=== PATIENT | male | born 1950 | race Hispanic/Latino ===

== ENCOUNTER 2017-06-11 13:46 | Inpatient (IN) | payer MEDICARE, OTHER ==
[~2017-06-11] VITALS: Ht 175.3 cm; Wt 113.2 kg
[~2017-06-11 13:46] MED LIST: ALDACTONE25 MG PO; AMIODARONE HCL200 MG PO; AVODART0.5 MG PO; BACLOFEN10 MG PO; BACTRIM DS TAB1 EACH PO; CARVEDILOL25 MG PO; CLINDAMYCIN HC150 MG PO; COLACE100 MG PO; COREG12.5 MG PO; COUMADIN2 MG PO; DOXYCYCLINE HY100 MG PO; FOLIC ACID0.8 MG PO; FUROSEMIDE40 MG PO; FUROSEMIDE80 MG PO; GABAPENTIN300 MG PO; HCT25T PO; HUMALOG100 UNIT/1 SQ; HUMALOG100 UNIT/3 SQ; HUMALOG100 UNITS/ SQ; HYDROCHLOROTHIA25 MG PO; Insulin Detemir SQ; KEFLEX500 MG PO; LANOXIN125 MCG PO; LASIX40 MG PO; LEVEMIR100 UNIT/1 SC; LEVEMIR100 UNIT/1 SQ; LEVP SQ; LINZESS PO; LISINOPRIL30 MG PO; LOSARTAN POTASS25 MG PO; Losartan Potassium PO; MECLIZINE HCL12.5 MG PO; MECLIZINE HCL25 MG PO; METFORMIN HCL500 MG PO; METOLAZONE2.5 MG PO; METOPROLOL TART25 MG PO; MILK OF MA2400 MG/10 PO; MIRALAX17 GM PO; NEU300 PO; NEXIUM40 MG PO; NO MED LIST; NORCO 5-325 TA1 EACH PO; NOVOLIN N100 UNIT/1 SQ; OMEPRAZOLE40 MG PO; PATADAY2.5 ML; PATADAY2.5 ML OP; POTASSIUM CHLO10 ME1 PO; POTASSIUM CHLO20 ME1 PO; PROSCAR5 MG PO; SENOKOT8.6 MG PO; SIMVASTATIN40 MG PO; SPIRONOLACTONE25 MG PO; TRAMADOL-ACETAMI1 EA PO; TYLENOL # 31 EA PO; WARFARIN SODIUM2 MG PO; ZESTRIL20 MG PO
[2017-06-11 15:02] LABS: INR 1.3; PROTHROMBIN TIME 16.9 seconds (11.9-14.5)
[2017-06-11 15:03] LABS: PARTIAL THROMBOPLASTIN TIME 42.5 seconds (23.8-35.5)
[2017-06-11 15:04] LABS: BASOPHILS # (AUTO) 0.1 (0.0-0.1); BASOPHILS % 0.7 % (0.0-1.0); EOSINOPHILS # (AUTO) 0.3 (0.0-0.4); EOSINOPHILS % 4.1 % (0.0-6.0); HEMATOCRIT 40.3 % (38.2-49.6); LYMPHOCYTES # (AUTO) 1.4 (1.0-3.2); LYMPHOCYTES % 20.1 % (18.0-39.1); MEAN CORPUSCULAR HEMOGLOBIN 31.7 pg (28-32); MEAN CORPUSCULAR HGB CONC 32.3 g/dL (31-35); MEAN CORPUSCULAR VOLUME 98.3 fL (81-99); MONOCYTES # (AUTO) 0.7 (0.2-0.8); MONOCYTES % 9.7 % (4.4-11.3); NEUTROPHILS # (AUTO) 4.6 (2.1-6.9); NEUTROPHILS % 65.1 % (38.7-80.0); PLATELET COUNT 94 x10e3/uL (140-360); RED CELL DISTRIBUTION WIDTH 16.7 % (11.7-14.4)
[2017-06-11 15:12] LABS: ALBUMIN/GLOBULIN RATIO 0.9 (0.8-2.0); ANION GAP 11.9 mmol/L (8-16); CALCIUM 8.9 mg/dL (8.4-10.2); CREATININE, SERUM 1.47 mg/dL (0.72-1.25); POTASSIUM 3.9 mmol/L (3.5-5.1)
[2017-06-11 15:19] LABS: CREATINE KINASE MB 8.7 ng/mL (0.00-5.00); TROPONIN I 0.036 ng/mL (0-0.300)
[2017-06-11 15:21] LABS: ABG HCO3 35 mmol/L (23-28); ABG PCO2 56 mmHg (41-51); ABG PO2 55 mmHg (80-105)
--- NOTE | 2017-06-11 15:43 | Diagnostic Imaging Report ---
EXAMINATION: Chest, CHEST SINGLE (PORTABLE) INDICATION: Shortness of breath. COMPARISON: Abdominal series with PA chest 05/06/2017 FINDINGS: LINES: Left chest cardiac device with lead projecting over the expected region of the right ventricle. Heart: Normal cardiac silhouette. Vascular: The pulmonary vasculature is within normal limits. Atherosclerotic calcifications of the aortic arch. Valve prosthesis. Mediastinum: No mediastinal, hilar, or axillary mass or lymphadenopathy. Lungs: No parenchymal mass. Bilateral perihilar opacifications. Pleura: No pleural effusion. No pneumothorax. Bones: No acute osseous abnormality. Degenerative changes of the thoracic spine. Median sternotomy wires. Soft tissues: Normal. Impression: Bilateral perihilar opacifications may represent edema or pneumonia. Signed by: Dr. Jose Juan Colorado M.D. on 06/11/2017 3:40 PM
[2017-06-11 20:00] VITALS: BP 130/74
[2017-06-11] MEDS: SODIUM CHLORIDE 0.9% 1000ML 1,000 ML IV SCH (20:16)
[2017-06-11 20:30] VITALS: BP 130/74
[2017-06-12] VITALS (7 sets, daily range): BP systolic 105–151; BP diastolic 64–74
[2017-06-12 01:09] LABS: CREATINE KINASE MB 8.2 ng/mL (0.00-5.00); TROPONIN I 0.034 ng/mL (0-0.300)
[2017-06-12] MEDS: MORPHINE SULFATE 2 MG/ML SYR IV PRN ×2 (02:42→06:02)
[2017-06-12] MEDS ORDERED: HYDROCODONE/APAP 5MG-325MG TAB PO PRN ×2 (03:00)
[2017-06-12] MEDS: SODIUM CHLORIDE 0.9% 1000ML 1,000 ML IV SCH (05:30)
[2017-06-12 08:05] LABS: CREATINE KINASE MB 8.6 ng/mL (0.00-5.00); TROPONIN I 0.033 ng/mL (0-0.300)
[2017-06-12 08:23] LABS: CHOL/HDL RATIO 3.4 (3.9-4.7)
[2017-06-12] MEDS ORDERED: SENNOSIDES 8.6 MG TAB PO PRN (10:00)
[2017-06-12] MEDS ORDERED: POLYETHYLENE GLYCOL 3350 17 GM PACK PO PRN (10:00)
[2017-06-12] MEDS ORDERED: MECLIZINE HCL 12.5 MG TAB PO PRN (10:00)
[2017-06-12] MEDS ORDERED: NON-FORMULARY MEDICATION (Metolazone 2.5 MG) PO PRN (10:00)
[2017-06-12] MEDS ORDERED: POTASSIUM CHLORIDE 20 MEQ TAB CR PO STA (10:24)
[2017-06-12] MEDS ORDERED: FUROSEMIDE INJ 10 MG/ML 4 ML VIAL IV ONE ×2 (10:30→16:30)
[2017-06-12] MEDS ORDERED: METOLAZONE 5 MG TAB PO PRN (10:30)
[2017-06-12] MEDS ORDERED: DEXTROSE 50% SYRINGE 50 ML IV PRN (10:30)
[2017-06-12] MEDS: FINASTERIDE 5 MG TAB PO SCH (10:46)
[2017-06-12] MEDS: INSULIN REGULAR, HUMAN 100 UNIT/1 ML 3ML VIAL SQ SCH ×3 (11:30→20:35)
[2017-06-12] MEDS ORDERED: INSULIN LISPRO SQ SCH (11:30)
[2017-06-12] MEDS: INSULIN LISPRO 100 UNIT/1 ML 3ML VIAL SQ SCH ×2 (12:44→17:00)
[2017-06-12] MEDS ORDERED: NON-FORMULARY MEDICATION (Furosemide 80 MG) PO SCH (17:00)
[2017-06-12] MEDS ORDERED: METOPROLOL TARTRATE 25 MG TAB PO SCH (17:00)
[2017-06-12] MEDS: GABAPENTIN 300 MG CAP PO SCH (17:25)
[2017-06-12] MEDS: WARFARIN SOD 2 MG TAB PO SCH (17:26)
[2017-06-12] MEDS: INSULIN DETEMIR 100 UNIT/ML PEN SQ SCH (20:35)
[2017-06-12] MEDS ORDERED: INSULIN DETEMIR 58 UNIT SQ SCH (21:00)
[2017-06-13] VITALS: BP 161/72
[2017-06-13 04:00] VITALS: BP 130/72
[2017-06-13 06:45] LABS: ANION GAP 12.5 mmol/L (8-16); CALCIUM 8.9 mg/dL (8.4-10.2); CREATININE, SERUM 1.21 mg/dL (0.72-1.25); POTASSIUM 3.5 mmol/L (3.5-5.1)
[2017-06-13] MEDS: INSULIN REGULAR, HUMAN 100 UNIT/1 ML 3ML VIAL SQ SCH ×4 (07:30→20:54)
[2017-06-13] MEDS: INSULIN LISPRO 100 UNIT/1 ML 3ML VIAL SQ SCH ×3 (08:20→16:30)
[2017-06-13 08:21] VITALS: BP 134/70
[2017-06-13] MEDS: LOSARTAN POTASSIUM 25 MG TAB PO SCH (08:35)
[2017-06-13] MEDS: OLOPATADINE 5 ML BTL OP SCH (08:35)
[2017-06-13] MEDS: FUROSEMIDE 40 MG TAB PO SCH ×2 (08:35→18:00)
[2017-06-13] MEDS: FINASTERIDE 5 MG TAB PO SCH (08:35)
[2017-06-13] MEDS: GABAPENTIN 300 MG CAP PO SCH ×2 (08:35→18:00)
[2017-06-13] MEDS ORDERED: AMIODARONE HCL 200 MG TAB PO SCH (09:00)
[2017-06-13] MEDS ORDERED: NON-FORMULARY MEDICATION (Olopatadine (Pataday) 1 DROP) SCH (09:00)
--- NOTE | 2017-06-13 10:31 | Consultation ---
DATE OF CONSULTATION: June 11, 2017 CARDIOLOGY CONSULTATION CLINICAL HISTORY: This is a 67-year-old man, known to me from previous evaluation, admitted via the emergency room because of progressive edema and shortness of breath. This patient is known to have congestive heart failure with ejection fraction of 30%. Additionally, there is history of moderate aortic regurgitation and mild mitral regurgitation. He is status post AICD implantation. There is history of atrial fibrillation versus junctional rhythm. There is history of mechanical mitral valve replacement for mitral stenosis. Additionally, he suffers from diabetes, hypertension. He has history of benign prostatic hypertrophy. Apparently, he has had peripheral edema, increasing abdominal girth, weight gain and shortness of breath. Was not able to get referral to see me in the office. He failed to improve, so I decided to come to the emergency room where he was being admitted. PAST MEDICAL HISTORY: Remarkable for above-mentioned conditions. Additionally, there is history of mild aortic stenosis with aortic valve gradient of 29 mmHg. 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 FAMILY HISTORY: Father from coronary artery disease. Mother had diabetes. Sister had bypass surgery at age 65. REVIEW OF SYSTEMS: Noncontributory. MEDICATIONS: In the past included, 1. Finasteride 5 mg daily. 2. Gabapentin 300 mg b.i.d. 3. Lasix 80 mg b.i.d. 4. Hydrochlorothiazide 25 mg daily. 5. Losartan. 6. Simvastatin 40 mg per day. 7. Coumadin 2 mg per day. 8. NovoLog insulin 38 units t.i.d. 9. Levemir insulin 50 units nightly. 10. Potassium chloride 20 mEq daily. 11. Metoprolol tartrate 12.5 mg b.i.d. 12. Colace 100 mg daily. 13. Omeprazole 40 mg daily. 14. Trazodone 50 mg daily. PHYSICAL EXAMINATION GENERAL: He is obese. He is status post left above-knee amputation. CARDIAC: Jugular veins were not distended. S1 and S2 were regular, somewhat slow. There is a 2/6 systolic murmur. LUNGS: Clear. ABDOMEN: Soft. Bowel sounds present. EXTREMITIES: Show no cyanosis, clubbing or edema. LABORATORY DATA: Electrocardiogram shows junctional bradycardia. Chest x-ray showed congestive heart failure. White count is 7100, hemoglobin 13, platelet count 94,000. BUN is 18, creatinine 1.4, glucose 148, sodium 140, potassium 3.9, bicarb 35. INR is 1.3. Liver functions were negative. IMPRESSION 1. Congestive heart failure with systolic dysfunction, ejection fraction approximately 30%. 2. History of mechanical mitral valve replacement for mitral stenosis. 3. Mild residual aortic stenosis. 4. Coronary artery disease, status post coronary artery bypass surgery. 5. Status post automatic implantable cardioverter-defibrillator implantation in August of 2014. 6. Chronic kidney disease, creatinine 1.47. 7. Junctional rhythm and history of atrial fibrillation. 8. Diabetes, insulin dependent. 9. Hyperlipidemia. 10. Benign prostatic hypertrophy. 11. Reflux esophagitis. 12. Obesity. 13. 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 14. Peripheral neuropathy. 15. Thrombocytopenia, platelet count 94,000. RECOMMENDATIONS: Increase diuretics. Review echocardiogram. Thank you very much. Job#: [id number] cc:MD WENDY LUA MD CLEVE O. JAMES, MD
[2017-06-13] MEDS ORDERED: METOLAZONE 5 MG TAB PO ONE (11:30)
[2017-06-13 12:19] VITALS: BP 151/70
[2017-06-13 16:54] VITALS: BP 134/71
[2017-06-13] MEDS: WARFARIN SOD 2 MG TAB PO SCH (18:00)
[2017-06-13 19:49] VITALS: BP 142/79
[2017-06-13] MEDS: INSULIN DETEMIR 100 UNIT/ML PEN SQ SCH (20:55)
[2017-06-14 01:39] VITALS: BP 136/63
[2017-06-14 04:21] VITALS: BP 113/56
[2017-06-14] MEDS: INSULIN LISPRO 100 UNIT/1 ML 3ML VIAL SQ SCH ×3 (07:30→16:30)
[2017-06-14] MEDS: INSULIN REGULAR, HUMAN 100 UNIT/1 ML 3ML VIAL SQ SCH ×4 (07:30→20:40)
[2017-06-14] MEDS ORDERED: METOLAZONE 5 MG TAB PO ONE (08:00)
[2017-06-14 08:32] VITALS: BP 123/78
[2017-06-14] MEDS: GABAPENTIN 300 MG CAP PO SCH ×2 (09:14→17:40)
[2017-06-14] MEDS: OLOPATADINE 5 ML BTL OP SCH (09:14)
[2017-06-14] MEDS: FUROSEMIDE 40 MG TAB PO SCH ×2 (09:14→17:40)
[2017-06-14] MEDS: FINASTERIDE 5 MG TAB PO SCH (09:14)
[2017-06-14] MEDS ORDERED: POTASSIUM CHLORIDE 20 MEQ TAB CR PO STA (10:31)
[2017-06-14] MEDS ORDERED: ACETAZOLAMIDE 500 MG CAP PO ONE (10:45)
[2017-06-14 12:00] VITALS: BP 132/78
[2017-06-14] MEDS: LOSARTAN POTASSIUM 25 MG TAB PO SCH (13:02)
[2017-06-14 16:14] VITALS: BP 132/69
[2017-06-14 17:45] LABS: INR 1.23; PROTHROMBIN TIME 16.1 seconds (11.9-14.5)
[2017-06-14] MEDS: WARFARIN SOD 2 MG TAB PO SCH (17:57)
[2017-06-14 20:00] VITALS: BP 130/68
[2017-06-14] MEDS: INSULIN DETEMIR 100 UNIT/ML PEN SQ SCH (20:47)
[2017-06-15] VITALS: BP 113/69
[2017-06-15 04:00] VITALS: BP 138/83
[2017-06-15] MEDS: INSULIN LISPRO 100 UNIT/1 ML 3ML VIAL SQ SCH ×3 (07:30→17:30)
[2017-06-15] MEDS: INSULIN REGULAR, HUMAN 100 UNIT/1 ML 3ML VIAL SQ SCH ×4 (07:30→20:40)
[2017-06-15 07:42] VITALS: BP 129/74
[2017-06-15] MEDS: GABAPENTIN 300 MG CAP PO SCH ×2 (08:46→17:34)
[2017-06-15] MEDS: OLOPATADINE 5 ML BTL OP SCH (08:46)
[2017-06-15] MEDS: FINASTERIDE 5 MG TAB PO SCH (08:46)
[2017-06-15] MEDS: FUROSEMIDE 40 MG TAB PO SCH ×2 (08:46→17:34)
[2017-06-15] MEDS: METOLAZONE 5 MG TAB PO SCH (08:46)
[2017-06-15] MEDS: LOSARTAN POTASSIUM 25 MG TAB PO SCH (09:00)
[2017-06-15] MEDS ORDERED: ACETAZOLAMIDE 500 MG CAP PO ONE (09:45)
[2017-06-15] MEDS ORDERED: WARFARIN SOD 5 MG TAB PO ONE (09:45)
[2017-06-15 10:22] LABS: ALBUMIN 3.7 g/dL (3.5-5.0); ALBUMIN/GLOBULIN RATIO 0.8 (0.8-2.0); ANION GAP 13.5 mmol/L (8-16); CALCIUM 10.6 mg/dL (8.4-10.2); CREATININE, SERUM 1.59 mg/dL (0.72-1.25)
[2017-06-15 10:48] LABS: POTASSIUM 2.5 mmol/L (3.5-5.1)
[2017-06-15 11:05] LABS: INR 1.24; PROTHROMBIN TIME 16.2 seconds (11.9-14.5)
[2017-06-15 11:32] VITALS: BP 112/76
[2017-06-15] MEDS: POTASSIUM CHLORIDE 20MEQ/100ML 200 ML IV ONE ×2 (12:21→16:47)
[2017-06-15] MEDS ORDERED: SODIUM CHLORIDE 0.9% IV ONE (13:00)
[2017-06-15] MEDS ORDERED: POTASSIUM CHLORIDE IV ONE (13:00)
[2017-06-15 15:44] VITALS: BP 126/81
[2017-06-15] MEDS ORDERED: POTASSIUM CHLORIDE 20MEQ/100ML 100 ML IV ONE (16:45)
[2017-06-15] MEDS: WARFARIN SOD 2 MG TAB PO SCH (17:33)
[2017-06-15 20:00] VITALS: BP 108/73
[2017-06-15] MEDS: INSULIN DETEMIR 100 UNIT/ML PEN SQ SCH (20:40)
[2017-06-15] MEDS: ENOXAPARIN SOD INJ 60 MG/0.6 ML SYR SC SCH (20:42)
[2017-06-15 22:55] LABS: ANION GAP 17.7 mmol/L (8-16); CALCIUM 11.3 mg/dL (8.4-10.2); CREATININE, SERUM 1.57 mg/dL (0.72-1.25)
[2017-06-15 23:01] LABS: POTASSIUM 2.7 mmol/L (3.5-5.1)
[2017-06-15] MEDS ORDERED: POTASSIUM CHLORIDE 20 MEQ TAB CR PO STA (23:21)
[2017-06-15] MEDS ORDERED: POTASSIUM CHLORIDE 20MEQ/100ML 200 ML IV STA (23:21)
[2017-06-15] MEDS ORDERED: SODIUM CHLORIDE 0.9% 250ML 250 ML ONE (23:35)
[2017-06-16] VITALS: BP 127/81
[2017-06-16] MEDS ORDERED: POTASSIUM CHLORIDE 20MEQ/100ML 100 ML ONE ×2 (00:57→00:59)
[2017-06-16 04:00] VITALS: BP 108/60
--- NOTE | 2017-06-16 06:54 | History and Physical ---
I was notified of this admission on June 15, 2017 at 5 p.m. CHIEF COMPLAINT: Shortness of breath and leg edema. HISTORY OF PRESENT ILLNESS: This is a 67-year-old man with the history of systolic congestive heart failure, now developing worsening shortness of breath and leg edema at home. Therefore, to the hospital. He was admitted for further evaluation and management. Denies any chest pain, denies any cough. PAST MEDICAL HISTORY: Systolic congestive heart failure, mild aortic stenosis, diabetes mellitus, type 2, hypertension, diabetic nephropathy, left ejection fraction 30%, status post AICD placement, atrial fibrillation, mitral valve disease, status post replacement, coronary artery disease status post bypass surgery, ischemic cardiomyopathy, peripheral vascular disease, status post right AKA, benign positional paroxysmal vertigo. PAST SURGICAL HISTORY: Right AKA, AICD placement, coronary artery bypass grafting. ALLERGIES: PER ELECTRONIC MEDICAL RECORDS. FAMILY HISTORY/SOCIAL HISTORY: No alcohol or illicits. Father of coronary artery disease, mother has diabetes mellitus, and sister had coronary artery disease. MEDICATIONS: Per electronic medical records. REVIEW OF SYSTEMS: Denies any chest pain. Denies any fever, chills. PHYSICAL EXAM VITAL SIGNS: Reviewed. GENERAL: A tired-appearing man resting in bed. HEENT: Anicteric. Pupils respond to light. No oral lesions. CARDIOVASCULAR: Normal S1 and S2. He has 2/6 systolic murmur. LUNGS: Moderate breath sounds. Decreased at base. ABDOMEN: Soft, nontender, nondistended. EXTREMITIES: No edema or calf tenderness. He has a right AKA, well healed. SKIN: Dry. PSYCHIATRIC: Flat affect. NEUROLOGIC: Alert and appropriate. Moves all extremities. LABS: Reviewed. MEDICATIONS: Reviewed. ASSESSMENT AND PLAN: This is a 67-year-old man with 1. Acute exacerbation of systolic congestive heart failure, left ventricular ejection fraction 30%. 2. Will continue diuretics. 3. Acute rhabdomyolysis. Will follow up labs. 4. Diabetes mellitus, type 2. Will obtain hemoglobin A1c and lipid panel. He is on Levemir 58 units at bedtime. 5. Diabetic nephropathy/chronic kidney disease, appears to be chronic kidney disease stage 3. Will monitor renal function. Continue gabapentin. 6. Chronic atrial fibrillation. Continue Lovenox q.12. 7. Patient is also on metolazone. 8. Patient will continue bowel regimen. 9. Benign positional paroxysmal vertigo history. Continue meclizine. 10. Normocytic anemia, mild. Will follow. 11. Thrombocytopenia. Will monitor while patient is on anticoagulation. 12. Severe hypokalemia. Will replace and recheck this morning. 13. Chest x-ray shows pulmonary edema. Will continue diuretics. 14. Prophylaxis: Pepcid. Not on anticoagulation. 15. Disposition. 16. Continue current care. Monitor closely. Physical therapy consultation. 17. Bilateral pulmonary edema. Job#: [id number] CQ
[2017-06-16 07:57] VITALS: BP 110/66
[2017-06-16] MEDS: INSULIN LISPRO 100 UNIT/1 ML 3ML VIAL SQ SCH ×3 (08:12→16:43)
[2017-06-16] MEDS: INSULIN REGULAR, HUMAN 100 UNIT/1 ML 3ML VIAL SQ SCH ×4 (08:13→20:05)
[2017-06-16] MEDS: FINASTERIDE 5 MG TAB PO SCH (08:57)
[2017-06-16] MEDS: ENOXAPARIN SOD INJ 60 MG/0.6 ML SYR SC SCH ×2 (08:57→20:15)
[2017-06-16] MEDS: FUROSEMIDE 40 MG TAB PO SCH ×2 (08:58→16:45)
[2017-06-16] MEDS: FAMOTIDINE 20 MG TAB PO SCH ×2 (08:58→16:45)
[2017-06-16] MEDS: GABAPENTIN 300 MG CAP PO SCH ×2 (08:58→16:45)
[2017-06-16] MEDS: LOSARTAN POTASSIUM 25 MG TAB PO SCH (08:58)
[2017-06-16] MEDS: OLOPATADINE 5 ML BTL OP SCH (08:58)
[2017-06-16] MEDS: METOLAZONE 5 MG TAB PO SCH (08:59)
[2017-06-16 09:18] LABS: INR 1.29; PROTHROMBIN TIME 16.8 seconds (11.9-14.5)
[2017-06-16 09:26] LABS: ANION GAP 14.9 mmol/L (8-16); CALCIUM 10.7 mg/dL (8.4-10.2); CREATININE, SERUM 1.63 mg/dL (0.72-1.25)
[2017-06-16 09:32] LABS: POTASSIUM 2.9 mmol/L (3.5-5.1)
[2017-06-16] MEDS ORDERED: POTASSIUM CHLORIDE 20 MEQ TAB CR PO ONE (10:25)
[2017-06-16] MEDS ORDERED: ACETAZOLAMIDE 500 MG CAP PO ONE (11:00)
[2017-06-16] MEDS ORDERED: WARFARIN SOD 5 MG TAB PO ONE (11:00)
[2017-06-16 11:51] VITALS: BP 119/73
[2017-06-16 16:21] VITALS: BP 170/70
[2017-06-16] MEDS: WARFARIN SOD 2 MG TAB PO SCH (16:45)
[2017-06-16 20:07] VITALS: BP 126/68
[2017-06-16] MEDS: INSULIN DETEMIR 100 UNIT/ML PEN SQ SCH (20:15)
[2017-06-17 00:31] VITALS: BP 136/63
[2017-06-17 04:54] VITALS: BP 109/67
[2017-06-17 07:37] VITALS: BP 127/84
[2017-06-17 07:48] LABS: INR 1.57; PROTHROMBIN TIME 19.6 seconds (11.9-14.5)
[2017-06-17 08:01] LABS: ALBUMIN 4.2 g/dL (3.5-5.0); ALBUMIN/GLOBULIN RATIO 0.8 (0.8-2.0); ANION GAP 17.4 mmol/L (8-16); CALCIUM 11.2 mg/dL (8.4-10.2); CREATININE, SERUM 1.78 mg/dL (0.72-1.25)
[2017-06-17] MEDS: INSULIN LISPRO 100 UNIT/1 ML 3ML VIAL SQ SCH ×3 (08:20→17:16)
[2017-06-17 08:32] LABS: POTASSIUM 2.4 mmol/L (3.5-5.1)
[2017-06-17] MEDS: FAMOTIDINE 20 MG TAB PO SCH ×2 (09:03→16:16)
[2017-06-17] MEDS: LOSARTAN POTASSIUM 25 MG TAB PO SCH (09:03)
[2017-06-17] MEDS: FINASTERIDE 5 MG TAB PO SCH (09:04)
[2017-06-17] MEDS: GABAPENTIN 300 MG CAP PO SCH ×2 (09:04→16:17)
[2017-06-17] MEDS: FUROSEMIDE 40 MG TAB PO SCH ×2 (09:04→16:17)
[2017-06-17] MEDS: OLOPATADINE 5 ML BTL OP SCH (09:09)
[2017-06-17] MEDS ORDERED: POTASSIUM CHLORIDE 20MEQ/100ML 200 ML IV ONE ×2 (09:15→21:00)
[2017-06-17] MEDS ORDERED: POTASSIUM CHLORIDE 20 MEQ TAB CR PO ONE ×2 (09:15→20:55)
--- NOTE | 2017-06-17 10:38 | Progress Note ---
DATE: June 17, 2017 MEDICINE PROGRESS NOTE TIME OF SERVICE: 9 a.m. SUBJECTIVE: Overnight no events. REVIEW OF SYSTEMS: Denies any dizziness, chest pain. VITAL SIGNS: Reviewed. PHYSICAL EXAMINATION GENERAL APPEARANCE: A tired-appearing man resting in bed. HEENT: Anicteric. CARDIOVASCULAR: Normal S1/S2. A 2/6 systolic murmur. LUNGS: Moderate breath sounds. ABDOMEN: Soft, nontender, nondistended. EXTREMITIES: He had no edema or calf tenderness. He has right AKA well healed. SKIN: Dry. PSYCHIATRIC: Flat affect. NEUROLOGICALLY: Alert and appropriate. Moving all extremities. LABS: Reviewed. MEDICATIONS: Reviewed. ASSESSMENT AND PLAN: A 67-year-old man. 1. Acute exacerbation of systolic congestive heart failure. Left ventricular ejection fraction 30%. 2. Acute rhabdomyolysis. 3. Diabetes mellitus type 2. 4. Diabetic nephropathy/chronic kidney disease stage 3. 5. Chronic atrial fibrillation. 6. Benign paroxysmal positional vertigo. 7. Normocytic anemia. 8. Thrombocytopenia. 9. Severe hypokalemia. 10. Pulmonary edema. PLAN 1. Continue diuretics. We may need to reduce as creatinine continues to rise. 2. Monitor renal function in the setting of chronic kidney disease stage 3. 3. Follow up labs. 4. Continue insulin, Levemir at bedtime. 5. Continue Lovenox q.12. 6. Replace potassium and recheck later today. 7. Glucose control ranging from 91 to 216. 8. Follow up INR. Today INR is 1.57. Continue to monitor while on Coumadin. Job#: [id number] [place]
[2017-06-17] MEDS ORDERED: ACETAZOLAMIDE 250 MG TAB PO ONE (10:45)
[2017-06-17 13:16] VITALS: BP 106/68
[2017-06-17] MEDS: WARFARIN SOD 2 MG TAB PO SCH (16:17)
[2017-06-17 16:22] VITALS: BP 124/81
[2017-06-17] MEDS ORDERED: WARFARIN SOD 5 MG TAB PO SCH (17:00)
[2017-06-17 17:55] LABS: ANION GAP 16.7 mmol/L (8-16); CALCIUM 11.3 mg/dL (8.4-10.2); CREATININE, SERUM 1.91 mg/dL (0.72-1.25)
[2017-06-17 17:58] LABS: POTASSIUM 2.7 mmol/L (3.5-5.1)
[2017-06-17 20:00] VITALS: BP 130/62
[2017-06-17] MEDS ORDERED: SODIUM CHLORIDE 0.9% 500ML 500 ML ONE (20:39)
[2017-06-17] MEDS: INSULIN DETEMIR 100 UNIT/ML PEN SQ SCH (21:05)
[2017-06-18] VITALS: BP 121/68
[2017-06-18 04:00] VITALS: BP 92/72
[2017-06-18] MEDS: INSULIN LISPRO 100 UNIT/1 ML 3ML VIAL SQ SCH ×3 (08:00→17:00)
[2017-06-18] MEDS: FAMOTIDINE 20 MG TAB PO SCH ×2 (08:00→16:27)
[2017-06-18 08:05] VITALS: BP 134/62
[2017-06-18 09:25] LABS: ALBUMIN 3.7 g/dL (3.5-5.0); ALBUMIN/GLOBULIN RATIO 0.7 (0.8-2.0); ANION GAP 14.7 mmol/L (8-16); CALCIUM 10.6 mg/dL (8.4-10.2); CREATININE, SERUM 1.49 mg/dL (0.72-1.25)
[2017-06-18 09:28] LABS: POTASSIUM 2.7 mmol/L (3.5-5.1)
[2017-06-18] MEDS: OLOPATADINE 5 ML BTL OP SCH (09:39)
[2017-06-18] MEDS: GABAPENTIN 300 MG CAP PO SCH ×2 (09:40→16:27)
[2017-06-18] MEDS: FINASTERIDE 5 MG TAB PO SCH (09:40)
[2017-06-18] MEDS: LOSARTAN POTASSIUM 25 MG TAB PO SCH (09:40)
[2017-06-18] MEDS ORDERED: POTASSIUM CHLORIDE 20MEQ/100ML 200 ML IV ONE (10:00)
[2017-06-18 10:02] LABS: BASOPHILS # (AUTO) 0.1 (0.0-0.1); BASOPHILS % 0.7 % (0.0-1.0); EOSINOPHILS # (AUTO) 0.2 (0.0-0.4); EOSINOPHILS % 2.6 % (0.0-6.0); HEMATOCRIT 43.7 % (38.2-49.6); HEMOGLOBIN 14.5 g/dL (14.0-18.0); LYMPHOCYTES # (AUTO) 1.6 (1.0-3.2); LYMPHOCYTES % 19.3 % (18.0-39.1); MEAN CORPUSCULAR HEMOGLOBIN 31.9 pg (28-32); MEAN CORPUSCULAR HGB CONC 33.2 g/dL (31-35); MEAN CORPUSCULAR VOLUME 96.3 fL (81-99); MONOCYTES % 11.9 % (4.4-11.3); NEUTROPHILS # (AUTO) 5.4 (2.1-6.9); NEUTROPHILS % 65.1 % (38.7-80.0); PLATELET COUNT 168 x10e3/uL (140-360); RED BLOOD COUNT 4.54 x10e6/uL (4.3-5.7); RED CELL DISTRIBUTION WIDTH 15.2 % (11.7-14.4)
[2017-06-18 10:41] LABS: INR 2.31; PROTHROMBIN TIME 26.6 seconds (11.9-14.5)
[2017-06-18] MEDS ORDERED: POTASSIUM CHLORIDE 20 MEQ TAB CR PO ONE ×2 (10:45)
[2017-06-18] MEDS ORDERED: POTASSIUM CHL IV ONE (11:00)
[2017-06-18] MEDS ORDERED: SODIUM CHLORIDE 0.9% IV ONE (11:00)
[2017-06-18 12:00] VITALS: BP 112/67
--- NOTE | 2017-06-18 15:15 | Progress Note ---
DATE: June 18, 2017 MEDICINE PROGRESS NOTE TIME OF SERVICE: 7:40 a.m. SUBJECTIVE: Overnight no events. REVIEW OF SYSTEMS: Denies any dizziness, chest pain. VITAL SIGNS: Reviewed. PHYSICAL EXAMINATION GENERAL APPEARANCE: A tired-appearing man resting in bed. HEENT: Anicteric. CARDIOVASCULAR: Normal S1/S2. A 2/6 systolic murmur. LUNGS: Moderate breath sounds. ABDOMEN: Soft, nontender, nondistended. EXTREMITIES: No edema or calf tenderness. He has right AKA, well healed. SKIN: Dry. PSYCHIATRIC: Flat affect. NEUROLOGICALLY: Alert and oriented x3. LABS: Reviewed. MEDICATIONS: Reviewed. ASSESSMENT: A 67-year-old man. 1. Acute exacerbation of systolic congestive heart failure. Left ventricular ejection fraction 30%. 2. Acute rhabdomyolysis. 3. Diabetes mellitus type 2. 4. Diabetic nephropathy/chronic kidney disease stage 3. 5. Chronic atrial fibrillation. 6. Benign paroxysmal positional vertigo. 7. Normocytic anemia/thrombocytopenia. 8. Severe hypokalemia. 9. Pulmonary edema. PLAN 1. Continue diuretics at reduced dose. 2. Continue to monitor renal function. 3. Obtain labs this morning to assess the potassium level and the renal function. 4. Nephrology consultation. 5. Check INR level. 6. Will hold Lasix for today. 7. May need to reduce gabapentin. Job#: [id number] EV
[2017-06-18] MEDS: WARFARIN SOD 2 MG TAB PO SCH (16:27)
[2017-06-18 16:43] VITALS: BP 111/81
[2017-06-18] MEDS ORDERED: POTASSIUM CHL 40 MEQ in WATER STERILE 10ML VIAL 80 ML IV ONE (19:00)
[2017-06-18 20:00] VITALS: BP 114/80
[2017-06-18] MEDS: INSULIN DETEMIR 100 UNIT/ML PEN SQ SCH (21:30)
[2017-06-19] VITALS: BP 105/77
[2017-06-19 04:00] VITALS: BP 132/73
[2017-06-19 07:20] LABS: INR 2.25; PROTHROMBIN TIME 26.1 seconds (11.9-14.5)
[2017-06-19 07:34] LABS: ALBUMIN 3.7 g/dL (3.5-5.0); ALBUMIN/GLOBULIN RATIO 0.7 (0.8-2.0); ANION GAP 13.8 mmol/L (8-16); CALCIUM 10.4 mg/dL (8.4-10.2); CREATININE, SERUM 1.72 mg/dL (0.72-1.25)
[2017-06-19 07:37] LABS: POTASSIUM 2.8 mmol/L (3.5-5.1)
[2017-06-19] MEDS: FAMOTIDINE 20 MG TAB PO SCH ×2 (08:00→17:38)
[2017-06-19] MEDS: INSULIN LISPRO 100 UNIT/1 ML 3ML VIAL SQ SCH ×3 (08:00→17:10)
[2017-06-19] MEDS ORDERED: POTASSIUM CHLORIDE 20 MEQ TAB CR PO ONE ×2 (08:30→19:30)
[2017-06-19] MEDS ORDERED: POTASSIUM CHL 40 MEQ in WATER STERILE 10ML VIAL 80 ML IV ONE (09:00)
[2017-06-19 09:21] VITALS: BP 110/73
[2017-06-19] MEDS: FINASTERIDE 5 MG TAB PO SCH (09:50)
[2017-06-19] MEDS: GABAPENTIN 300 MG CAP PO SCH ×2 (09:50→17:38)
[2017-06-19] MEDS: LOSARTAN POTASSIUM 25 MG TAB PO SCH (09:50)
[2017-06-19] MEDS: OLOPATADINE 5 ML BTL OP SCH (09:52)
[2017-06-19] MEDS ORDERED: SODIUM CHLORIDE 0.9% 250ML 250 ML ONE (12:55)
[2017-06-19] MEDS: SPIRONOLACTONE 25 MG TAB PO SCH (14:38)
[2017-06-19] MEDS: ACETAMINOPHEN 325 MG TAB PO PRN ×2 (14:38→19:55)
[2017-06-19] MEDS ORDERED: AMILORIDE HCL 5 MG TAB PO ONE (15:00)
[2017-06-19 16:00] VITALS: BP 140/88
[2017-06-19 16:13] LABS: POTASSIUM,URINE 93.7 mmol/L; SODIUM,URINE < 20 mmol/L
[2017-06-19 16:13] LABS: POTASSIUM 3.4 mmol/L (3.5-5.1)
[2017-06-19] MEDS: WARFARIN SOD 2 MG TAB PO SCH (17:38)
[2017-06-19] MEDS ORDERED: POTASSIUM CHLORIDE 20MEQ/100ML 100 ML IV ONE ×2 (19:30→23:30)
[2017-06-19 20:00] VITALS: BP 105/73
[2017-06-19] MEDS: INSULIN DETEMIR 100 UNIT/ML PEN SQ SCH (21:10)
--- NOTE | 2017-06-19 22:08 | Consultation ---
DATE OF CONSULTATION: June 18, 2017 RENAL CONSULTATION NOTE REASON FOR CONSULT: Management of hypokalemia. Patient is a 67-year-old male with history of the followin. Diabetes mellitus. 2. Hypertension. 3. Congestive heart failure. 4. Chronic kidney disease, stage 3. 5. Ejection fraction 30%. 6. Status post AICD placement. 7. Atrial fibrillation. 8. Mitral valve disease, status post replacement. 9. CAD, status post CABG. 10. Peripheral vascular disease, status post right AKA. 11. BPPV. Patient with the above medical history presented with worsening lower extremity edema and shortness of breath. Patient presented to the hospital and there was concern for fluid overload; so, aggressive diuresis was started. Patient recently has had severe hypokalemia with potassium level down at 2.7 with severe metabolic alkalosis with bicarbonate level of 40. We were consulted for management of hypokalemia. MEDICATION: Reviewed. ALLERGIES: NO KNOWN DRUG ALLERGIES. SOCIAL HISTORY: No alcohol, drug use. FAMILY HISTORY: CAD, diabetes mellitus. PHYSICAL EXAM VITALS: Blood pressure 134/62, pulse 60. GENERAL: Male, in no apparent distress. HEART: Regular rate and rhythm. LUNGS: Clear to auscultation bilaterally. ABDOMEN: Soft. EXTREMITIES: Warm and dry with no edema. Right [id number] amputation. LABS: Sodium 139, potassium 2.7, chloride 87, bicarbonate 40, BUN 44, creatinine 1.49. Hemoglobin 14.5. ASSESSMENT AND PLAN: The patient is a 67-year-old male with diabetes, hypertension, congestive heart failure with ejection fraction of 30% presented with fluid overload now with severe hypokalemia and metabolic alkalosis. 1. Renal: Patient with chronic kidney disease stage 3 with apparent stable renal function. Manage electrolytes. Patient with severe hypokalemia, I suspect secondary to aggressive diuresis with loop diuretic. Will replete with potassium chloride and also, add Aldactone. 2. Acid base: Patient with what appears to be significant contraction alkalosis. Agree with holding loop diuretics. Will begin Aldactone and replete potassium chloride. 3. Volume status: Patient appears to be close euvolemic on exam. Will check brain natriuretic peptide as well. Thank you for allowing me to participate in the care of this patient. Please do not hesitate to call with any questions or concerns. Job#: [id number] CQ
[2017-06-19] MEDS ORDERED: POTASSIUM CHLORIDE 20MEQ/100ML 100 ML ONE (23:59)
[2017-06-20] VITALS: BP 116/55
[2017-06-20] MEDS: ACETAMINOPHEN 325 MG TAB PO PRN (02:44)
[2017-06-20] MEDS ORDERED: TRAMADOL HCL 50 MG TAB PO PRN (02:45)
[2017-06-20 04:00] VITALS: BP 120/71
[2017-06-20 07:14] LABS: INR 2.18; PROTHROMBIN TIME 25.4 seconds (11.9-14.5)
[2017-06-20] MEDS: INSULIN LISPRO 100 UNIT/1 ML 3ML VIAL SQ SCH ×3 (07:30→16:30)
[2017-06-20 07:35] LABS: ALBUMIN 3.7 g/dL (3.5-5.0); ALBUMIN/GLOBULIN RATIO 0.7 (0.8-2.0); ANION GAP 11.1 mmol/L (8-16); CALCIUM 10.1 mg/dL (8.4-10.2); CREATININE, SERUM 1.54 mg/dL (0.72-1.25); POTASSIUM 4.1 mmol/L (3.5-5.1)
[2017-06-20 08:21] VITALS: BP 113/66
[2017-06-20] MEDS: FAMOTIDINE 20 MG TAB PO SCH ×2 (08:44→17:07)
[2017-06-20] MEDS: SPIRONOLACTONE 25 MG TAB PO SCH (08:44)
[2017-06-20] MEDS: FINASTERIDE 5 MG TAB PO SCH (08:45)
[2017-06-20] MEDS: LOSARTAN POTASSIUM 25 MG TAB PO SCH (08:45)
[2017-06-20] MEDS: GABAPENTIN 300 MG CAP PO SCH ×2 (08:45→17:07)
[2017-06-20] MEDS ORDERED: POTASSIUM CHLORIDE 20 MEQ TAB CR PO SCH (10:15)
[2017-06-20 12:40] VITALS: BP 124/79
[2017-06-20 16:39] VITALS: BP 114/63
[2017-06-20] MEDS: OLOPATADINE 5 ML BTL OP SCH (17:07)
[2017-06-20] MEDS: WARFARIN SOD 2 MG TAB PO SCH ×2 (17:07→17:09)
[2017-06-20] MEDS ORDERED: PIPERACILLIN/TAZO 2.25 GM 50 ML IV SCH (18:00)
[2017-06-20] MEDS: PIPERACILLIN IV SCH (18:21)
[2017-06-20] MEDS: TAZOBACTAM IV SCH (18:21)
[2017-06-20] MEDS: DEXTROSE 5% IV SCH (18:21)
[2017-06-20 18:23] LABS: BASOPHILS # (AUTO) 0.1 (0.0-0.1); BASOPHILS % 0.7 % (0.0-1.0); EOSINOPHILS # (AUTO) 0.2 (0.0-0.4); EOSINOPHILS % 2.2 % (0.0-6.0); HEMOGLOBIN 13.6 g/dL (14.0-18.0); LYMPHOCYTES # (AUTO) 1.8 (1.0-3.2); LYMPHOCYTES % 16.5 % (18.0-39.1); MEAN CORPUSCULAR HEMOGLOBIN 32.3 pg (28-32); MEAN CORPUSCULAR HGB CONC 33.2 g/dL (31-35); MEAN CORPUSCULAR VOLUME 97.4 fL (81-99); MONOCYTES # (AUTO) 1.7 (0.2-0.8); MONOCYTES % 15.9 % (4.4-11.3); NEUTROPHILS # (AUTO) 6.8 (2.1-6.9); NEUTROPHILS % 64.2 % (38.7-80.0); PLATELET COUNT 171 x10e3/uL (140-360); RED BLOOD COUNT 4.21 x10e6/uL (4.3-5.7); RED CELL DISTRIBUTION WIDTH 14.9 % (11.7-14.4)
[2017-06-20 20:00] VITALS: BP 149/81
[2017-06-20] MEDS: INSULIN DETEMIR 100 UNIT/ML PEN SQ SCH (21:00)
[2017-06-20] MEDS: CLINDAMYCIN 300MG 50 ML IV SCH (21:48)
[2017-06-21] VITALS: BP 148/66
[2017-06-21] MEDS: TAZOBACTAM IV SCH ×3 (02:00→17:49)
[2017-06-21] MEDS: PIPERACILLIN IV SCH ×3 (02:00→17:49)
[2017-06-21] MEDS: DEXTROSE 5% IV SCH ×3 (02:00→17:49)
[2017-06-21 04:00] VITALS: BP 121/56
--- NOTE | 2017-06-21 04:56 | Progress Note ---
DATE: June 19, 2017 TIME: 5:35 a.m. OVERNIGHT: No events. REVIEW OF SYSTEMS: Denies any dizziness. PHYSICAL EXAMINATION VITAL SIGNS: Reviewed. GENERAL: A tired-appearing man resting in bed. HEENT: Anicteric. CARDIOVASCULAR: Normal S1 and S2. A 2/6 systolic murmur. LUNGS: Moderate breath sounds. ABDOMEN: Soft, nontender and nondistended. EXTREMITIES: No edema. He has a right BKA well-healed. SKIN: Dry. PSYCHIATRIC: Flat affect. LABS: Reviewed. MEDICATIONS: Reviewed. ASSESSMENT: A 67-year-old man with: 1. Acute exacerbation of systolic congestive heart failure: Left ventricular ejection fraction 30%. 2. Acute rhabdomyolysis. 3. Diabetes mellitus, type 2. 4. Diabetic nephropathy/chronic kidney disease, stage 3. 5. Chronic atrial fibrillation. 6. BPH. 7. Normocytic anemia/thrombocytopenia. 8. Severe hypokalemia. 9. Pulmonary edema. PLAN 1. Monitor renal function. 2. Follow up labs. 3. Lasix on hold. 4. Physical therapy. Job#: [id number] [place]
[2017-06-21] MEDS: CLINDAMYCIN 300MG 50 ML IV SCH ×3 (05:19→22:56)
--- NOTE | 2017-06-21 05:19 | Progress Note ---
DATE: June 20, 2017 TIME: 5:35 a.m. OVERNIGHT: Ankle pain. REVIEW OF SYSTEMS: Denies any dizziness or chest pain. PHYSICAL EXAMINATION VITAL SIGNS: Reviewed. GENERAL: A tired-appearing man, resting in bed. HEENT: Anicteric. CARDIOVASCULAR: Normal S1 and S2. LUNGS: Normal breath sounds. ABDOMEN: Soft, nontender and nondistended. EXTREMITIES: He has a right AKA well-healed. He has a left ankle which is tender, but no visible lesion at this time. SKIN: Dry. PSYCHIATRIC: Flat affect. LABS: Reviewed. MEDICATIONS: Reviewed. ASSESSMENT: A 67-year-old man with: 1. Acute exacerbation of systolic congestive heart failure, ejection fraction 30%. 2. Acute rhabdomyolysis. 3. Diabetes mellitus type 2. 4. Diabetic nephropathy. 5. Chronic kidney disease stage 3. 6. Benign paroxysmal positional vertigo. 7. Chronic atrial fibrillation. 8. Severe hypokalemia. 9. Pulmonary edema. PLAN 1. Start clindamycin and Zosyn for possible infection of the left ankle. 2. Renal function improving. 3. Renally dose medications. 4. INR has been therapeutic. 5. Physical therapy. 6. Discharge planning. Job#: [id number] JASIEL
[2017-06-21 07:20] LABS: BASOPHILS # (AUTO) 0.1 (0.0-0.1); BASOPHILS % 0.5 % (0.0-1.0); EOSINOPHILS # (AUTO) 0.2 (0.0-0.4); EOSINOPHILS % 2.5 % (0.0-6.0); HEMATOCRIT 40.6 % (38.2-49.6); HEMOGLOBIN 13.2 g/dL (14.0-18.0); LYMPHOCYTES # (AUTO) 1.7 (1.0-3.2); LYMPHOCYTES % 18.3 % (18.0-39.1); MEAN CORPUSCULAR HEMOGLOBIN 31.5 pg (28-32); MEAN CORPUSCULAR HGB CONC 32.5 g/dL (31-35); MEAN CORPUSCULAR VOLUME 96.9 fL (81-99); MONOCYTES # (AUTO) 1.2 (0.2-0.8); MONOCYTES % 13.3 % (4.4-11.3); PLATELET COUNT 156 x10e3/uL (140-360); RED BLOOD COUNT 4.19 x10e6/uL (4.3-5.7)
[2017-06-21] MEDS: INSULIN LISPRO 100 UNIT/1 ML 3ML VIAL SQ SCH ×3 (07:30→16:45)
[2017-06-21 07:36] LABS: INR 2.2; PROTHROMBIN TIME 25.6 seconds (11.9-14.5)
[2017-06-21 07:47] LABS: ANION GAP 13.3 mmol/L (8-16); CALCIUM 9.9 mg/dL (8.4-10.2); CREATININE, SERUM 1.54 mg/dL (0.72-1.25); POTASSIUM 4.3 mmol/L (3.5-5.1)
[2017-06-21 08:03] VITALS: BP 97/74
[2017-06-21] MEDS: OLOPATADINE 5 ML BTL OP SCH (08:30)
[2017-06-21] MEDS: FAMOTIDINE 20 MG TAB PO SCH ×2 (08:30→16:45)
[2017-06-21] MEDS: LOSARTAN POTASSIUM 25 MG TAB PO SCH (09:00)
[2017-06-21] MEDS: FINASTERIDE 5 MG TAB PO SCH (09:30)
[2017-06-21] MEDS: GABAPENTIN 300 MG CAP PO SCH ×2 (09:30→17:30)
[2017-06-21] MEDS: SPIRONOLACTONE 25 MG TAB PO SCH (09:30)
[2017-06-21 12:00] VITALS: BP 91/61
--- NOTE | 2017-06-21 16:10 | Diagnostic Imaging Report ---
PROCEDURE:US RETROPERITONEAL ( KIDNEY ). COMPARISON:CT abdomen/pelvis, 05/07/17. INDICATIONS:LENORE FINDINGS:Russo scale and color flow Doppler ultrasound of the kidneys and urinary bladder was performed. Right kidney: 10.9 x 5.1 x 5.5 cm. Cortical thickness 1.6 cm. Cortical echogenicity normal. No hydronephrosis or contour deforming mass. Left kidney: 12.7 x 6.5 x 5.5 cm. Cortical thickness 2.2 cm. Cortical echogenicity normal. No hydronephrosis. There are dominant left renal cysts measuring 4.5 x 3.1 x 2.7 cm at the upper pole, and 5.6 x 5.1 x 5.9 cm at the mid kidney. No solid mass is identified. Urinary bladder: Unremarkable appearance. Ureteral jets were not visualized. Volume 46 cc. CONCLUSION: 1. No hydronephrosis. No solid mass. Dominant left renal cysts are noted. 2. Urinary bladder are unremarkable appearance. Dictated by: Duc Mercado M.D. on 06/21/2017 at 16:19 Electronically approved by: Duc Mercado M.D. on 06/21/2017 at 16:19
[2017-06-21 16:12] VITALS: BP 115/66
[2017-06-21] MEDS: WARFARIN SOD 2 MG TAB PO SCH (17:30)
[2017-06-21 20:00] VITALS: BP 116/84
[2017-06-21] MEDS: INSULIN DETEMIR 100 UNIT/ML PEN SQ SCH (21:00)
[2017-06-22] VITALS: BP 109/62
[2017-06-22] MEDS: TAZOBACTAM IV SCH ×3 (02:41→17:54)
[2017-06-22] MEDS: PIPERACILLIN IV SCH ×3 (02:41→17:54)
[2017-06-22] MEDS: DEXTROSE 5% IV SCH ×3 (02:41→17:54)
[2017-06-22 04:00] VITALS: BP 113/68
[2017-06-22] MEDS: CLINDAMYCIN 300MG 50 ML IV SCH ×3 (06:00→22:17)
[2017-06-22 07:51] LABS: INR 1.95; PROTHROMBIN TIME 23.3 seconds (11.9-14.5)
[2017-06-22 08:00] LABS: ALBUMIN 3.7 g/dL (3.5-5.0); ALBUMIN/GLOBULIN RATIO 0.7 (0.8-2.0); ANION GAP 12.3 mmol/L (8-16); CALCIUM 9.5 mg/dL (8.4-10.2); CREATININE, SERUM 1.43 mg/dL (0.72-1.25); POTASSIUM 4.3 mmol/L (3.5-5.1)
[2017-06-22] MEDS: INSULIN LISPRO 100 UNIT/1 ML 3ML VIAL SQ SCH ×3 (08:00→16:09)
[2017-06-22] MEDS: FAMOTIDINE 20 MG TAB PO SCH ×2 (08:30→16:09)
[2017-06-22 08:43] VITALS: BP 103/58
[2017-06-22] MEDS: OLOPATADINE 5 ML BTL OP SCH (10:05)
[2017-06-22] MEDS: LOSARTAN POTASSIUM 25 MG TAB PO SCH (10:05)
[2017-06-22] MEDS: SPIRONOLACTONE 25 MG TAB PO SCH (10:05)
[2017-06-22] MEDS: GABAPENTIN 300 MG CAP PO SCH ×2 (10:05→16:09)
[2017-06-22] MEDS: FINASTERIDE 5 MG TAB PO SCH (10:05)
[2017-06-22 12:00] VITALS: BP 91/54
[2017-06-22 16:49] VITALS: BP 143/67
[2017-06-22] MEDS: WARFARIN SOD 2 MG TAB PO SCH (18:30)
[2017-06-22 20:00] VITALS: BP_SYST 130; BP_SYST 143; BP_DIAS 67; BP_DIAS 83
[2017-06-22] MEDS: INSULIN DETEMIR 100 UNIT/ML PEN SQ SCH (22:18)
[2017-06-23] VITALS: BP 130/78
[2017-06-23] MEDS: DEXTROSE 5% IV SCH ×3 (01:18→17:39)
[2017-06-23] MEDS: TAZOBACTAM IV SCH ×3 (01:18→17:39)
[2017-06-23] MEDS: PIPERACILLIN IV SCH ×3 (01:18→17:39)
[2017-06-23 04:00] VITALS: BP 96/59
[2017-06-23] MEDS: CLINDAMYCIN 300MG 50 ML IV SCH ×2 (05:31→14:47)
[2017-06-23 07:07] LABS: INR 1.97; PROTHROMBIN TIME 23.5 seconds (11.9-14.5)
[2017-06-23 08:58] VITALS: BP 103/54
[2017-06-23] MEDS: INSULIN LISPRO 100 UNIT/1 ML 3ML VIAL SQ SCH ×3 (09:15→17:39)
[2017-06-23] MEDS: FAMOTIDINE 20 MG TAB PO SCH ×2 (09:15→17:39)
[2017-06-23] MEDS: GABAPENTIN 300 MG CAP PO SCH ×2 (09:16→17:39)
[2017-06-23] MEDS: LOSARTAN POTASSIUM 25 MG TAB PO SCH (09:16)
[2017-06-23] MEDS: FINASTERIDE 5 MG TAB PO SCH (09:16)
[2017-06-23] MEDS: SPIRONOLACTONE 25 MG TAB PO SCH (09:16)
[2017-06-23] MEDS: OLOPATADINE 5 ML BTL OP SCH (09:16)
[2017-06-23 13:05] VITALS: BP 119/68
[2017-06-23 16:47] VITALS: BP 113/79
[2017-06-23] MEDS: WARFARIN SOD 2 MG TAB PO SCH (17:39)
--- NOTE | 2017-06-24 05:57 | Discharge Summary ---
FINAL DISCHARGE DIAGNOSES 1. Acute exacerbation of congestive heart failure with systolic dysfunction. 2. Acute rhabdomyolysis, resolved. 3. Type 2 diabetes. 4. Right below knee amputation. 5. Left lower extremity cellulitis. 6. Diabetic nephropathy with chronic kidney disease, stage 3. 7. Chronic atrial fibrillation. 8. Benign positional paroxysmal vertigo. 9. Normocytic anemia. 10. Community-acquired pneumonia. CONSULTATIONS: Cardiology and nephrology. VITAL SIGNS: Temperature is 96, pulse 80, respiratory rate 20, blood pressure 113/79, and pulse ox 97% on room air. LAB FINDINGS: Show a white count of 9.1, hemoglobin 13.2, hematocrit 41, and platelets of 156,000. Coagulation: INR is 1.97 on discharge. Chemistries are normal. His creatinine is 1.4. His BUN is 36. His hemoglobin A1c is 6.8. His LFTs were normal. His troponins are negative. His LDL is 74. TSH is 108. MICROBIOLOGY: None. IMAGING STUDIES: Chest x-ray with bilateral perihilar opacification likely due to underlying edema and/or pneumonia. Renal ultrasound shows no hydronephrosis. HOSPITAL COURSE: A 67-year-old male who has a history of CHF, who came in with worsening shortness of breath and anasarca. Patient was admitted. Cardiology and nephrology was consulted. Patient was on IV diuretics with much improvement. He has an ejection fraction of 30%. He also was found to have acute rhabdomyolysis, which resolved. His diabetes was well controlled. In relation to his CKD, nephrology was consulted in managing accordingly. Renal ultrasound results above. Patient also has a mechanical bowel in which he is on Coumadin. On discharge, his INR 1.97, which he needs to continue with the same regimen. Patient has a right BKA and will need shelter facility for further rehabilitation. PT and OT recommended accordingly. On discharge, the patient was breathing well with no other complaints. He is being cleared by the consultants for discharge home. On the day of discharge, vital signs were stable. Labs were reviewed and stable. Patient was seen, evaluated and examined thoroughly on the day of discharge with no other complaints. Patient verbalized understanding and agrees with plan of care to follow up accordingly as an outpatient with the appropriate consultants. He was also found to have an elevated TSH in which he will have levothyroxine on discharge. MEDICATIONS: See medicine reconciliation, including a change in: 1. Bumex 1 mg p.o. b.i.d. 2. Aldactone 25 mg 1 tab p.o. daily. 3. Doxycycline 100 mg 1 capsule p.o. b.i.d. times 8 days for underlying left lower extremity cellulitis. CONDITION: Stable. DISPOSITION: long-term facility. FOLLOWUP: With your primary care physician and the appropriate [facility] consultants in 1-2 weeks. If the event of any worsening symptoms, the patient was to come back to the ED for further evaluation. This discharge summary took greater than 35 minutes. SHAR DIANE MD Job#: [id number] [place]
== END 2017-06-23 19:16 | DRG 291 ==
LOC: ER 13:46 → ERHOLD 17:15 → IMCU 17:17 → OBSVTOIN 06-14 18:01 → MED/SURG3 06-17 09:45 → MED/SURG 06-21 23:53
PROVIDERS: ADMIT Internal Medicine; ATTEND Internal Medicine
DX: I13.0 Hypertensive heart and chronic kidney disease with heart failure and stage 1 through stage 4 chronic kidney disease, or unspecified chronic kidney disease (principal); I50.23 Acute on chronic systolic (congestive) heart failure; E87.3 Alkalosis; E11.21 Type 2 diabetes mellitus with diabetic nephropathy; E11.40 Type 2 diabetes mellitus with diabetic neuropathy, unspecified; M62.82 Rhabdomyolysis; L03.116 Cellulitis of left lower limb; E86.0 Dehydration; E11.51 Type 2 diabetes mellitus with diabetic peripheral angiopathy without gangrene; I48.2 Chronic atrial fibrillation; E11.22 Type 2 diabetes mellitus with diabetic chronic kidney disease; N18.3 Chronic kidney disease, stage 3 (moderate); I25.10 Atherosclerotic heart disease of native coronary artery without angina pectoris; Z95.1 Presence of aortocoronary bypass graft; Z95.810 Presence of automatic (implantable) cardiac defibrillator; I35.0 Nonrheumatic aortic (valve) stenosis; Z79.01 Long term (current) use of anticoagulants; Z79.4 Long term (current) use of insulin; Z95.2 Presence of prosthetic heart valve; I25.5 Ischemic cardiomyopathy; Z89.611 Acquired absence of right leg above knee; H81.10 Benign paroxysmal vertigo, unspecified ear; D64.9 Anemia, unspecified; E87.6 Hypokalemia; N40.0 Benign prostatic hyperplasia without lower urinary tract symptoms; E66.9 Obesity, unspecified; Z68.36 Body mass index [BMI] 36.0-36.9, adult; K21.0 Gastro-esophageal reflux disease with esophagitis; E78.5 Hyperlipidemia, unspecified
CPT/HCPCS: 36415; 36600; 71010; 76770; 80048; 80053; 80061; 82550; 82553; 82805; 82947; 82948; 83036; 83735; 83880; 83935; 84132; 84133; 84295; 84300; 84443; 84484; 84520; 85025; 85610; 85730; 93005; 97139; 99284; G0378; J1650; J1940; J2270; J2543; J3480; J7030; J7040; J7050

== ENCOUNTER 2017-12-25 22:54 | Inpatient (IN) | payer MEDICARE, OTHER ==
[~2017-12-25] VITALS: Ht 175.3 cm; Wt 108.0 kg
[2017-12-25 23:52] LABS: BASOPHILS % 0.5 % (0.0-1.0); EOSINOPHILS # (AUTO) 0.3 (0.0-0.4); EOSINOPHILS % 3.8 % (0.0-6.0); HEMATOCRIT 37.4 % (38.2-49.6); HEMOGLOBIN 11.8 g/dL (14.0-18.0); LYMPHOCYTES # (AUTO) 1.4 (1.0-3.2); LYMPHOCYTES % 16.3 % (18.0-39.1); MEAN CORPUSCULAR HEMOGLOBIN 30.6 pg (28-32); MEAN CORPUSCULAR HGB CONC 31.6 g/dL (31-35); MEAN CORPUSCULAR VOLUME 97.1 fL (81-99); MONOCYTES % 11.8 % (4.4-11.3); NEUTROPHILS # (AUTO) 5.7 (2.1-6.9); NEUTROPHILS % 66.8 % (38.7-80.0); PLATELET COUNT 221 x10e3/uL (140-360); RED BLOOD COUNT 3.85 x10e6/uL (4.3-5.7); RED CELL DISTRIBUTION WIDTH 16.3 % (11.7-14.4)
[2017-12-25 23:57] LABS: CLARITY,URINE CLEAR (CLEAR); COLOR,URINE YELLOW (YELLOW); LEUKOCYTE ESTERASE ,URINE NEGATIVE (NEGATIVE); NITRITE,URINE NEGATIVE (NEGATIVE); PROTEIN,URINE DIPSTICK NEGATIVE (NEGATIVE)
[2017-12-25 23:58] LABS: BILIRUBIN,URINE NEGATIVE (NEGATIVE); KETONES,URINE NEGATIVE (NEGATIVE); URINE UROBILINOGEN 0.2 mg/dL (0.2 - 1)
[2017-12-26 00:01] LABS: INR 4.04; PROTHROMBIN TIME 36.9 seconds (11.9-14.5)
[2017-12-26 00:02] LABS: PARTIAL THROMBOPLASTIN TIME 63.8 seconds (23.8-35.5)
[2017-12-26 00:07] LABS: BACTERIA,URINE RARE /HPF; EPITHELIAL CELLS,URINE RARE /LPF; RBC,URINE 0-5 /HPF (0-5); WBC,URINE (MAN) 0-5 /HPF (0-5)
[2017-12-26 00:11] LABS: ALBUMIN 3.3 g/dL (3.5-5.0); ALBUMIN/GLOBULIN RATIO 0.7 (0.8-2.0); ANION GAP 14.3 mmol/L (8-16); CALCIUM 8.8 mg/dL (8.4-10.2); MAGNESIUM 2.3 MG/DL (1.3-2.1); POTASSIUM 5.3 mmol/L (3.5-5.1)
[2017-12-26 00:17] LABS: CREATINE KINASE MB 3.9 ng/mL (0-5.0)
[2017-12-26 00:28] LABS: CREATININE, SERUM 2.11 mg/dL (0.72-1.25)
--- NOTE | 2017-12-26 00:42 | Diagnostic Imaging Report ---
EXAM: CHEST SINGLE (PORTABLE), AP 1 view INDICATION: Shortness of breath COMPARISON: AP view of the chest June 11, 2017 FINDINGS: LINES/TUBES: Stable position left approach single a cardiac device and median sternotomy wires. LUNGS: Diffuse bilateral interstitial and alveolar opacities. PLEURA: No effusions or pneumothorax. HEART AND MEDIASTINUM: Stable prominence of the cardiomediastinal silhouette. BONES AND SOFT TISSUES: No acute findings. IMPRESSION: Findings most suggestive of pulmonary edema. Signed by: Dr. Eula Monk M.D. on 12/26/2017 12:38 AM
--- NOTE | 2017-12-26 01:03 | Diagnostic Imaging Report ---
EXAM: CT ABDOMEN AND PELVIS without IV CONTRAST INDICATION: Abdominal distention for 5 days COMPARISON: CT of the abdomen and pelvis without IV contrast May 07, 2017 TECHNIQUE: The abdomen and pelvis were scanned using a multidetector helical scanner. Coronal and sagittal reformations were obtained. Routine protocol performed. IV Contrast: None Oral Contrast: None CTDIvol has been reviewed. It is below the limits set by the Radiation Protocol Committee (RPC). FINDINGS: LOWER THORAX: Interlobular septal thickening and groundglass opacities consistent with pulmonary edema. Trace right pleural effusion. Partially visualized cardiomegaly and mitral valve replacement. Partially visualized paracardial calcifications around the left atrium. LIVER: No masses BILIARY: Cholecystectomy. No ductal dilation. SPLEEN: No masses PANCREAS: No masses ADRENALS: No nodules RIGHT KIDNEY: Simple cyst measuring 2.7 cm posterior medial aspect of the right kidney interpolar region. No nephroureterolithiasis or hydronephrosis. LEFT KIDNEY: No nephroureterolithiasis or hydronephrosis. Simple cyst measuring 2.7 cm superior pole of the left kidney. Simple cyst measuring 5.8 cm inferior pole. GI TRACT: No wall thickening or obstruction. Sigmoid colon diverticulosis without CT findings of diverticulitis. Normal appendix. VESSELS: Mild atherosclerotic changes of the abdominal aorta without aneurysm. PERITONEUM/RETROPERITONEUM: No free air or fluid LYMPH NODES: No lymphadenopathy REPRODUCTIVE ORGANS: Normal BLADDER: Normal SOFT TISSUES: Nonspecific superficial subcutaneous edema anterior abdomen. BONES: No suspicious bone lesions. IMPRESSION: No acute intra-abdominal or intrapelvic finding. No small bowel obstruction. Nonspecific superficial subcutaneous edema anterior abdomen. This could be related to cellulitis in the appropriate clinical setting versus generalized edema. Partially visualized pulmonary edema. Signed by: Dr. Eula Monk M.D. on 12/26/2017 1:00 AM
[2017-12-26] MEDS ORDERED: DEXTROSE 50% SYRINGE 50 ML IV PRN (01:45)
[2017-12-26] MEDS ORDERED: MORPHINE SULFATE 2 MG/ML SYR IV PRN (01:45)
[2017-12-26] MEDS ORDERED: FAMOTIDINE 20 MG/2 ML VIAL IV SCH ×2 (01:45→09:00)
[2017-12-26] MEDS ORDERED: ONDANSETRON HCL INJ 2 MG/ML VIAL IV PRN (01:45)
[2017-12-26 05:44] LABS: CREATINE KINASE MB 3.8 ng/mL (0-5.0)
[2017-12-26] MEDS: INSULIN REGULAR, HUMAN 100 UNIT/1 ML 3ML VIAL SQ SCH ×4 (07:49→21:00)
[2017-12-26] MEDS: FUROSEMIDE INJ 10 MG/ML 4 ML VIAL IV SCH ×2 (09:14→20:59)
[2017-12-26 11:00] VITALS: BP 116/78
[2017-12-26] MEDS ORDERED: SOD POLYSTYRENE SULFONATE SUSP 15 GM/60 ML BTL PO NR (12:00)
[2017-12-26] MEDS ORDERED: LACTULOSE SYRUP 20 GM/30 ML UDC PO NR (12:00)
[2017-12-26 12:18] LABS: CREATININE,URINE RANDOM 35.75 mg/dL (63-166)
[2017-12-26 12:20] LABS: TOTAL PROTEIN, URINE < 6.8 mg/dL (1-14)
[2017-12-26] MEDS ORDERED: LEVOTHYROXINE50 MCG PO (12:31)
--- NOTE | 2017-12-26 13:18 | Consultation ---
DATE OF CONSULTATION: December 26, 2017 REASON FOR CONSULTATION: Acute kidney injury, hyperkalemia. HISTORY OF PRESENT ILLNESS: A 67-year-old gentleman, underlying history of cardiomyopathy, poor ejection fraction status post history of atrial fibrillation, type 2 diabetes, presented with acute exacerbation of congestive heart failure. Has had mitral valve replacement apparently. Chest x-ray shows evidence of pulmonary edema. Had a CT abdomen and pelvis also, please see official report. Renal consult for elevated BUN and creatinine. Patient denies any prior history of renal insufficiency or kidney stone disease. Does admit to signs and symptoms suggestive of prostate enlargement. Follows up with Dr. Campos as an outpatient. CURRENT LABS: White count 8.4, hemoglobin 11.8, potassium 5.3, creatinine 2.11, magnesium 2.3, BNP 200. Urinalysis shows specific gravity 1010, urine RBC 0 to 5, WBC 0 to 5. P at 6. SOCIAL HISTORY: Patient is . Does not smoke or drink. PAST MEDICAL HISTORY: Type 2 diabetes, right-sided AKA, congestive heart failure, cardiomyopathy with poor ejection fraction, history of mitral valve replacement. MEDICATIONS: Currently on Lasix 40 mg IV q.12, morphine p.r.n., regular insulin p.r.n. PHYSICAL EXAMINATION GENERAL: Awake, alert, lying supine. No apparent distress. VITAL SIGNS: Blood pressure 90/59, pulse rate 18. HEAD AND NECK: Corneas clear. Oral mucosa dry. LUNGS: Relatively clear. Somewhat decreased air entry bases but I could not appreciate any rales. HEART: S1, S2 audible. ABDOMEN: Otherwise soft, nontender. LOWER EXTREMITY EXAMINATION: Shows right-sided AKA with left lower extremity trace to 1+ ankle edema. IMPRESSION AND PLAN: Hyperkalemia, [id number] kidney failure. Discussed renal findings with patient. Current medications, patient is on IV Lasix with a creatinine of 2.11, slightly elevated globulin gap. Will also order kappa lambda light chain ratio. Dose with Kayexalate. Place on a renal diet. Please see orders. Also obtain immunofixation of the serum and immunofixation of the urine along with electrophoresis. Job#: [id number] THOMAS
[2017-12-26 13:19] VITALS: BP 132/73
[2017-12-26 13:21] LABS: CREATINE KINASE MB 3.9 ng/mL (0-5.0)
[2017-12-26] MEDS ORDERED: ACETAMINOPHEN/CODEINE 300MG - 30MG TAB PO PRN ×2 (17:00)
[2017-12-26] MEDS ORDERED: SENNOSIDES 8.6 MG TAB PO PRN ×2 (17:00)
[2017-12-26] MEDS ORDERED: MECLIZINE HCL 12.5 MG TAB PO PRN (17:00)
[2017-12-26] MEDS ORDERED: POLYETHYLENE GLYCOL 3350 17 GM PACK PO PRN (17:00)
[2017-12-26] MEDS ORDERED: WARFARIN SOD 2 MG TAB PO SCH (17:00)
[2017-12-26 17:05] VITALS: BP 127/98
[2017-12-26] MEDS: GABAPENTIN 300 MG CAP PO SCH (17:22)
[2017-12-26] MEDS: METOPROLOL TARTRATE 25 MG TAB PO SCH (17:22)
--- NOTE | 2017-12-26 18:03 | History and Physical ---
HISTORY OF PRESENT ILLNESS: A 67-year-old male with past medical history positive for cardiomyopathy status post mitral valve replacement, aortic stenosis, history of coronary artery disease, history of chronic renal insufficiency, history of diabetes, history of hypertension. Patient came to the hospital complaining of increasing episode of shortness of breath. He was found to be in congestive heart failure. He was admitted to the hospital. REVIEW OF SYSTEMS: CARDIOVASCULAR: No chest pain or palpitations. RESPIRATORY: Shortness of breath. No cough. GASTROINTESTINAL: No nausea. No vomiting, no diarrhea. GENITOURINARY: No frequency or dysuria. ALLERGIES: IS NOT ALLERGIC TO ANY MEDICATION. SOCIAL HISTORY: He does not smoke. He does not drink. He used to smoke and drink in the past, but not any more. PAST MEDICAL HISTORY: Coronary artery disease status post CABG. Mitral valve replacement. Aortic stenosis. Chronic renal failure. Diabetes mellitus. Hypertension. Right above-knee amputation in the past. PHYSICAL EXAMINATION: VITAL SIGNS: Blood pressure 132/73. Temperature 97.1. Heart rate 78 per minute, Respiratory rate is 18 per minute. Oxygen saturation 99%. HEART: Irregularly irregular heart rate. No murmur. No extra sounds. LUNGS: Clear bilaterally. ABDOMEN: Soft. EXTREMITIES: Show a right above-knee amputation. LABORATORY DATA: On the blood work we have BMP with sodium 139. Potassium 5.3, chloride 103. CO2 27. BUN 44, creatinine 2.11. Glucose 166. On the CBC white blood count 8.47, hemoglobin 11.8, hematocrit 37.4, platelet count 221,000. PT 36.9. INR 4.04. PTT 63.8. AST 25, ALT 22. Total bilirubin 0.9, alkaline phosphatase 150. Chest x-ray showed congestive heart failure. FINAL IMPRESSION: 1. Acute on chronic systolic congestive heart failure. 2. Acute on chronic renal failure stage 3. 3. Mitral valve stenosis. 4. Coagulopathy. 5. Cardiomyopathy secondary to coronary artery disease. 6. Diabetes mellitus type 2 with renal failure. 7. Coronary artery disease status post coronary artery bypass graft. PLAN OF TREATMENT: Continue furosemide 40 mg IV daily twice a day. Continue monitoring blood sugars a.c. and night time. Resume home medication. We are going to continue diabetic diet and renal diet. Recheck BMP tomorrow. Echocardiogram has been done and the report is pending. Dr. Samuel has been consulted from the cardiology point of view. Dr. Robin Barron from the nephrology point of view. Going to hold the Coumadin because the INR is extremely high. We are going to resume the Coumadin once the INR is less than 3.5 due to the valve replacement and atrial fibrillation. So we are going to monitor the PT and INR daily. When the INR, as I said, less than 3.5 we can resume the Coumadin at a lower dose. On the rest of the medications, going to be Tylenol with codeine 1 tablet daily twice a day as needed for pain. Amiodarone 100 mg daily. 50 IV push as needed for low blood sugar. Proscar 5 mg daily. Furosemide 40 mg IV twice a day. Gabapentin 300 mg twice a day. Levothyroxine 125 mcg daily. Cozaar 12.5 mg daily. Meclizine 25 mg 3 times a day as needed for dizziness. Metoprolol 12.5 mg twice daily. Morphine 2 mg IV q.3 h. as needed for pain. Zofran 4 mg IV q.4 h. as needed for vomiting. MiraLAX 17 grams daily as needed for constipation. Continue monitoring blood sugar a.c. and nightly. He is on simvastatin 40 mg daily. Time Spent: 45 minutes. Job#: [id number]
[2017-12-26 20:22] VITALS: BP 111/61
--- NOTE | 2017-12-26 20:52 | Diagnostic Imaging Report ---
PROCEDURE:US RETROPERITONEAL ( KIDNEY ). COMPARISON:Patients [facility], CT, CT ABDOMEN/PELVIS WO, 12/26/2017, 0:40. Patients [facility], US, US RETROPERITONEAL ( KIDNEY )., 06/21/2017, 14:16. INDICATIONS:RENAL INSUFFICIENCY TECHNIQUE: Hooks-scale and color sonographic images of the bilateral kidneys and bladder where obtained in transverse and longitudinal planes. FINDINGS: RIGHT KIDNEY: 12.2 cm, cortex 1.7 cm Cysts: 2.6 x 2.0 x 2.1 cm cystic anechoic lesion in the mid medial aspect (previously not clearly visualized on ultrasound, approximately 2.[address] Solid masses: None Stones: None Hydronephrosis: None Echogenicity: Normal LEFT KIDNEY: 13.5 cm, cortex 2.4 cm Cysts: 2.8 x 2.8 x 2.3 cm cystic, anechoic lesion in the superior, mid aspect, stable. 5.7 x 5.2 x 5.8 cm cystic, anechoic mostly exophytic lesion in the mid to inferior aspect, stable. Solid masses: None Stones: None Hydronephrosis: None Echogenicity: Normal Bladder: No focal lesions. Ureteral jets not visualized. Prostate: Not visualized. CONCLUSION: 1. Normal bilateral renal size, and echogenicity. No hydronephrosis or obstruction. 2. Stable left renal simple appearing cysts. A 2.6 cm simple appearing right renal cyst is identified. Giuliano Cerrato M.D. Dictated by: Giuliano Cerrato M.D. on 12/26/2017 at 17:44 Electronically approved by: Giuliano Cerrato M.D. on 12/26/2017 at 17:44
[2017-12-26 22:09] LABS: CREATINE KINASE MB 3.9 ng/mL (0-5.0)
[2017-12-26 23:03] VITALS: BP 111/61
[2017-12-27] VITALS (9 sets, daily range): BP systolic 110–133; BP diastolic 58–76
[2017-12-27] MEDS: LEVOTHYROXINE SODIUM 125 MCG TAB PO SCH (06:00)
[2017-12-27 06:53] LABS: BASOPHILS # (AUTO) 0.1 (0.0-0.1); BASOPHILS % 0.7 % (0.0-1.0); EOSINOPHILS # (AUTO) 0.3 (0.0-0.4); EOSINOPHILS % 3.8 % (0.0-6.0); HEMATOCRIT 37.1 % (38.2-49.6); HEMOGLOBIN 11.8 g/dL (14.0-18.0); LYMPHOCYTES % 11.6 % (18.0-39.1); MEAN CORPUSCULAR HEMOGLOBIN 30.7 pg (28-32); MEAN CORPUSCULAR HGB CONC 31.8 g/dL (31-35); MEAN CORPUSCULAR VOLUME 96.6 fL (81-99); MONOCYTES % 12.4 % (4.4-11.3); NEUTROPHILS # (AUTO) 5.9 (2.1-6.9); NEUTROPHILS % 70.8 % (38.7-80.0); PLATELET COUNT 220 x10e3/uL (140-360); RED BLOOD COUNT 3.84 x10e6/uL (4.3-5.7)
[2017-12-27 06:54] LABS: ALBUMIN 3.3 g/dL (3.5-5.0); ALBUMIN/GLOBULIN RATIO 0.8 (0.8-2.0); ANION GAP 11.3 mmol/L (8-16); CALCIUM 9.2 mg/dL (8.4-10.2); CHOL/HDL RATIO 3.7 (3.9-4.7); CREATININE, SERUM 1.48 mg/dL (0.72-1.25); POTASSIUM 4.3 mmol/L (3.5-5.1)
[2017-12-27] MEDS: INSULIN REGULAR, HUMAN 100 UNIT/1 ML 3ML VIAL SQ SCH ×4 (07:30→21:27)
[2017-12-27] MEDS: AMIODARONE HCL 200 MG TAB PO SCH (08:40)
[2017-12-27] MEDS: GABAPENTIN 300 MG CAP PO SCH ×2 (08:40→16:21)
[2017-12-27] MEDS: FINASTERIDE 5 MG TAB PO SCH (08:40)
[2017-12-27] MEDS: LOSARTAN POTASSIUM 25 MG TAB PO SCH (08:40)
[2017-12-27] MEDS: FUROSEMIDE INJ 10 MG/ML 4 ML VIAL IV SCH ×2 (08:40→21:45)
[2017-12-27] MEDS: METOPROLOL TARTRATE 25 MG TAB PO SCH ×2 (08:40→16:21)
[2017-12-27] MEDS ORDERED: LEVOTHYROXINE SODIUM 50 MCG TAB PO SCH (09:00)
[2017-12-27] MEDS ORDERED: SPIRONOLACTONE 25 MG TAB PO ONE (10:30)
--- NOTE | 2017-12-27 11:49 | Consultation ---
DATE OF CONSULTATION: December 27, 2017 REQUESTING PHYSICIAN: Dr. Perez. REASON FOR CONSULTATION: CHF. HISTORY OF PRESENT ILLNESS: Mr. Fraser is a 67-year-old gentleman with past medical history as listed above who presented with complaints of shortness of breath with edema. The patient reportedly has been having shortness of breath for the last week or so which got progressively worse and so he decided to come to the hospital. A lot of the history was obtained through an educational sign language interpreter. He denies any chest pain, no palpitations. Denies missing any medications. He states he does not eat much salt. He has a history of CHF. REVIEW OF SYMPTOMS CONSTITUTIONAL: Some fatigue and weakness. HEENT: No headache, blurring of vision, seizures or syncope. CARDIOVASCULAR: No chest pain, dyspnea, orthopnea, PND or palpitations. RESPIRATORY: No cough, fever or expectoration. GI: No abdominal pain, vomiting or diarrhea. : No dysuria, frequency, incontinence. ALLERGIES: NO KNOWN DRUG ALLERGIES. MEDICATIONS: See list. PAST MEDICAL HISTORY: History of CAD, CABG, mitral valve replacement, history of CHF, history of aortic stenosis, history of chronic kidney disease, history of diabetes mellitus, history of ICD placement. PAST SURGICAL HISTORY: History of right rsdbr-fxm-csdm amputation, amputated at his hip. History of ICD placement. SOCIAL HISTORY: Does not smoke or drink. FAMILY HISTORY: Noncontributory. PHYSICAL EXAMINATION: GENERAL: Slightly obese gentleman who is alert, oriented and not in any obvious distress. VITALS: Heart rate 82, blood pressure 110/71, respiratory rate 18, temperature 98. HEENT: Atraumatic. NECK: No JVD, bruit, thyromegaly or lymphadenopathy. CARDIOVASCULAR: First and second heart sounds heard. No rubs or gallops appreciated. A 2/6 systolic murmur heard at the base. CHEST: Decreased air entry at the bases. No adventitious sounds appreciated. ABDOMEN: Soft, nontender. EXTREMITIES: 1+ edema of his left foot. His right lower extremity has been amputated at this hip. LABORATORY DATA: Sodium 139, potassium 4.2, chloride 100, bicarb 32, BUN 38, creatinine 1.4, glucose 120, hemoglobin 11.8, hematocrit 37.1, platelets 220,000, white count 8.3. INR 4.04. EKG shows atrial fibrillation at 64 beats per minute, right axis deviation, right bundle branch block. IMPRESSION: 1. Congestive heart failure. 2. Coronary artery disease with history of coronary artery bypass graft. 3. History of mitral valve replacement. 4. History of aortic stenosis. 5. Hypertension. 6. Diabetes mellitus. 7. Chronic kidney disease. 8. Right zxdre-cuv-hcxu amputation. PLAN: 1. Continue with diuretics. 2. The patient has had an echocardiogram; will review that. 3. His INR is high. Hold warfarin. 4. Continue current medications. 5. Low-salt diet. 6. Fluid restriction, 1500 mL. I have discussed my impression and plan of management with the patient, and he understands it. As always, appreciate and thank you very much for your referrals. Job#: [id number] GH [id number]
--- NOTE | 2017-12-27 14:50 | Progress Note ---
DATE: December 27, 2017 INTERNAL MEDICINE PROGRESS NOTE SUBJECTIVE: He is feeling better. He is complaining now that he cannot urinate at times. He has been on a prostate medication for some time. PHYSICAL EXAMINATION VITAL SIGNS: Blood pressure 112/65. Temperature 97.0. Heart rate 70 per minute. Respiratory rate is 18 per minute. Oxygen saturation 94%. HEART: Irregularly irregular heart rate, normal S1 and S2 sounds. LUNGS: Clear bilaterally. ABDOMEN: Soft. EXTREMITIES: Show 2+ pitting edema on the left leg. He has a right above-knee amputation. BLOOD WORK: We have BMP with a sodium 139, potassium 4.3, chloride 100, CO2 32, BUN 38, creatinine 1.48, glucose 120. On the CBC, white blood count 8.33, hemoglobin 11.8, hematocrit 37.3, platelet count 220,000. PT 36.9, INR 4.04, PTT 63.8. AST 21, ALT 18, total bilirubin 1.3, alkaline phosphatase 160. FINAL IMPRESSION 1. Hidpx-bl-wkjptat systolic congestive heart failure. 2. Sdrur-yw-vuwyaio renal insufficiency, stage 3. 3. Mitral valve replacement. 4. Coagulopathy secondary to Coumadin. 5. Severe cardiomyopathy. 6. Coronary artery disease, status coronary artery bypass graft. 7. Diabetes mellitus, type 2, with chronic renal insufficiency. 8. Morbid obesity. PLAN OF TREATMENT 1. Continue with Lasix 40 mg IV twice a day. 2. Continue monitoring blood sugar a.c. and nightly. 3. Proscar 5 mg daily. 4. Simvastatin 40 mg daily. 5. Levothyroxine 125 mcg daily. 6. Gabapentin 300 mg twice a day. 7. Senna 1 tablet twice a day. 8. Amiodarone 100 mg daily. 9. Losartan 12.5 mg daily. 10. Meclizine 25 mg 3 times a day as needed. 11. Tylenol 3 one tablet twice a day as needed for pain. 12. Metoprolol 12.5 mg twice a day. 13. Proscar 0.4 mg daily. I am going to get a urology consult with Dr. Rankin. Case has been discussed with the family and the patient at the bedside. Time spent around 45 minutes. Job#: [id number]
[2017-12-27] MEDS: SIMVASTATIN 40 MG TAB PO SCH (16:21)
[2017-12-27] MEDS: TAMSULOSIN HCL 0.4 MG CAP PO SCH (21:45)
[2017-12-28] VITALS (8 sets, daily range): BP systolic 106–119; BP diastolic 55–69
[2017-12-28] MEDS: LEVOTHYROXINE SODIUM 125 MCG TAB PO SCH (05:20)
[2017-12-28 05:57] LABS: INR 2.62; PROTHROMBIN TIME 26.3 seconds (11.9-14.5)
[2017-12-28 05:58] LABS: ANION GAP 12.9 mmol/L (8-16); BLOOD UREA NITROGEN 28 mg/dL (7-26); BUN/CREATININE RATIO 25 (6-25); CALCIUM 9.5 mg/dL (8.4-10.2); CARBON DIOXIDE 32 mmol/L (22-29); CHLORIDE 102 mmol/L (98-107); CREATININE, SERUM 1.14 mg/dL (0.72-1.25); EST GLOMERULAR FILTRATION RATE > 60 ML/MIN (60-); GLUCOSE 121 mg/dL (74-118); POTASSIUM 3.9 mmol/L (3.5-5.1); SODIUM 143 mmol/L (136-145)
[2017-12-28] MEDS: AMIODARONE HCL 200 MG TAB PO SCH (07:50)
[2017-12-28] MEDS: GABAPENTIN 300 MG CAP PO SCH ×2 (07:50→16:57)
[2017-12-28] MEDS: METOPROLOL TARTRATE 25 MG TAB PO SCH ×2 (07:50→16:57)
[2017-12-28] MEDS: FINASTERIDE 5 MG TAB PO SCH (07:50)
[2017-12-28] MEDS: LOSARTAN POTASSIUM 25 MG TAB PO SCH (07:50)
[2017-12-28] MEDS: FUROSEMIDE INJ 10 MG/ML 4 ML VIAL IV SCH (07:50)
[2017-12-28] MEDS: INSULIN REGULAR, HUMAN 100 UNIT/1 ML 3ML VIAL SQ SCH ×4 (07:50→20:44)
--- NOTE | 2017-12-28 11:22 | Consultation ---
DATE OF CONSULTATION: December 28, 2017 UROLOGY CONSULTATION REASON FOR CONSULTATION: BPH. HISTORY OF PRESENT ILLNESS: Abe Fraser is a 67-year-old man who reports never seeing a previous urologist. The patient denies hematuria, dysuria, urinary tract infections, or urolithiasis. He was admitted with renal failure, and urological consultation was sought for BPH. The patient denies any previous urolithiasis. PAST MEDICAL AND SURGICAL HISTORY 1. Atrial fibrillation. 2. Type 2 diabetes mellitus. 3. Congestive heart failure. 4. Status post mitral valve replacement. 5. Poor ejection fraction. 6. Status post right above-knee amputation. 7. Coronary artery disease, status post coronary artery bypass grafting. 8. History of aortic stenosis. 9. Chronic renal insufficiency. 10. Status post ICD placement. SOCIAL HISTORY: The patient denies smoking, ethanol or drug use. 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 CURRENT MEDICATIONS: Per MAR. ALLERGIES: NONE KNOWN. FAMILY HISTORY: Noncontributory to the active urological problems. REVIEW OF SYSTEMS: As consistent above with the history of present illness and past medical history, otherwise negative for all other systems. PHYSICAL EXAM GENERAL: A very pleasant 67-year-old man lying in bed in no apparent distress. VITALS: He is currently afebrile. Vital signs currently stable. ABDOMEN: Soft, nondistended and nontender. He is obese without costovertebral angle tenderness. Kidneys not palpable. No hepatosplenomegaly. No obvious evidence of hernia. GENITOURINARY: Testes descended bilaterally. Testes are nontender and without any mass. The patient seems to have fullness bilaterally, which appears to be consistent with bilateral varicoceles. The patient has a normal uncircumcised male phallus with normal meatus without any lesions. Digital rectal examination deferred at the present time. EXTREMITIES: The patient has a right above-knee amputation. He has some edema in the lower extremity on the left hand side. For the remaining physical examination systems, please refer to admission history and physical on the chart. LABORATORY STUDIES: Renal ultrasonography and CT scanning were reviewed. They show simple cysts bilaterally. No obvious stones. The patient's white blood cell count is 8330, hemoglobin is low at 11.8 and platelets are normal at 220,000. The patient's creatinine is 1.14. It was as high as 2.11 upon admission. His magnesium was also high at 2.3 upon admission as well. Urinalysis is unremarkable. ASSESSMENT 1. Acute renal failure on chronic renal insufficiency that has improved. 2. Anemia. 3. Bilateral renal cysts. 4. BPH. 5. Obesity. 6. Varicoceles. 7. Hypermagnesemia that is improved. PLAN 1. The patient is on finasteride already. I will continue that medication. 2. I recommend following the patient as an outpatient for objective BPH evaluation and followup. 3. Defer the patient's electrolytes and hematological problems to the patient's admitting physician, as well as the renal service. Thank you very much for involving us in the care of your patient. Will be happy to follow him along with you, as well as an outpatient. Job#: [id number] RI cc:DAKOTAH EID MD
[2017-12-28] MEDS: SIMVASTATIN 40 MG TAB PO SCH (16:56)
[2017-12-28] MEDS ORDERED: WARFARIN SOD 5 MG TAB PO SCH (17:00)
--- NOTE | 2017-12-28 19:43 | Discharge Summary ---
He is a 67-year-old male with past medical history positive for cardiomyopathy, status post mitral valve replacement, aortic stenosis, coronary artery disease, chronic renal insufficiency, diabetes and hypertension, also atrial fibrillation. He came here because of shortness of breath. He was found to be in congestive heart failure. He was started on IV Lasix. His PT and INR were extremely elevated. We had to hold the Coumadin. The INR was repeated. Coumadin was decreased to 5 mg daily. INR is 2.62 today. Patient has been seen by Dr. Samuel, cardiology, who recommended the patient to go home. He is feeling a lot better. On physical examination, the blood pressure is 112/55, temperature 97.7, heart rate 73 per minute, respiratory rate 18 per minute, oxygen saturation 96%. On the physical exam, the heart shows irregularly irregular heart rate, normal S1 and S2 sounds. Lungs are clear bilaterally. Abdomen is soft. Extremities show 1+ left leg pedal edema. He had a right above-knee amputation also. We have on the BMP, sodium 143, potassium 3.9, chloride 102, CO2 32, BUN 28, creatinine 1.14, glucose 121. On the CBC, white blood count 8.33, hemoglobin 11.8, hematocrit 37.1, platelet count 222,000. PT 26.3, INR 2.62, PTT 63.8. AST 21, ALT 18, total bilirubin 1.3, alkaline phosphatase 116. FINAL IMPRESSION 1. Pcyuv-ui-ijwnhhq systolic congestive heart failure. 2. Cryvt-yb-huqyopq renal insufficiency, stage 3. 3. Mitral valve replacement. 4. Coagulopathy secondary to Coumadin. 5. Severe cardiomyopathy. 6. Coronary artery disease, status post coronary artery bypass grafting. 7. Diabetes mellitus, type 2, with chronic renal insufficiency. 8. Obesity. PLAN OF TREATMENT 1. Continue with Lasix 40 mg p.o. twice a day. 2. Continue with Proscar 5 mg daily. 3. Flomax 0.4 mg daily. 4. Coumadin 5 mg daily. 5. Zocor 40 mg at bedtime. 6. Levothyroxine 125 mcg daily. 7. Gabapentin 300 mg twice a day. 8. Senna 1 tablet twice a day. 9. Amiodarone 100 mg daily. 10. Losartan potassium 12.5 mg daily. 11. Meclizine 25 mg 3 times a day as needed for dizziness. 12. Tylenol with Codeine 1 tablet twice a day as needed for pain. 13. Metoprolol 12.5 mg twice a day. 14. Follow up with Dr. Campos and Dr. Samuel. DIVYA SANTOS MD Job#: [id number]
[2017-12-28] MEDS: TAMSULOSIN HCL 0.4 MG CAP PO SCH (20:01)
[2017-12-29 05:19] VITALS: BP 115/51
[2017-12-29] MEDS: LEVOTHYROXINE SODIUM 125 MCG TAB PO SCH (05:41)
[2017-12-29 06:07] LABS: INR 2.12; PROTHROMBIN TIME 22.3 seconds (11.9-14.5)
[2017-12-29 06:14] LABS: ANION GAP 12.9 mmol/L (8-16); BLOOD UREA NITROGEN 23 mg/dL (7-26); BUN/CREATININE RATIO 23 (6-25); CALCIUM 9.6 mg/dL (8.4-10.2); CARBON DIOXIDE 30 mmol/L (22-29); CHLORIDE 103 mmol/L (98-107); CREATININE, SERUM 1.02 mg/dL (0.72-1.25); EST GLOMERULAR FILTRATION RATE > 60 ML/MIN (60-); GLUCOSE 117 mg/dL (74-118); POTASSIUM 3.9 mmol/L (3.5-5.1); SODIUM 142 mmol/L (136-145)
[2017-12-29] MEDS: INSULIN REGULAR, HUMAN 100 UNIT/1 ML 3ML VIAL SQ SCH (07:30)
[2017-12-29 08:10] VITALS: BP 119/51
[2017-12-29] MEDS: AMIODARONE HCL 200 MG TAB PO SCH (09:13)
[2017-12-29] MEDS: GABAPENTIN 300 MG CAP PO SCH (09:13)
[2017-12-29] MEDS: METOPROLOL TARTRATE 25 MG TAB PO SCH (09:13)
[2017-12-29] MEDS: LOSARTAN POTASSIUM 25 MG TAB PO SCH (09:13)
[2017-12-29] MEDS: FINASTERIDE 5 MG TAB PO SCH (09:14)
== END 2017-12-29 11:29 | disposition home or self-care (01) | DRG 291 ==
LOC: ER 22:54 → ERHOLD 12-26 01:50 → MED/SURG 12-26 10:00
PROVIDERS: ADMIT Internal Medicine; ATTEND Internal Medicine
DX: I13.0 Hypertensive heart and chronic kidney disease with heart failure and stage 1 through stage 4 chronic kidney disease, or unspecified chronic kidney disease (principal); I50.23 Acute on chronic systolic (congestive) heart failure; N17.9 Acute kidney failure, unspecified; N39.0 Urinary tract infection, site not specified; N18.3 Chronic kidney disease, stage 3 (moderate); E11.22 Type 2 diabetes mellitus with diabetic chronic kidney disease; Z79.4 Long term (current) use of insulin; I48.91 Unspecified atrial fibrillation; D64.9 Anemia, unspecified; E87.5 Hyperkalemia; Z95.2 Presence of prosthetic heart valve; Z79.01 Long term (current) use of anticoagulants; R79.1 Abnormal coagulation profile; Z89.619 Acquired absence of unspecified leg above knee; I25.10 Atherosclerotic heart disease of native coronary artery without angina pectoris; Z95.1 Presence of aortocoronary bypass graft; Z95.810 Presence of automatic (implantable) cardiac defibrillator; I35.0 Nonrheumatic aortic (valve) stenosis; E66.01 Morbid (severe) obesity due to excess calories; Z68.35 Body mass index [BMI] 35.0-35.9, adult; N28.1 Cyst of kidney, acquired; I86.1 Scrotal varices; E83.41 Hypermagnesemia
CPT/HCPCS: 36415; 71045; 74176; 76770; 80048; 80053; 80061; 81001; 82550; 82553; 82570; 82948; 83735; 83880; 84156; 84165; 84484; 85025; 85610; 85730; 86334; 87086; 93005; 99285; J1940

== ENCOUNTER 2018-01-10 18:58 | Inpatient (IN) | payer MEDICARE, OTHER ==
[~2018-01-10] VITALS: Ht 175.3 cm; Wt 108.9 kg
[~2018-01-10 18:58] MED LIST changes: +LEVOTHYROXINE50 MCG PO
[2018-01-10] MEDS ORDERED: ALBUTEROL SULF 0.083% NEB SOLN 3 ML NEB NEB STA (19:37)
[2018-01-10] MEDS ORDERED: METHYLPREDNISOLONE SOD SUCC 125 MG/2ML VIAL IV ONE (19:45)
[2018-01-10] MEDS ORDERED: IPRATROPIUM BROMIDE 0.02% 2.5 ML NEB NEB ONE (19:45)
[2018-01-10 20:15] LABS: BASOPHILS # (AUTO) 0.1 (0.0-0.1); BASOPHILS % 0.5 % (0.0-1.0); EOSINOPHILS # (AUTO) 0.4 (0.0-0.4); HEMATOCRIT 38.2 % (38.2-49.6); HEMOGLOBIN 12.1 g/dL (14.0-18.0); LYMPHOCYTES # (AUTO) 1.2 (1.0-3.2); LYMPHOCYTES % 12.4 % (18.0-39.1); MEAN CORPUSCULAR HEMOGLOBIN 30.5 pg (28-32); MEAN CORPUSCULAR HGB CONC 31.7 g/dL (31-35); MEAN CORPUSCULAR VOLUME 96.2 fL (81-99); MONOCYTES # (AUTO) 1.2 (0.2-0.8); MONOCYTES % 12.9 % (4.4-11.3); NEUTROPHILS # (AUTO) 6.5 (2.1-6.9); NEUTROPHILS % 69.9 % (38.7-80.0); PLATELET COUNT 164 x10e3/uL (140-360); RED BLOOD COUNT 3.97 x10e6/uL (4.3-5.7); RED CELL DISTRIBUTION WIDTH 15.1 % (11.7-14.4)
--- NOTE | 2018-01-10 20:15 | Diagnostic Imaging Report ---
EXAMINATION: CHEST SINGLE (PORTABLE) INDICATION: \S\sob \[id number] \S\1924 \S\Y COMPARISON: Chest radiograph 12/25/2017, chest CT 05/07/2017 FINDINGS: AP view TUBES and LINES: Left chest wall cardiac device with lead overlying the right ventricle. LUNGS: Lungs are well inflated. Mildly increased diffuse interstitial and alveolar opacities bilaterally. PLEURA: Small right pleural effusion. No left pleural effusion. No pneumothorax. HEART AND MEDIASTINUM: Stable enlargement of the cardiac silhouette. Mitral valve prosthesis. BONES AND SOFT TISSUES: Unchanged UPPER ABDOMEN: No free air under the diaphragm. IMPRESSION: Mildly increased diffuse interstitial and alveolar opacities likely representing pulmonary edema. New small right right pleural effusion. Signed by: DR. Stew Purdy MD on 01/10/2018 8:11 PM
[2018-01-10 20:32] LABS: ALANINE AMINOTRANSFERASE 24 IU/L (0-55); ALBUMIN 3.5 g/dL (3.5-5.0); ALBUMIN/GLOBULIN RATIO 0.7 (0.8-2.0); ALKALINE PHOSPHATASE 128 IU/L (40-150); ANION GAP 12.4 mmol/L (8-16); BLOOD UREA NITROGEN 16 mg/dL (7-26); BUN/CREATININE RATIO 18 (6-25); CALCIUM 9.4 mg/dL (8.4-10.2); CARBON DIOXIDE 30 mmol/L (22-29); CHLORIDE 105 mmol/L (98-107); CREATINE KINASE 131 IU/L (30-200); CREATININE, SERUM 0.89 mg/dL (0.72-1.25); EST GLOMERULAR FILTRATION RATE > 60 ML/MIN (60-); GLUCOSE 134 mg/dL (74-118); POTASSIUM 4.4 mmol/L (3.5-5.1); SODIUM 143 mmol/L (136-145)
[2018-01-10 20:35] LABS: INR 9.99; PARTIAL THROMBOPLASTIN TIME 101.1 seconds (23.8-35.5); PROTHROMBIN TIME 74.9 seconds (11.9-14.5)
[2018-01-10] MEDS ORDERED: PHYTONADIONE 10 MG/ML AMP SC ONE ×2 (21:15)
[2018-01-10] MEDS ORDERED: DEXTROSE 50% SYRINGE 50 ML IV PRN (21:15)
[2018-01-10] MEDS ORDERED: ALBUTEROL/IPRATROPIUM 3 ML NEB NEB PRN (21:15)
[2018-01-10] MEDS ORDERED: FUROSEMIDE INJ 10 MG/ML 4 ML VIAL IV ONE (21:15)
[2018-01-10] MEDS ORDERED: NEXIUM40 MG PO (21:42)
[2018-01-10] MEDS ORDERED: LASIX40 MG PO (21:42)
[2018-01-10] MEDS ORDERED: POTASSIUM CHLO20 ME1 PO (21:42)
[2018-01-10] MEDS ORDERED: FLOMAX0.4 MG PO (21:43)
[2018-01-10] MEDS ORDERED: WARFARIN SODIU2.5 MG PO (21:45)
[2018-01-10] MEDS ORDERED: AMARYL1 MG PO (21:45)
[2018-01-10] MEDS ORDERED: POLYETHYLENE GLYCOL 3350 17 GM PACK PO PRN (22:00)
[2018-01-10] MEDS ORDERED: ACETAMINOPHEN/CODEINE 300MG - 30MG TAB PO PRN (22:00)
[2018-01-10] MEDS ORDERED: MECLIZINE HCL 12.5 MG TAB PO PRN (22:00)
[2018-01-10 22:21] VITALS: BP 137/66
[2018-01-11 00:05] VITALS: BP 134/66
[2018-01-11 04:00] VITALS: BP 133/77
[2018-01-11] MEDS: LEVOTHYROXINE SODIUM 125 MCG TAB PO SCH (05:26)
[2018-01-11 05:28] LABS: BASOPHILS % 0.2 % (0.0-1.0); HEMATOCRIT 38.8 % (38.2-49.6); LYMPHOCYTES # (AUTO) 0.3 (1.0-3.2); LYMPHOCYTES % 3.2 % (18.0-39.1); MEAN CORPUSCULAR HEMOGLOBIN 30.1 pg (28-32); MEAN CORPUSCULAR HGB CONC 30.9 g/dL (31-35); MEAN CORPUSCULAR VOLUME 97.2 fL (81-99); MONOCYTES # (AUTO) 0.1 (0.2-0.8); MONOCYTES % 0.5 % (4.4-11.3); NEUTROPHILS # (AUTO) 8.8 (2.1-6.9); NEUTROPHILS % 95.7 % (38.7-80.0); PLATELET COUNT 170 x10e3/uL (140-360); RED BLOOD COUNT 3.99 x10e6/uL (4.3-5.7)
[2018-01-11 05:59] LABS: ALANINE AMINOTRANSFERASE 25 IU/L (0-55); ALBUMIN 3.6 g/dL (3.5-5.0); ALBUMIN/GLOBULIN RATIO 0.7 (0.8-2.0); ALKALINE PHOSPHATASE 132 IU/L (40-150); ANION GAP 14.4 mmol/L (8-16); BLOOD UREA NITROGEN 19 mg/dL (7-26); BUN/CREATININE RATIO 19 (6-25); CALCIUM 9.5 mg/dL (8.4-10.2); CARBON DIOXIDE 28 mmol/L (22-29); CHLORIDE 102 mmol/L (98-107); CREATINE KINASE 92 IU/L (30-200); CREATININE, SERUM 1.02 mg/dL (0.72-1.25); EST GLOMERULAR FILTRATION RATE > 60 ML/MIN (60-); GLUCOSE 327 mg/dL (74-118); POTASSIUM 4.4 mmol/L (3.5-5.1); SODIUM 140 mmol/L (136-145)
[2018-01-11 07:50] LABS: PROTHROMBIN TIME 62.1 seconds (11.9-14.5)
[2018-01-11 07:52] LABS: INR 7.86
[2018-01-11] MEDS ORDERED: PHYTONADIONE 10 MG/ML AMP SQ ONE (08:15)
[2018-01-11 08:37] VITALS: BP 135/63
[2018-01-11 08:38] VITALS: BP 135/63
[2018-01-11] MEDS: LOSARTAN POTASSIUM 25 MG TAB PO SCH (08:38)
[2018-01-11] MEDS: AMIODARONE HCL 200 MG TAB PO SCH (08:38)
[2018-01-11] MEDS: GABAPENTIN 300 MG CAP PO SCH ×2 (08:38→17:42)
[2018-01-11] MEDS: FINASTERIDE 5 MG TAB PO SCH (08:38)
[2018-01-11] MEDS: FUROSEMIDE INJ 10 MG/ML 4 ML VIAL IV SCH ×2 (08:38→17:41)
[2018-01-11] MEDS: PANTOPRAZOLE SOD 40 MG TABEC PO SCH (08:38)
[2018-01-11] MEDS: TAMSULOSIN HCL 0.4 MG CAP PO SCH (08:39)
[2018-01-11] MEDS: POTASSIUM CHLORIDE 20 MEQ TAB CR PO SCH (08:39)
[2018-01-11] MEDS: METOPROLOL TARTRATE 25 MG TAB PO SCH ×2 (08:39→17:42)
[2018-01-11] MEDS: INSULIN REGULAR, HUMAN 100 UNIT/1 ML 3ML VIAL SQ SCH ×4 (08:40→21:41)
[2018-01-11] MEDS ORDERED: PHYTONADIONE 10 MG/ML AMP SC ONE ×2 (08:45→12:15)
[2018-01-11] MEDS: OLOPATADINE 5 ML BTL OP SCH (08:59)
[2018-01-11] MEDS ORDERED: LEVOTHYROXINE SODIUM 50 MCG TAB PO SCH (09:00)
[2018-01-11] MEDS ORDERED: NON-FORMULARY MEDICATION (Olopatadine (Pataday) 1 DROP) SCH (09:00)
--- NOTE | 2018-01-11 09:08 | Consultation ---
DATE OF CONSULTATION: January 10, 2018 CARDIOLOGY CONSULTATION REASON FOR CONSULTATION: CHF and AFib. CONSULTING PHYSICIAN: Dr. Amezcua HPI: This is a 67-year-old male with multiple medical problems that presented with shortness of breath. According to the patient, he was having difficulty with breathing that got worse with exacerbation that he decided to come into the emergency room for evaluation. He also complained of a productive cough and left lower extremity swelling. He denies any chest pain, any dizziness, any diaphoresis, or headache. In the emergency room, he was found with INR of 9.99. He was admitted for further evaluation. BNP was 238. Chest x-ray showed some pulmonary edema. PAST MEDICAL HISTORY: CAD, CABG, mitral valve replacement, CHF, systolic, mild aortic stenosis, CKD, uncontrolled diabetes, ICD, hypothyroidism, BPH, hyperlipidemia, GERD, peripheral neuropathy, obesity, right AKA, and cardiomyopathy. PAST SURGICAL HISTORY: ICD placement, right AKA, cataract surgery, cholecystectomy. FAMILY HISTORY: Positive for hypertension and diabetes. SOCIAL HISTORY: No smoking. No drinking. He lives at home with family. MEDICATIONS: See med list. ALLERGIES: HE IS NOT ALLERGIC TO ANY MEDICATIONS. REVIEW OF SYSTEMS: Negative except those mentioned above. PHYSICAL EXAMINATION VITAL SIGNS: Temperature 97, heart rate 97, blood pressure 133/77, respirations 19, oxygen saturation 95% on 2 L nasal cannula. GENERAL: He is awake, alert and oriented times 3. HEENT: Mucous membrane moist. NECK: Supple. LUNGS: Bilateral with decreased breath sounds. CARDIOVASCULAR: Irregularly irregular. ABDOMEN: Soft. NEUROLOGICAL: Intact. EXTREMITIES: On the left with trace edema. LABS: Sodium 140, potassium 4.4, chloride 102, CO2 28, BUN 19, creatinine 1.02, glucose 327. White blood cell 9.25, hemoglobin 12, hematocrit 38.8, and platelets 170,000. PTT 74.9, PTT 101, INR 7.8. IMPRESSION 1. Coumadin toxicity. 2. Chronic systolic congestive heart failure exacerbation. 3. Chronic atrial fibrillation, on Coumadin. 4. Coronary artery disease with automatic implanted cardioverter defibrillator. 5. Hypertension. 6. Uncontrolled diabetes. 7. History of mitral valve replacement. 8. Chronic obstructive pulmonary disease exacerbation. ASSESSMENT AND PLAN: Will go ahead and get an echocardiogram to reassess the LV and the valve function. Will give him vitamin K. Will put Coumadin on hold. Will continue diuretic, ROMAINE inhibitors and beta flower. Will put him on tele and get a 12-lead EKG. ICD was recently interrogated. Further cardiac workup pending clinical course. Thank you for this consultation. DICTATED BY CHRISTIAN GREGG NP Job#: [id number] RI
--- NOTE | 2018-01-11 11:31 | History and Physical ---
PRIMARY CARE PHYSICIAN: Dr. Campos SALES AND MARKETING ADMINISTRATOR: Dr. Samuel CHIEF COMPLAINT: Shortness of breath and abnormal labs. HISTORY OF PRESENT ILLNESS: A 67-year-old man with a history of atrial fibrillation, on anticoagulant, now having abnormal labs and having shortness of breath. Came to the hospital and found to have an INR of 9.9. The patient is short of breath with pulmonary edema, CHF exacerbation, and supratherapeutic INR. PAST MEDICAL HISTORY: Systolic CHF, mild aortic regurgitation, diabetes mellitus, type 2, diabetic nephropathy, hypertension, left ventricular ejection fraction 30%, status post AICD, atrial fibrillation, mitral valve disease, status post replacement, coronary artery disease, status post coronary artery bypass grafting, ischemic cardiomyopathy, peripheral vascular disease, status post right AKA, benign positional paroxysmal vertigo, acute rhabdomyolysis, thrombocytopenia, normocytic anemia. PAST SURGICAL HISTORY: Right AKA, AICD placement, coronary artery bypass grafting. ALLERGIES: PER ELECTRONIC MEDICAL RECORD. FAMILY HISTORY/SOCIAL HISTORY: No illicits or alcohol. The patient's father of coronary artery disease. Mother had diabetes mellitus. Sister had coronary artery disease. MEDICATIONS: Per electronic medical record. REVIEW OF SYSTEMS: Denies any dizziness, chest pain, fever, chills, sweats, nausea, vomiting, diarrhea, back pain. PHYSICAL EXAMINATION VITAL SIGNS: Have been reviewed. GENERAL: A tired-appearing man resting in bed. HEENT: Anicteric. Pupils respond to light. No oral lesions. CARDIOVASCULAR: Normal S1 and S2. LUNGS: He has coarse breath sounds reduced. He has fine crackles at the base. ABDOMEN: Soft, nontender and nondistended. EXTREMITIES: He has right AKA. Scar well-healed. On the left leg, he has no edema. It is warm. SKIN: Dry. PSYCHIATRIC: Flat affect. NEUROLOGICAL: Alert and oriented times. Moves all extremities. LABS: Reviewed. MEDICATIONS: Reviewed. ASSESSMENT AND PLAN: A 67-year-old man with: 1. Acute exacerbation of systolic congestive heart failure with left ventricular ejection fraction of 30%: He had an automatic implanted cardioverter defibrillator placed. Diurese the patient with intravenous Lasix b.i.d. 2. Supratherapeutic INR: He received 5 of vitamin K. Will follow up INR this morning. 3. Right pleural effusion/pulmonary edema: Secondary to acute exacerbation. Diurese the patient. 4. Diabetes mellitus, type 2/diabetic nephropathy: Will check hemoglobin A1c and lipid panel. Continue home medications. 5. Atrial fibrillation: Rate controlled. Supratherapeutic INR and will treat. 6. Normocytic anemia: Follow up. 7. Hypertension: Continue beta flower. 8. Benign positional vertigo: Continue meclizine. 9. Diabetic neuropathy: Continue gabapentin. 10. Prophylaxis: Will use proton pump inhibitor while on anticoagulant. 11. Disposition: Follow up INR this morning. Per cardiology recommendation, diurese the patient. Follow I's and O's. Job#: [id number] CANDE
[2018-01-11 13:00] VITALS: BP 123/55
[2018-01-11 14:15] LABS: CREATINE KINASE MB 2.6 ng/mL (0-5.0)
[2018-01-11 20:00] VITALS: BP 128/61
[2018-01-11] MEDS: SIMVASTATIN 40 MG TAB PO SCH (21:39)
[2018-01-12] VITALS (8 sets, daily range): BP systolic 93–153; BP diastolic 58–84
[2018-01-12] MEDS: LEVOTHYROXINE SODIUM 125 MCG TAB PO SCH (05:02)
[2018-01-12 05:29] LABS: INR 3.68; PROTHROMBIN TIME 34.3 seconds (11.9-14.5)
--- NOTE | 2018-01-12 06:56 | Progress Note ---
DATE: January 12, 2018 TIME: 6:35 a.m. OVERNIGHT: Feeling a little better. Less short of breath. REVIEW OF SYSTEMS: Denies any dizziness, chest pain, fever, chills, sweats, nausea, vomiting, diarrhea, leg pain, back pain, headache, blurred vision. PHYSICAL EXAMINATION VITAL SIGNS: Reviewed. GENERAL: A tired-appearing man resting in bed. HEENT: Anicteric. CARDIOVASCULAR: Normal S1 and S2. LUNGS: Moderate breath sounds. He has reduced breath sounds at the base. ABDOMEN: Soft, nontender and nondistended. EXTREMITIES: He has a right AKA old scar well-healed. His left leg with no edema. SKIN: Dry. PSYCHIATRIC: Normal affect. NEUROLOGICAL: Alert and appropriate. LABS: Reviewed. MEDICATIONS: Reviewed. ASSESSMENT: A 67-year-old man with: 1. Acute exacerbation of systolic congestive heart failure with left ventricular ejection fraction of 30%. 2. Supratherapeutic INR. 3. Right pleural effusion/pulmonary edema. 4. Diabetes mellitus, type 2. 5. Atrial fibrillation. 6. Normocytic anemia. 7. Hypertension. 8. Benign positional vertigo. 9. Diabetic neuropathy. PLAN 1. Hemoglobin A1c 7.2. 2. INR is 3.6 after a total of 10 mg of vitamin K. 3. Continue diuresis. I's and O's were 240/1300 yesterday, and 840/340. 4. Continue other medication regimen. 5. Continue PPI. 6. Discharge planning. Job#: [id number] CANDE
[2018-01-12] MEDS: INSULIN REGULAR, HUMAN 100 UNIT/1 ML 3ML VIAL SQ SCH ×4 (07:30→20:46)
[2018-01-12] MEDS: METOPROLOL TARTRATE 25 MG TAB PO SCH ×2 (09:00→17:18)
[2018-01-12] MEDS: LOSARTAN POTASSIUM 25 MG TAB PO SCH (09:00)
[2018-01-12] MEDS: AMIODARONE HCL 200 MG TAB PO SCH (10:21)
[2018-01-12] MEDS: TAMSULOSIN HCL 0.4 MG CAP PO SCH (10:21)
[2018-01-12] MEDS: OLOPATADINE 5 ML BTL OP SCH (10:21)
[2018-01-12] MEDS: FUROSEMIDE INJ 10 MG/ML 4 ML VIAL IV SCH ×2 (10:21→17:18)
[2018-01-12] MEDS: FINASTERIDE 5 MG TAB PO SCH (10:22)
[2018-01-12] MEDS: GABAPENTIN 300 MG CAP PO SCH ×2 (10:22→17:18)
[2018-01-12] MEDS: POTASSIUM CHLORIDE 20 MEQ TAB CR PO SCH (10:22)
[2018-01-12] MEDS: PANTOPRAZOLE SOD 40 MG TABEC PO SCH (10:22)
[2018-01-12] MEDS: SIMVASTATIN 40 MG TAB PO SCH (20:09)
[2018-01-13] VITALS: BP 112/73
[2018-01-13 04:00] VITALS: BP 114/67
[2018-01-13 05:39] LABS: PROTHROMBIN TIME 21.3 seconds (11.9-14.5)
[2018-01-13] MEDS: LEVOTHYROXINE SODIUM 125 MCG TAB PO SCH (05:48)
[2018-01-13] MEDS: FUROSEMIDE INJ 10 MG/ML 4 ML VIAL IV SCH (07:57)
[2018-01-13] MEDS: OLOPATADINE 5 ML BTL OP SCH (07:57)
[2018-01-13] MEDS: AMIODARONE HCL 200 MG TAB PO SCH (07:58)
[2018-01-13] MEDS: METOPROLOL TARTRATE 25 MG TAB PO SCH (07:58)
[2018-01-13] MEDS: GABAPENTIN 300 MG CAP PO SCH (07:58)
[2018-01-13] MEDS: LOSARTAN POTASSIUM 25 MG TAB PO SCH (07:58)
[2018-01-13] MEDS: POTASSIUM CHLORIDE 20 MEQ TAB CR PO SCH (07:58)
[2018-01-13] MEDS: PANTOPRAZOLE SOD 40 MG TABEC PO SCH (07:58)
[2018-01-13] MEDS: FINASTERIDE 5 MG TAB PO SCH (07:58)
[2018-01-13] MEDS: TAMSULOSIN HCL 0.4 MG CAP PO SCH (07:58)
[2018-01-13] MEDS: INSULIN REGULAR, HUMAN 100 UNIT/1 ML 3ML VIAL SQ SCH (08:07)
[2018-01-13] MEDS ORDERED: WARFARIN SODIUM2 MG PO (08:22)
[2018-01-13 08:37] VITALS: BP 119/75
--- NOTE | 2018-01-13 09:49 | Discharge Summary ---
PRINCIPAL DIAGNOSES: 1. Acute exacerbation of systolic congestive heart failure with left ventricular ejection fraction 30%. 2. Supratherapeutic INR. 3. Right pleural effusion. 4. Pulmonary edema. 5. Diabetes mellitus type 2. Hemoglobin A1c 7.2. 6. Atrial fibrillation. SECONDARY DIAGNOSES: 1. Benign positional vertigo. 2. Hypertension. 3. Atrial fibrillation. CHIEF COMPLAINT: Abnormal labs. HISTORY OF PRESENT ILLNESS: This is 67-year-old man with a history of atrial fibrillation, now with abnormal labs and shortness of breath. Please refer to the H and P for further details. HOSPITAL COURSE: Patient found to have supratherapeutic INR, had total of 10 mg of vitamin K with improvement. His INR initially was in the 9 range, is now at 2. Patient also had shortness of breath, had acute exacerbation of systolic CHF. Received IV diuretics, doing better, good diuresis. I have encouraged him to cutdown on water intake and avoid salt products such as canned soups and salty chips. Patient had right pleural effusion and pulmonary edema. He had diabetes mellitus type 2, hemoglobin A1c was 7.2. He had normocytic anemia and hypertension. diabetic neuropathy. Patient is doing better and currently appropriate for discharge. Will follow up. DISCHARGE MEDICATIONS: Per electronic medical record. FOLLOWUP: With: 1. Primary care doctor in 1 week. 2. Cardiology in 1 to 2 weeks. CONDITION ON DISCHARGE: Stable and improving. DISCHARGE LOCATION: Home with home health services. For INR checks every Monday and Monday. GENNARO NGUYEN MD Job#: [id number]
== END 2018-01-13 11:10 | disposition home health service (06) | DRG 291 ==
LOC: ER 18:58 → ERHOLD 21:12 → MED/SURG 22:22
PROVIDERS: ADMIT Internal Medicine; ATTEND Internal Medicine
DX: I13.0 Hypertensive heart and chronic kidney disease with heart failure and stage 1 through stage 4 chronic kidney disease, or unspecified chronic kidney disease (principal); I50.23 Acute on chronic systolic (congestive) heart failure; J44.1 Chronic obstructive pulmonary disease with (acute) exacerbation; N18.9 Chronic kidney disease, unspecified; E11.22 Type 2 diabetes mellitus with diabetic chronic kidney disease; E11.65 Type 2 diabetes mellitus with hyperglycemia; I48.2 Chronic atrial fibrillation; D64.9 Anemia, unspecified; E11.42 Type 2 diabetes mellitus with diabetic polyneuropathy; E03.9 Hypothyroidism, unspecified; K21.9 Gastro-esophageal reflux disease without esophagitis; I35.0 Nonrheumatic aortic (valve) stenosis; N40.0 Benign prostatic hyperplasia without lower urinary tract symptoms; I25.10 Atherosclerotic heart disease of native coronary artery without angina pectoris; H81.10 Benign paroxysmal vertigo, unspecified ear; R79.1 Abnormal coagulation profile; E11.21 Type 2 diabetes mellitus with diabetic nephropathy; Z79.4 Long term (current) use of insulin; Z87.891 Personal history of nicotine dependence; Z79.01 Long term (current) use of anticoagulants; Z95.2 Presence of prosthetic heart valve; Z95.1 Presence of aortocoronary bypass graft; Z89.611 Acquired absence of right leg above knee; Z95.810 Presence of automatic (implantable) cardiac defibrillator
CPT/HCPCS: 36415; 71045; 80053; 80061; 82550; 82553; 82948; 83036; 83880; 84484; 85025; 85610; 85730; 93005; 93306; 94640; 99284; J1940; J2930; J3430

== ENCOUNTER 2018-01-26 21:46 | Inpatient (IN) | payer MEDICARE, OTHER ==
[~2018-01-26] VITALS: Ht 175.3 cm; Wt 107.0 kg
[~2018-01-26 21:46] MED LIST changes: +AMARYL1 MG PO; +FLOMAX0.4 MG PO; +WARFARIN SODIU2.5 MG PO
[2018-01-26 23:02] LABS: BASOPHILS # (AUTO) 0.1 (0.0-0.1); BASOPHILS % 0.5 % (0.0-1.0); EOSINOPHILS # (AUTO) 0.4 (0.0-0.4); EOSINOPHILS % 3.5 % (0.0-6.0); HEMATOCRIT 38.1 % (38.2-49.6); HEMOGLOBIN 11.9 g/dL (14.0-18.0); LYMPHOCYTES # (AUTO) 1.1 (1.0-3.2); LYMPHOCYTES % 9.9 % (18.0-39.1); MEAN CORPUSCULAR HEMOGLOBIN 29.9 pg (28-32); MEAN CORPUSCULAR HGB CONC 31.2 g/dL (31-35); MEAN CORPUSCULAR VOLUME 95.7 fL (81-99); MONOCYTES # (AUTO) 1.3 (0.2-0.8); MONOCYTES % 12.3 % (4.4-11.3); NEUTROPHILS % 73.2 % (38.7-80.0); PLATELET COUNT 159 x10e3/uL (140-360); RED BLOOD COUNT 3.98 x10e6/uL (4.3-5.7); RED CELL DISTRIBUTION WIDTH 15.2 % (11.7-14.4)
[2018-01-26 23:02] LABS: BILIRUBIN,URINE NEGATIVE (NEGATIVE); CLARITY,URINE CLEAR (CLEAR); COLOR,URINE YELLOW (YELLOW); KETONES,URINE NEGATIVE (NEGATIVE); LEUKOCYTE ESTERASE ,URINE NEGATIVE (NEGATIVE); NITRITE,URINE NEGATIVE (NEGATIVE); PROTEIN,URINE DIPSTICK NEGATIVE (NEGATIVE); URINE UROBILINOGEN 1 mg/dL (0.2 - 1)
[2018-01-26 23:06] LABS: RBC,URINE 0-5 /HPF (0-5); WBC,URINE (MAN) 0-5 /HPF (0-5)
[2018-01-26 23:10] LABS: INR 1.84
[2018-01-26 23:11] LABS: PARTIAL THROMBOPLASTIN TIME 39.5 seconds (23.8-35.5)
[2018-01-26 23:20] LABS: ALANINE AMINOTRANSFERASE 19 IU/L (0-55); ALBUMIN 3.4 g/dL (3.5-5.0); ALBUMIN/GLOBULIN RATIO 0.7 (0.8-2.0); ALKALINE PHOSPHATASE 146 IU/L (40-150); ANION GAP 12.7 mmol/L (8-16); BLOOD UREA NITROGEN 15 mg/dL (7-26); BUN/CREATININE RATIO 15 (6-25); CALCIUM 9.1 mg/dL (8.4-10.2); CARBON DIOXIDE 31 mmol/L (22-29); CHLORIDE 100 mmol/L (98-107); CREATINE KINASE 96 IU/L (30-200); CREATININE, SERUM 0.99 mg/dL (0.72-1.25); EST GLOMERULAR FILTRATION RATE > 60 ML/MIN (60-); GLUCOSE 134 mg/dL (74-118); MAGNESIUM 1.4 MG/DL (1.3-2.1); POTASSIUM 3.7 mmol/L (3.5-5.1); SODIUM 140 mmol/L (136-145)
--- NOTE | 2018-01-26 23:21 | Diagnostic Imaging Report ---
CHEST 2 VIEWS, Technique: CHEST 2 VIEWS Comparison: 01/11/2018 Clinical history: Shortness of breath, CHF DISCUSSION: Limited by portable technique and body habitus. Stable visualized left chest wall pacer. Stable enlarged cardiomediastinal silhouette status post median sternotomy. Diffuse opacities and probable underlying effusions. IMPRESSION: Stable enlarged cardiac silhouette with edema and likely underlying pleural fluid. Signed by: Dr Belle Harrington MD on 01/26/2018 11:17 PM
[2018-01-26] MEDS ORDERED: ALBUTEROL SULF 0.083% NEB SOLN 3 ML NEB NEB STA (23:53)
[2018-01-27] VITALS (8 sets, daily range): BP systolic 117–133; BP diastolic 56–76
[2018-01-27] MEDS ORDERED: NITROGLYCERIN 0.4 MG SUBL SL PRN
[2018-01-27] MEDS ORDERED: IPRATROPIUM BROMIDE 0.02% 2.5 ML NEB NEB ONE
[2018-01-27] MEDS ORDERED: ALBUTEROL SULF 0.083% NEB SOLN 3 ML NEB NEB PRN
[2018-01-27] MEDS ORDERED: IPRATROPIUM BROMIDE 0.02% 2.5 ML NEB NEB PRN
[2018-01-27] MEDS ORDERED: ONDANSETRON HCL INJ 2 MG/ML VIAL IV PRN
[2018-01-27] MEDS ORDERED: FUROSEMIDE INJ 10 MG/ML 4 ML VIAL IV ONE
[2018-01-27 09:03] LABS: CREATINE KINASE MB 1.8 ng/mL (0-5.0)
[2018-01-27] MEDS: FUROSEMIDE INJ 10 MG/ML 4 ML VIAL IV SCH ×2 (11:30→21:30)
[2018-01-27] MEDS: INSULIN LISPRO 100 UNIT/1 ML 3ML VIAL SQ SCH ×2 (11:30→18:24)
[2018-01-27] MEDS ORDERED: ENALAPRILAT IV INJ 1.25 MG/ML VIAL IV PRN (12:30)
[2018-01-27] MEDS ORDERED: METOPROLOL TARTRATE INJ 1 MG/ML VIAL IV PRN (12:30)
[2018-01-27] MEDS ORDERED: MAGNESIUM SULFATE 2GM/50ML 50 ML IV ONE (13:00)
[2018-01-27 13:11] LABS: PHOSPHORUS 2.6 MG/DL (2.3-4.7)
[2018-01-27] MEDS ORDERED: POLYETHYLENE GLYCOL 3350 17 GM PACK PO PRN (13:45)
[2018-01-27] MEDS ORDERED: FUROSEMIDE 40 MG TAB PO SCH (13:45)
[2018-01-27] MEDS ORDERED: MECLIZINE HCL 12.5 MG TAB PO PRN (13:45)
[2018-01-27 13:58] LABS: CHOL/HDL RATIO 3.3 (3.9-4.7)
--- NOTE | 2018-01-27 16:03 | History and Physical ---
PRIMARY CARE PHYSICIAN: Dr. Campos. CHIEF COMPLAINT: Shortness of breath and leg swelling. HISTORY OF PRESENT ILLNESS: This is a 67-year-old man with a history of systolic congestive heart failure who was recently admitted for CHF exacerbation, now developing worsening shortness of breath and leg swelling. The patient has been drinking about 3 large bottles of water per day, per the family, and there has been some salt intake. The patient denies any chest pain. Denies any fever or chills. Denies nausea, vomiting or diarrhea. PAST MEDICAL HISTORY: Systolic congestive heart failure, mild aortic regurgitation, diabetes mellitus type 2, diabetic nephropathy, hypertension, left ventricular ejection fraction 30%, status post AICD, atrial fibrillation, mitral valve disease, status post replacement, coronary artery disease status post coronary artery bypass graft, ischemic cardiomyopathy, peripheral vascular disease, status post right AKA, BPV, acute rhabdomyolysis, thrombocytopenia, normocytic anemia. PAST SURGICAL HISTORY: Right AKA, AICD placement, coronary artery bypass grafting, . FAMILY/SOCIAL HISTORY: No alcohol or illicits. Family involved in care of the patient. The patient's father of coronary artery disease and mother has diabetes mellitus. Sister has coronary artery disease. MEDICATIONS: Per electronic medical records. REVIEW OF SYSTEMS: Denies any dizziness, chest pain, fever or chills or sweats, no nausea, vomiting or diarrhea, leg pain, headache. PHYSICAL EXAMINATION VITAL SIGNS: Have been reviewed. GENERAL APPEARANCE: A tired-appearing man resting in the bed. HEENT: Anicteric. CARDIOVASCULAR: Normal S1 and S2. LUNGS: Reduced breath sounds at the bases with small amount of wheezing. ABDOMEN: Soft and nontender. Nondistended. EXTREMITIES: He has right AKA. Scar well healed. He has left leg with edema 2+. NEUROLOGIC: Alert and oriented x3. Moving all extremities. SKIN: Dry. PSYCHIATRIC: Flat affect. NEUROLOGIC: Alert and oriented x3. Moving all extremities. LABS: Reviewed. MEDICATIONS: Reviewed. ASSESSMENT: A 67-year-old man. 1. Acute exacerbation of systolic congestive heart failure. 2. Gout. 3. Hyperuricemia. 4. Diabetes mellitus type 2. 5. Pulmonary edema. 6. Right bundle branch block. 7. Atrial fibrillation. PLAN: 1. Diuresis the patient. 2. Avoid salt. 3. Fluid restriction. 4. IV Lasix. 5. Discussed need to fluid restrict and avoid salt at home with family and the patient at bedside. 6. Continue blood pressure control. 7. Will treat his gout with Allopurinol. 8. Continue medications. 9. Prophylaxis: Proton pump inhibitor while on anticoagulation and continue amiodarone. Job#: [id number] JENNYFER
[2018-01-27 16:24] LABS: CREATINE KINASE MB 1.8 ng/mL (0-5.0)
[2018-01-27] MEDS ORDERED: INSULIN LISPRO 100 UNIT/1 ML 3ML VIAL SQ SCH (16:30)
[2018-01-27] MEDS: GLIMEPIRIDE 1 MG PO SCH (17:00)
[2018-01-27] MEDS ORDERED: METOPROLOL TARTRATE 25 MG TAB PO SCH (17:00)
[2018-01-27] MEDS: GABAPENTIN 300 MG CAP PO SCH (18:25)
[2018-01-27] MEDS ORDERED: INSULIN DETEMIR 100 UNIT/ML PEN SQ SCH (21:00)
[2018-01-27] MEDS: INSULIN DETEMIR 100 UNIT/ML PEN SQ SCH (21:30)
[2018-01-27] MEDS: SIMVASTATIN 40 MG TAB PO SCH (21:30)
[2018-01-27] MEDS: ACETAMINOPHEN/CODEINE 300MG - 30MG TAB PO PRN (22:00)
[2018-01-28] VITALS (9 sets, daily range): BP systolic 101–129; BP diastolic 62–75
[2018-01-28 06:07] LABS: BASOPHILS % 0.4 % (0.0-1.0); EOSINOPHILS # (AUTO) 0.5 (0.0-0.4); EOSINOPHILS % 5.3 % (0.0-6.0); HEMATOCRIT 37.1 % (38.2-49.6); HEMOGLOBIN 11.7 g/dL (14.0-18.0); LYMPHOCYTES # (AUTO) 1.1 (1.0-3.2); LYMPHOCYTES % 11.3 % (18.0-39.1); MEAN CORPUSCULAR HEMOGLOBIN 30.5 pg (28-32); MEAN CORPUSCULAR HGB CONC 31.5 g/dL (31-35); MEAN CORPUSCULAR VOLUME 96.9 fL (81-99); MONOCYTES # (AUTO) 1.1 (0.2-0.8); MONOCYTES % 11.1 % (4.4-11.3); NEUTROPHILS % 71.5 % (38.7-80.0); PLATELET COUNT 158 x10e3/uL (140-360); RED BLOOD COUNT 3.83 x10e6/uL (4.3-5.7); RED CELL DISTRIBUTION WIDTH 15.3 % (11.7-14.4)
[2018-01-28] MEDS: LEVOTHYROXINE SODIUM 125 MCG TAB PO SCH (06:08)
[2018-01-28] MEDS: ACETAMINOPHEN/CODEINE 300MG - 30MG TAB PO PRN ×2 (06:15→19:03)
[2018-01-28 06:28] LABS: ALANINE AMINOTRANSFERASE 16 IU/L (0-55); ALBUMIN/GLOBULIN RATIO 0.7 (0.8-2.0); ALKALINE PHOSPHATASE 115 IU/L (40-150); ANION GAP 10.7 mmol/L (8-16); BLOOD UREA NITROGEN 18 mg/dL (7-26); BUN/CREATININE RATIO 19 (6-25); CALCIUM 9.2 mg/dL (8.4-10.2); CARBON DIOXIDE 37 mmol/L (22-29); CHLORIDE 98 mmol/L (98-107); CHOL/HDL RATIO 3.6 (3.9-4.7); CHOLESTEROL 103 MD/DL (0-199); CREATININE, SERUM 0.95 mg/dL (0.72-1.25); EST GLOMERULAR FILTRATION RATE > 60 ML/MIN (60-); GLUCOSE 87 mg/dL (74-118); HDL CHOLESTEROL 29 MG/DL (40-60); LDL CHOLESTEROL 60 MG/DL (60-130); POTASSIUM 3.7 mmol/L (3.5-5.1); SODIUM 142 mmol/L (136-145); TRIGLYCERIDES 68 MG/DL (0-149)
[2018-01-28] MEDS: INSULIN LISPRO 100 UNIT/1 ML 3ML VIAL SQ SCH ×6 (07:30→21:00)
[2018-01-28] MEDS: PANTOPRAZOLE SOD 40 MG TABEC PO SCH (08:49)
[2018-01-28] MEDS: FINASTERIDE 5 MG TAB PO SCH (08:49)
[2018-01-28] MEDS: AMIODARONE HCL 200 MG TAB PO SCH (08:49)
[2018-01-28] MEDS: TAMSULOSIN HCL 0.4 MG CAP PO SCH (08:49)
[2018-01-28] MEDS: OLOPATADINE (OPTH) 5 ML BTL OP SCH (08:49)
[2018-01-28] MEDS: LOSARTAN POTASSIUM 25 MG TAB PO SCH (08:49)
[2018-01-28] MEDS: POTASSIUM CHLORIDE 20 MEQ TAB CR PO SCH (08:49)
[2018-01-28] MEDS: WARFARIN SOD 2 MG TAB PO SCH (08:49)
[2018-01-28] MEDS: GABAPENTIN 300 MG CAP PO SCH ×2 (08:49→17:10)
[2018-01-28] MEDS: FUROSEMIDE INJ 10 MG/ML 4 ML VIAL IV SCH ×2 (08:49→21:40)
[2018-01-28] MEDS: GLIMEPIRIDE 1 MG PO SCH ×2 (08:50→17:00)
[2018-01-28] MEDS ORDERED: DEXTROSE 50% SYRINGE 50 ML IV PRN (10:30)
--- NOTE | 2018-01-28 16:22 | Progress Note ---
DATE: January 28, 2018 SUBJECTIVE: Overnight no acute events. REVIEW OF SYSTEMS: The patient denies chest pain or shortness of breath. Denies dizziness, fever, chills, headache, nausea, vomiting and diarrhea. Reports no leg pain. Reports bilateral pain to buttocks from prolonged pressure and swelling. OBJECTIVE VITAL SIGNS: T 97.2, P 82, respirations 18, blood pressure 129/67, SPO2 98% on 3 liters nasal cannula. GENERAL APPEARANCE: This is a very tired-appearing man sitting on the side of the bed with left lower extremity dependence. HEENT: Normocephalic. No sinus tenderness. Oral mucosa moist and intact. CV: S1 and S2. Regular rate. LUNGS: Bilateral breath sounds with inspiratory/expiratory wheezes at bases. Clear in the upper lobes. ABDOMEN: Soft, nontender, nondistended. EXTREMITIES: Left leg with +4 pitting pretibial edema and ecchymosis from mid foreleg distal. Left lower extremity cool to touch. Pulses reported Doppler per nursing. Right AKA. Loose upper extremities. NEUROLOGIC: Alert and oriented x3. Moves all extremities. No focal defect noted on gross examination with counterintelligence specialist. SKIN: Dry. PSYCHIATRIC: Flat affect. NEUROLOGIC: Alert and oriented x3. LABORATORY DATA: WBC 9.84 and hemoglobin and hematocrit 11.7 and 37.1. Platelets 158,000. NA 142, K 3.7, Cl 98, CO2 37, gap 10.7, BUN 18, CR 0.95. ____ cholesterol reviewed within range. MEDICATIONS: Reviewed. ASSESSMENT AND PLAN: This is a 67-year-old man with: 1. Acute exacerbation of systolic congestive heart failure. The patient instructed with counterintelligence specialist to avoid salt. Continue fluid restriction both while inpatient and status post discharge. Will continue diuresis with IV Lasix. 2. Gout. Allopurinol. 3. Hyperuricemia. Allopurinol. 4. Diabetes mellitus type 2. Lispro sliding scale with insulin Levemir 58 units nightly. ____ glucose ranging since admission from max 232 to min 101. 5. Pulmonary edema. Continue diuresing. 6. Right bundle branch block with atrial fibrillation. Medications as above. 7. Prophylaxis: Proton pump inhibitor, Protonix with warfarin. DISPOSITION: Continue plan as above. Discussed with RN and patient need for accurate I\T\O and weight. RN and patient verbalized understanding. The patient also verbalized some concern related to home O2 use. Case management communication indicated. Continue to monitor. DICTATED BY: Gasper Gusman NP Job#: [id number] GH
[2018-01-28] MEDS: SIMVASTATIN 40 MG TAB PO SCH (21:40)
[2018-01-28] MEDS: INSULIN DETEMIR 100 UNIT/ML PEN SQ SCH (21:40)
[2018-01-29 00:32] VITALS: BP 121/70
[2018-01-29 05:01] LABS: INR 1.45; PROTHROMBIN TIME 16.6 seconds (11.9-14.5)
[2018-01-29 06:03] VITALS: BP 122/77
[2018-01-29] MEDS: LEVOTHYROXINE SODIUM 125 MCG TAB PO SCH (06:30)
[2018-01-29] MEDS: INSULIN LISPRO 100 UNIT/1 ML 3ML VIAL SQ SCH ×7 (07:30→21:00)
[2018-01-29 08:19] VITALS: BP 134/66
[2018-01-29] MEDS: FINASTERIDE 5 MG TAB PO SCH (09:00)
[2018-01-29] MEDS: METOPROLOL TARTRATE 25 MG TAB PO SCH (09:00)
[2018-01-29] MEDS: GLIMEPIRIDE 1 MG PO SCH ×2 (09:00→17:00)
[2018-01-29] MEDS: WARFARIN SOD 2 MG TAB PO SCH (09:00)
[2018-01-29] MEDS: POTASSIUM CHLORIDE 20 MEQ TAB CR PO SCH (09:00)
[2018-01-29] MEDS: AMIODARONE HCL 200 MG TAB PO SCH (09:00)
[2018-01-29] MEDS: OLOPATADINE (OPTH) 5 ML BTL OP SCH (09:00)
[2018-01-29] MEDS: TAMSULOSIN HCL 0.4 MG CAP PO SCH (09:00)
[2018-01-29] MEDS: PANTOPRAZOLE SOD 40 MG TABEC PO SCH (09:00)
[2018-01-29] MEDS: FUROSEMIDE INJ 10 MG/ML 4 ML VIAL IV SCH ×2 (09:00→21:32)
[2018-01-29] MEDS: GABAPENTIN 300 MG CAP PO SCH ×2 (09:00→17:15)
[2018-01-29] MEDS: LOSARTAN POTASSIUM 25 MG TAB PO SCH (09:00)
[2018-01-29 12:19] VITALS: BP 112/53
[2018-01-29 12:29] LABS: ALANINE AMINOTRANSFERASE 15 IU/L (0-55); ALBUMIN 3.2 g/dL (3.5-5.0); ALBUMIN/GLOBULIN RATIO 0.7 (0.8-2.0); ALKALINE PHOSPHATASE 119 IU/L (40-150); ANION GAP 10.4 mmol/L (8-16); BLOOD UREA NITROGEN 21 mg/dL (7-26); BUN/CREATININE RATIO 20 (6-25); CALCIUM 9.2 mg/dL (8.4-10.2); CARBON DIOXIDE 36 mmol/L (22-29); CHLORIDE 99 mmol/L (98-107); CREATININE, SERUM 1.05 mg/dL (0.72-1.25); EST GLOMERULAR FILTRATION RATE > 60 ML/MIN (60-); GLUCOSE 61 mg/dL (74-118); POTASSIUM 3.4 mmol/L (3.5-5.1); SODIUM 142 mmol/L (136-145)
--- NOTE | 2018-01-29 13:17 | Progress Note ---
DATE: January 29, 2018, Monday MEDICINE PROGRESS NOTE TIME OF SERVICE: 12 noon. SUBJECTIVE OVERNIGHT: No acute events. REVIEW OF SYSTEMS: The patient denies chest pain or shortness of breath at rest. Denies dizziness, fever, chills, headache, nausea, vomiting and diarrhea, leg pain. He indicates some shortness of breath upon exertion. OBJECTIVE VITAL SIGNS: T 96.4, P 83, respirations 20, BP 134/66. PHYSICAL EXAMINATION GENERAL APPEARANCE: This is a very tired-appearing man sitting in chair next to bed. HEENT: Normocephalic without sinus tenderness. Oral mucosa is moist and intact. Trachea midline without JVD. CARDIOVASCULAR: S1 and S2 auscultated with irregular rate noted. LUNGS: Bilateral breath sounds with expiratory wheezes limited to right side this day, diminished at bases. ABDOMEN: Soft, nontender and nondistended. EXTREMITIES: Left leg with +2 pitting pretibial edema and ecchymosis from mid foreleg distal, which is cool to the touch. Pulses reported Doppler per nursing. Right AKA with well-healed old incision line. Moves upper extremities. NEUROLOGIC: Alert and oriented x3. Moves all extremities without gross focal defect on examination. SKIN: Dry. PSYCHIATRIC: Normal affect. LABORATORY DATA: Reviewed. MEDICATIONS: Reviewed. ASSESSMENT AND PLAN: This is a 67-year-old man with 1. Acute exacerbation of congestive heart failure, systolic. The patient is instructed again this day with process server to avoid salt in discussion concerning fluid restriction both inpatient and status post discharge. We can continue diuresis and obtain electrolyte panel this afternoon. 2. Gout. Allopurinol. 3. Hyperuricemia. Allopurinol. 4. Diabetes mellitus type 2. Lisp sliding scale with insulin Levemir 58 units nightly. [id number] glucose over the last 24 hours 101 minimum to 161 max. Continue regimen. 5. Pulmonary edema. Follow up chest x-ray. 6. Right bundle branch block with atrial fibrillation. Medications as above. 7. Prophylaxis. PPI Protonix with warfarin. 8. Disposition. I\T\O's reviewed. Patient with 4-pound loss since admission. Nursing staff will initiate CHF education this day after discussion with patient via process server about practices. Case Management arranging home health and O2 services. Anticipate discharge once complete. Dictated by: Gasper Gusman NP Job#: [id number] EV
[2018-01-29 16:05] VITALS: BP 116/64
--- NOTE | 2018-01-29 16:21 | Diagnostic Imaging Report ---
PROCEDURE: Frontal and lateral views of the chest. COMPARISON: 01/26/18 INDICATIONS: COPD, SHORTNESS OF BREATH, CHF FINDINGS: Lines/tubes: Stable single lead left chest wall cardiac device. Lungs: The lungs are well inflated. Mild to moderate interstitial edema. Pleura: There is no pneumothorax. Small right pleural effusion. Heart and mediastinum: Enlarged cardiac silhouette. Median sternotomy wires. Prosthetic valve. Bones: No acute bony abnormality. IMPRESSION: Enlarged cardiac silhouette and mild to moderate interstitial edema. Underlying infiltrate in the right mid to lower lung field cannot be excluded. Small right pleural effusion. Dictated by: Dawson Minor M.D. on 01/29/2018 at 16:27 Electronically approved by: Dawson Minor M.D. on 01/29/2018 at 16:27
[2018-01-29] MEDS: ACETAMINOPHEN/CODEINE 300MG - 30MG TAB PO PRN (19:31)
[2018-01-29 20:00] VITALS: BP 119/59
[2018-01-29] MEDS: INSULIN DETEMIR 100 UNIT/ML PEN SQ SCH (21:00)
[2018-01-29] MEDS: SIMVASTATIN 40 MG TAB PO SCH (21:32)
[2018-01-30] VITALS (9 sets, daily range): BP systolic 97–157; BP diastolic 55–114
[2018-01-30] MEDS: LEVOTHYROXINE SODIUM 125 MCG TAB PO SCH (06:57)
--- NOTE | 2018-01-30 07:29 | Progress Note ---
DATE: January 30, 2018 TIME: 7 a.m. OVERNIGHT: No events. Feeling a little better. REVIEW OF SYSTEMS: Denies any dizziness or chest pain. Denies nausea, vomiting, diarrhea, leg pain, back pain, or headache. PHYSICAL EXAMINATION VITAL SIGNS: Reviewed. GENERAL: A tired-appearing man resting in bed. HEENT: Anicteric. CARDIOVASCULAR: Normal S1 and S2. LUNGS: He has reduced breath sounds throughout. ABDOMEN: Soft, nontender and nondistended. EXTREMITIES: He has a right AKA scar well healed. He has left leg with trace to 1+ edema. SKIN: Dry. PSYCHIATRIC: Flat affect. NEUROLOGICAL: Alert and oriented times 3. Moving all extremities. LABS: Reviewed. MEDICATIONS: Reviewed. ASSESSMENT: A 67-year-old man with: 1. Acute exacerbation of systolic congestive heart failure. 2. Gout. 3. Hyperuricemia. 4. Diabetes mellitus, type 2. 5. Pulmonary edema. 6. Right bundle branch block. 7. Atrial fibrillation. 8. Fluid overload. PLAN 1. Continue diuresis. 2. Continue . 3. Fluid restrict to 800 mL a day. 4. I's and O's have been reviewed. 5. Discussed extensive fluid restriction and salt restriction at home. 6. Continue medication regimen. 7. Discharge planning. Job#: [id number] CANDE
[2018-01-30] MEDS: INSULIN LISPRO 100 UNIT/1 ML 3ML VIAL SQ SCH ×7 (07:30→21:00)
[2018-01-30] MEDS ORDERED: POTASSIUM CHLORIDE 20 MEQ TAB CR PO NR (08:30)
[2018-01-30 08:37] LABS: INR 1.5
[2018-01-30] MEDS: LOSARTAN POTASSIUM 25 MG TAB PO SCH (08:51)
[2018-01-30] MEDS: PANTOPRAZOLE SOD 40 MG TABEC PO SCH (08:51)
[2018-01-30] MEDS: OLOPATADINE (OPTH) 5 ML BTL OP SCH (08:51)
[2018-01-30] MEDS: AMIODARONE HCL 200 MG TAB PO SCH (08:51)
[2018-01-30] MEDS: FUROSEMIDE INJ 10 MG/ML 4 ML VIAL IV SCH ×2 (08:51→21:54)
[2018-01-30] MEDS: GABAPENTIN 300 MG CAP PO SCH ×2 (08:52→17:21)
[2018-01-30] MEDS: METOPROLOL TARTRATE 25 MG TAB PO SCH (08:52)
[2018-01-30] MEDS: GLIMEPIRIDE 1 MG PO SCH (08:52)
[2018-01-30] MEDS: FINASTERIDE 5 MG TAB PO SCH (08:52)
[2018-01-30] MEDS: TAMSULOSIN HCL 0.4 MG CAP PO SCH (08:52)
[2018-01-30] MEDS: GLIMEPIRIDE 2 MG TAB PO SCH ×2 (09:16→17:21)
[2018-01-30] MEDS ORDERED: WARFARIN SOD 2 MG TAB PO SCH (17:00)
[2018-01-30] MEDS: INSULIN DETEMIR 100 UNIT/ML PEN SQ SCH (21:00)
[2018-01-30] MEDS: SIMVASTATIN 40 MG TAB PO SCH (21:54)
[2018-01-31] VITALS: BP 109/63
[2018-01-31 05:24] VITALS: BP 115/67
[2018-01-31 05:46] LABS: BASOPHILS % 0.5 % (0.0-1.0); EOSINOPHILS # (AUTO) 0.4 (0.0-0.4); HEMATOCRIT 35.6 % (38.2-49.6); HEMOGLOBIN 10.9 g/dL (14.0-18.0); LYMPHOCYTES # (AUTO) 1.1 (1.0-3.2); LYMPHOCYTES % 13.4 % (18.0-39.1); MEAN CORPUSCULAR HEMOGLOBIN 29.5 pg (28-32); MEAN CORPUSCULAR HGB CONC 30.6 g/dL (31-35); MEAN CORPUSCULAR VOLUME 96.5 fL (81-99); MONOCYTES # (AUTO) 0.9 (0.2-0.8); MONOCYTES % 11.1 % (4.4-11.3); NEUTROPHILS # (AUTO) 5.4 (2.1-6.9); NEUTROPHILS % 69.6 % (38.7-80.0); PLATELET COUNT 155 x10e3/uL (140-360); RED BLOOD COUNT 3.69 x10e6/uL (4.3-5.7)
[2018-01-31 06:07] LABS: INR 1.6; PROTHROMBIN TIME 17.9 seconds (11.9-14.5)
[2018-01-31] MEDS: LEVOTHYROXINE SODIUM 125 MCG TAB PO SCH (06:15)
[2018-01-31 06:20] LABS: ALANINE AMINOTRANSFERASE 16 IU/L (0-55); ALBUMIN 3.3 g/dL (3.5-5.0); ALBUMIN/GLOBULIN RATIO 0.8 (0.8-2.0); ALKALINE PHOSPHATASE 123 IU/L (40-150); BLOOD UREA NITROGEN 22 mg/dL (7-26); BUN/CREATININE RATIO 22 (6-25); CALCIUM 9.3 mg/dL (8.4-10.2); CARBON DIOXIDE 35 mmol/L (22-29); CHLORIDE 99 mmol/L (98-107); EST GLOMERULAR FILTRATION RATE > 60 ML/MIN (60-); GLUCOSE 87 mg/dL (74-118); SODIUM 143 mmol/L (136-145)
[2018-01-31] MEDS ORDERED: SPIRONOLACTONE25 MG PO (06:51)
[2018-01-31] MEDS: INSULIN LISPRO 100 UNIT/1 ML 3ML VIAL SQ SCH ×4 (07:30→11:30)
--- NOTE | 2018-01-31 07:55 | Discharge Summary ---
PRINCIPAL DIAGNOSES 1. Acute exacerbation of systolic congestive heart failure. 2. Diet with low salt and noncompliance. 3. Gout with hyperuricemia. 4. Diabetes mellitus, type 2. 5. Pulmonary edema. 6. Right bundle branch block. 7. Atrial fibrillation. 8. Fluid overload. SECONDARY DIAGNOSIS: Systolic congestive heart failure. CHIEF COMPLAINT: Shortness of breath and leg swelling. HISTORY OF PRESENT ILLNESS: This is a 67-year-old man with shortness of breath and leg swelling. Refer to the H and P for further details. HOSPITAL COURSE: The patient developed shortness of breath and leg swelling. He has been noncompliant with his diet. Has not been on a low sodium diet or reduced fluids. He was diuresed and re-encouraged to remain compliant to his diet. He was given IV Lasix. He will be discharged home with Lasix and spironolactone. The patient was hyperuricemic with gout and treated with allopurinol. He had a right bundle branch block and atrial fibrillation. Heart rate is controlled. He had fluid overload. The patient is doing better and currently appropriate for discharge and followup. The patient also had subtherapeutic INR. His INR has been improving, and will need continued monitoring at home. Home health service has been set up. He will have his INR checked twice a week and results sent to his primary care doctor. DISCHARGE MEDICATIONS: Per electronic medical record. FOLLOWUP 1. Primary care doctor in 1 week. 2. Senior Net Developer in 1 week. CONDITION ON DISCHARGE: Stable and improving. DISCHARGE LOCATION: Home. GENNARO NGUYEN MD Job#: [id number] MD
[2018-01-31 08:25] VITALS: BP 111/67
[2018-01-31] MEDS: LOSARTAN POTASSIUM 25 MG TAB PO SCH (08:32)
[2018-01-31] MEDS: AMIODARONE HCL 200 MG TAB PO SCH (08:32)
[2018-01-31] MEDS: PANTOPRAZOLE SOD 40 MG TABEC PO SCH (08:32)
[2018-01-31] MEDS: TAMSULOSIN HCL 0.4 MG CAP PO SCH (08:32)
[2018-01-31] MEDS: OLOPATADINE (OPTH) 5 ML BTL OP SCH (08:32)
[2018-01-31] MEDS: FUROSEMIDE INJ 10 MG/ML 4 ML VIAL IV SCH (08:32)
[2018-01-31] MEDS: GLIMEPIRIDE 2 MG TAB PO SCH (08:32)
[2018-01-31] MEDS: FINASTERIDE 5 MG TAB PO SCH (08:33)
[2018-01-31] MEDS: GABAPENTIN 300 MG CAP PO SCH (08:33)
[2018-01-31] MEDS: METOPROLOL TARTRATE 25 MG TAB PO SCH (08:33)
[2018-01-31 08:39] VITALS: BP 111/67
[2018-01-31] MEDS ORDERED: POTASSIUM CHLORIDE 20 MEQ TAB CR PO SCH (09:00)
== END 2018-01-31 12:35 | disposition home health service (06) | DRG 292 ==
LOC: ER 21:46 → ERHOLD 01-27 00:06 → MED/SURG 01-27 00:32
PROVIDERS: ADMIT Internal Medicine; ATTEND Internal Medicine
DX: I11.0 Hypertensive heart disease with heart failure (principal); J81.1 Chronic pulmonary edema; I50.23 Acute on chronic systolic (congestive) heart failure; Z91.11 Patient's noncompliance with dietary regimen; M1A.9XX0 Chronic gout, unspecified, without tophus (tophi); I45.10 Unspecified right bundle-branch block; I48.91 Unspecified atrial fibrillation; Z79.01 Long term (current) use of anticoagulants
CPT/HCPCS: 36415; 71046; 80053; 80061; 81001; 82306; 82550; 82553; 82948; 83036; 83735; 83880; 84100; 84484; 84550; 85025; 85610; 85651; 85730; 93005; 94640; 99284; J1940

== ENCOUNTER 2018-11-04 18:37 | Inpatient (IN) | payer MEDICARE, OTHER ==
[~2018-11-04] VITALS: Ht 175.3 cm; Wt 104.8 kg
[2018-11-04 19:14] LABS: BASOPHILS % 0.4 % (0.0-1.0); EOSINOPHILS # (AUTO) 0.2 (0.0-0.4); EOSINOPHILS % 1.7 % (0.0-6.0); HEMATOCRIT 38.5 % (38.2-49.6); HEMOGLOBIN 12.2 g/dL (14.0-18.0); LYMPHOCYTES # (AUTO) 0.8 (1.0-3.2); LYMPHOCYTES % 7.8 % (18.0-39.1); MEAN CORPUSCULAR HEMOGLOBIN 30.5 pg (28-32); MEAN CORPUSCULAR HGB CONC 31.7 g/dL (31-35); MEAN CORPUSCULAR VOLUME 96.3 fL (81-99); MONOCYTES # (AUTO) 1.3 (0.2-0.8); MONOCYTES % 11.8 % (4.4-11.3); NEUTROPHILS # (AUTO) 8.4 (2.1-6.9); NEUTROPHILS % 77.9 % (38.7-80.0); PLATELET COUNT 207 x10e3/uL (140-360)
[2018-11-04] MEDS ORDERED: ALBUTEROL SULF 0.083% NEB SOLN 3 ML NEB NEB STA (19:24)
[2018-11-04 19:29] LABS: INR 3.47; PROTHROMBIN TIME 35.7 seconds (11.9-14.5)
[2018-11-04 19:30] LABS: PARTIAL THROMBOPLASTIN TIME 89.8 seconds (23.8-35.5)
[2018-11-04 19:37] LABS: ALBUMIN 3.4 g/dL (3.5-5.0); ALBUMIN/GLOBULIN RATIO 0.6 (0.8-2.0); ANION GAP 11.3 mmol/L (8-16); CREATININE, SERUM 1.26 mg/dL (0.72-1.25); POTASSIUM 4.3 mmol/L (3.5-5.1)
--- NOTE | 2018-11-04 19:42 | Diagnostic Imaging Report ---
Examination: Single AP view of the chest. COMPARISON: January 29, 2018 INDICATION: Shortness of breath DISCUSSION: Lines/tubes: Single lead pacemaker. Sternotomy wires. Lungs: Pulmonary edema. Pleura: Probable small effusions. Heart and mediastinum: Cardiomegaly. Bones and soft tissues: No acute bony abnormalities. IMPRESSION: 1. Cardiomegaly with pulmonary edema Signed by: Dr. Vazquez Hobbs M.D. on 11/04/2018 7:39 PM
[2018-11-04 19:43] LABS: CREATINE KINASE MB 1.8 ng/mL (0-5.0)
[2018-11-04] MEDS ORDERED: IPRATROPIUM BROMIDE 0.02% 2.5 ML NEB NEB ONE (20:00)
[2018-11-04] MEDS ORDERED: FUROSEMIDE INJ 10 MG/ML 4 ML VIAL IV ONE (20:00)
[2018-11-04] MEDS ORDERED: DEXTROSE 50% SYRINGE 50 ML IV PRN (21:00)
[2018-11-04] MEDS ORDERED: SODIUM CHLORIDE FLUSH 10 ML SYR INJ PRN (21:00)
[2018-11-04] MEDS: INSULIN REGULAR, HUMAN 100 UNIT/1 ML 3ML VIAL SQ SCH (21:28)
--- NOTE | 2018-11-04 23:45 | NUR ---
REPORT GIVEN TO LUCRECIA ROY. BIPAP WAS PAUSED FOR APPROX 10 MINUTES, FROM [id number], PT WAS NOT ABLE TO TOLERATE WELL, PER DR. LEWIS TO RESUME BIPAP AT THIS TIME.
[2018-11-04] MEDS: ALBUTEROL/IPRATROPIUM 3 ML NEB NEB SCH (23:47)
[2018-11-05] VITALS (9 sets, daily range): BP systolic 98–160; BP diastolic 61–90
[2018-11-05] MEDS: ALBUTEROL/IPRATROPIUM 3 ML NEB NEB SCH ×6 (03:23→23:22)
[2018-11-05 04:13] LABS: BASOPHILS % 0.4 % (0.0-1.0); EOSINOPHILS # (AUTO) 0.3 (0.0-0.4); EOSINOPHILS % 2.6 % (0.0-6.0); HEMATOCRIT 36.5 % (38.2-49.6); HEMOGLOBIN 11.7 g/dL (14.0-18.0); LYMPHOCYTES # (AUTO) 1.4 (1.0-3.2); LYMPHOCYTES % 13.1 % (18.0-39.1); MEAN CORPUSCULAR HEMOGLOBIN 30.2 pg (28-32); MEAN CORPUSCULAR HGB CONC 32.1 g/dL (31-35); MEAN CORPUSCULAR VOLUME 94.3 fL (81-99); MONOCYTES # (AUTO) 1.2 (0.2-0.8); MONOCYTES % 10.7 % (4.4-11.3); NEUTROPHILS # (AUTO) 7.9 (2.1-6.9); NEUTROPHILS % 72.8 % (38.7-80.0); PLATELET COUNT 193 x10e3/uL (140-360); RED BLOOD COUNT 3.87 x10e6/uL (4.3-5.7); RED CELL DISTRIBUTION WIDTH 15.9 % (11.7-14.4)
[2018-11-05 04:31] LABS: ALANINE AMINOTRANSFERASE 23 IU/L (0-55); ALBUMIN 3.2 g/dL (3.5-5.0); ALBUMIN/GLOBULIN RATIO 0.6 (0.8-2.0); ALKALINE PHOSPHATASE 142 IU/L (40-150); ANION GAP 15.5 mmol/L (8-16); BLOOD UREA NITROGEN 25 mg/dL (7-26); BUN/CREATININE RATIO 23 (6-25); CALCIUM 10.1 mg/dL (8.4-10.2); CARBON DIOXIDE 33 mmol/L (22-29); CHLORIDE 98 mmol/L (98-107); CREATININE, SERUM 1.09 mg/dL (0.72-1.25); EST GLOMERULAR FILTRATION RATE > 60 ML/MIN (60-); GLUCOSE 197 mg/dL (74-118); POTASSIUM 3.5 mmol/L (3.5-5.1); SODIUM 143 mmol/L (136-145)
[2018-11-05 04:42] LABS: CREATINE KINASE MB 1.1 ng/mL (0-5.0)
--- NOTE | 2018-11-05 06:52 | NUR ---
PRIMARY CARE PHYSICIAN: Dr. Campos. CHIEF COMPLAINT: Shortness of breath/fluid overload HISTORY OF PRESENT ILLNESS: This is a 67-year-old man with a history of systolic congestive heart failure, now with fluid overload and sob needing BIPAP. PAST MEDICAL HISTORY: Systolic congestive heart failure, mild aortic regurgitation, diabetes mellitus type 2, diabetic nephropathy, hypertension, left ventricular ejection fraction 30%, status post AICD, atrial fibrillation, mitral valve disease, status post replacement, coronary artery disease status post coronary artery bypass graft, ischemic cardiomyopathy, peripheral vascular disease, status post right AKA, BPV, acute rhabdomyolysis, thrombocytopenia, normocytic anemia, Gout, RBBB. PAST SURGICAL HISTORY: Right AKA, AICD placement, coronary artery bypass grafting, . FAMILY/SOCIAL HISTORY: No alcohol or illicits. Family involved in care of the patient. The patient's father of coronary artery disease and mother has diabetes mellitus. Sister has coronary artery disease. MEDICATIONS: Per electronic medical records. REVIEW OF SYSTEMS: Denies any dizziness, chest pain, fever or chills or sweats, no nausea, vomiting or diarrhea, leg pain, headache. PHYSICAL EXAMINATION VITAL SIGNS: Have been reviewed. GENERAL APPEARANCE: A tired-appearing man resting in the bed. HEENT: Anicteric. CARDIOVASCULAR: Normal S1 and S2. LUNGS: Reduced breath sounds at the bases with small amount of wheezing. ABDOMEN: Soft and nontender. Nondistended. EXTREMITIES: He has right AKA. Scar well healed. left leg with trace edema NEUROLOGIC: Alert and oriented x3. Moving all extremities. SKIN: Dry. PSYCHIATRIC: Flat affect. NEUROLOGIC: Alert and oriented x3. Moving all extremities. LABS: Reviewed. MEDICATIONS: Reviewed. ASSESSMENT: A 67-year-old man. 1a.Acute resp failure on BIPAP 1b. Acute exacerbation of systolic congestive heart failure. 2. Diabetes mellitus type 2. 5. Pulmonary edema. 6. LENORE 7.Hyperbilirubinemia 8.Obesity BMI 34.9 9.Supratherapeutic inr 10.PAF 11.HLD 12.Hypothyroidism 13.BPH 14.RBBB PLAN: 1. Diuresis the patient. BIPAp support. 2. Avoid salt. 3. Fluid restriction. 4. hba1c/lipids 5.Hold coumadin. Pepcid on AC Dispo; Restart coumadin when inr appropriate; IV diuresis. Lauri Manzano MD, PhD.
[2018-11-05] MEDS ORDERED: POLYETHYLENE GLYCOL 3350 17 GM PACK PO PRN (07:15)
[2018-11-05] MEDS: TAMSULOSIN HCL 0.4 MG CAP PO SCH (07:55)
[2018-11-05] MEDS: AMIODARONE HCL 200 MG TAB PO SCH (07:55)
[2018-11-05] MEDS: POTASSIUM CHLORIDE 20 MEQ TAB CR PO SCH (07:55)
[2018-11-05] MEDS: LEVOTHYROXINE SODIUM 125 MCG TAB PO SCH (07:55)
[2018-11-05] MEDS: METOPROLOL TARTRATE 25 MG TAB PO SCH ×2 (07:55→16:57)
[2018-11-05] MEDS: FAMOTIDINE 20 MG TAB PO SCH ×2 (07:55→16:56)
[2018-11-05] MEDS: INSULIN REGULAR, HUMAN 100 UNIT/1 ML 3ML VIAL SQ SCH ×4 (07:56→21:00)
[2018-11-05] MEDS: GABAPENTIN 300 MG CAP PO SCH ×2 (07:56→16:57)
[2018-11-05] MEDS: PANTOPRAZOLE SOD 40 MG TABEC PO SCH (07:56)
[2018-11-05] MEDS: FINASTERIDE 5 MG TAB PO SCH (07:56)
--- NOTE | 2018-11-05 08:52 | NUR ---
pt resting in bed, on bipap. able to make needs known. no s/s distress at this time. pt able to tolerate being on o2 nc @4lpm to eat and take meds. urinal provided. pt has BKA with home crutches at bedside. will continue to monitor.
[2018-11-05] MEDS ORDERED: FUROSEMIDE INJ 10 MG/ML 4 ML VIAL IV SCH (09:00)
--- NOTE | 2018-11-05 10:45 | Consultation ---
DATE OF CONSULTATION: 11/05/2018 Cardiology Consult Note REASON FOR CONSULT: Acute on chronic systolic CHF exacerbation. CHIEF COMPLAINT: Shortness of breath and abdominal swelling. HISTORY OF PRESENT ILLNESS: The patient is a 68-year-old man with history of coronary artery disease status post coronary artery bypass graft surgery in the past, mechanical mitral valve replacement, history of aortic stenosis, atrial fibrillation status post ICD placement, and chronic systolic heart failure, who presents with worsening abdominal swelling and shortness of breath for the past several days. He says he has been compliant with his medications including his Coumadin. Denies any chest pain. Denies any dietary noncompliance. PAST MEDICAL HISTORY: 1. Chronic systolic congestive heart failure. 2. Coronary artery disease, status post coronary artery bypass graft surgery. 3. Status post mechanical mitral valve replacement. 4. History of aortic stenosis. 5. History of atrial fibrillation, on amiodarone. 6. Status post right AKA. OUTPATIENT MEDICATIONS: Reviewed. ALLERGIES: NO KNOWN DRUG ALLERGIES. REVIEW OF SYSTEMS: A 10-point review of systems as per HPI, otherwise negative. SOCIAL HISTORY: The patient does not smoke, drink, or abuse drugs. FAMILY HISTORY: Noncontributory. OBJECTIVE: VITAL SIGNS: Temperature 98.7, pulse 97, respiratory rate 20, blood pressure 120/75, and saturating 97% on CPAP. GENERAL: Middle-aged man, obese, no acute distress. CARDIOVASCULAR: Regular rate and rhythm. Mechanical click. A 2/6 systolic murmur at right upper sternal border. LUNGS: Decreased breath sounds bilaterally at the bases. Some mild crackles. ABDOMEN: Obese, soft, distended, and nontender. EXTREMITIES: Right lower extremity AKA. Left lower extremity without significant edema. Pulses are difficult to palpate in the left lower extremity. Palpable carotid pulses. Palpable radial pulses. NEURO AND PSYCH: Alert, oriented to person, place, and time. Normal affect. INPATIENT MEDICATIONS: Reviewed. LABORATORY DATA: Reviewed. Notable for troponins negative x2. BNP of 340. IMAGING DATA: Reviewed. Chest x-ray shows cardiomegaly with pulmonary edema. TELEMETRY DATA: Reviewed, shows rate controlled AFib. ASSESSMENT: 1. Acute on chronic systolic congestive heart failure. 2. History of mechanical mitral valve replacement. 3. History of aortic stenosis. 4. History of coronary artery disease, status post bypass graft surgery. 5. History of atrial fibrillation, on amiodarone. PLAN: Continue IV diuretics. The patient is feeling somewhat better. However, still remained short of breath. We will increase dose of Lasix to 80 mg IV b.i.d. INR is therapeutic at 3.4. His goal range for mechanical mitral valve is 2.5 to 3.5. Continue current dosing. Echocardiogram has been ordered and is pending. Thank you for this consult. We will continue to follow. MD LEON Thompson/ERICA /[id number]
[2018-11-05 14:12] LABS: CREATINE KINASE MB 1.2 ng/mL (0-5.0)
[2018-11-05] MEDS: FUROSEMIDE INJ 10 MG/ML 4 ML VIAL IV SCH (16:56)
--- NOTE | 2018-11-05 17:58 | Consultation ---
DATE OF CONSULTATION: Pulmonary Critical Care Consultation CHIEF COMPLAINT: Dyspnea and worsening congestion. HISTORY OF PRESENT ILLNESS: The patient is a 68-year-old man. He has a history of prior mitral valve replacement as well as aortic stenosis. He has atrial fibrillation and a history of systolic cardiomyopathy. His last estimated ejection fraction was 30% to 35%. He came into the hospital complaining of worsening dyspnea and leg edema. He is not complaining of any fevers. He did not have chest pain. He did note some cough. PAST SURGICAL HISTORY: 1. Status post ztlrr-rgh-[id number] amputation on the right side. 2. Status post mitral valve replacement with a prosthetic mitral valve. PAST MEDICAL HISTORY: 1. Atrial fibrillation. 2. Aortic stenosis. ALLERGIES: NO KNOWN DRUG ALLERGIES. SOCIAL HISTORY: The patient has never been a smoker or drinker. FAMILY HISTORY: The family history is noncontributory. REVIEW OF SYSTEMS: The patient is afebrile. He has no headache. He has no neck pain. He is not having any sore throat. He has no chest pain. He does have some cough. There is some dyspnea. He has no abdominal pain. There is no nausea or vomiting. He has some leg swelling. PHYSICAL EXAMINATION: VITAL SIGNS: The blood pressure is 124/84 and the saturation is 95% on 4 L. HEENT: Shows no facial swelling or erythema. The oropharynx is normal. LYMPHATIC: Shows no submandibular, cervical, or supraclavicular adenopathy. CARDIAC: Reveals a regular rate and rhythm with normal S1 and S2. There are no murmurs or rubs. LUNGS: Auscultation of lungs reveals crackles in both lung mosqueda. There is no wheezing. ABDOMEN: Soft and nontender. There is no rebound or guarding. EXTREMITIES: Show an zgged-pdk-[id number] amputation on one side and some 1 to 2+ edema on the contralateral side. LABORATORY DATA: White blood cell count is 10.8 and the hemoglobin is 11.7. The platelet count is 193. BUN to creatinine ratio is 25 to 1.09 and the other electrolytes are within normal limits. Total bilirubin is 1.8. INR is 3.47. RADIOGRAPHIC DATA: Chest x-ray shows cardiomegaly and changes consistent with congestive heart failure. IMPRESSION: 1. Acute on chronic systolic congestive heart failure. 2. Chronic obstructive pulmonary disease. 3. Prosthetic mitral valve. 4. Atrial fibrillation. PLAN: 1. Continue diuretics. 2. Continue current cardiac regimen. 3. The patient should have bronchodilators as needed. 4. Wean oxygen as tolerated. MD KATE Banegas/ERICA /[id number]
--- NOTE | 2018-11-05 19:00 | NUR ---
Report received from LUCRECIA Cohn. Patient received alert/reoriented x3,Swazi speaking little Italian comfortably resting on his bed. Denied pain no SOB noted. Patient continued on 4liters NC,Spo2 maintained 94% and BIPAP. Family at the bedside. Bed in lower position,locked. Patient instructed to call for help as needed. Will continue to monitor.
[2018-11-05] MEDS: INSULIN GLARGINE 100 UNITS/ML VIAL SQ SCH (21:19)
[2018-11-05] MEDS: SIMVASTATIN 40 MG TAB PO SCH (21:19)
[2018-11-05] MEDS ORDERED: INSULIN REGULAR, HUMAN 100 UNIT/1 ML 3ML VIAL SQ ONE (21:30)
[2018-11-06] VITALS (7 sets, daily range): BP systolic 95–128; BP diastolic 50–92
[2018-11-06] MEDS: ALBUTEROL/IPRATROPIUM 3 ML NEB NEB SCH ×6 (03:00→23:05)
[2018-11-06] MEDS: LEVOTHYROXINE SODIUM 125 MCG TAB PO SCH (05:48)
--- NOTE | 2018-11-06 06:20 | NUR ---
IM- Progress note O/N; no events REVIEW OF SYSTEMS: Denies any dizziness, chest pain, fever or chills or sweats, no nausea, vomiting or diarrhea, leg pain, headache. PHYSICAL EXAMINATION VITAL SIGNS: Have been reviewed. GENERAL APPEARANCE: A tired-appearing man resting in the bed. HEENT: Anicteric. CARDIOVASCULAR: Normal S1 and S2. LUNGS: Reduced breath sounds at the bases with small amount of wheezing. ABDOMEN: Soft and nontender. Nondistended. EXTREMITIES: He has right AKA. Scar well healed. left leg with trace edema NEUROLOGIC: Alert and oriented x3. Moving all extremities. SKIN: Dry. PSYCHIATRIC: Flat affect. NEUROLOGIC: Alert and oriented x3. Moving all extremities. LABS: Reviewed. MEDICATIONS: Reviewed. ASSESSMENT: A 67-year-old man. 1a.Acute resp failure on BIPAP 1b. Acute exacerbation of systolic congestive heart failure. 2. Diabetes mellitus type 2. 5. Pulmonary edema. 6. LENORE 7.Hyperbilirubinemia 8.Obesity BMI 34.9 9.PAF 10.HLD 11.Hypothyroidism 12.BPH 13.RBBB 14.Mechanical Mitral valve PLAN: 1. Diuresis the patient. BIPAp support. 2. Avoid salt. 3. Fluid restriction. 4. hba1c/lipids 5.inr goal 2.5-3.5 Pepcid on AC Dispo; Restart coumadin when inr appropriate; IV diuresis. check labs; continue coumadin. had BIPAP overnight; continue diuresis. improving; I/O 1299/0 Lauri Manzano MD, PhD.
--- NOTE | 2018-11-06 06:54 | NUR ---
Report given to LUCRECIA Cohn.
[2018-11-06] MEDS: INSULIN REGULAR, HUMAN 100 UNIT/1 ML 3ML VIAL SQ SCH ×4 (07:30→20:57)
[2018-11-06 07:43] LABS: INR 3.31; PROTHROMBIN TIME 34.4 seconds (11.9-14.5)
[2018-11-06 07:56] LABS: ANION GAP 13.2 mmol/L (8-16); BLOOD UREA NITROGEN 29 mg/dL (7-26); BUN/CREATININE RATIO 27 (6-25); CALCIUM 10.1 mg/dL (8.4-10.2); CARBON DIOXIDE 36 mmol/L (22-29); CHLORIDE 94 mmol/L (98-107); CREATININE, SERUM 1.07 mg/dL (0.72-1.25); EST GLOMERULAR FILTRATION RATE > 60 ML/MIN (60-); GLUCOSE 121 mg/dL (74-118); POTASSIUM 3.2 mmol/L (3.5-5.1); SODIUM 140 mmol/L (136-145)
[2018-11-06] MEDS: AMIODARONE HCL 200 MG TAB PO SCH (08:40)
[2018-11-06] MEDS: TAMSULOSIN HCL 0.4 MG CAP PO SCH (08:40)
[2018-11-06] MEDS: FINASTERIDE 5 MG TAB PO SCH (08:40)
[2018-11-06] MEDS: FAMOTIDINE 20 MG TAB PO SCH ×2 (08:40→16:58)
[2018-11-06] MEDS: POTASSIUM CHLORIDE 20 MEQ TAB CR PO SCH (08:40)
[2018-11-06] MEDS: METOPROLOL TARTRATE 25 MG TAB PO SCH ×2 (08:40→16:59)
[2018-11-06] MEDS: FUROSEMIDE INJ 10 MG/ML 4 ML VIAL IV SCH ×2 (08:40→16:58)
[2018-11-06] MEDS: PANTOPRAZOLE SOD 40 MG TABEC PO SCH (08:40)
[2018-11-06] MEDS: GABAPENTIN 300 MG CAP PO SCH ×2 (08:40→16:59)
[2018-11-06] MEDS: ACETAMINOPHEN 325 MG TAB PO PRN (11:55)
--- NOTE | 2018-11-06 14:45 | NUR ---
Nutrition Screen Note RD Recommendation for Physician: - Recommend adding 2 gm Na, low fat, low cholesterol to diet Plan of Care: RD following, monitoring for tolerance and adequacy Nutrition reason for involvement: MD Consult, Nutrition Risk Trigger- Dx of CHF Primary Diagnose(s): CHF, COPD PMH: CHF, DM2, HLD, PVD, R AKA, CABG, hypothyroidism Ht: 69 in Wt: 231.05 lb BMI: 34.1 kg/m2 AIBW: 152 lb(R AKA) RD Assessment: (11/06) 68 YOM admitted for CHF, seen today per dx screen for CHF and MD consult for diet education. Pt discussed during am rounds. Pt is mostly [place] speaking and no family present, able to obtain limited nutrition hx at time of visit. Pt denies GI distress or poor appetite. Pt with 100% po intake since admit. Pt provided with heart failure nutrition therapy handouts in [place] emphasizing sodium restriction. Chart reviewed. Labs and meds reviewed. POC and rec's reviewed with RN. Will monitor and continue to follow. Current Diet: 1800 ADA Malnutrition Evaluation (11/06/18) The patient does not meet criteria for a specified degree of malnutrition at this time. Will re-evaluate at follow-up as appropriate. Diet Education Needs Assessment: Diet education indicated, pt receptive 11/06. Learner(s): pt Barriers: language Cultural/Language Modifications: education materials provided in [place] Readiness: ready Method: handouts Topics: heart failure nutrition therapy Understanding/Compliance: unable to determine due to language barrier Nutrition Care Level: Low Signed: Aide Pressley RD, LD, [facility]
[2018-11-06] MEDS: WARFARIN SOD 2 MG TAB PO SCH (16:58)
--- NOTE | 2018-11-06 19:39 | Progress Note ---
DATE: 11/06/2018 Cardiology Progress Note SUBJECTIVE: Feels better today, off BiPAP. OBJECTIVE: VITAL SIGNS: Temperature afebrile, pulse 94, respiratory rate 18, blood pressure 110/70, and saturating 100% on nasal cannula. GENERAL: Obese, man, in no acute distress. CARDIOVASCULAR: Regular rate and rhythm. Mechanical click. A 2/6 systolic murmur at right upper sternal border. LUNGS: Decreased breath sounds bilaterally at the bases. ABDOMEN: Obese, soft, distended, and nontender. EXTREMITIES: Right lower extremity AKA. Left extremity without significant edema. Difficult to palpate pulses, palpable carotid and radial pulses. NEUROLOGIC AND PSYCHIATRIC: Alert and oriented to person, place, and time. Normal affect. INPATIENT MEDICATIONS: Reviewed. LABORATORY DATA: Reviewed. IMAGING DATA: Reviewed. TELEMETRY DATA: Reviewed, shows ventricularly paced rhythm. ASSESSMENT: 1. Acute on chronic systolic congestive heart failure. 2. History of mechanical mitral valve replacement. 3. History of mild aortic stenosis. 4. History of coronary artery disease, status post bypass graft surgery. 5. History of atrial fibrillation, on amiodarone. 6. Status post defibrillator placement. PLAN: Improving with IV diuretics. Still has significant volume mainly in his abdomen, but continued to improve on Lasix 80 mg IV b.i.d. INR is therapeutic. Continue Coumadin. Echocardiogram reviewed. EF is severely depressed at 25% with normal mechanical mitral valve function. There is only mild aortic stenosis. Thank you for this consult. We will continue to follow. MD LEON Thompson/ERICA /[id number]
[2018-11-06] MEDS: INSULIN GLARGINE 100 UNITS/ML VIAL SQ SCH (20:57)
[2018-11-06] MEDS: SIMVASTATIN 40 MG TAB PO SCH (20:57)
[2018-11-07] MEDS: ALBUTEROL/IPRATROPIUM 3 ML NEB NEB SCH ×6 (02:30→23:30)
[2018-11-07 04:06] VITALS: BP 112/88
[2018-11-07] MEDS: LEVOTHYROXINE SODIUM 125 MCG TAB PO SCH (05:47)
[2018-11-07 06:00] LABS: BASOPHILS # (AUTO) 0.1 (0.0-0.1); BASOPHILS % 0.7 % (0.0-1.0); EOSINOPHILS # (AUTO) 0.4 (0.0-0.4); EOSINOPHILS % 4.3 % (0.0-6.0); HEMOGLOBIN 11.6 g/dL (14.0-18.0); LYMPHOCYTES # (AUTO) 1.2 (1.0-3.2); LYMPHOCYTES % 12.9 % (18.0-39.1); MEAN CORPUSCULAR HEMOGLOBIN 29.7 pg (28-32); MEAN CORPUSCULAR HGB CONC 31.4 g/dL (31-35); MEAN CORPUSCULAR VOLUME 94.9 fL (81-99); MONOCYTES # (AUTO) 1.1 (0.2-0.8); MONOCYTES % 11.8 % (4.4-11.3); NEUTROPHILS # (AUTO) 6.6 (2.1-6.9); NEUTROPHILS % 69.9 % (38.7-80.0); PLATELET COUNT 218 x10e3/uL (140-360); RED CELL DISTRIBUTION WIDTH 15.3 % (11.7-14.4)
--- NOTE | 2018-11-07 06:18 | Diagnostic Imaging Report ---
EXAMINATION: PA and lateral views of the chest. COMPARISON: Portable chest 11/04/2018, chest 2 views 01/29/2018 CLINICAL HISTORY: CHF, shortness of breath DISCUSSION: Lines/tubes: Stable left upper chest cardiac device with the distal tip projecting in the right ventricle. Lungs: Lungs are well-inflated. Diffuse bilateral interstitial opacities extending from the tony. Pleura: There is no pleural effusion or pneumothorax. Heart and mediastinum: Stable enlargement of the cardiac silhouette. Central pulmonary venous congestion. Bones and soft tissues: No acute bony abnormalities. Degenerative changes in the thoracic spine IMPRESSION: Enlarged cardiac silhouette with central pulmonary venous congestion and diffuse bilateral interstitial edema. Findings consistent with decompensated CHF. Signed by: Dr. Giuliano Cerrato M.D. on 11/07/2018 6:14 AM
[2018-11-07 06:39] LABS: ALANINE AMINOTRANSFERASE 17 IU/L (0-55); ALBUMIN/GLOBULIN RATIO 0.6 (0.8-2.0); ALKALINE PHOSPHATASE 122 IU/L (40-150); ANION GAP 12.9 mmol/L (8-16); BLOOD UREA NITROGEN 30 mg/dL (7-26); BUN/CREATININE RATIO 26 (6-25); CALCIUM 9.9 mg/dL (8.4-10.2); CARBON DIOXIDE 37 mmol/L (22-29); CHLORIDE 94 mmol/L (98-107); CREATININE, SERUM 1.16 mg/dL (0.72-1.25); EST GLOMERULAR FILTRATION RATE > 60 ML/MIN (60-); GLUCOSE 120 mg/dL (74-118); SODIUM 141 mmol/L (136-145)
[2018-11-07 06:48] LABS: POTASSIUM 2.9 mmol/L (3.5-5.1)
--- NOTE | 2018-11-07 06:56 | NUR ---
Report given to oncoming nurse,walking round done.
--- NOTE | 2018-11-07 06:57 | NUR ---
IM- Progress note O/N; no events REVIEW OF SYSTEMS: Denies any dizziness, chest pain, fever or chills or sweats, no nausea, vomiting or diarrhea, leg pain, headache. PHYSICAL EXAMINATION VITAL SIGNS: Have been reviewed. GENERAL APPEARANCE: A tired-appearing man resting in the bed. HEENT: Anicteric. CARDIOVASCULAR: Normal S1 and S2. LUNGS: Reduced breath sounds at the bases with small amount of wheezing. ABDOMEN: Soft and nontender. Nondistended. EXTREMITIES: He has right AKA. Scar well healed. left leg with trace edema NEUROLOGIC: Alert and oriented x3. Moving all extremities. SKIN: Dry. PSYCHIATRIC: Flat affect. NEUROLOGIC: Alert and oriented x3. Moving all extremities. LABS: Reviewed. MEDICATIONS: Reviewed. ASSESSMENT: A 67-year-old man. 1a.Acute resp failure on BIPAP 1b. Acute exacerbation of systolic congestive heart failure. 2. Diabetes mellitus type 2. 5. Pulmonary edema. 6. LENORE 7.Hyperbilirubinemia 8.Obesity BMI 34.9 9.PAF 10.HLD 11.Hypothyroidism 12.BPH 13.RBBB 14.Mechanical Mitral valve PLAN: 1. Diuresis the patient. BIPAp support. 2. Avoid salt. 3. Fluid restriction. 4. hba1c/lipids 5.inr goal 2.5-3.5 Pepcid on AC Dispo; Restart coumadin when inr appropriate; IV diuresis. check labs; continue coumadin. had BIPAP overnight; continue diuresis. improving; I/O 1300/2120 15 I/O 200/1650 on lasix; replace K; inr therapeutic Lauri Manzano MD, PhD.
--- NOTE | 2018-11-07 07:10 | NUR ---
Pt received resting in bed. Alert and oriented x4 but Nepalese speaking only. Oriented to staff and surrounding. Advised to press call arcos if help needed. Will monitor
[2018-11-07] MEDS: INSULIN REGULAR, HUMAN 100 UNIT/1 ML 3ML VIAL SQ SCH ×4 (07:30→20:22)
[2018-11-07] MEDS ORDERED: POTASSIUM CHLORIDE 20 MEQ TAB CR PO NR (07:30)
[2018-11-07 08:00] VITALS: BP 121/96
[2018-11-07] MEDS: FAMOTIDINE 20 MG TAB PO SCH ×2 (08:05→16:36)
[2018-11-07] MEDS: FUROSEMIDE INJ 10 MG/ML 4 ML VIAL IV SCH ×2 (08:05→16:36)
--- NOTE | 2018-11-07 08:05 | NUR ---
All meds given as ordered. Emotional support given. Will monitor
[2018-11-07] MEDS: AMIODARONE HCL 200 MG TAB PO SCH (08:06)
[2018-11-07] MEDS: PANTOPRAZOLE SOD 40 MG TABEC PO SCH (08:06)
[2018-11-07] MEDS: METOPROLOL TARTRATE 25 MG TAB PO SCH ×2 (08:06→16:36)
[2018-11-07] MEDS: FINASTERIDE 5 MG TAB PO SCH (08:06)
[2018-11-07] MEDS: POTASSIUM CHLORIDE 20 MEQ TAB CR PO SCH (08:06)
[2018-11-07] MEDS: TAMSULOSIN HCL 0.4 MG CAP PO SCH (08:06)
[2018-11-07] MEDS: GABAPENTIN 300 MG CAP PO SCH ×2 (08:06→16:36)
[2018-11-07] MEDS: ACETAMINOPHEN 325 MG TAB PO PRN (09:44)
[2018-11-07 12:00] VITALS: BP 119/89
[2018-11-07] MEDS: LIDOCAINE 5% PATCH TP SCH (12:05)
[2018-11-07] MEDS: TRAMADOL HCL 50 MG TAB PO PRN ×2 (12:06→17:28)
--- NOTE | 2018-11-07 12:38 | NUR ---
EDUCATED ABOUT IMM, SIGNED, FILED IN CHART, WITH COPY LEFT WITH FAMILY AT BEDSIDE.
--- NOTE | 2018-11-07 13:45 | NUR ---
CM SPOKE TO PATIENT AND PATIENT AT BEDSIDE WITH ASSISTANCE FROM BEDSIDE, RN REBECA. PATIENT STATES HE WANTS HOME HEALTH BUT [facility]ST HOME [facility] DID NOT DELIVER SERVICES. PATIENT GIVEN CHOICES AND [facility]OSE [facility]. CHOICE LETTER SIGNED AND PLACED IN CHART. CLINICAL SENT TO [facility]. PENDING ACCEPTANCE. CM TO FOLLOW UP. [facility] (P)[phone] (F) [phone]
--- NOTE | 2018-11-07 13:49 | NUR ---
AT THIS TIME PATIENT TO DISCHARGE WITH HOME [facility]ARE [facility] (P)[phone] (F) [phone] PLEASE ALLOW 24-48 HOURS TO BE SEEN BY HOME HEALTHCARE COMPANY POST DISCHARGE. IF NO ONE CONTACTS YOU WITHIN 72 HOURS PLEASE NOTIFY FLOOR CHURCH MUSICIAN FROM HOSPITAL TO FOLLOW UP.
--- NOTE | 2018-11-07 14:42 | Progress Note ---
DATE: Pulmonary/Critical Care Progress Note SUBJECTIVE: The patient complains of pain in the knee. He recently had a lidocaine patch placed over the knee. His dyspnea has improved. He does not complain of cough or chest pain. He has no fevers. OBJECTIVE: VITAL SIGNS: Blood pressure is 119/90 and saturation is 95% on 4 L. HEENT: Shows no facial swelling or erythema. The oropharynx is normal. LYMPHATIC: Shows no submandibular, cervical, or supraclavicular adenopathy. CARDIAC: Reveals regular rate and rhythm with normal S1 and S2. There are no murmurs or rubs heard. LUNGS: Auscultation of lungs reveals clear breath sounds bilaterally. There is no wheezing. ABDOMEN: Soft and nontender. There is no rebound or guarding. EXTREMITIES: Examination of the extremities shows [id number] amputation on the right side. There is decreased edema in the left leg. There is some arthritic change in the knee and some pain with bending the knee. IMPRESSION: 1. Acute on chronic systolic congestive heart failure. 2. History of mechanical mitral valve. 3. Atrial fibrillation. 4. Degenerative arthritis of the left knee. 5. Diabetes. PLAN: 1. Continue current cardiac regimen. 2. Pain control for diabetes. 3. Physical Therapy. 4. Wean oxygen. Shelton Cornejo MD [facility]/MODL /[id number]
[2018-11-07 16:00] VITALS: BP 120/84
[2018-11-07 17:05] LABS: INR 2.62; PROTHROMBIN TIME 28.7 seconds (11.9-14.5)
[2018-11-07] MEDS: WARFARIN SOD 2 MG TAB PO SCH (17:27)
[2018-11-07 19:55] VITALS: BP 119/83
[2018-11-07 19:57] VITALS: BP 119/83
[2018-11-07] MEDS: INSULIN GLARGINE 100 UNITS/ML VIAL SQ SCH (20:22)
[2018-11-07] MEDS: SIMVASTATIN 40 MG TAB PO SCH (20:29)
--- NOTE | 2018-11-07 20:56 | Progress Note ---
DATE: 11/07/2018 Cardiology Progress Note SUBJECTIVE: No major events overnight. Feels better. OBJECTIVE: VITAL SIGNS: Temperature afebrile, pulse 88, respiratory rate 16, blood pressure 120/84, and saturating 95% on 3 L nasal cannula. GENERAL: Obese, man, in no acute distress. CARDIOVASCULAR: Regular rate and rhythm. Mechanical click. A 2/6 systolic murmur at right upper sternal border. LUNGS: Decreased breath sounds bilaterally. ABDOMEN: Obese, soft, distended, and nontender. EXTREMITIES: Right lower extremity AKA. Left extremity without significant edema. NEURO AND PSYCH: Alert and oriented to person, place, and time. Normal affect. INPATIENT MEDICATIONS: Reviewed. LABORATORY DATA: Reviewed. IMAGING DATA: Reviewed. TELEMETRY DATA: Reviewed, shows ventricularly paced rhythm. Echocardiogram shows severely reduced ejection fraction of 20% to 25% with normal mechanical mitral valve function. There is only mild aortic stenosis. ASSESSMENT AND PLAN: 1. Zdlax-eo-iallbhm systolic congestive heart failure. 2. History of mechanical mitral valve replacement, on Coumadin. 3. Mild aortic stenosis. 4. History of coronary artery disease, status post bypass graft surgery. 5. History of atrial fibrillation, on amiodarone. 6. Status post defibrillator placement. PLAN: Continue IV diuretics. We will cut the dose to 40 mg IV b.i.d. of Lasix given severe hypokalemia. Correct hypokalemia. Thank you for this consult. We will continue to follow. MD LEON Thompson/KEVINL /[id number]
[2018-11-08 00:02] VITALS: BP 130/83
[2018-11-08] MEDS: ALBUTEROL/IPRATROPIUM 3 ML NEB NEB SCH ×2 (03:30→07:00)
[2018-11-08 04:14] VITALS: BP 152/83
[2018-11-08] MEDS: LEVOTHYROXINE SODIUM 125 MCG TAB PO SCH (05:18)
[2018-11-08 05:42] LABS: BASOPHILS # (AUTO) 0.1 (0.0-0.1); BASOPHILS % 0.5 % (0.0-1.0); EOSINOPHILS # (AUTO) 0.3 (0.0-0.4); EOSINOPHILS % 3.3 % (0.0-6.0); HEMATOCRIT 37.4 % (38.2-49.6); HEMOGLOBIN 11.7 g/dL (14.0-18.0); LYMPHOCYTES # (AUTO) 1.3 (1.0-3.2); LYMPHOCYTES % 12.2 % (18.0-39.1); MEAN CORPUSCULAR HEMOGLOBIN 29.8 pg (28-32); MEAN CORPUSCULAR HGB CONC 31.3 g/dL (31-35); MEAN CORPUSCULAR VOLUME 95.4 fL (81-99); MONOCYTES # (AUTO) 1.3 (0.2-0.8); MONOCYTES % 12.4 % (4.4-11.3); NEUTROPHILS # (AUTO) 7.3 (2.1-6.9); NEUTROPHILS % 71.1 % (38.7-80.0); PLATELET COUNT 232 x10e3/uL (140-360); RED BLOOD COUNT 3.92 x10e6/uL (4.3-5.7); RED CELL DISTRIBUTION WIDTH 15.3 % (11.7-14.4)
--- NOTE | 2018-11-08 05:43 | NUR ---
called and left a message to dr Manznao, patient has a little bleeding from the nose, and he is on Coumadin therapy q day. awaiting fot the MD to call back.
[2018-11-08 05:58] LABS: INR 2.76; PROTHROMBIN TIME 29.9 seconds (11.9-14.5)
--- NOTE | 2018-11-08 06:00 | NUR ---
dr Manzano called back and made him aware about patient nose bleed. he stated will be coming soon. no order obtained at this time.
[2018-11-08 06:11] LABS: ANION GAP 13.2 mmol/L (8-16); CALCIUM 9.9 mg/dL (8.4-10.2); CREATININE, SERUM 1.24 mg/dL (0.72-1.25); POTASSIUM 3.2 mmol/L (3.5-5.1)
[2018-11-08] MEDS ORDERED: FUROSEMIDE40 MG PO (06:19)
--- NOTE | 2018-11-08 06:24 | NUR ---
Discharge summary Principal dx: 1a.Acute resp failure on BIPAP 2. 3.LENORE 4.pulmonary edema 5.Hyperbilirubinemia Secondary Dx: DM2 Obesity BMI 34.9 PAF HLD Hypothyroidism BPH RBBB Mechanical Mitral valve PLAN: 1. Diuresis the patient. BIPAp support. 2. Avoid salt. 3. Fluid restriction. 4. hba1c/lipids 5.inr goal 2.5-3.5 Pepcid on AC Dispo; Restart coumadin when inr appropriate; IV diuresis. check labs; continue coumadin. had BIPAP overnight; continue diuresis. improving; I/O 1300/2120 15 I/O 200/1650 on lasix; replace K; inr therapeutic d/c home with PT f/u pcp 1 week and Marlene 1 week and 1 week d/c>35mins stable Lauri Manzano MD, PhD.
[2018-11-08] MEDS: TRAMADOL HCL 50 MG TAB PO PRN (06:26)
[2018-11-08] MEDS ORDERED: POTASSIUM CHLORIDE 20 MEQ TAB CR PO NR (06:30)
[2018-11-08] MEDS: INSULIN REGULAR, HUMAN 100 UNIT/1 ML 3ML VIAL SQ SCH ×2 (06:56→12:31)
[2018-11-08 07:05] VITALS: BP 112/70
--- NOTE | 2018-11-08 07:15 | NUR ---
Pt received resting in bed. Pt with discharge order. Emotional support given. Will monitor
[2018-11-08] MEDS: FAMOTIDINE 20 MG TAB PO SCH (08:28)
--- NOTE | 2018-11-08 08:28 | NUR ---
All meds given as ordered. Educated pt regarding discharge instructions with use of Khmer speaking nurse. Educated regarding meds, diet, activities, follow up with doctors, and use of oxygen. Pt verbalized understanding of teaching. Will monitor
[2018-11-08] MEDS: TAMSULOSIN HCL 0.4 MG CAP PO SCH (08:29)
[2018-11-08] MEDS: POTASSIUM CHLORIDE 20 MEQ TAB CR PO SCH (08:29)
[2018-11-08] MEDS: LIDOCAINE 5% PATCH TP SCH (08:29)
[2018-11-08] MEDS: METOPROLOL TARTRATE 25 MG TAB PO SCH (08:29)
[2018-11-08] MEDS: PANTOPRAZOLE SOD 40 MG TABEC PO SCH (08:29)
[2018-11-08] MEDS: AMIODARONE HCL 200 MG TAB PO SCH (08:29)
[2018-11-08] MEDS: FINASTERIDE 5 MG TAB PO SCH (08:29)
[2018-11-08] MEDS: GABAPENTIN 300 MG CAP PO SCH (08:29)
[2018-11-08] MEDS ORDERED: FUROSEMIDE INJ 10 MG/ML 4 ML VIAL IV SCH (09:00)
--- NOTE | 2018-11-08 09:00 | NUR ---
Pt taken off oxygen in order to know if pt will need oxygen to go home. Pt adamant that he does not need oxygen to go home. Will follow up in 15 minutes
--- NOTE | 2018-11-08 09:15 | NUR ---
Pt for discharge home today. Pt taken off oxygen for 15 minutes while resting in bed. Noted 77% saturation. Pt stated that he does not use oxygen to move around and sometimes it drops down to 83% on room air. Case management notified. Will follow up
[2018-11-08 11:15] VITALS: BP 126/98
--- NOTE | 2018-11-08 11:33 | NUR ---
CM CALLED BY NURSE STATING PT IS DISCHARGED TODAY SATS 77% ON ROOM AIR PT HAS HOME 02 WITH [facility] BUT STATES HE HAS NO PORTABLE TANKS CM CALLED DONALD WITH [facility] [phone] EXPLAINED THAT PT NEEDS A PORTABLE TANK TO GO HOME HE WILL BRING A TANK TO HOSPITAL THIS TODAY DONALD STATES PT HAS A REFILLABLE TANK AT HOME AND HAS BEEN EDUCATED IN [place] HOW TO REFILL HIS SMALL TANKS SPOKE [facility] PT VIA PROJECT MANAGEMENT ADVISOR; SAYS HE NEEDS TO BE TAUGHT AGAIN HOW TO REFILL HIS PORTABLE TANKS AGAIN ALSO REQUESTING HUMIDITY FOR CONCENTRATOR BECAUSE HIS "OXYGEN IS HOT" CALLED DONALD AND NOTIFIED HIM OF PT'S NEEDS
--- NOTE | 2018-11-08 13:55 | NUR ---
Pt left in wheelchair to private car. Oxygen tank brought by O2 provider
--- NOTE | 2018-11-08 14:19 | Progress Note ---
DATE: 11/08/2018 Cardiology Progress Note SUBJECTIVE: No major events overnight. Feels a lot better, back to his baseline. OBJECTIVE: VITAL SIGNS: Temperature afebrile, pulse 79, respiratory rate 15, blood pressure 126/98, and saturating 98% on 3 L nasal cannula. GENERAL: Obese man, in no acute distress. CARDIOVASCULAR: Regular rate and rhythm. No murmurs, rubs, or gallops. LUNGS: Clear to auscultation bilaterally. ABDOMEN: Obese, soft, nontender, nondistended. NEURO AND PSYCH: Alert and oriented to person, place, and time. Normal affect. INPATIENT MEDICATIONS: Reviewed. LABORATORY DATA: Reviewed. TELEMETRY DATA: Reviewed. ASSESSMENT: 1. Acute on chronic systolic heart failure. 2. History of mechanical mitral valve replacement, on Coumadin. 3. Mild aortic stenosis. 4. History of coronary artery disease, status post bypass graft surgery. 5. History of atrial fibrillation, on amiodarone. 6. Status post defibrillator placement. PLAN: The patient is doing much better now. Okay to change to oral Lasix and discharged home with outpatient followup. The patient needs home O2. He has a machine at home, but may not be functioning properly. Discussed this with the nurse and this will be discussed with the mattress spring encaser before discharge. MD LEON Thompson/ERICA /[id number]
== END 2018-11-08 13:55 | disposition home health service (06) | DRG 291 ==
LOC: ER 18:37 → ERHOLD 21:03 → IMCU 11-05 07:38
PROVIDERS: ADMIT Internal Medicine; ATTEND Internal Medicine
PROC: 5A09357 Assistance with Respiratory Ventilation, Less than 24 Consecutive Hours, Continuous Positive Airway Pressure (ICD-10-PCS; principal; 2018-11-05)
DX: I50.23 Acute on chronic systolic (congestive) heart failure (principal); J96.00 Acute respiratory failure, unspecified whether with hypoxia or hypercapnia; N17.9 Acute kidney failure, unspecified; I35.0 Nonrheumatic aortic (valve) stenosis; I48.0 Paroxysmal atrial fibrillation; J44.9 Chronic obstructive pulmonary disease, unspecified; E66.9 Obesity, unspecified; Z68.34 Body mass index [BMI] 34.0-34.9, adult; I25.5 Ischemic cardiomyopathy; E11.51 Type 2 diabetes mellitus with diabetic peripheral angiopathy without gangrene; E11.21 Type 2 diabetes mellitus with diabetic nephropathy; I25.10 Atherosclerotic heart disease of native coronary artery without angina pectoris; N40.0 Benign prostatic hyperplasia without lower urinary tract symptoms; I45.10 Unspecified right bundle-branch block; M10.9 Gout, unspecified; D69.6 Thrombocytopenia, unspecified; D64.9 Anemia, unspecified; E03.9 Hypothyroidism, unspecified; M17.12 Unilateral primary osteoarthritis, left knee; R79.1 Abnormal coagulation profile; E78.5 Hyperlipidemia, unspecified; Z99.81 Dependence on supplemental oxygen; Z95.1 Presence of aortocoronary bypass graft; Z79.01 Long term (current) use of anticoagulants; Z95.2 Presence of prosthetic heart valve; Z95.810 Presence of automatic (implantable) cardiac defibrillator; Z79.4 Long term (current) use of insulin; Z89.611 Acquired absence of right leg above knee
CPT/HCPCS: 36415; 71045; 71046; 80048; 80053; 82550; 82553; 82948; 83880; 84132; 84484; 85025; 85610; 85730; 93005; 93306; 94640; 94660; 97139; 99284; J1815; J1940

== ENCOUNTER 2019-02-22 14:49 | Emergency (ER) | payer MEDICARE ==
[~2019-02-22] VITALS: Ht 175.3 cm; Wt 109.8 kg
--- NOTE | 2019-02-22 16:41 | NUR ---
PATIENT REQUESTING TO LEAVE AGAINST MEDICAL ADVICE. EDUCATED PATIENT ON THE RISKS OF LEAVING AGAINST MEDICAL ADVICE AND THE BENEFITS OF STAYING TO RECEIVING TREAMENT,VERBALIZED UNDERSTANDING, PATIENT SIGNED OUT AMA. AMBULATORY OUT OF THE DEPARTMENT. NOTIFIED DR JOHNSON.
== END 2019-02-22 16:41 | disposition left against medical advice (07) ==
LOC: ER 14:49
DX: M25.552 Pain in left hip (principal); M25.551 Pain in right hip; G89.29 Other chronic pain; I10 Essential (primary) hypertension; E11.9 Type 2 diabetes mellitus without complications; I50.9 Heart failure, unspecified; J44.9 Chronic obstructive pulmonary disease, unspecified; I48.91 Unspecified atrial fibrillation; Z95.0 Presence of cardiac pacemaker; Z95.1 Presence of aortocoronary bypass graft; Z87.891 Personal history of nicotine dependence
CPT/HCPCS: 99282

== ENCOUNTER 2019-03-06 17:24 | Emergency (ER) | payer MEDICARE ==
[~2019-03-06] VITALS: Ht 175.3 cm; Wt 109.8 kg
[2019-03-06 18:16] LABS: BASOPHILS % 0.2 % (0.0-1.0); EOSINOPHILS # (AUTO) 0.3 (0.0-0.4); EOSINOPHILS % 4.2 % (0.0-6.0); HEMATOCRIT 40.5 % (38.2-49.6); LYMPHOCYTES # (AUTO) 0.8 (1.0-3.2); LYMPHOCYTES % 11.5 % (18.0-39.1); MEAN CORPUSCULAR HEMOGLOBIN 27.5 pg (28-32); MEAN CORPUSCULAR HGB CONC 32.1 g/dL (31-35); MEAN CORPUSCULAR VOLUME 85.6 fL (81-99); MONOCYTES # (AUTO) 0.7 (0.2-0.8); MONOCYTES % 10.9 % (4.4-11.3); NEUTROPHILS # (AUTO) 4.8 (2.1-6.9); NEUTROPHILS % 72.9 % (38.7-80.0); PLATELET COUNT 230 x10e3/uL (140-360); RED BLOOD COUNT 4.73 x10e6/uL (4.3-5.7); RED CELL DISTRIBUTION WIDTH 17.1 % (11.7-14.4)
[2019-03-06 18:24] LABS: BILIRUBIN,URINE NEGATIVE (NEGATIVE); CLARITY,URINE CLEAR (CLEAR); COLOR,URINE YELLOW (YELLOW); KETONES,URINE NEGATIVE (NEGATIVE); LEUKOCYTE ESTERASE ,URINE NEGATIVE (NEGATIVE); NITRITE,URINE NEGATIVE (NEGATIVE); PROTEIN,URINE DIPSTICK NEGATIVE (NEGATIVE); URINE UROBILINOGEN 0.2 mg/dL (0.2 - 1)
[2019-03-06 18:29] LABS: INR 1.22
[2019-03-06 18:30] LABS: ALBUMIN 3.3 g/dL (3.5-5.0); ALBUMIN/GLOBULIN RATIO 0.7 (0.8-2.0); ANION GAP 16.9 mmol/L (8-16); CALCIUM 9.1 mg/dL (8.4-10.2); CREATININE, SERUM 1.62 mg/dL (0.72-1.25); POTASSIUM 3.9 mmol/L (3.5-5.1)
[2019-03-06 18:42] LABS: EPITHELIAL CELLS,URINE RARE /LPF
[2019-03-06 18:44] LABS: AMYLASE 81 U/L (25-125); LIPASE 36 U/L (8-78)
[2019-03-06] MEDS ORDERED: PANTOPRAZOLE 40 MG 10ML VIAL IV ONE (20:13)
[2019-03-06] MEDS ORDERED: ONDANSETRON HCL INJ 2MG/ML 2ML 2 MG/ML VIAL IV ONE (20:13)
[2019-03-06] MEDS ORDERED: ONDANSETRON HCL INJ 2MG/ML 2ML 2 MG/ML VIAL ONE (20:19)
[2019-03-06] MEDS ORDERED: DIATRIZOATE MEGL/DIATRIZOA SOD 30 ML BTL PO ONE (20:21)
--- NOTE | 2019-03-06 22:29 | Diagnostic Imaging Report ---
EXAM: CT Abdomen and Pelvis WITHOUT intravenous contrast , with oral contrast INDICATION: Diffuse abdominal pain COMPARISON: Abdominal CT 12/26/2017, 05/07/2017. TECHNIQUE: Abdomen and pelvis were scanned utilizing a multidetector helical scanner from the lung base to the pubic symphysis without administration of IV contrast. Absence of intravenous contrast decreases sensitivity for detection of focal lesions and vascular pathology. Coronal and sagittal reformations were obtained. Routine protocol was performed. IV CONTRAST: None ORAL CONTRAST: Gastroview COMPLICATIONS: None RADIATION DOSE: Total DLP: 876 mGy*cm Estimated effective dose: (DLP x 0.015 x size factor) mSv CTDIvol has been reviewed. It is below the limits set by the Radiation Protocol Committee (RPC). Dose modulation, iterative reconstruction, and/or weight based adjustment of the mA/kV was utilized to reduce the radiation dose to as low as reasonably achievable. FINDINGS: LINES and TUBES: None. LOWER THORAX: Mild cardiomegaly. Mitral valve replacement. Partially visualized cardiac device lead with tip in the right ventricular apex. Postsurgical changes along the atrial septum. Central/perivascular groundglass opacities in the lower lungs, predominantly in the right lower lung. HEPATOBILIARY: A 1.7 cm hypodensity in the right hepatic dome (series 2 image 10 is present, is not well seen on prior abdominal CT scans. Subtle nodular hepatic surface contour and widening of the hepatic fissures. No biliary ductal dilation. GALLBLADDER: There are cholecystectomy clips. SPLEEN: No splenomegaly. PANCREAS: No focal masses or ductal dilatation. ADRENALS: No adrenal nodules KIDNEYS/URETERS: No hydronephrosis. No solid mass lesions. No stones. Stable simple cysts in the left kidney, unchanged compared to 05/07/2017 GI TRACT: No abnormal distention, wall thickening, or evidence of bowel obstruction. There are diverticula within the colon without evidence of diverticulitis. Appendix is normal. PELVIC ORGANS/BLADDER: Unremarkable. LYMPH NODES: No lymphadenopathy. VESSELS: There is mild atherosclerotic disease in the aorta and major arterial branches. PERITONEUM / RETROPERITONEUM: No free air or fluid. BONES: Partially visualized sternotomy wires. Degenerative changes in the spine.. SOFT TISSUES: Unremarkable. IMPRESSION: 1. No acute abnormality in the abdomen or pelvis on this noncontrast abdominal CT. 2. Suggestion of cirrhotic liver morphology, with an indeterminate 1.7 cm right hepatic dome hypodense lesion. Recommend nonemergent abdominal CT with contrast liver mass protocol for further evaluation. 3. Cardiomegaly with airspace disease in the lower lungs, favor pulmonary edema rather than pneumonia. Signed by: Bautista Bradley DO on 03/06/2019 10:26 PM
[2019-03-06 23:10] VITALS: BP 100/63
== END 2019-03-06 23:35 | disposition home or self-care (01) ==
LOC: ER 17:24
DX: R10.84 Generalized abdominal pain (principal); R19.7 Diarrhea, unspecified; E11.42 Type 2 diabetes mellitus with diabetic polyneuropathy; J44.9 Chronic obstructive pulmonary disease, unspecified; I48.91 Unspecified atrial fibrillation; Z95.810 Presence of automatic (implantable) cardiac defibrillator; Z82.49 Family history of ischemic heart disease and other diseases of the circulatory system; Z83.3 Family history of diabetes mellitus
CPT/HCPCS: 36415; 74176; 80053; 81001; 82150; 83690; 85025; 85610; 85730; 99284; C9113; J2405

== ENCOUNTER 2019-04-12 18:00 | Inpatient (IN) | payer MEDICARE ==
[~2019-04-12] VITALS: Ht 175.3 cm; Wt 109.8 kg
[2019-04-12] MEDS ORDERED: ACETAMINOPHEN 325 MG TAB PO STA (18:06)
[2019-04-12 18:32] LABS: BASOPHILS % 0.5 % (0.0-1.0); EOSINOPHILS # (AUTO) 0.2 (0.0-0.4); EOSINOPHILS % 2.8 % (0.0-6.0); HEMATOCRIT 35.9 % (38.2-49.6); HEMOGLOBIN 11.4 g/dL (14.0-18.0); LYMPHOCYTES # (AUTO) 1.5 (1.0-3.2); LYMPHOCYTES % 17.9 % (18.0-39.1); MEAN CORPUSCULAR HEMOGLOBIN 27.1 pg (28-32); MEAN CORPUSCULAR HGB CONC 31.8 g/dL (31-35); MEAN CORPUSCULAR VOLUME 85.3 fL (81-99); MONOCYTES % 12.3 % (4.4-11.3); NEUTROPHILS # (AUTO) 5.5 (2.1-6.9); NEUTROPHILS % 66.1 % (38.7-80.0); PLATELET COUNT 211 x10e3/uL (140-360); RED BLOOD COUNT 4.21 x10e6/uL (4.3-5.7); RED CELL DISTRIBUTION WIDTH 17.6 % (11.7-14.4)
[2019-04-12 18:50] LABS: ALANINE AMINOTRANSFERASE 17 IU/L (0-55); ALBUMIN 2.3 g/dL (3.5-5.0); ALBUMIN/GLOBULIN RATIO 0.4 (0.8-2.0); ALKALINE PHOSPHATASE 268 IU/L (40-150); ANION GAP 13.2 mmol/L (8-16); BLOOD UREA NITROGEN 13 mg/dL (7-26); BUN/CREATININE RATIO 16 (6-25); CALCIUM 8.4 mg/dL (8.4-10.2); CARBON DIOXIDE 28 mmol/L (22-29); CHLORIDE 100 mmol/L (98-107); CREATININE, SERUM 0.82 mg/dL (0.72-1.25); EST GLOMERULAR FILTRATION RATE > 60 ML/MIN (60-); GLUCOSE 161 mg/dL (74-118); POTASSIUM 3.2 mmol/L (3.5-5.1); SODIUM 138 mmol/L (136-145)
[2019-04-12 18:59] LABS: BILIRUBIN,URINE NEGATIVE (NEGATIVE); CLARITY,URINE SL CLOUDY (CLEAR); COLOR,URINE YELLOW (YELLOW); KETONES,URINE NEGATIVE (NEGATIVE); LEUKOCYTE ESTERASE ,URINE NEGATIVE (NEGATIVE); NITRITE,URINE NEGATIVE (NEGATIVE); PROTEIN,URINE DIPSTICK NEGATIVE (NEGATIVE); URINE UROBILINOGEN 1 mg/dL (0.2 - 1)
[2019-04-12 19:12] LABS: BACTERIA,URINE MODERATE /HPF
--- NOTE | 2019-04-12 19:32 | Diagnostic Imaging Report ---
EXAMINATION: CHEST SINGLE (PORTABLE) COMPARISON: Chest x-ray 12/08/2018 INDICATION: Fever, fall ^fever DISCUSSION: Frontal view of the chest obtained at 1908 hours. HEART AND MEDIASTINUM: Stable cardiomegaly LINES: AICD lead terminates in the right ventricle. There is a prosthetic aortic valve, stable LUNGS: Diffuse pulmonary vascular congestion is redemonstrated with pulmonary edema. PLEURA: There is blunting of the right lateral costophrenic angle. Left lateral costophrenic sharp. No pneumothorax BONES AND SOFT TISSUES: Median sternotomy wires are intact. The soft tissues are normal. IMPRESSION: Pulmonary vascular congestion and pulmonary edema with small right pleural effusion. Stable cardiomegaly. Signed by: Dr. Kortney Brasher MD on 04/12/2019 7:29 PM
--- NOTE | 2019-04-12 19:34 | Diagnostic Imaging Report ---
Wrist Complete right CPT Code: 89667 Indication: Fall Technique: Three views right wrist obtained. Comparison: None Findings: The osseous structures are well developed and mineralized. No fractures or dislocations. There are subchondral cysts in the radioulnar joint. Diffuse calcifications of the arterial structures. No radio-opaque foreign bodies in the soft tissues. IMPRESSION: No evidence of displaced fracture or dislocation involving the wrist. Signed by: Dr. Kortney Brasher MD on 04/12/2019 7:30 PM
--- NOTE | 2019-04-12 19:50 | Diagnostic Imaging Report ---
Forearm CPT code: 80605 Indication: Fall Technique: A.P. and lateral views of the right forearm obtained. Findings: The radius and ulna are intact and normally aligned. The carpal bones are intact and normal in alignment. Distal humerus is normal. There is a small osteophyte arising from the olecranon. No elbow effusion. No radiopaque foreign bodies in the soft tissues. Diffuse arterial calcifications are present. IMPRESSION: No acute traumatic pathology. Signed by: Dr. Kortney Brasher MD on 04/12/2019 7:47 PM
--- NOTE | 2019-04-12 20:09 | Diagnostic Imaging Report ---
EXAMINATION: Head and cervical spine CT without contrast. HISTORY: Headache and neck pain, possible prior fall. COMPARISON: Head CT 10/23/2014 TECHNIQUE: Multidetector axial images were obtained without contrast from the foramen magnum to the vertex and through the cervical spine. The images were reconstructed using brain and bone algorithms. Thin section brain images were reformatted into coronal and sagittal planes. Dose modulation, iterative reconstruction, and/or weight based adjustment of the mA/kV was utilized to reduce the radiation dose to as low as reasonably achievable. HEAD CT FINDINGS: Skull/scalp: No lytic or blastic lesions. No fractures. Parenchyma: Unchanged small chronic cortical infarct in the left posterior cerebral. Stable mild chronic microvascular ischemic changes. No mass, hemorrhage or CT evidence of acute vascular insult. Brain volume: Normal for age. Ventricles: No hydrocephalus or displacement. Arteries: No density suggestive of thrombus. Dural sinuses: No abnormal density. Extra-axial spaces: No abnormal density. Foramen magnum: No mass, Chiari malformation, or basilar invagination. Sella: No obvious mass. Paranasal/mastoid sinuses: Imaged portions unremarkable. CERVICAL SPINE CT FINDINGS: Alignment:Normal alignment and lordosis. Soft tissues: Partially visualized right pleural effusion.. 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 Degenerative changes: C1-C2: Mild degenerative changes without stenosis. C2-C3: Mild facet atrophic. No stenoses. C3-C4: Disc osteophyte formation, bilateral uncovertebral and facet arthrosis. Moderate right and severe left foraminal stenoses. Mild canal stenoses. C4-C5: Disc osteophyte complex formation, bilateral uncovertebral and facet arthrosis. Moderate spinal canal stenosis. Moderately severe foraminal stenosis mainly on the right. C5-C6: Fusion level with mild right foraminal narrowing. C6-C7: Asymmetric left disc osteophyte complex formation, bilateral uncovertebral and facet arthrosis. Severe spinal canal and bilateral foraminal stenoses. C7-T1: Bilateral facet arthrosis. Mild bilateral foraminal stenosis. IMPRESSION: Head CT: 1. No acute postraumatic intracranial hemorrhage. 2. Stable mild chronic microvascular ischemic changes. Cervical spine CT: 1. No acute fractures or dislocations. 2. Chronic degenerative changes as described. Note: Acute post traumatic spinal cord, vascular or ligamentous injury cannot adequately be assessed with CT. Signed by: Dr. Sheri Ayala M.D. on 04/12/2019 8:06 PM
[2019-04-12] MEDS ORDERED: DEXTROSE 50% SYRINGE 50 ML IV PRN (20:45)
[2019-04-12] MEDS ORDERED: ASPIRIN 81 MG CHEW TAB PO ONE (20:45)
[2019-04-12] MEDS ORDERED: ONDANSETRON HCL INJ 2MG/ML 2ML 2 MG/ML VIAL IV PRN (20:45)
[2019-04-12] MEDS ORDERED: SODIUM CHLORIDE FLUSH 10 ML SYR INJ PRN (20:45)
[2019-04-12] MEDS ORDERED: PRILOSEC OTC20 MG PO (21:22)
[2019-04-12] MEDS ORDERED: PERCOCET 5-3251 EACH PO (21:22)
[2019-04-12] MEDS ORDERED: LANTUS 3ML100 UNITS/ SC (21:22)
[2019-04-12] MEDS ORDERED: ATORVASTATIN CA10 MG PO (21:22)
[2019-04-12] MEDS ORDERED: LISINOPRIL2.5 MG PO (21:22)
[2019-04-12] MEDS ORDERED: POTASSIUM CHLO10 ME1 PO (21:22)
[2019-04-12] MEDS ORDERED: LACTULOSE20 GM/30 M PO (21:22)
[2019-04-12] MEDS ORDERED: CVS SENNA PLUS1 EACH PO (21:22)
[2019-04-12] MEDS ORDERED: METOPROLOL SUCC25 MG PO (21:22)
[2019-04-12] MEDS: INSULIN REGULAR, HUMAN 100 UNIT/1 ML 3ML VIAL SQ SCH (22:07)
[2019-04-12] MEDS: VANCOMYCIN 1GM/NS 250 ML 250 ML IV SCH (22:07)
[2019-04-12] MEDS ORDERED: LACTULOSE SYRUP 20 GM/30 ML UDC PO PRN (22:15)
[2019-04-12] MEDS ORDERED: OXYCODONE/ACETAMINOPHEN 5-325 1 EACH TABLET PO PRN (22:15)
[2019-04-12] MEDS ORDERED: ACETAMINOPHEN 325 MG TAB PO PRN (22:15)
[2019-04-13] VITALS (12 sets, daily range): BP systolic 88–118; BP diastolic 53–75
[2019-04-13] MEDS: PIPER-TAZ 3.375 GM 50 ML IV SCH ×3 (00:02→14:15)
[2019-04-13] MEDS: FUROSEMIDE 40 MG TAB PO SCH ×3 (00:03→22:09)
--- NOTE | 2019-04-13 01:10 | NUR ---
PT COMPLAINS OF SHIVERING AND FEELING COLD, RECHECKED TEMP 101 AXILLARY, 99.4 ORALLY. MEDICATED PER ORDERS. ERP TO ROOM. HR 160'S AFIB RVR
[2019-04-13] MEDS ORDERED: ACETAMINOPHEN 1000 MG/100 ML 100 ML IV ONE (01:22)
[2019-04-13] MEDS ORDERED: AMIODARONE HCL 360MG 200 ML IV SCH ×3 (01:30→06:00)
[2019-04-13] MEDS ORDERED: AMIODARONE HCL 150MG 100 ML IV SCH (01:30)
[2019-04-13] MEDS ORDERED: AMIODARONE 900MG 500 ML IV ONE (01:35)
--- NOTE | 2019-04-13 01:40 | NUR ---
PTS HR WENT UP TO 170-200, DR LEWIS RE-EVALUATED. PT'S AID DEIBRILLATED PT X6 WITNESSED BY THIS NURSE. FAMILY NOTIFIED AND EN-ROUTE PER PT REQUEST. PT AWAKE ALERT SKIN W/D RESP NONLAB. NAD NOTED.
--- NOTE | 2019-04-13 01:55 | NUR ---
HR DOWN 120-140'S AFIB. AMIODARONE 1 MG/HR X 6 HOURS STARTED. FAMILY AT BEDSIDE. REPEAT EKG AND CARDIAC MARKERS COLLECTED AND SENT
[2019-04-13] MEDS ORDERED: SODIUM CHLORIDE 0.9% 1000ML 1,000 ML ONE (02:29)
[2019-04-13] MEDS ORDERED: SODIUM CHLORIDE 0.9% 1000ML 1,000 ML IV ONE (02:30)
[2019-04-13] MEDS ORDERED: POTASSIUM CHLORIDE 20MEQ/15ML UDC PO ONE (02:30)
[2019-04-13 03:22] LABS: CREATINE KINASE MB 1.2 ng/mL (0-5.0)
--- NOTE | 2019-04-13 03:26 | NUR ---
PT STATES HE FEELS MUCH BETTER NOW, AWAKE ALERT SKIN W/D RESP NONLAB, NAD NOTED. FAMILY AT BEDSIDE
[2019-04-13 06:08] LABS: BASOPHILS % 0.2 % (0.0-1.0); EOSINOPHILS % 0.4 % (0.0-6.0); HEMATOCRIT 35.8 % (38.2-49.6); LYMPHOCYTES # (AUTO) 0.7 (1.0-3.2); MEAN CORPUSCULAR HEMOGLOBIN 26.8 pg (28-32); MEAN CORPUSCULAR HGB CONC 30.7 g/dL (31-35); MEAN CORPUSCULAR VOLUME 87.1 fL (81-99); MONOCYTES % 9.5 % (4.4-11.3); NEUTROPHILS % 83.5 % (38.7-80.0); PLATELET COUNT 181 x10e3/uL (140-360); RED BLOOD COUNT 4.11 x10e6/uL (4.3-5.7); RED CELL DISTRIBUTION WIDTH 17.8 % (11.7-14.4)
[2019-04-13 06:41] LABS: ANION GAP 15.4 mmol/L (8-16); BLOOD UREA NITROGEN 14 mg/dL (7-26); BUN/CREATININE RATIO 15 (6-25); CALCIUM 8.1 mg/dL (8.4-10.2); CARBON DIOXIDE 25 mmol/L (22-29); CHLORIDE 104 mmol/L (98-107); CREATININE, SERUM 0.93 mg/dL (0.72-1.25); EST GLOMERULAR FILTRATION RATE > 60 ML/MIN (60-); GLUCOSE 157 mg/dL (74-118); POTASSIUM 3.4 mmol/L (3.5-5.1); SODIUM 141 mmol/L (136-145)
--- NOTE | 2019-04-13 06:45 | NUR ---
REPORT TO CAMERON BLANCO
--- NOTE | 2019-04-13 07:47 | Diagnostic Imaging Report ---
Examination: Single AP view of the chest. COMPARISON: 04/12/2019 INDICATION: Edema DISCUSSION: Lines/tubes: Sternotomy wires. Single lead pacemaker. Lungs: Increased interstitial and alveolar edema. Pleura: No pleural effusion or pneumothorax. Heart and mediastinum: Cardiomegaly Bones and soft tissues: No acute bony abnormalities. IMPRESSION: 1. Cardiomegaly with increased pulmonary edema Signed by: Dr. Vazquez Hobbs M.D. on 04/13/2019 7:44 AM
[2019-04-13] MEDS: INSULIN REGULAR, HUMAN 100 UNIT/1 ML 3ML VIAL SQ SCH ×2 (08:03→11:58)
[2019-04-13] MEDS: AMIODARONE HCL 360MG 200 ML IV SCH (08:35)
[2019-04-13] MEDS: PANTOPRAZOLE SOD 40 MG TABEC PO SCH (08:57)
[2019-04-13] MEDS: AMIODARONE HCL 200 MG TAB PO SCH (08:57)
[2019-04-13] MEDS: FINASTERIDE 5 MG TAB PO SCH (08:59)
[2019-04-13] MEDS ORDERED: NON-FORMULARY MEDICATION (Omeprazole Magnesium (Prilosec Otc) 20 MG) PO SCH (09:00)
[2019-04-13] MEDS: METOPROLOL SUCCINATE 25 MG TAB XL PO SCH (09:00)
[2019-04-13] MEDS ORDERED: WARFARIN SOD 2 MG TAB PO SCH (09:00)
[2019-04-13] MEDS: LEVOTHYROXINE SODIUM 50 MCG TAB PO SCH (09:00)
[2019-04-13] MEDS: LISINOPRIL 2.5 MG TAB PO SCH (09:00)
[2019-04-13] MEDS ORDERED: FUROSEMIDE INJ 10 MG/ML 2 ML VIAL IV SCH (09:00)
[2019-04-13] MEDS: GABAPENTIN 300 MG CAP PO SCH (09:00)
[2019-04-13] MEDS ORDERED: TAMSULOSIN HCL 0.4 MG CAP PO SCH (09:00)
[2019-04-13] MEDS: POTASSIUM CHLORIDE 10MEQ EA PO SCH (09:00)
[2019-04-13] MEDS: SENNA-S TABLET PO SCH ×2 (09:01→16:15)
[2019-04-13] MEDS: VANCOMYCIN 1GM/NS 250 ML 250 ML IV SCH (09:25)
[2019-04-13] MEDS ORDERED: POTASSIUM CHLORIDE 20 MEQ TAB CR PO NR (13:45)
[2019-04-13] MEDS ORDERED: KETOROLAC TROMETHAMINE 30 MG/ML VIAL IV NR (14:30)
[2019-04-13] MEDS: WARFARIN SOD 2 MG TAB PO SCH (16:15)
[2019-04-13] MEDS: INSULIN LISPRO 100 UNIT/1 ML 3ML VIAL SQ SCH ×2 (16:22→20:45)
--- NOTE | 2019-04-13 17:57 | NUR ---
Patient arrived from ER to ICU on amiodarone drip 0.5mg/hr. Physical therapy came and evaluated patient. Patient does not appear to be in any s/s of distress at this time. Echo and ultrasound of R arm pending. Dr. Lara called to ask MD who they would like to consult for critical care MD. Dr. Lara's office called and informed of new consult. Will continue to monitor the patient. Addendum: 04/13/19 at 1836 by Renee Puri RN Back of neck and R arm swelling noted, patient states he is tender to touch.
[2019-04-13 19:10] LABS: INR 2.27; PROTHROMBIN TIME 25.7 seconds (11.9-14.5)
--- NOTE | 2019-04-13 20:02 | Consultation ---
DATE OF CONSULTATION: 04/13/2019 Cardiology Consultation REASON FOR CONSULTATION: Atrial fibrillation with rapid ventricular response. HISTORY OF PRESENT ILLNESS: Mr. Fraser is a 68-year-old gentleman with past medical history of hypertension, hypercholesteremia, type 2 diabetes, coronary artery disease with prior history of CABG, mitral valve disease, status post mechanical bileaflet MVR back in 1994 in [place], history of right sescq-zij-hktp amputation, CHF systolic/diastolic, chronic debility. He has been recently in a skilled nursing after having a prolonged hospitalization at [facility] several weeks ago for acute decompensated heart failure symptoms as well as a right arm infectious and swelling process. He was treated with IV antibiotics therapy and according to him, at some point, part of his deep tissues were exposed in his right arm and forearm region. Nonetheless, he was aggressively diuresed for exacerbation symptoms and by the end of the hospitalization, he was significantly debilitated. He went to custodial facility for rehab therapy and over the last two days, the patient has had progressive right arm pain, swelling, fevers, chills, malaise, and maria victoria sepsis symptoms. He presents to this institution with rigors and very elevated temperature of 101 with pain in the right arm, and in this setting, he went into atrial fibrillation with rapid ventricular response, and had subsequent ICD shocks x2 for these high ventricular rates. The patient was initiated on amiodarone drip and subsequently his rhythm has predominantly stabilized. He is also initiated on broad spectrum antibiotic therapy, which has subsequently resolved his fevers, chills, and malaise. At the present time, the patient feels more less close to his baseline with the exception of right arm pain and swelling. He denies any further fevers or chills. PAST MEDICAL HISTORY: 1. Hypertension, essential. 2. Hypercholesteremia. 3. Type 2 diabetes. 4. Coronary artery disease with prior history of CABG, time of mitral valve surgery. 5. Mitral disease with mechanical mitral valve replacement in 1994. 6. History of right ucyzn-pgk-otnl amputation due to accident. 7. CHF systolic/diastolic. PAST SURGICAL HISTORY: 1. History of cholecystectomy in 1992. 2. 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 3. History of mitral valve replacement and CABG in 1994 in [place]. 4. Prior history of left eye laser surgery and history of bilateral cataract surgery. FAMILY HISTORY: Mother alive at 82 with diabetes. Father at 60 age with heart attack. Has five brothers, who do not have heart problems. SOCIAL HISTORY: He is a lifelong nonsmoker. Denies any alcohol or illicit drug use. ALLERGIES: NO KNOWN DRUG ALLERGIES. HOME MEDICATIONS: Includes: 1. Amiodarone 100 mg daily. 2. Atorvastatin 10 mg at bedtime. 3. Proscar 5 mg daily. 4. Lasix 40 mg p.o. b.i.d. 5. Gabapentin 600 mg daily. 6. Lantus 15 units subcu daily. 7. Humalog 38 units subcu before meals. 8. Lactulose 30 mg t.i.d. p.r.n. 9. Synthroid 125 mcg daily. 10. Lisinopril 2.5 mg daily. 11. Toprol-XL 25 mg daily. 12. Prilosec 20 mg daily. 13. Percocet p.r.n. 14. Potassium chloride 10 mEq daily. 15. Senna b.i.d. 16. Tamsulosin 0.4 mg daily. 17. Coumadin 2 mg daily. REVIEW OF SYSTEMS: GENERAL: Positive for fevers, chills, and malaise. HEENT: No headaches, visual complaints, sore throat, or stuffy nose. RESPIRATORY: Denies any pleuritic chest pain. Has occasional nonproductive cough. CARDIOVASCULAR: Palpitations and rapid ventricular response with ICD shocks as per HPI. Denies any chest pain or discomfort. No changes in exercise tolerance, had been improving with physical therapy. GI: Denies any abdominal pain, bright red blood per rectum, melena, nausea, or vomiting. : Denies any dysuria. Does have urinary frequency. No pyuria. Positive for nocturia. HEMATOLOGY: Positive for easy bruising. No bleeding. MUSCULOSKELETAL: Positive for back pain, chronic. Does have right AKA amputation. SKIN: Positive for rash and swelling in the right arm region and does have a lipodermatosclerotic skin changes of the left below the knee region. NEUROLOGIC: Poor coordination, has right AKA noted. Otherwise, other extremities are without any weakness. Remainder of review of systems negative, otherwise as mentioned. PHYSICAL EXAMINATION: VITAL SIGNS: Height of 69 inches, weight of 242 pounds, BMI is 35.7. T-max of 101, current temperature 97.8, pulse of 73, respiratory rate 22, blood pressure 95/62, O2 saturation 99% on 2 L nasal cannula. GENERAL: This is a well-nourished, cooperative gentleman, who is currently in no apparent distress. HEENT: Normocephalic, atraumatic. Pupils are equal, round, and reactive to light. Extraocular movements are intact. Oropharynx is clear. NECK: No elevation of jugular venous pulsation. No carotid bruits. CARDIOVASCULAR: Regular rate and rhythm. Mechanical S1, normal S2. A 2/6 systolic murmur at the left lower sternal border. LUNGS: Showed decreased bibasilar breath sounds and decreased air entry. There is an old midline sternotomy scar. There is a left shoulder ICD scar. GI: Soft, nontender, obese. Normoactive bowel sounds. No hepatosplenomegaly. BACK: No costovertebral angle tenderness. EXTREMITIES: Reveals a right fnrac-fax-axzl amputation. Left lower extremity reveals mmgjj-scm-zyyv lipodermatosclerotic skin changes and trace edema. Diminished pedal pulses. NEUROLOGIC: Cranial nerves II through XII are intact. Strength is 5/5 in his available extremities. LABORATORY DATA: White count of 10.8, hemoglobin of 11, hematocrit of 35.8, platelets of 181. Sodium 141, potassium 3.4, chloride 104, bicarb of 25, BUN 14, creatinine 0.93, glucose of 157, calcium of 8.1. TSH is pending. AST of 25, ALT of 17, alkaline phosphatase of 268, total protein of 7.6, albumin of 2.3. INR is not checked. UA shows no white cells. Influenza screen is negative. Chest x-ray shows cardiomegaly with pulmonary edema pattern and a small right pleural effusion. EKG reveals atrial fibrillation, nonspecific intraventricular conduction delay. No ST-T wave changes. Troponin went from 0.022 to 0.024 and it is negative x2. DIAGNOSES: 1. Fever, severe sepsis, hypertension with exam suggestive of right arm cellulitis and has evidence of erythema and pain, rather unusual location for infection and suspicious of a recurrent infection in light of similar symptoms 3-4 weeks ago at outside hospital. 2. Atrial fibrillation with a rapid ventricular response with subsequent ICD shocks, likely inappropriate, but due to atrial fibrillation with rapid ventricular response, we will need to get the device interrogated. 3. Mild rtktp-dz-ofrnfog decompensated systolic/diastolic heart failure. 4. Mechanical mitral valve. 5. Type 2 diabetes with complication. 6. Coronary artery disease with prior history of bypass at the time of mechanical mitral valve replacement. 7. History of right zujue-jjo-btna amputation secondary to traumatic injury. 8. Clinical evidence of significant peripheral vascular disease, both arterial and venous from the left lower extremity. PLAN/RECOMMENDATIONS: 1. I appreciate primary team aid in management. He has blood cultures x2 that are checked and is receiving broad-spectrum antibiotic therapy currently and received vancomycin and Zosyn for underlying infectious issues. 2. We will continue his diuretic therapy. Coumadin therapy for his mechanical valve. 3. We will check INR. 4. On amiodarone drip right now for rate control and seems to be working. Once that complete, we can transition to p.o. amiodarone. 5. The patient will give us a copy of his device card and will subsequently need to contact the device company for device interrogation. 6. We will check upper extremity venous duplex to evaluate right arm swelling. 7. We will check echocardiogram to evaluate his left ventricular function. 8. We will continue to follow this patient. Thank you for this referral. MD YONI Andrade/ERICA /[id number]
[2019-04-13] MEDS: ATORVASTATIN 10 MG TAB PO SCH (22:09)
--- NOTE | 2019-04-13 22:37 | Consultation ---
DATE OF CONSULTATION: Critical Care Consultation. REASON FOR CONSULT: ICU management. HISTORY OF PRESENT ILLNESS: Mr. Fraser is a 68-year-old male, admitted with fever for 2 days and body ache. He had swelling of the right wrist. He denies any neck pain, nausea, vomiting, or chest pain. He was found to be in atrial fibrillation and was started on amiodarone infusion. He was admitted with cellulitis of the upper limb. He denies any chest pain, nausea, or vomiting. He is a [facility], [facility] resident. He has a history of AKA, hypertension, hyperlipidemia, CHF. His EF is 28%. Has a history of pacemaker and AVR. REVIEW OF SYSTEMS: GENERAL: Was having fever and chills. HEAD: Denies any head trauma. ENT: Denies any earache. CVS: Denies any chest pain. RESPIRATORY: Denies any shortness of breath. The rest of the review of systems is negative except as in HPI. PAST MEDICAL HISTORY: Hypertension, hyperlipidemia, coronary artery disease, AICD, AKA, EF 28%. FAMILY AND SOCIAL HISTORY: He lives at [facility]. He does not smoke, does not drink. PHYSICAL EXAMINATION: VITAL SIGNS: Temperature 98.4, pulse of 78, blood pressure 109/75, respiratory rate of 18, O2 sat 99% on 2 L. HEENT: Head atraumatic, normocephalic. NECK: Supple. CHEST: Clear to auscultation bilaterally. HEART: S1, S2 audible. ABDOMEN: Soft, nontender. EXTREMITIES: decreased range of motion, right wrist. No pedal edema. Right AKA. LABORATORY DATA: White count 10,000, hemoglobin 11.0, platelets 181. Chemistry is within normal limits. Chest x-ray which was done in the emergency room showed cardiomegaly, mild congestion, but no focal infiltrate. The patient underwent cervical spine CT, which is no acute fractures or dislocation. Wrist x-ray, no evidence of displaced fracture or dislocation. Blood cultures negative. ASSESSMENT/PLAN: Mr. Fraser is a 68-year-old male, admitted with cellulitis, was in atrial fibrillation. The patient has been started on amiodarone infusion. Current problems: 1. Fever. Etiology is not very clear, maybe because of the gout or pseudogout. We will observe the patient in the ICU. 2. Atrial fibrillation. The patient is on amiodarone infusion. Cardiology has been consulted. 3. Above-knee amputation, stable. 4. History of systolic heart failure. The patient is mildly decompensated on Coumadin. Currently started on Lasix. We will continue the patient on Lasix. Thank you for this consult. MD SHREYAS Gamez/ERICA /[id number]
[2019-04-14] VITALS (23 sets, daily range): BP systolic 100–122; BP diastolic 62–82
[2019-04-14] MEDS ORDERED: AMIODARONE 900MG 500 ML IV ONE (02:48)
[2019-04-14] MEDS: AMIODARONE HCL 360MG 200 ML IV SCH (03:21)
[2019-04-14 05:50] LABS: BASOPHILS % 0.4 % (0.0-1.0); EOSINOPHILS # (AUTO) 0.4 (0.0-0.4); EOSINOPHILS % 5.2 % (0.0-6.0); HEMATOCRIT 34.8 % (38.2-49.6); HEMOGLOBIN 10.7 g/dL (14.0-18.0); LYMPHOCYTES % 14.6 % (18.0-39.1); MEAN CORPUSCULAR HGB CONC 30.7 g/dL (31-35); MEAN CORPUSCULAR VOLUME 87.7 fL (81-99); MONOCYTES # (AUTO) 0.7 (0.2-0.8); MONOCYTES % 9.9 % (4.4-11.3); NEUTROPHILS # (AUTO) 4.8 (2.1-6.9); NEUTROPHILS % 69.5 % (38.7-80.0); PLATELET COUNT 197 x10e3/uL (140-360); RED BLOOD COUNT 3.97 x10e6/uL (4.3-5.7); RED CELL DISTRIBUTION WIDTH 17.8 % (11.7-14.4)
[2019-04-14 06:13] LABS: INR 2.33; PROTHROMBIN TIME 26.3 seconds (11.9-14.5)
[2019-04-14 06:24] LABS: ANION GAP 13.4 mmol/L (8-16); BLOOD UREA NITROGEN 15 mg/dL (7-26); BUN/CREATININE RATIO 18 (6-25); CALCIUM 8.3 mg/dL (8.4-10.2); CARBON DIOXIDE 27 mmol/L (22-29); CHLORIDE 105 mmol/L (98-107); CREATININE, SERUM 0.82 mg/dL (0.72-1.25); EST GLOMERULAR FILTRATION RATE > 60 ML/MIN (60-); GLUCOSE 117 mg/dL (74-118); MAGNESIUM 1.3 MG/DL (1.3-2.1); POTASSIUM 3.4 mmol/L (3.5-5.1); SODIUM 142 mmol/L (136-145)
[2019-04-14] MEDS: INSULIN LISPRO 100 UNIT/1 ML 3ML VIAL SQ SCH ×4 (07:30→21:40)
[2019-04-14] MEDS: AMIODARONE HCL 200 MG TAB PO SCH (08:00)
[2019-04-14] MEDS: PANTOPRAZOLE SOD 40 MG TABEC PO SCH (08:00)
[2019-04-14] MEDS: FINASTERIDE 5 MG TAB PO SCH (08:01)
[2019-04-14] MEDS: LISINOPRIL 2.5 MG TAB PO SCH (08:01)
[2019-04-14] MEDS: POTASSIUM CHLORIDE 10MEQ EA PO SCH (08:01)
[2019-04-14] MEDS: SENNA-S TABLET PO SCH ×2 (08:01→16:27)
[2019-04-14] MEDS: GABAPENTIN 300 MG CAP PO SCH (08:01)
[2019-04-14] MEDS: METOPROLOL SUCCINATE 25 MG TAB XL PO SCH (08:02)
--- NOTE | 2019-04-14 08:40 | Diagnostic Imaging Report ---
A single frontal view of the chest. HISTORY: CHF COMPARISON: Chest radiograph September 11, 2018. DISCUSSION: Portable technique, limits sensitivity of the exam. See impression. IMPRESSION: 1. Stable cardiomegaly, central pulmonary vascular congestion, and pulmonary edema. 2. No significant interval change. Signed by: Dr. Carlos Petersen D.O., M.M.M. on 04/14/2019 8:36 AM
[2019-04-14] MEDS: FUROSEMIDE 40 MG TAB PO SCH ×2 (09:20→22:15)
[2019-04-14] MEDS: LEVOTHYROXINE SODIUM 50 MCG TAB PO SCH (09:20)
[2019-04-14] MEDS ORDERED: POTASSIUM CHLORIDE 20 MEQ TAB CR PO PRN (11:30)
[2019-04-14] MEDS: CEFAZOLIN SOD 1 GM/NS 50ML 50 ML IV SCH ×2 (13:24→22:00)
[2019-04-14] MEDS ORDERED: MAGNESIUM SULFATE 2GM/50ML 50 ML IV ONE (14:30)
[2019-04-14] MEDS ORDERED: POTASSIUM CHLORIDE 20 MEQ TAB CR PO NR (15:00)
[2019-04-14] MEDS: WARFARIN SOD 2 MG TAB PO SCH (16:27)
--- NOTE | 2019-04-14 16:45 | Diagnostic Imaging Report ---
LEFT KNEE - 3 Image(s) HISTORY: Pain, swelling, cellulitis COMPARISON: None available. FINDINGS: Sensitivity limited by portable technique. Bones: No acute displaced fracture. No aggressive osseous lesion. Joints: Tricompartmental degenerative changes, mild patellofemoral compartment predominance. Trace nonspecific effusion. Soft tissues: Mild nonspecific soft tissue edema. IMPRESSION: 1. Mild nonspecific soft tissue edema. 2. No radiographic evidence of osteomyelitis. 3. Mild patellofemoral compartment predominant tricompartmental arthropathy and trace nonspecific effusion. Signed by: Dr. Carlos Petersen D.O., M.M.M. on 04/14/2019 4:42 PM
--- NOTE | 2019-04-14 18:06 | NUR ---
Patient having phlebitis on L forearm where PIV infusing amiodarone at shift change this morning. Amiodarone drip stopped and patient started on PO amiodarone this AM. Dr. Arevalo notified drip was stopped due to phlebitis and pain on L forearm. During rounding Dr. Rudolph informed of patients L knee pain and L wrist/hand pain. MD ordered x ray of L knee. Orders given to transfer patient to medical surgical floor with telemetry. Patient sat up on edge of beds for all meals today. Magnesium and potassium replaced as ordered. Echo and ultrasound of R arm done today. Patient does not appear to be in any distress at this time.
--- NOTE | 2019-04-14 18:30 | NUR ---
RCD PT FROM ICU BY BED PT IS ALERT AND ORIENTED VITALS CHECKED PT RESTING ON BED BED LOW AND LOCKED CALL LIGHT IN REACH
--- NOTE | 2019-04-14 18:47 | NUR ---
PT RESTING ON BED BED SURTASS ANALYST REPORT GIVEN TO ONCOMING NURSE
--- NOTE | 2019-04-14 19:24 | NUR ---
Patient received lying in bed. Daughter at bedside. AAO x 3. Patient had no complaints of pain. Respirations even and non-labored. Fall precautions implemented. Patient instructed to call for assistance when needed. Call light within reach.
[2019-04-14] MEDS: ATORVASTATIN 10 MG TAB PO SCH (21:25)
[2019-04-14] MEDS: TAMSULOSIN HCL 0.4 MG CAP PO SCH (21:25)
[2019-04-14] MEDS ORDERED: SODIUM CHLORIDE 0.9% 250ML 250 ML ONE (21:36)
--- NOTE | 2019-04-14 23:55 | NUR ---
Urine specimen sent to lab for analysis.
[2019-04-15] VITALS (8 sets, daily range): BP systolic 96–119; BP diastolic 47–68
[2019-04-15] LABS: BILIRUBIN,URINE NEGATIVE (NEGATIVE); CLARITY,URINE CLEAR (CLEAR); COLOR,URINE YELLOW (YELLOW); KETONES,URINE NEGATIVE (NEGATIVE); LEUKOCYTE ESTERASE ,URINE NEGATIVE (NEGATIVE); NITRITE,URINE NEGATIVE (NEGATIVE); PROTEIN,URINE DIPSTICK NEGATIVE (NEGATIVE); URINE UROBILINOGEN 1 mg/dL (0.2 - 1)
[2019-04-15 00:13] LABS: BACTERIA,URINE FEW /HPF; EPITHELIAL CELLS,URINE FEW /LPF; HYALINE CASTS 0-1 (0-1)
[2019-04-15] MEDS: CEFAZOLIN SOD 1 GM/NS 50ML 50 ML IV SCH ×3 (06:00→22:12)
--- NOTE | 2019-04-15 07:20 | NUR ---
Walking rounds done. Patient resting comfortably. Shift report given to oncoming nurse.
--- NOTE | 2019-04-15 07:27 | Diagnostic Imaging Report ---
EXAMINATION: CHEST SINGLE (PORTABLE) INDICATION: ^chf ^[id number] COMPARISON: 04/13/2019 FINDINGS: AP view TUBES and LINES: Stable left chest wall cardiac device. LUNGS: Lungs are well inflated. Moderate to severe pulmonary edema. PLEURA: No significant pleural effusion or pneumothorax. HEART AND MEDIASTINUM: The cardiomediastinal silhouette is enlarged. Median sternotomy wires and prosthetic valve are again seen. BONES AND SOFT TISSUES: No acute osseous lesion. Soft tissues are unremarkable. UPPER ABDOMEN: No free air under the diaphragm. IMPRESSION: Enlarged cardiomediastinal silhouette and moderate to severe pulmonary edema, unchanged from prior exam. Signed by: Dr. Dawson Minor MD on 04/15/2019 7:23 AM
[2019-04-15] MEDS: INSULIN LISPRO 100 UNIT/1 ML 3ML VIAL SQ SCH ×4 (07:30→21:00)
[2019-04-15] MEDS: AMIODARONE HCL 200 MG TAB PO SCH (09:46)
[2019-04-15] MEDS: GABAPENTIN 300 MG CAP PO SCH (09:46)
[2019-04-15] MEDS: POTASSIUM CHLORIDE 10MEQ EA PO SCH (09:46)
[2019-04-15] MEDS: FUROSEMIDE 40 MG TAB PO SCH ×2 (09:46→22:15)
[2019-04-15] MEDS: LEVOTHYROXINE SODIUM 50 MCG TAB PO SCH (09:46)
[2019-04-15] MEDS: PANTOPRAZOLE SOD 40 MG TABEC PO SCH (09:46)
[2019-04-15] MEDS: SENNA-S TABLET PO SCH ×2 (09:46→17:00)
[2019-04-15] MEDS: FINASTERIDE 5 MG TAB PO SCH (09:46)
[2019-04-15] MEDS: LISINOPRIL 2.5 MG TAB PO SCH (09:46)
[2019-04-15] MEDS: METOPROLOL SUCCINATE 25 MG TAB XL PO SCH (09:47)
[2019-04-15] MEDS ORDERED: LACTULOSE SYRUP 20 GM/30 ML UDC PO PRN (11:15)
[2019-04-15] MEDS ORDERED: MAGNESIUM HYDROXIDE 30 ML UDC PO ONE (11:15)
[2019-04-15] MEDS ORDERED: SODIUM CHLORIDE 0.9% 250ML 250 ML ONE (12:22)
[2019-04-15] MEDS ORDERED: HYDRALAZINE HCL 20 MG/ML VIAL IV PRN (13:00)
[2019-04-15] MEDS ORDERED: KETOROLAC TROMETHAMINE 30 MG/ML VIAL IV ONE (13:18)
--- NOTE | 2019-04-15 14:46 | NUR ---
Home health referral faxed to [facility] Naya Herrera, liaison with [facility] was informed of referral and anticipated dc for tomorrow.
[2019-04-15] MEDS: WARFARIN SOD 2 MG TAB PO SCH (16:22)
--- NOTE | 2019-04-15 17:16 | NUR ---
CM spoke to RICHIE Quinones regarding discharge plan. Informed her that pt's family wants to take him home. Cm asked for DME recommendations. She said he would benefit from having a walker, wheelchair, beside commode and slide board. CM received order for DME from Dr. Lara. Spoke to pt and his at bedside. They signed choice for [facility] and [facility]. Signed form placed in chart. Copy given to pt's . Referral was faxed to [facility] at [phone] / . Rabia Muhammad, with [place] was notified of referred and CM asked to expedite.
--- NOTE | 2019-04-15 19:20 | NUR ---
Report given to oncoming nurse of patient's status. Resting in bed. Side rails upx2, call light within reach, family at bedside. No s/s of acute distress noted.
--- NOTE | 2019-04-15 19:20 | NUR ---
Patient received lying in bed. AAO x 3. No acute distress noted. Safety measures in place. Call light within reach.
--- NOTE | 2019-04-15 19:25 | NUR ---
Report given to oncoming nurse of patient's status. Sitting on chair, call light within reach. AAOX3 to time, person, place. Respirations even and unlabored. Addendum: 04/15/19 at 1927 by HAWK ASH RN error
[2019-04-15] MEDS: TAMSULOSIN HCL 0.4 MG CAP PO SCH (21:05)
[2019-04-15] MEDS: ATORVASTATIN 10 MG TAB PO SCH (21:05)
[2019-04-15] MEDS: KETOROLAC TROMETHAMINE 30 MG/ML VIAL IV SCH (21:08)
[2019-04-16] VITALS (8 sets, daily range): BP systolic 91–118; BP diastolic 48–68
[2019-04-16] MEDS: KETOROLAC TROMETHAMINE 30 MG/ML VIAL IV SCH ×3 (00:30→12:23)
[2019-04-16 05:15] LABS: BASOPHILS % 0.5 % (0.0-1.0); EOSINOPHILS # (AUTO) 0.3 (0.0-0.4); EOSINOPHILS % 4.4 % (0.0-6.0); HEMATOCRIT 32.4 % (38.2-49.6); HEMOGLOBIN 9.7 g/dL (14.0-18.0); LYMPHOCYTES # (AUTO) 1.1 (1.0-3.2); LYMPHOCYTES % 18.2 % (18.0-39.1); MEAN CORPUSCULAR HEMOGLOBIN 26.7 pg (28-32); MEAN CORPUSCULAR HGB CONC 29.9 g/dL (31-35); MEAN CORPUSCULAR VOLUME 89.3 fL (81-99); MONOCYTES # (AUTO) 0.6 (0.2-0.8); MONOCYTES % 9.8 % (4.4-11.3); NEUTROPHILS # (AUTO) 4.1 (2.1-6.9); NEUTROPHILS % 66.8 % (38.7-80.0); PLATELET COUNT 193 x10e3/uL (140-360); RED BLOOD COUNT 3.63 x10e6/uL (4.3-5.7); RED CELL DISTRIBUTION WIDTH 17.8 % (11.7-14.4)
[2019-04-16 05:26] LABS: INR 2.9; PROTHROMBIN TIME 31.1 seconds (11.9-14.5)
[2019-04-16 05:35] LABS: ANION GAP 12.7 mmol/L (8-16); BLOOD UREA NITROGEN 18 mg/dL (7-26); BUN/CREATININE RATIO 17 (6-25); CALCIUM 8.6 mg/dL (8.4-10.2); CARBON DIOXIDE 27 mmol/L (22-29); CHLORIDE 105 mmol/L (98-107); CREATININE, SERUM 1.03 mg/dL (0.72-1.25); EST GLOMERULAR FILTRATION RATE > 60 ML/MIN (60-); GLUCOSE 112 mg/dL (74-118); MAGNESIUM 1.7 MG/DL (1.3-2.1); POTASSIUM 3.7 mmol/L (3.5-5.1); SODIUM 141 mmol/L (136-145)
[2019-04-16] MEDS: CEFAZOLIN SOD 1 GM/NS 50ML 50 ML IV SCH ×2 (05:50→13:00)
[2019-04-16] MEDS ORDERED: LEVOTHYROXINE SODIUM 50 MCG TAB PO SCH (06:00)
--- NOTE | 2019-04-16 07:03 | NUR ---
Patient resting comfortably. Shift report given to oncoming nurse.
[2019-04-16] MEDS: INSULIN LISPRO 100 UNIT/1 ML 3ML VIAL SQ SCH ×3 (07:30→16:30)
[2019-04-16] MEDS: PANTOPRAZOLE SOD 40 MG TABEC PO SCH (08:47)
[2019-04-16] MEDS: POTASSIUM CHLORIDE 10MEQ EA PO SCH (08:47)
[2019-04-16] MEDS: GABAPENTIN 300 MG CAP PO SCH (08:47)
[2019-04-16] MEDS: SENNA-S TABLET PO SCH ×2 (08:47→17:00)
[2019-04-16] MEDS: AMIODARONE HCL 200 MG TAB PO SCH (08:47)
[2019-04-16] MEDS: FINASTERIDE 5 MG TAB PO SCH (08:47)
[2019-04-16] MEDS: FUROSEMIDE 40 MG TAB PO SCH (08:51)
--- NOTE | 2019-04-16 08:51 | Diagnostic Imaging Report ---
EXAMINATION: CHEST SINGLE (PORTABLE) INDICATION: Shortness of breath COMPARISON: Chest radiograph of 04/15/2019 FINDINGS: LINES/TUBES:Left chest pacemaker unchanged. The lead appears to be kinked and potentially fractured adjacent to the second rib. LUNGS:The lungs are moderately inflated. There is perihilar fullness and indistinctness of the pulmonary vasculature. PLEURA:No pleural effusion or pneumothorax. MEDIASTINUM:Cardiomediastinal silhouette is stably enlarged. BONES/SOFT TISSUES:No acute osseous injury. ABDOMEN:No free air under the diaphragm. IMPRESSION: Unchanged cardiomegaly and pulmonary edema. Left chest pacemaker lead appears to be kinked and potentially fractured adjacent to the second rib, although this appears unchanged dating all the way back to at least 11/07/2018. Signed by: Tho Love MD on 04/16/2019 8:48 AM
[2019-04-16] MEDS: LISINOPRIL 2.5 MG TAB PO SCH (12:22)
[2019-04-16] MEDS: METOPROLOL SUCCINATE 25 MG TAB XL PO SCH (12:22)
--- NOTE | 2019-04-16 13:52 | NUR ---
Spoke to Rabia with [facility]. She stated that authorization for DME could take up to 7 days. They can deliver if pt puts credit card on file. If authorization not obtained, credit card will be billed. ZAK spoke to pt's son Abe at bedside and informed him. He asked for private pay prices. Received santiago from Rabia for [employer] and also prices from Ant with [facility]. Pt's son would prefer to go with [facility] due to cost in case they have to pay out of pocket. ZAK notified Rabia to cancel referral. Home O2 eval was completed. Pt is 88% on RA. Pt's son Abe states that pt has a concentrator at home, but does not know the name of the company they got it from. States they got it about 3-4 years ago. States can send order for home oxygen to [facility] as well. Referrals were faxed to [facility]. Obie was notified. States they will be able to deliver equipment today. They will check on oxygen status. .
--- NOTE | 2019-04-16 15:30 | Progress Note ---
DATE: 04/16/2019 CONSULTING PHYSICIAN: 1. Dr. Dionisio Lara with Critical Care. 2. Dr. Javier Arevalo with Cardiology. CHIEF COMPLAINT: Cellulitis of the right arm and pulmonary edema with shortness of breath. SUBJECTIVE: Seen while sitting up in the bed, getting ready to work with physical therapy. He reports no shortness of breath, nausea, vomiting, chest pain, chills, or fever. He is tolerating diet, no palpitations. Continue cefazolin. OBJECTIVE: VITAL SIGNS: Temperature 96.6, pulse is 77, respirations 24, blood pressure 116/62, and pulse ox is 90% on 2 L of O2. GENERAL: No acute distress. NECK: Supple and midline. LUNGS: Clear to auscultation. HEENT: Normocephalic and atraumatic. CARDIOVASCULAR: Irregular rate and rhythm. ABDOMEN: Soft and nontender. NEUROLOGICAL: Alert, awake, and oriented. EXTREMITIES: Right AKA 51 years ago. MEDICATIONS: See medication MAR. LABORATORY DATA: WBC 6.20, hemoglobin is 9.7, hematocrit is 32.4, and platelet is 193. Chemistry; sodium is 141, potassium is 3.7, carbon dioxide is 27, creatinine is 1.03, estimated GFR is greater than 60, and glucose is 112. Calcium is 8.6 and magnesium is 1.7. BNP is 547. Chest x-ray shows unchanged cardiomegaly and pulmonary edema. IMPRESSION: 1. Poly migrating inflammatory arthritis. Continue with IV Toradol q.6 hours and continue with cefazolin. 2. Atrial fibrillation. Rate is controlled. Continue Coumadin. INR within normal limits. 3. History of congestive heart failure. Continue p.o. Lasix. Chest x-ray noted pulmonary edema. Cardiology is on the case. We will continue to appreciate input. 4. Mechanical MVR. INR is 2.9. 5. Hypothyroidism. Continue levothyroxine 125 mcg daily. 6. Diabetes. Continue insulin coverage. 7. High cholesterol. Continue on statin. 8. History of benign prostatic hyperplasia. Continue Flomax. 9. Gastrointestinal and deep venous thrombosis prophylaxis, on Coumadin. PLAN: Home with DME and home health for PT/OT. Dictated by LIYA Hodge Santi Lara MD MY/MODL /[id number] Seen and examined, updated son at the bedside in details. Agree with the findings and plan as documented by LIYA Rubin. KARINED
--- NOTE | 2019-04-16 16:16 | NUR ---
HOME HEALTH DISCHARGE NOTE PATIENT ADDRESS WHERE SERVICE WILL BE RECEIVED: [address] [place] [address] PATIENT CONTACT NUMBER: [phone] (ashwin Ramos) NAME OF HOME HEALTH COMPANY: [facility] TELEPHONE/FAX NUMBER OF COMPANY: P [phone] / F [phone] SERVICES TO RECEIVE: SN, PT, OT ANTICIPATED DATE SERVICES WILL BEGIN: April 17, 2019 Please call the company above if you have not received a call to schedule a home visit within 24 hours of discharge. Home health information printed and given to family.
--- NOTE | 2019-04-16 16:21 | NUR ---
[facility]
[2019-04-16] MEDS: WARFARIN SOD 2 MG TAB PO SCH (17:00)
--- NOTE | 2019-04-16 19:10 | NUR ---
Report given to oncoming nurse of patient's status. Resting in bed. Awaiting for ride. NO s/s of acute distress noted. Side rails upx2, call light within reach, bed alarm on.
--- NOTE | 2019-04-16 19:15 | NUR ---
patient received awake, alert, lying quietly in bed. no c/o pain noted. /nc in use. pm assessment complete. patient to discharge home today when family arrives. patient verbalizes understanding of this.
--- NOTE | 2019-04-16 20:00 | NUR ---
iv to left hand d/c'd and telemetry removed. patient discharged home with family. patient home with wheelchair, walker and oxygen. vss. no c/o pain noted at time of discharge. discharge assessment complete.
--- NOTE | 2019-04-17 23:48 | Discharge Summary ---
PCP: Dr. Cool. FINAL DISCHARGE DIAGNOSES: 1. Poly-migrating inflammatory arthritis. 2. Atrial fibrillation. 3. Congestive heart failure. 4. Mechanical mitral valve replacement. 5. Hypothyroidism. 6. Diabetes type 2. 7. High cholesterol. 8. History of benign prostatic hypertrophy. 9. History of right ttmsb-ovnt-ypqfbvpbqz. CONSULTANTS: 1. Dr. Dionisio Lara with Critical Care. 2. Dr. Javier Arevalo with Cardiology. PROCEDURES: None. HISTORY: Per HPI. HOSPITAL COURSE: This is a 68-year-old male, who presented with cellulitis of the right arm and pulmonary edema with shortness of breath, [facility] from [facility] while he was receiving physical therapy for his debility. He was started on IV antibiotics. Blood cultures were negative. He was started on vancomycin and Zosyn for treatment of cellulitis. He was continued on his diuretics and Coumadin therapy. He received IV antibiotics, which improved his cellulitis. He was initially in the ICU for atrial fibrillation with RVR and fever. The etiology of his fever was unknown, likely gout or pseudogout. As cultures have been negative, his heart rate improved and was transferred out of ICU. He and his family have now decided to go home with home health and [facility]. Emphasized on the physical therapist's recommendation for placement, but continues to refuse. PHYSICAL EXAMINATION: VITAL SIGNS: Temperature is 96.7, pulse is 75, respirations 18, blood pressure is 118/64, pulse ox is 97% on 2 L of oxygen. GENERAL: No acute distress. NECK: Supple and midline. LUNGS: Clear to auscultation. HEENT: Normocephalic and atraumatic. CARDIOVASCULAR: Irregular rate and rhythm, but controlled rate. ABDOMEN: Soft and nontender. NEUROLOGIC: Alert, awake, and oriented x3. EXTREMITIES: Right AKA 51 years ago. PSYCH: Calm. No hallucinations. CONDITION AT DISCHARGE: Improved and stable. DISCHARGE MEDICATIONS: See medication reconciliation list. FOLLOWUP: Follow up with PCP and Cardiology in 1 to 2 weeks. Dictated by LIYA Hodge Valeching Vazquez Lara MD MY/MODL /[id number] Seen and examined on 04/16/2019. Agree with the findings and plan as documented by LIYA Rubin. ELIF
== END 2019-04-16 20:27 | disposition home health service (06) | DRG 553 ==
LOC: ER 18:00 → ERHOLD 20:31 → ICU 04-13 15:49 → MED/SURG2 04-14 18:30
PROVIDERS: ADMIT Internal Medicine; ATTEND Internal Medicine
DX: M06.4 Inflammatory polyarthropathy (principal); I50.43 Acute on chronic combined systolic (congestive) and diastolic (congestive) heart failure; L03.113 Cellulitis of right upper limb; I11.0 Hypertensive heart disease with heart failure; I48.91 Unspecified atrial fibrillation; M10.9 Gout, unspecified; Z89.611 Acquired absence of right leg above knee; Z95.2 Presence of prosthetic heart valve; I25.10 Atherosclerotic heart disease of native coronary artery without angina pectoris; Z95.1 Presence of aortocoronary bypass graft; E78.00 Pure hypercholesterolemia, unspecified; R53.81 Other malaise; E11.51 Type 2 diabetes mellitus with diabetic peripheral angiopathy without gangrene; Z79.4 Long term (current) use of insulin; E03.9 Hypothyroidism, unspecified; N40.0 Benign prostatic hyperplasia without lower urinary tract symptoms; E87.6 Hypokalemia
CPT/HCPCS: 36415; 70450; 71045; 72125; 80048; 80053; 81001; 82044; 82550; 82553; 82948; 83605; 83735; 83880; 84443; 84484; 85025; 85610; 87040; 87086; 87400; 93005; 93306; 93971; 96372; 97139; 99285; J0690; J1885; J1940; J2543; J3370; J3475; J7030; J7050

== ENCOUNTER 2019-12-13 11:19 | Inpatient (IN) | payer MEDICARE, OTHER ==
[~2019-12-13] VITALS: Ht 175.3 cm; Wt 109.8 kg
[~2019-12-13 11:19] MED LIST changes: +ATORVASTATIN CA10 MG PO; +CVS SENNA PLUS1 EACH PO; +LACTULOSE20 GM/30 M PO; +LANTUS 3ML100 UNITS/ SC; +LISINOPRIL2.5 MG PO; +METOPROLOL SUCC25 MG PO; +PERCOCET 5-3251 EACH PO; +PRILOSEC OTC20 MG PO
[2019-12-13] MEDS ORDERED: CEFEPIME 1GM/NS 0.9% 50 ML 50 ML IV STA (11:25)
[2019-12-13] MEDS ORDERED: AZITHROMYCIN 500MG/NS 250 ML 250 ML IV STA ×2 (11:32→13:25)
[2019-12-13 12:20] LABS: BASOPHILS % 0.2 % (0.0-1.0); EOSINOPHILS % 0.2 % (0.0-6.0); HEMOGLOBIN 10.9 g/dL (14.0-18.0); LYMPHOCYTES # (AUTO) 1.4 (1.0-3.2); LYMPHOCYTES % 16.5 % (18.0-39.1); MEAN CORPUSCULAR HEMOGLOBIN 28.4 pg (28-32); MEAN CORPUSCULAR HGB CONC 32.1 g/dL (31-35); MEAN CORPUSCULAR VOLUME 88.5 fL (81-99); MONOCYTES # (AUTO) 1.2 (0.2-0.8); MONOCYTES % 14.2 % (4.4-11.3); NEUTROPHILS # (AUTO) 5.9 (2.1-6.9); NEUTROPHILS % 68.2 % (38.7-80.0); PLATELET COUNT 144 x10e3/uL (140-360); RED BLOOD COUNT 3.84 x10e6/uL (4.3-5.7); RED CELL DISTRIBUTION WIDTH 15.9 % (11.7-14.4)
[2019-12-13 12:31] LABS: CLARITY,URINE CLEAR (CLEAR); COLOR,URINE YELLOW (YELLOW)
[2019-12-13 12:32] LABS: BILIRUBIN,URINE NEGATIVE (NEGATIVE); KETONES,URINE NEGATIVE (NEGATIVE); LEUKOCYTE ESTERASE ,URINE NEGATIVE (NEGATIVE); NITRITE,URINE NEGATIVE (NEGATIVE); PROTEIN,URINE DIPSTICK NEGATIVE (NEGATIVE); URINE UROBILINOGEN 1 mg/dL (0.2 - 1)
[2019-12-13 12:40] LABS: ALBUMIN/GLOBULIN RATIO 0.6 (0.8-2.0); ANION GAP 14.6 mmol/L (8-16); CALCIUM 8.7 mg/dL (8.4-10.2); CREATININE, SERUM 2.34 mg/dL (0.72-1.25); POTASSIUM 4.6 mmol/L (3.5-5.1)
[2019-12-13 12:47] LABS: CREATINE KINASE MB 0.8 ng/mL (0-5.0)
--- NOTE | 2019-12-13 12:50 | NUR ---
Kary schwab completed without difficulty and sent to lab.
--- NOTE | 2019-12-13 12:55 | Diagnostic Imaging Report ---
TECHNIQUE: Frontal view of the chest. INDICATION: 69-year-old man who is COVID positive. COMPARISON: Chest radiograph 04/16/2019. FINDINGS: LINES/TUBES/DEVICES: Unchanged implanted cardiac device projects over the left hemithorax with an intact lead which terminates over the expected region of the right ventricle. LUNGS: Lungs are well inflated. Patchy bilateral airspace opacities. PLEURA: No pneumothorax or significant pleural effusion. HEART AND MEDIASTINUM: Unchanged prominent cardiac silhouette. SOFT TISSUES AND BONES: Unchanged median sternotomy wires. Soft tissues are unremarkable. IMPRESSION: Bilateral airspace opacities. Differential considerations include pulmonary edema and multifocal pneumonia. Signed by: Kim Bang MD on 12/13/2019 12:51 PM
[2019-12-13 12:56] LABS: BACTERIA,URINE RARE /HPF; RBC,URINE 0-5 /HPF (0-5); WBC,URINE (MAN) 0-5 /HPF (0-5)
[2019-12-13] MEDS ORDERED: CEFTRIAXONE SOD 1 GM/NS 50 ML 50 ML IV ONE (13:30)
[2019-12-13] MEDS ORDERED: ACETAMINOPHEN 325 MG TAB PO ONE (13:30)
--- NOTE | 2019-12-13 14:00 | Emergency Department Note ---
History of Present Illnes History of Present Illness Chief Complaint: COVID PUI History of Present Illness This is a 69 year old male arrives to the ED with complaints of fever or shortness of breath and cough. Per EMS and patient recently tested positive for [place] 19 pneumonia. Patient states he feels fine but does get short of breath when he ambulates. 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 Any updates have been documented here. Past Medical History Recent Fever: Yes Clinical Suspicion of Infectio: Yes New/Unexplained Change in Ment: No Past Medical History: Hypertension, Diabetes, COPD, CHF, A-Fib Other Medical History: RAKA Nueropathy Past Surgical History: CABG, Pacer/AICD Other Surgery: right aka MITRAL VALVE DEFIBRILLATOR-2014 HEART BYPASS NOSE SX ALEX Social History Smoking Cessation: Former smoker Counseling Performed: No Alcohol Use: None Any Illegal Drug Use: No TB Exposure/Symptoms: No Physically hurt or threatened: No Family History Family history of heart diseas: No Other Last Tetanus: UTD Any Pre-Existing Lines (PICC,: No Is patient up to date on immun: Yes Last Flu: utd Last Pneumovax: utd Review of Systems Review of Systems Constitutional: Reports as per HPI, Reports chills, Reports fever, Reports weakness EENTM: Reports no symptoms Cardiovascular: Reports no symptoms Respiratory: Reports as per HPI, Reports cough Gastrointestinal: Reports no symptoms Genitourinary: Reports no symptoms Musculoskeletal: Reports no symptoms Integumentary: Reports no symptoms Neurological: Reports no symptoms Psychological: Reports no symptoms Endocrine: Reports no symptoms Hematological/Lymphatic: Reports no symptoms Physical Exam Related Data Allergies: Coded Allergies: No Known Allergies (Unverified , 09/18/16) Triage Vital Signs Vital Signs Date Time Temp Pulse Resp B/P (MAP) Pulse Ox O2 Delivery O2 Flow Rate FiO2 12/13/19 11:19 101.9 72 20 147/128 96 Vital signs reviewed: Yes Physical Exam CONSTITUTIONAL Constitutional: Present well-developed, Present well-nourished HENT HENT: Present normocephalic, Present atraumatic, Present oropharynx clear/moist, Present nose normal HENT L/R: Present left ext ear normal, Present right ext ear normal EYES Eyes: Reports PERRL, Reports conjunctivae normal NECK Neck: Present ROM normal PULMONARY Pulmonary: Present effort normal, Present breath sounds normal, Present respiratory distress CARDIOVASCULAR Cardiovascular: Present regular rhythm, Present heart sounds normal, Present capillary refill normal, Present normal rate GASTROINTESTINAL Abdominal: Present soft, Present nontender, Present bowel sounds normal GENITOURINARY Genitourinary: Present exam deferred SKIN Skin: Present warm, Present dry MUSCULOSKELETAL Musculoskeletal: Present ROM normal NEUROLOGICAL Neurological: Present alert, Present oriented x 3, Present no gross motor or sensory deficits PSYCHOLOGICAL Psychological: Present mood/affect normal, Present judgement normal Results Laboratory Result Diagram: 12/13/19 1146 12/13/19 1146 Laboratory Laboratory Tests Test 12/13/19 11:58 12/13/19 11:46 Bedside Glucose 172 mg/dL (70-120) White Blood Count 8.59 x10e3/uL (4.8-10.8) Red Blood Count 3.84 x10e6/uL (4.3-5.7) Hemoglobin 10.9 g/dL (14.0-18.0) Hematocrit 34.0 % (38.2-49.6) Mean Corpuscular Volume 88.5 fL (81-99) Mean Corpuscular Hemoglobin 28.4 pg (28-32) Mean Corpuscular Hemoglobin Concent 32.1 g/dL (31-35) Red Cell Distribution Width 15.9 % (11.7-14.4) Platelet Count 144 x10e3/uL (140-360) Neutrophils (%) (Auto) 68.2 % (38.7-80.0) Lymphocytes (%) (Auto) 16.5 % (18.0-39.1) Monocytes (%) (Auto) 14.2 % (4.4-11.3) Eosinophils (%) (Auto) 0.2 % (0.0-6.0) Basophils (%) (Auto) 0.2 % (0.0-1.0) Neutrophils # (Auto) 5.9 (2.1-6.9) Lymphocytes # (Auto) 1.4 (1.0-3.2) Monocytes # (Auto) 1.2 (0.2-0.8) Eosinophils # (Auto) 0.0 (0.0-0.4) Basophils # (Auto) 0.0 (0.0-0.1) Absolute Immature Granulocyte (auto 0.06 x10e3/uL (0-0.1) Urine Color Yellow (YELLOW) Urine Clarity Clear (CLEAR) Urine pH 5.5 (5 - 7) Urine Specific [place] 1.015 (1.010-1.025) Urine Protein Negative (NEGATIVE) Urine Glucose (UA) Negative (NEGATIVE) Urine Ketones Negative (NEGATIVE) Urine Blood Negative (NEGATIVE) Urine Nitrite Negative (NEGATIVE) Urine Bilirubin Negative (NEGATIVE) Urine Urobilinogen 1 mg/dL (0.2 - 1) Urine Leukocyte Esterase Negative (NEGATIVE) Urine RBC 0-5 /HPF (0-5) Urine WBC 0-5 /HPF (0-5) Urine Epithelial Cells None /LPF (NONE) Urine Bacteria Rare /HPF (NONE) Sodium Level 135 mmol/L (136-145) Potassium Level 4.6 mmol/L (3.5-5.1) Chloride Level 93 mmol/L (98-107) Carbon Dioxide Level 32 mmol/L (22-29) Anion Gap 14.6 mmol/L (8-16) Blood Urea Nitrogen 73 mg/dL (7-26) Creatinine 2.34 mg/dL (0.72-1.25) Estimat Glomerular Filtration Rate 28 ML/MIN (60-) BUN/Creatinine Ratio 31 (6-25) Glucose Level 158 mg/dL (74-118) Lactic Acid Level 1.0 mmol/L (0.5-2.0) Calcium Level 8.7 mg/dL (8.4-10.2) Total Bilirubin 0.9 mg/dL (0.2-1.2) Aspartate Amino Transf (AST/SGOT) 40 IU/L (5-34) Alanine Aminotransferase (ALT/SGPT) 26 IU/L (0-55) Alkaline Phosphatase 207 IU/L (40-150) Creatine Kinase 111 IU/L (30-200) Creatine Kinase MB 0.80 ng/mL (0-5.0) Troponin I 0.079 ng/mL (0-0.300) B-Type Natriuretic Peptide 149.6 pg/mL (0-100) Total Protein 7.9 g/dL (6.5-8.1) Albumin 3.0 g/dL (3.5-5.0) Globulin 4.9 g/dL (2.3-3.5) Albumin/Globulin Ratio 0.6 (0.8-2.0) Lab results reviewed: Yes Imaging Imaging results reviewed: Yes Impressions IMPRESSION: Bilateral airspace opacities. Differential considerations include pulmonary edema and multifocal pneumonia. Signed by: Kim Bang MD on 12/13/2019 12:51 PM Critical Care Time Total Critical Care Time (min): 45 Critcal care necessary due to: respiratory failure Assessment & Plan Medical Decision Making MDM 69-year-old male arrives to the ED with fever cough, concerns of COVID 19 exposure given wises positiveness same household. Patient with extensive medical history. Patient mildly tachypnea in the ED, given age and medical history patient admitted for close respiratory and cardiac monitoring. No concerns of bacterial associated infection at time of admission Assessment & Plan Final Impression: (1) Acute respiratory disease due to COVID-19 virus Depart Disposition: ADMITTED Last Vital Signs Date Time Temp Pulse Resp B/P (MAP) Pulse Ox O2 Delivery O2 Flow Rate FiO2 12/13/19 13:07 62 18 110/69 97 12/13/19 11:19 101.9 Home Meds Active Scripts Furosemide (FUROSEMIDE) 40 Mg Tablet, 40 MG PO Q12H, #30 TAB Prov:GENNARO NGUYEN MD 11/08/18 Warfarin Sodium (WARFARIN SODIUM) 2 Mg Tablet, 2 MG PO DAILY for 7 Days, TAB Prov:GENNARO NGUYEN MD 01/13/18 Reported Medications Metoprolol Succinate (METOPROLOL SUCCINATE) 25 Mg Tab.er.24h, 25 MG PO DAILY 04/12/19 Potassium Chloride (POTASSIUM CHLORIDE) 10 Meq Tab.er.prt, 10 MEQ PO DAILY, TAB 04/12/19 Sennosides/Docusate Sodium ([employer] SENNA PLUS TABLET) 1 Each Tablet, 1 TAB PO BID 04/12/19 Oxycodone Hcl/Acetaminophen (PERCOCET 5-325 MG TABLET) 1 Each Tablet, 1 TAB PO Q12HR PRN for SEVERE PAIN (7-10) 04/12/19 Omeprazole Magnesium (PRILOSEC OTC) 20 Mg Tablet.dr, 20 MG PO DAILY 04/12/19 Lisinopril (LISINOPRIL) 2.5 Mg Tablet, 2.5 MG PO DAILY, #30 TAB 04/12/19 Insulin Glargine (LANTUS 3ML PEN) 100 Units/1 Ml Inj, 50 UNITS SC DAILY 04/12/19 Lactulose (LACTULOSE) 20 Gm/30 Ml Solution, 30 ML PO TID PRN for CONSTIPATION, EACH 04/12/19 Atorvastatin Calcium (ATORVASTATIN CALCIUM) 10 Mg Tablet, 10 MG PO 2100, #30 TAB 04/12/19 Tamsulosin Hcl* (FLOMAX*) 0.4 Mg Cap, 0.4 MG PO DAILY, #30 CAP 01/10/18 Levothyroxine Sodium (LEVOTHYROXINE SODIUM) 50 Mcg Tablet, 125 MCG PO DAILY, #30 TAB 12/26/17 Amiodarone Hcl (AMIODARONE HCL) 200 Mg Tablet, 200 MG PO DAILY 09/20/16 Insulin Lispro (HUMALOG) 100 Unit/1 Ml Cartridge, 38 SQ AC 09/18/16 Gabapentin (GABAPENTIN) 300 Mg Capsule, 600 MG PO DAILY, #60 CAP 06/07/15 Finasteride (PROSCAR) 5 Mg Tablet, 5 MG PO DAILY 10/21/14 Medications in the ED Cefepime HCl 50 ml @ 100 mls/hr ONCE STAT IV Last administered on 12/13/19at 13:06; Admin Dose 100 MLS/HR; Start 12/13/19 at 11:25; Stop 12/13/19 at 11:54; Status DC Azithromycin 250 ml @ 250 mls/hr ONCE STAT IV ; Start 12/13/19 at 11:32; Stop 12/13/19 at 12:31; Status DC Acetaminophen 975 mg ONCE ONCE PO ; Start 12/13/19 at 13:30; Stop 12/13/19 at 13:31; Status DC TAYLOR NUNEZ DO Dec 13, 2019 13:43
--- NOTE | 2019-12-13 15:42 | NUR ---
[id number] patient is seen and examind full note dictated see orders time spent 45 min
[2019-12-13] MEDS ORDERED: SODIUM CHLORIDE 0.9% 1000ML 1,000 ML ONE (16:17)
--- NOTE | 2019-12-13 17:23 | NUR ---
Spoke Abe Fraser Jr. verbal consent given by son for patient to transport to [facility].
[2019-12-13 18:10] VITALS: BP 111/55
--- NOTE | 2019-12-13 21:50 | Consultation ---
DATE OF CONSULTATION: HISTORY OF PRESENT ILLNESS: This is a 69-year-old male, comes in with fever, chills, shortness of breath, and cough, who was recently positive for COVID-19. It has been a while he was doing good. He became short of breath. He had to come to the hospital. The patient, who is currently in the emergency room. PAST MEDICAL HISTORY: Otherwise as above. PAST SURGICAL HISTORY: As above. ALLERGIES: NKA. SOCIAL HISTORY: There is no smoking, drug abuse, or alcohol abuse. DIAGNOSTIC DATA: The patient's chest x-ray showed bilateral airspace opacity. PHYSICAL EXAMINATION: GENERAL: He is currently alert and oriented. VITAL SIGNS: Stable. Temperature 101.9, heart rate 72, respiration 20, and O2 saturation 96. HEENT: Normocephalic. NECK: Supple. CHEST: Few crackles. COR: S1 and S2. No S3, S4, or murmur. ABDOMEN: Soft. IMPRESSION: COVID-19, concerned about superimposed bacterial pneumonia. We will put him on Rocephin 2 g daily, azithromycin 500 mg daily, oxygen as needed, Lovenox 30 subcutaneous q.12, vitamin C 500 mg p.o. b.i.d., and supplement zinc 50 mg p.o. daily. Reassess again soon today. MD ESTEBAN Guerrero/ERICA /[id number]
== END 2019-12-13 18:00 | disposition short-term general hospital (02) | DRG 177 ==
LOC: ER 11:19 → ERHOLD 13:25
PROVIDERS: ADMIT Internal Medicine; ATTEND Internal Medicine
DX: U07.1 COVID-19 (principal); J12.89 Other viral pneumonia
CPT/HCPCS: 36415; 71045; 80053; 81001; 82550; 82553; 82948; 83605; 83880; 84484; 85025; 86850; 86900; 87040; 87071; 87205; 87635; 99285; J0456; J0692; J0696; J7030

== ENCOUNTER 2019-12-29 13:50 | Inpatient (IN) | payer MEDICARE, OTHER ==
[~2019-12-29] VITALS: Ht 182.9 cm; Wt 106.4 kg
[2019-12-29] MEDS ORDERED: CEFEPIME 2 GM/NS 0.9% 100 ML 100 ML IV STA (14:26)
[2019-12-29] MEDS ORDERED: SODIUM CHLORIDE 0.9% 1000ML 1,000 ML IV STA ×2 (14:26→16:54)
[2019-12-29] MEDS ORDERED: SODIUM CHLORIDE 0.9% 1000ML 1,000 ML ONE (14:33)
[2019-12-29 14:55] LABS: BASOPHILS # (AUTO) 0.1 (0.0-0.1); BASOPHILS % 0.2 % (0.0-1.0); EOSINOPHILS # (AUTO) 0.2 (0.0-0.4); EOSINOPHILS % 0.7 % (0.0-6.0); HEMATOCRIT 33.3 % (38.2-49.6); HEMOGLOBIN 10.2 g/dL (14.0-18.0); LYMPHOCYTES # (AUTO) 0.3 (1.0-3.2); LYMPHOCYTES % 1.2 % (18.0-39.1); MEAN CORPUSCULAR HEMOGLOBIN 28.4 pg (28-32); MEAN CORPUSCULAR HGB CONC 30.6 g/dL (31-35); MEAN CORPUSCULAR VOLUME 92.8 fL (81-99); MONOCYTES # (AUTO) 1.5 (0.2-0.8); MONOCYTES % 6.2 % (4.4-11.3); NEUTROPHILS % 90.1 % (38.7-80.0); PLATELET COUNT 214 x10e3/uL (140-360); RED BLOOD COUNT 3.59 x10e6/uL (4.3-5.7); RED CELL DISTRIBUTION WIDTH 17.2 % (11.7-14.4)
[2019-12-29] MEDS ORDERED: AZITHROMYCIN 500MG/NS 250 ML 250 ML IV ONE (15:00)
[2019-12-29 15:06] LABS: INR 3.53; PROTHROMBIN TIME 38.2 seconds (11.9-14.5)
[2019-12-29 15:07] LABS: PARTIAL THROMBOPLASTIN TIME 67.2 seconds (23.8-35.5)
--- NOTE | 2019-12-29 15:10 | NUR ---
AT BEDSIDE TO INSERT CENTRAL LINE TO START PRESSORS
[2019-12-29] MEDS ORDERED: NOREPINEPHRINE 8 MG/D5W 250 ML 250 ML ONE (15:12)
[2019-12-29] MEDS ORDERED: SODIUM CHLORIDE 0.9% 250ML 250 ML ONE (15:12)
--- NOTE | 2019-12-29 15:15 | NUR ---
NOREPINEPHERINE DRIP STARTED AT 20MCG/MIN.
[2019-12-29 15:18] LABS: ALBUMIN 2.1 g/dL (3.5-5.0); ALBUMIN/GLOBULIN RATIO 0.4 (0.8-2.0); ANION GAP 16.1 mmol/L (8-16); CREATININE, SERUM 2.99 mg/dL (0.72-1.25); MAGNESIUM 1.7 MG/DL (1.3-2.1); POTASSIUM 5.1 mmol/L (3.5-5.1)
[2019-12-29 15:24] LABS: CREATINE KINASE MB 2.6 ng/mL (0-5.0)
--- NOTE | 2019-12-29 15:25 | NUR ---
NOREPI INCREASED TO 40MCG/MIN
[2019-12-29 15:32] LABS: B-TYPE NATRIURETIC PEPTIDE2 136.8 pg/mL (0-100)
--- NOTE | 2019-12-29 15:35 | NUR ---
Josep campos in [facility] - 12/29/19 at 1739 by KPEPPING NOREPI INCREASED TO 60 MCG/MIN
[2019-12-29 15:39] LABS: BAND NEUTROPHILS % (MANUAL) 4 %; LYMPHOCYTES % (MANUAL) 1 % (19-48); MONOCYTES % (MANUAL) 12 % (3.4-9.0); NEUTROPHILS % (MANUAL) 83 % (40-74); PLATELET ESTIMATE ADEQUATE; PLATELET MORPHOLOGY COMMENT NORMAL; RBC MORPHOLOGY COMMENT NORMAL
--- NOTE | 2019-12-29 16:46 | Diagnostic Imaging Report ---
History:Altered mental status Comparison studies: None Technique: Axial images were obtained from the skull base to the vertex. Coronal and sagittal images reconstructed from the axial data. Dose modulation, iterative reconstruction, and/or weight based adjustment of the mA/kV was utilized to reduce the radiation dose to as low as reasonably achievable. Intravenous contrast: None Findings: Scalp/skull: No abnormalities. Extra-axial spaces: No masses. No fluid collections. Brain sulci: Mildly prominent but adequate for patient's age Ventricles: Mildly prominent, as expected for age, but no hydrocephalus. Parenchyma: Describe hypodensities in the supratentorial white matter are small vessel ischemic changes. No masses, hemorrhage, acute or chronic cortical vascular insults. Sellar/suprasellar region: No abnormalities. Craniocervical junction: Patent foramen magnum. No Chiari one malformation. Incidental findings: Atherosclerotic calcifications in the carotid siphons and vertebral arteries. Impression: No intracranial abnormalities. Signed by: Dr. Richard Caldwell M.D. on 12/29/2019 4:43 PM
[2019-12-29] MEDS ORDERED: SODIUM CHLORIDE 0.9% 500ML 500 ML IV ONE (17:00)
--- NOTE | 2019-12-29 17:12 | Diagnostic Imaging Report ---
ADDENDUM #1 Addendum: Right IJ central line has distal tip in the distal IJV near the junction with the left innominate vein. Signed by: Dr. Giuliano Cerrato M.D. on 12/29/2019 6:19 PM ORIGINAL REPORT EXAMINATION: CT scan of the chest without contrast. TECHNIQUE: Spiral CT images of the chest were performed from the lung apices to the level of the adrenal glands. No intravenous contrast was administered per physician's request. Coronal and sagittal reformatted images were obtained. COMPARISON: Portable chest 04/16/2019 and 12/13/2019 CLINICAL HISTORY:AMS, shortness of breath, cough for one week DISCUSSION: ABSENCE OF INTRAVENOUS CONTRAST DECREASES SENSITIVITY FOR DETECTION OF FOCAL LESIONS AND VASCULAR PATHOLOGY. LINES/TUBES: Left upper chest cardiac device with lead distal tip in the right ventricle. LUNGS AND AIRWAYS: Coarsening of the pulmonary interstitium. Diffuse bilateral patchy groundglass opacities, some of which are peripherally located in the upper lobes, and others with more central/perihilar location, with more confluent areas with air bronchograms in the superior segment of bilateral lower lobes. Some opacities follow the bronchovascular bundles, particularly in the left lower lobe and right middle lobe (series 6, image 88 and 86). Intralobular septal thickening is noted in bilateral upper lungs. Airways are clear, without endobronchial lesions. PLEURA: No pneumothorax or pleural effusions. HEART AND MEDIASTINUM: Thyroid is unremarkable. Moderate cardiomegaly with left atrial enlargement. Atherosclerotic calcification of the coronary arteries, thoracic aorta and mitral annulus. No pericardial effusion. Aorta is nonaneurysmal. Main pulmonary artery is normal in caliber. LYMPH NODES: Enlarged right upper paratracheal lymph node, which measures 2.0 cm in short axis (series 5, image 50). Enlarged right lower paratracheal lymph node which measures 1.6 cm in short axis (series 5, image 59). No axillary adenopathy. Difficult to assess for hilar adenopathy given the lack of intravenous contrast. ABDOMEN: Limited unenhanced views of the upper abdomen show no abnormality within the visualized spleen, pancreas, or left kidney. The adrenal glands are unremarkable. Mild nodularity of the hepatic contour, which suggesting underlying cirrhosis. BONES AND SOFT TISSUES: No aggressive lytic or suspicious focal sclerotic lesions. Multilevel degenerative disc in the thoracic spine worse at T9-T10. Midline sternotomy wires. Mild bilateral gynecomastia. IMPRESSION: 1. Findings in bilateral lungs suspicious for multifocal pneumonia (including viral). Imaging features can be seen with COVID-19 pneumonia although are nonspecific and can occur with overriding of infectious or noninfectious processes. Superimposed interstitial edema is a secondary consideration. 2. Enlarged right upper and lower paratracheal lymph nodes, likely reactive. 3. Moderate cardiomegaly. 4. Mild nodularity of the hepatic contour suggesting cirrhosis. Signed by: Dr. Giuliano Cerrato M.D. on 12/29/2019 5:09 PM
--- NOTE | 2019-12-29 17:20 | NUR ---
Josep campos in [facility] - 12/29/19 at 1721 by KPEPPING 1535 NOREPI INCREASED TO 60MCG/MIN
--- NOTE | 2019-12-29 17:20 | NUR ---
1535 NOREPI INCREASED TO 60MCG/MIN
[2019-12-29] MEDS ORDERED: NOREPINEPHRINE INJ 4MG/4ML 8 MG in DEXTROSE 5% 250ML 250 ML IV SCH (17:30)
[2019-12-29 17:35] LABS: BILIRUBIN,URINE NEGATIVE (NEGATIVE); CLARITY,URINE HAZY (CLEAR); COLOR,URINE YELLOW (YELLOW); KETONES,URINE NEGATIVE (NEGATIVE); LEUKOCYTE ESTERASE ,URINE SMALL (NEGATIVE); NITRITE,URINE NEGATIVE (NEGATIVE); PROTEIN,URINE DIPSTICK TRACE (NEGATIVE); URINE UROBILINOGEN 0.2 mg/dL (0.2 - 1)
[2019-12-29 17:40] LABS: BACTERIA,URINE MODERATE /HPF; EPITHELIAL CELLS,URINE FEW /LPF
[2019-12-29] MEDS ORDERED: VANCOMYCIN 1GM/NS 250 ML 250 ML IV ONE (18:00)
--- NOTE | 2019-12-29 18:35 | Emergency Department Note ---
History of Present Illnes History of Present Illness Chief Complaint: General Medicine Complaints History of Present Illness This is a 69 year old male BROUGHT IN BY EMS. FAMILY STATES THAT HE WAS NOT ACTING RIGHT AT HOME. WAS DIAGNOSED WITH COVID-19 2 WEEKS AGO AND IS ON O2 AT HOME. OXYGEN AT HOME WAS NOT BEING USED SECODARY TO THE FAMILY DID NOT HAVE THE TUBING THAT WAS NEEDED. 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 ON 12/12 FOR COVID DUE TO NO BEDS HERE) Relieving factors: none Exacerbating factors: none Associated symptoms: Reports confusion Past Medical/Family History Physician Review I have reviewed the patient's past medical and family history. Any updates have been documented here. Past Medical History Recent Fever: No Clinical Suspicion of Infectio: Yes New/Unexplained Change in Ment: Yes Past Medical History: Hypertension, Diabetes, COPD, CHF, A-Fib Other Medical History: RAKA Nueropathy Past Surgical History: CABG, Pacer/AICD Other Surgery: right aka MITRAL VALVE DEFIBRILLATOR-2014 HEART BYPASS NOSE SX ALEX Social History Smoking Cessation: Never Smoker Alcohol Use: None Any Illegal Drug Use: No Other Last Tetanus: UTD Any Pre-Existing Lines (PICC,: No Review of Systems Review of Systems Constitutional: Reports as per HPI EENTM: Reports no symptoms Cardiovascular: Reports no symptoms Respiratory: Reports as per HPI Gastrointestinal: Reports no symptoms Genitourinary: Reports no symptoms Musculoskeletal: Reports no symptoms Integumentary: Reports no symptoms Neurological: Reports as per HPI Psychological: Reports no symptoms Endocrine: Reports no symptoms Hematological/Lymphatic: Reports no symptoms Physical Exam Related Data Allergies: Coded Allergies: No Known Allergies (Unverified , 09/18/16) Triage Vital Signs Vital Signs Date Time Temp Pulse Resp B/P (MAP) Pulse Ox O2 Delivery O2 Flow Rate FiO2 12/29/19 13:50 97.6 83 16 98/58 100 Non-Rebreather 15.0 Vital signs reviewed: Yes Physical Exam CONSTITUTIONAL Constitutional: Present distressed HENT HENT: Present normocephalic, Present atraumatic, Present oropharynx clear/moist, Present nose normal HENT L/R: Present left ext ear normal, Present right ext ear normal EYES Eyes: Reports PERRL, Reports conjunctivae normal NECK Neck: Present ROM normal PULMONARY Pulmonary: Present effort normal, Present breath sounds normal CARDIOVASCULAR Cardiovascular: Present regular rhythm, Present heart sounds normal, Present capillary refill normal, Present normal rate GASTROINTESTINAL Abdominal: Present soft, Present nontender, Present bowel sounds normal GENITOURINARY Genitourinary: Present exam deferred SKIN Skin: Present warm, Present dry MUSCULOSKELETAL Musculoskeletal: Present ROM normal, Present other (RIGHT AKA) NEUROLOGICAL Neurological: Present no gross motor or sensory deficits, Present other (SOMNOLENT BUT AROUSABLE) PSYCHOLOGICAL Psychological: Present mood/affect normal, Present judgement normal Results Laboratory Result Diagram: 12/29/19 1410 12/29/19 1410 Laboratory Laboratory Tests Test 12/29/19 15:26 12/29/19 14:10 Urine Color Yellow (YELLOW) Urine Clarity Hazy (CLEAR) Urine pH 5.5 (5 - 7) Urine Specific [place] 1.010 (1.010-1.025) Urine Protein Trace (NEGATIVE) Urine Glucose (UA) Negative (NEGATIVE) Urine Ketones Negative (NEGATIVE) Urine Blood Small (NEGATIVE) Urine Nitrite Negative (NEGATIVE) Urine Bilirubin Negative (NEGATIVE) Urine Urobilinogen 0.2 mg/dL (0.2 - 1) Urine Leukocyte Esterase Small (NEGATIVE) Urine RBC 6-10 /HPF (0-5) Urine WBC 11-20 /HPF (0-5) Urine Epithelial Cells Few /LPF (NONE) Urine Bacteria Moderate /HPF (NONE) White Blood Count 23.31 x10e3/uL (4.8-10.8) Red Blood Count 3.59 x10e6/uL (4.3-5.7) Hemoglobin 10.2 g/dL (14.0-18.0) Hematocrit 33.3 % (38.2-49.6) Mean Corpuscular Volume 92.8 fL (81-99) Mean Corpuscular Hemoglobin 28.4 pg (28-32) Mean Corpuscular Hemoglobin Concent 30.6 g/dL (31-35) Red Cell Distribution Width 17.2 % (11.7-14.4) Platelet Count 214 x10e3/uL (140-360) Neutrophils (%) (Auto) 90.1 % (38.7-80.0) Lymphocytes (%) (Auto) 1.2 % (18.0-39.1) Monocytes (%) (Auto) 6.2 % (4.4-11.3) Eosinophils (%) (Auto) 0.7 % (0.0-6.0) Basophils (%) (Auto) 0.2 % (0.0-1.0) Neutrophils # (Auto) 21.0 (2.1-6.9) Lymphocytes # (Auto) 0.3 (1.0-3.2) Monocytes # (Auto) 1.5 (0.2-0.8) Eosinophils # (Auto) 0.2 (0.0-0.4) Basophils # (Auto) 0.1 (0.0-0.1) Absolute Immature Granulocyte (auto 0.38 x10e3/uL (0-0.1) Differential Total Cells Counted 100 Neutrophils % (Manual) 83 % (40-74) Band Neutrophils % 4 % Lymphocytes % (Manual) 1 % (19-48) Monocytes % (Manual) 12 % (3.4-9.0) Platelet Estimate Adequate Platelet Morphology Comment Normal Red Cell Morphology Comment Normal Prothrombin Time 38.2 seconds (11.9-14.5) Prothromb Time International Ratio 3.53 Activated Partial Thromboplast Time 67.2 seconds (23.8-35.5) Sodium Level 134 mmol/L (136-145) Potassium Level 5.1 mmol/L (3.5-5.1) Chloride Level 103 mmol/L (98-107) Carbon Dioxide Level 20 mmol/L (22-29) Anion Gap 16.1 mmol/L (8-16) Blood Urea Nitrogen 47 mg/dL (7-26) Creatinine 2.99 mg/dL (0.72-1.25) Estimat Glomerular Filtration Rate 21 ML/MIN (60-) BUN/Creatinine Ratio 16 (6-25) Glucose Level 97 mg/dL (74-118) Lactic Acid Level 2.5 mmol/L (0.5-2.0) Calcium Level 8.0 mg/dL (8.4-10.2) Magnesium Level 1.7 MG/DL (1.3-2.1) Total Bilirubin 1.7 mg/dL (0.2-1.2) Aspartate Amino Transf (AST/SGOT) 31 IU/L (5-34) Alanine Aminotransferase (ALT/SGPT) 19 IU/L (0-55) Alkaline Phosphatase 181 IU/L (40-150) Creatine Kinase 73 IU/L (30-200) Creatine Kinase MB 2.60 ng/mL (0-5.0) Troponin I 0.014 ng/mL (0-0.300) B-Type Natriuretic Peptide 136.8 pg/mL (0-100) Total Protein 6.9 g/dL (6.5-8.1) Albumin 2.1 g/dL (3.5-5.0) Globulin 4.8 g/dL (2.3-3.5) Albumin/Globulin Ratio 0.4 (0.8-2.0) Lab results reviewed: Yes Imaging Imaging results reviewed: Yes Impressions Procedure: [id number] CT/CT CHEST WO Exam Date: 12/29/19 Exam Time: 1550 REPORT STATUS: Signed EXAMINATION: CT scan of the chest without contrast. TECHNIQUE: Spiral CT images of the chest were performed from the lung apices to the level of the adrenal glands. No intravenous contrast was administered per physician's request. Coronal and sagittal reformatted images were obtained. COMPARISON: Portable chest 04/16/2019 and 12/13/2019 CLINICAL HISTORY:AMS, shortness of breath, cough for one week DISCUSSION: ABSENCE OF INTRAVENOUS CONTRAST DECREASES SENSITIVITY FOR DETECTION OF FOCAL LESIONS AND VASCULAR PATHOLOGY. LINES/TUBES: Left upper chest cardiac device with lead distal tip in the right ventricle. LUNGS AND AIRWAYS: Coarsening of the pulmonary interstitium. Diffuse bilateral patchy groundglass opacities, some of which are peripherally located in the upper lobes, and others with more central/perihilar location, with more confluent areas with air bronchograms in the superior segment of bilateral lower lobes. Some opacities follow the bronchovascular bundles, particularly in the left lower lobe and right middle lobe (series 6, image 88 and 86). Intralobular septal thickening is noted in bilateral upper lungs. Airways are clear, without endobronchial lesions. PLEURA: No pneumothorax or pleural effusions. HEART AND MEDIASTINUM: Thyroid is unremarkable. Moderate cardiomegaly with left atrial enlargement. Atherosclerotic calcification of the coronary arteries, thoracic aorta and mitral annulus. No pericardial effusion. Aorta is nonaneurysmal. Main pulmonary artery is normal in caliber. LYMPH NODES: Enlarged right upper paratracheal lymph node, which measures 2.0 cm in short axis (series 5, image 50). Enlarged right lower paratracheal lymph node which measures 1.6 cm in short axis (series 5, image 59). No axillary adenopathy. Difficult to assess for hilar adenopathy given the lack of intravenous contrast. ABDOMEN: Limited unenhanced views of the upper abdomen show no abnormality within the visualized spleen, pancreas, or left kidney. The adrenal glands are unremarkable. Mild nodularity of the hepatic contour, which suggesting underlying cirrhosis. BONES AND SOFT TISSUES: No aggressive lytic or suspicious focal sclerotic lesions. Multilevel degenerative disc in the thoracic spine worse at T9-T10. Midline sternotomy wires. Mild bilateral gynecomastia. IMPRESSION: 1. Findings in bilateral lungs suspicious for multifocal pneumonia (including viral). Imaging features can be seen with COVID-19 pneumonia although are nonspecific and can occur with overriding of infectious or noninfectious processes. Superimposed interstitial edema is a secondary consideration. 2. Enlarged right upper and lower paratracheal lymph nodes, likely reactive. 3. Moderate cardiomegaly. 4. Mild nodularity of the hepatic contour suggesting cirrhosis. Signed by: Dr. Giuliano Cerrato M.D. on 12/29/2019 5:09 PM CENTRAL LINE IN RIGHT IJ VEIN TERMINATES IN DISTAL IJ History:Altered mental status Comparison studies: None Technique: Axial images were obtained from the skull base to the vertex. Coronal and sagittal images reconstructed from the axial data. Dose modulation, iterative reconstruction, and/or weight based adjustment of the mA/kV was utilized to reduce the radiation dose to as low as reasonably achievable. Intravenous contrast: None Findings: Scalp/skull: No abnormalities. Extra-axial spaces: No masses. No fluid collections. Brain sulci: Mildly prominent but adequate for patient's age Ventricles: Mildly prominent, as expected for age, but no hydrocephalus. Parenchyma: Describe hypodensities in the supratentorial white matter are small vessel ischemic changes. No masses, hemorrhage, acute or chronic cortical vascular insults. Sellar/suprasellar region: No abnormalities. Craniocervical junction: Patent foramen magnum. No Chiari one malformation. Incidental findings: Atherosclerotic calcifications in the carotid siphons and vertebral arteries. Impression: No intracranial abnormalities. Signed by: Dr. Richard Caldwell M.D. on 12/29/2019 4:43 PM Procedures 12 Lead ECG Interpretation ECG Interpretation : ECG: ECG 1 Float Builder: Interpreted by ED physician Date: Dec 29, 2019 Time: 14:05 Rhythm: sinus rhythm (WITH FREQUENT PVC'S) Rate: normal (91) QRS axis: right Conduction: right bundle branch block ST segments normal: Yes T wave inversion: aVR, V1, V2, V3 Clinical Impression: abnormal ECG Central Line Placement Central Line Location: right internal jugular Time out performed: Yes Patient Placed on Monitor/Puls: Yes MD Prep: mask, gown, gloves Central Line Prep: Povidone-Iodine 1%, Chlorhexidine scrub Local Anesthetic: lidocaine 1% Amount of anesthesia used (mL): 3 Ultrasound Used for Placement: Yes Central Line Lumen Inserted: triple Post Procedure: sutured in place Post Procedure X-ray: tip of catheter in good condition Patient tolerated procedure: well, no complications Complications: none Critical Care Time Total Critical Care Time (min): 45 Critcal care necessary due to: sepsis, shock Critcal care time spent by me: evaluation patient response to tx, examination of patient, order/perform tx or interventions, order/review laboratory studies, order/review radiographic studies, re-evaluation of patient condition Assessment & Plan Medical Decision Making MDM CBC, CHEM, CARDIACS, ECG, BLOOD CX'S, UA/CX, LACTATE, CT BRAIN, CT CHEST, COVID - R/O STEMI/NSTEMI, CEREBRAL BLEED, CVA, PNEUMONIA, RENAL FAILURE, SEPSIS, UTI Reassessment Reassessment INITIAL BP ~90 SYSTOLIC - IVF BOLUS STARTED. HE THEN DROPPED TO 61/24 AND LESS RESPONSIVE - IV LEVOPHED STARTED PERIPHERALLY AND THEN CENTRAL LINE PLACED SEPTIC SHOCK BLOOD CX'S DRAWN ON ARRIVAL, LIKELY SOURCE IS PNEUMONIA ? COVID19 IVF'S GIVEN 30CC/KG IV ANTIBIOTICS GIVEN - CEFEPIME, ERIS ROSENTHAL I PERFORMED A VOLUME REASSESSMENT Assessment & Plan Final Impression: (1) Altered mental status (2) Septic shock (3) Pneumonia (4) Acute respiratory disease due to COVID-19 virus Depart Disposition: ADMITTED Last Vital Signs Date Time Temp Pulse Resp B/P (MAP) Pulse Ox O2 Delivery O2 Flow Rate FiO2 12/29/19 16:46 97.6 83 16 107/56 100 12/29/19 13:50 Non-Rebreather 15.0 Home Meds Active Scripts Furosemide (FUROSEMIDE) 40 Mg Tablet, 40 MG PO Q12H, #30 TAB Prov:GENNARO NGUYEN MD 11/08/18 Warfarin Sodium (WARFARIN SODIUM) 2 Mg Tablet, 2 MG PO DAILY for 7 Days, TAB Prov:GENNARO NGUYEN MD 01/13/18 Reported Medications Metoprolol Succinate (METOPROLOL SUCCINATE) 25 Mg Tab.er.24h, 25 MG PO DAILY 04/12/19 Potassium Chloride (POTASSIUM CHLORIDE) 10 Meq Tab.er.prt, 10 MEQ PO DAILY, TAB 04/12/19 Sennosides/Docusate Sodium ([employer] SENNA PLUS TABLET) 1 Each Tablet, 1 TAB PO BID 04/12/19 Oxycodone Hcl/Acetaminophen (PERCOCET 5-325 MG TABLET) 1 Each Tablet, 1 TAB PO Q12HR PRN for SEVERE PAIN (7-10) 04/12/19 Omeprazole Magnesium (PRILOSEC OTC) 20 Mg Tablet.dr, 20 MG PO DAILY 04/12/19 Lisinopril (LISINOPRIL) 2.5 Mg Tablet, 2.5 MG PO DAILY, #30 TAB 04/12/19 Insulin Glargine (LANTUS 3ML PEN) 100 Units/1 Ml Inj, 50 UNITS SC DAILY 04/12/19 Lactulose (LACTULOSE) 20 Gm/30 Ml Solution, 30 ML PO TID PRN for CONSTIPATION, EACH 04/12/19 Atorvastatin Calcium (ATORVASTATIN CALCIUM) 10 Mg Tablet, 10 MG PO 2100, #30 TAB 04/12/19 Tamsulosin Hcl* (FLOMAX*) 0.4 Mg Cap, 0.4 MG PO DAILY, #30 CAP 01/10/18 Levothyroxine Sodium (LEVOTHYROXINE SODIUM) 50 Mcg Tablet, 125 MCG PO DAILY, #30 TAB 12/26/17 Amiodarone Hcl (AMIODARONE HCL) 200 Mg Tablet, 200 MG PO DAILY 09/20/16 Insulin Lispro (HUMALOG) 100 Unit/1 Ml Cartridge, 38 SQ AC 09/18/16 Gabapentin (GABAPENTIN) 300 Mg Capsule, 600 MG PO DAILY, #60 CAP 06/07/15 Finasteride (PROSCAR) 5 Mg Tablet, 5 MG PO DAILY 10/21/14 Medications in the ED Sodium Chloride 1,000 ml @ ud STK-MED ONCE .ROUTE ; Start 12/29/19 at 14:33; Stop 12/29/19 at 14:28; Status DC Sodium Chloride 1,000 ml @ 0 mls/hr Q0M STAT IV Last administered on 12/29/19at 14:15; Admin Dose 1,000 MLS/HR; Start 12/29/19 at 14:26; Stop 12/29/19 at 14:29; Status DC Cefepime HCl 100 ml @ 200 mls/hr NOW STAT IV Last administered on 12/29/19at 14:20; Admin Dose 200 MLS/HR; Start 12/29/19 at 14:26; Stop 12/29/19 at 14:55; Status DC Azithromycin 250 ml @ 200 mls/hr NOW ONCE IV Last administered on 12/29/19at 14:35; Admin Dose 200 MLS/HR; Start 12/29/19 at 15:00; Stop 12/29/19 at 16:14; Status DC Sodium Chloride 250 ml @ STK-MED ONCE .ROUTE ; Start 12/29/19 at 15:12; Stop 12/29/19 at 15:06; Status DC Norepinephrine Bitartrate 250 ml @ STK-MED ONCE .ROUTE ; Start 12/29/19 at 15:12; Stop 12/29/19 at 15:06; Status DC Vancomycin HCl 250 ml @ 166.667 mls/hr NOW ONCE IV Last administered on 12/29/19at 17:39; Admin Dose 166.667 MLS/HR; Start 12/29/19 at 18:00; Stop 12/29/19 at 19:29 Sodium Chloride 1,000 ml @ 0 mls/hr Q0M STAT IV Last administered on 12/29/19at 16:45; Admin Dose 500 MLS/HR; Start 12/29/19 at 16:54; Stop 12/29/19 at 16:56; Status DC Sodium Chloride 500 ml @ 0 mls/hr Q0M ONCE IV Last administered on 12/29/19at 14:45; Admin Dose 1,000 MLS/HR; Start 12/29/19 at 17:00; Stop 12/29/19 at 17:01; Status DC Norepinephrine 8 mg/Dextrose 258 ml @ 38.7 mls/hr TITRATE IV ; Start 12/29/19 at 17:30; Stop 01/28/20 at 17:29; Status UNV Norepinephrine Bitartrate 250 ml @ 38.7 mls/hr TITRATE IV ; Start 12/29/19 at 18:00; Stop 01/28/20 at 17:59 DELMI JOHNSON MD Dec 29, 2019 18:35
[2019-12-29] MEDS: NOREPINEPHRINE 8 MG/D5W 250 ML 250 ML IV SCH (21:00)
[2019-12-29] MEDS: LINEZOLID 600 MG/D5W 300ML 300 ML IV SCH (21:19)
[2019-12-29] MEDS: INSULIN GLARGINE 100 UNITS/ML VIAL SQ SCH (21:20)
[2019-12-29] MEDS ORDERED: MEROPENEM 1GM 100 ML IV SCH (22:00)
[2019-12-30] VITALS (25 sets, daily range): BP systolic 93–143; BP diastolic 45–97
[2019-12-30] MEDS ORDERED: DILTIAZEM HCL 5 MG/ML 5 ML VIAL IV STA ×2 (01:07→03:46)
[2019-12-30] MEDS ORDERED: DILTIAZEM HCL 125 ML IV SCH (01:15)
--- NOTE | 2019-12-30 01:23 | Consultation ---
DATE OF CONSULTATION: Pulmonary and Critical Care Consultation CHIEF COMPLAINT: Leukocytosis, pneumonia, and dyspnea. HISTORY OF PRESENT ILLNESS: The patient is a 69-year-old man. He has a history of prior mechanical mitral valve placement as well as atrial fibrillation and congestive heart failure. He also has a history of diabetes. He came in to [facility] several weeks ago, was found to have COVID infection. He was transferred to [facility] and subsequently discharged. He returns today with some worsening dyspnea and congestion. He also notes some fever. Upon evaluation in the emergency department, he was found to have a leukocytosis along with markedly elevated creatinine. PAST SURGICAL HISTORY: 1. Status post cholecystectomy in 1992. 2. Status post right knkoj-bva-dihz amputation. 3. History of mitral valve replacement and CABG in 1994. PAST MEDICAL HISTORY: 1. Diabetes. 2. Coronary artery disease. 3. Chronic systolic and diastolic heart failure. 4. Hypertension. 5. Chronic renal insufficiency that was mild. ALLERGIES: NO KNOWN DRUG ALLERGIES. SOCIAL HISTORY: The patient is a lifelong nonsmoker. He is not a drinker. FAMILY HISTORY: There is a history of diabetes as well as heart disease in the family. REVIEW OF SYSTEMS: The patient has some fevers at home. There is no headache. He has increased dyspnea and phlegm production. He is not having any chest pain. He denies nausea or vomiting. He is not having any new focal neurological complaints. PHYSICAL EXAMINATION: VITAL SIGNS: Blood pressure is 107/56 and the patient is on Levophed. His respiratory rate is 16, and he is 100% saturated on a high-flow nasal cannula. HEENT: Shows no facial swelling or erythema. LYMPHATIC: Shows no submandibular, cervical, or supraclavicular adenopathy. CARDIAC: Reveals regular rate and rhythm with normal S1 and S2. LUNGS: Auscultation of lungs shows rhonchorous breath sounds bilaterally. There is no wheezing. ABDOMEN: Soft nontender. There is no rebound or guarding. EXTREMITIES: Shows no leg edema or calf tenderness. There is an sicgg-hbj-wucx amputation on the right side. RADIOGRAPHIC DATA: Chest CT shows bilateral infiltrates suspicious for pneumonia as well as some moderate cardiomegaly and nodularity in the liver suggesting cirrhosis. CT scan of the brain shows no acute disease. LABORATORY DATA: The BUN to creatinine ratio is 47 to over 2.99. Lactic acid is 2.5 and the total bilirubin is 1.7. The other electrolytes are significant for carbon dioxide of 20. The white blood cell count is 23.3 and hemoglobin is 10.2. Platelet count is 214. IMPRESSION: 1. Bacterial pneumonia with exposure to healthcare-associated pathogens and severe sepsis, present on admission. 2. Acute renal failure. 3. Diabetes. 4. Prior mechanical heart valve. 5. Atrial fibrillation. 6. Mixed diastolic and systolic heart failure. PLAN: 1. The patient received a fluid bolus for sepsis in the emergency department. 2. Broad-spectrum antibiotics. 3. Monitor renal function. 4. Nephrology consultation. 5. Echocardiogram and Cardiology consultation. 6. Levophed as needed. 7. Monitor respiratory status. 8. ICU care. MD KATE Banegas/MODL /[id number]
[2019-12-30] MEDS: NOREPINEPHRINE 8 MG/D5W 250 ML 250 ML IV SCH ×3 (02:40→09:31)
[2019-12-30 04:18] LABS: ALBUMIN 2.1 g/dL (3.5-5.0); ALBUMIN/GLOBULIN RATIO 0.4 (0.8-2.0); ANION GAP 14.4 mmol/L (8-16); CALCIUM 8.1 mg/dL (8.4-10.2); CREATININE, SERUM 2.31 mg/dL (0.72-1.25); POTASSIUM 4.4 mmol/L (3.5-5.1)
[2019-12-30 04:34] LABS: CREATINE KINASE MB 7.3 ng/mL (0-5.0)
--- NOTE | 2019-12-30 05:32 | Diagnostic Imaging Report ---
EXAMINATION: CHEST SINGLE (PORTABLE) INDICATION: ^Y ^PNEUMONIA ^Y COMPARISON: CT chest 12/29/2019 FINDINGS: AP view TUBES and LINES: Right internal jugular vein intravenous catheter with tip in the expected location of the right brachiocephalic vein. Left mechanical cardiac device. LUNGS: Diffuse pulmonary airspace disease. PLEURA: No pleural effusion or pneumothorax. HEART AND MEDIASTINUM: The cardiomediastinal silhouette is enlarged. Post CABG surgical change. BONES AND SOFT TISSUES: No acute osseous lesion. Sternotomy wires. Soft tissues are unremarkable. UPPER ABDOMEN: No free air under the diaphragm. IMPRESSION: Diffuse pulmonary airspace disease consistent with provided history of viral pneumonia. Moderate cardiomegaly. Signed by: Adeel Marinelli MD on 12/30/2019 5:28 AM
[2019-12-30] MEDS ORDERED: SODIUM CHLORIDE 0.9% 500ML 500 ML IV STA (05:41)
[2019-12-30] MEDS ORDERED: SODIUM CHLORIDE 0.9% 500ML 500 ML ONE (05:45)
[2019-12-30] MEDS: LEVOTHYROXINE SODIUM 125 MCG TAB PO SCH (06:00)
[2019-12-30 08:12] LABS: BASOPHILS # (AUTO) 0.1 (0.0-0.1); BASOPHILS % 0.3 % (0.0-1.0); EOSINOPHILS # (AUTO) 0.1 (0.0-0.4); EOSINOPHILS % 0.2 % (0.0-6.0); HEMATOCRIT 35.2 % (38.2-49.6); LYMPHOCYTES # (AUTO) 0.6 (1.0-3.2); LYMPHOCYTES % 2.5 % (18.0-39.1); MEAN CORPUSCULAR HEMOGLOBIN 28.1 pg (28-32); MEAN CORPUSCULAR HGB CONC 31.3 g/dL (31-35); MEAN CORPUSCULAR VOLUME 89.8 fL (81-99); MONOCYTES % 8.8 % (4.4-11.3); NEUTROPHILS # (AUTO) 20.3 (2.1-6.9); PLATELET COUNT 238 x10e3/uL (140-360); RED BLOOD COUNT 3.92 x10e6/uL (4.3-5.7); RED CELL DISTRIBUTION WIDTH 17.4 % (11.7-14.4)
[2019-12-30] MEDS: AMIODARONE HCL 200 MG TAB PO SCH (09:00)
[2019-12-30] MEDS: TAMSULOSIN HCL 0.4 MG CAP PO SCH (09:00)
[2019-12-30 09:24] LABS: LYMPHOCYTES % (MANUAL) 2 % (19-48); MONOCYTES % (MANUAL) 4 % (3.4-9.0); NEUTROPHILS % (MANUAL) 94 % (40-74)
[2019-12-30 09:25] LABS: ANISOCYTOSIS SLIGHT; PLATELET ESTIMATE ADEQUATE; PLATELET MORPHOLOGY COMMENT NORMAL; RBC MORPHOLOGY COMMENT NORMAL
[2019-12-30] MEDS: LINEZOLID 600 MG/D5W 300ML 300 ML IV SCH (09:31)
[2019-12-30] MEDS: MEROPENEM 1GM 100 ML IV SCH ×2 (10:12→18:13)
[2019-12-30] MEDS ORDERED: DIGOXIN INJ 0.25 MG/ML 2 ML AMP IV ONE (10:15)
[2019-12-30] MEDS ORDERED: DEXTROSE 50% SYRINGE 50 ML IV PRN (11:00)
[2019-12-30] MEDS ORDERED: ONDANSETRON HCL INJ 2MG/ML 2ML 2 MG/ML VIAL IV PRN (11:15)
[2019-12-30] MEDS ORDERED: ACETAMINOPHEN 325 MG TAB PO PRN (11:15)
--- NOTE | 2019-12-30 11:31 | Consultation ---
DATE OF CONSULTATION: 12/30/2019 REASON FOR CONSULTATION: CHF, mitral valve replacement. HISTORY OF PRESENT ILLNESS: This is a 69-year-old male with a history of CAD, status post CABG and mitral valve replacement, mechanical in 1994 with CHF, atrial fibrillation, status post ICD, diabetes, hyperlipidemia, BPH, peripheral vascular disease, and status post right AKA. The patient initially presented to the [facility] several weeks ago with shortness of breath, fevers, was COVID positive, was sent to [facility] in which was treated for COVID. The patient apparently was discharged last week, went home and apparently recently became short of breath with fevers, therefore was brought back to [facility] for further evaluation. Cardiology is consulted given the patient's cardiac history. The patient was seen in ER, reports that he was short of breath and had some off and on fevers for past two days in which his family called EMS in which the patient was brought to the ER, was noted with apparently hypotensive and atrial fibrillation with RVR, started on Levophed drip. The patient denies any chest pain. Denies any shortness of breath at this time, on Levophed drip. PAST MEDICAL HISTORY: 1. CAD, status post CABG with mitral valve replacement, mechanical in 1994. 2. CHF. 3. Atrial fibrillation. 4. Status post ICD. 5. Diabetes. 6. Hyperlipidemia. 7. BPH. 8. Peripheral vascular disease, and status post AKA. SURGICAL HISTORY: 1. Cholecystectomy in 1992. 2. Right AKA. 3. Right ear and bilateral cataract surgery. 4. CABG in 1996 with mitral valve replacement, [employer] model #[id number]. 5. Status post ICD, [employer], 08/2014. FAMILY HISTORY: Mother at age 87, history of diabetes. Father at age 68, history of myocardial infarction. SOCIAL HISTORY: He is . He is disabled. He denies any alcohol or tobacco use. ALLERGIES: NO KNOWN ALLERGIES. HOME MEDICATIONS: Warfarin 2 mg daily, simvastatin 40 mg daily, metoprolol 25 mg half tab twice a day, lisinopril 30 mg daily, amiodarone 200 mg daily, Lasix 80 mg twice a day, levothyroxine 125 mcg daily, metolazone 2.5 mg daily, Levemir 60 units q.p.m., Humulin 50/50 38 units with meals, and Flomax 0.4 mg daily. REVIEW OF SYSTEMS: GENERAL: Denies any weight changes. Positive for fatigue, weakness, chills. SKIN: No rashes or sores. HEENT: Denies any nausea, vomiting, any vision changes, blurred vision, epistaxis, sore throat, or swollen neck. HEART: Denies any chest pain. Positive for dyspnea on exertion. Denies any orthopnea, PND, or lower extremity edema. RESPIRATORY: Positive shortness of breath. Positive for cough. Denies any hemoptysis. GI: Good appetite. Denies any nausea, vomiting, diarrhea, constipation, melena, or tarry bloody stools. GENITOURINARY: Positive for frequency and urgency. Denies any dysuria or hematuria. VASCULAR: No lower extremity edema. MUSCULOSKELETAL: Positive for generalized joint pains, back pain, or muscle weakness. NEUROLOGIC: Denies any tingling, tremors, paralysis, fainting, or seizures. HEMATOLOGY: Denies any anemia or bruising. ENDOCRINE: Denies heat or cold intolerance, polyuria, polydipsia, or polyphagia. PHYSICAL EXAMINATION: VITAL SIGNS: Height 70 inches, weight 225 pounds. Current vital signs; temperature 98.8, pulse 123, respiratory rate 18, blood pressure 111/45, and pulse ox 93% on 2 L nasal cannula. GENERAL: Appears stated stage, reliable informant, in mild respiratory distress. SKIN: No rashes or bruises noted. HEENT: Normocephalic. Pupils are equal, reactive. Extraocular movements are intact. Trachea midline. No JVD. Soft carotid bruit bilaterally. HEART: Irregular rhythm, tachycardic, a mitral click noted. PMI about 5th intercostal space. Sternotomy scar noted. LUNGS: Coarse rhonchi throughout. ABDOMEN: Soft, nontender, and nondistended. No organomegaly noted. : Positive Lima to bedside gravity, clear yellow urine. MUSCULOSKELETAL: Generalized weakness. Right AKA. VASCULAR: +2 radial pulses bilaterally, +1 left PTT, PT pulses with chronic venous changes. NEUROLOGIC: Cranial nerves II through XII seem intact. LABORATORY DATA: Sodium 132, potassium 4.4, chloride 104, bicarb 18, BUN 43, creatinine 2.3, and glucose 203. Troponin 0.06. BNP 130. White count 23, hemoglobin 11, hematocrit 35, and platelets 238. INR 3.5. COVID PCR positive. IMAGING: CT chest showing bilateral multifocal pneumonia. EKG; atrial fibrillation with RVR. Right bundle-branch block. ASSESSMENT AND PLAN: 1. Coronavirus disease-19/pneumonia. 2. Acute hypoxic respiratory failure secondary to above. 3. Septic shock, on Levophed drip. 4. Acute kidney injury. 5. Chronic atrial fibrillation. 6. Coronary artery disease, status post coronary artery bypass graft. 7. Status post mitral valve replacement, mechanical, on oral anticoagulant therapy. 8. Hyperlipidemia. 9. Diabetes with end-organ damage. PLAN: 1. The patient presents to [facility] with shortness of breath and fever and noted to be hypoxic on CT showing multifocal pneumonia could be COVID versus bacterial pneumonia from recent hospitalization. 2. Antibiotic therapy as per pulmonary service. 3. OAC therapy with a goal of 2.5 to 3.5. 4. We will give digoxin IV x1 given his atrial fibrillation with RVR. Currently, the patient is on Levophed drip. We will try to wean as tolerated. 5. Obtain echo to evaluate heart function and structure. 6. We will continue to monitor. Further recommendations as clinical course dictates. Thank you very much for this consult. Evaluated Agree with note Dictated by Dionisio Sorto NP Alec Arevalo MD DC/ERICA /[id number] ELIF
[2019-12-30] MEDS: INSULIN LISPRO 100 UNIT/1 ML 3ML VIAL SQ SCH ×2 (12:01→17:17)
[2019-12-30] MEDS: AZITHROMYCIN 500MG/NS 250 ML 250 ML IV SCH (17:15)
[2019-12-30] MEDS: ASCORBIC ACID 500 MG TAB PO SCH (17:15)
[2019-12-30] MEDS: FAMOTIDINE 20 MG/2 ML VIAL IV SCH (17:15)
--- NOTE | 2019-12-30 17:43 | Consultation ---
DATE OF CONSULTATION: HISTORY OF PRESENT ILLNESS: Mr. Fraser is a 69-year-old male, morbidly obese patient, history of mitral valve replacement, atrial fibrillation, congestive heart failure, diabetes mellitus, comes into [facility] with dyspnea. The patient, who was found to have COVID-19. [facility]. The patient returns with worsening dyspnea and fever, shortness of breath. The patient, who does have history of obesity, recently diagnosed COVID-19 as mentioned above, cholecystectomy, right zkpcm-zug-iqix amputation, mitral valve replacement, CABG, diabetes mellitus, coronary artery disease, congestive heart failure, hypertension, and chronic kidney disease. The patient comes in with the above. LABORATORY DATA: Reviewed. His urine showing gram-negative rods. His white count 23.3, hemoglobin of 10, hematocrit of 33, and his platelet 214. His COVID-19 is still positive. His sodium 132, potassium 4.4, and creatinine of 2.3. His chest x-ray which was done showed diffuse pulmonary airway disease. His CT chest showed enlarged right upper and lower parenchymal lymph node, likely active cardiomegaly, multifocal pneumonia. PHYSICAL EXAMINATION: GENERAL: He is currently alert and oriented. VITAL SIGNS: Stable. There is no fever. HEENT: Normocephalic. CHEST: Few crackles bilateral. COR: S1 and S2. No S3, S4, or murmur. ABDOMEN: Soft. IMPRESSION: 1. Pneumonia, healthcare-associated. 2. Morbidly obese patient. 3. COVID-19 history of, I think the current PCR I do not know if still infectious versus is just reminisces from the previous infection, which I think so, so I doubt that the patient has active COVID-19 at present time, although this is unknown. Agree with meropenem and linezolid for healthcare-associated pneumonia, diabetic control. Continue with Lovenox as ordered, vitamin C and vitamin D. I do not think we need azithromycin, we can discontinue. I will keep him on droplet isolation, diabetic control. We will follow with you. MD ESTEBAN Guerrero/ERICA /[id number]
--- NOTE | 2019-12-30 18:02 | Progress Note ---
DATE: SUBJECTIVE: The patient has less dyspnea and less cough. He still has some tachycardia. He is still on Levophed at 8 mcg. PHYSICAL EXAMINATION: VITAL SIGNS: Blood pressure is 122/88 and saturation is 96%. He is on a nasal cannula. HEENT: Shows no facial swelling or erythema. CARDIAC: Reveals tachycardia with normal S1 and S2. LUNGS: Auscultation of lungs reveals decreased breath sounds at the bases. There is no wheezing. ABDOMEN: Soft and nontender. There is no rebound or guarding. EXTREMITIES: Shows no leg edema or calf tenderness. There is no cyanosis or clubbing. SKIN: Shows no rashes. LABORATORY DATA: White blood cell count is 23.3 and the hemoglobin is 11. The platelet count is 238. The BUN to creatinine ratio is 43 to 2.31. The carbon dioxide is 18 and the glucose is 342. The albumin is 2.1. INR is 3.53. RADIOGRAPHIC DATA: Chest x-ray shows bilateral airspace disease, bilateral infiltrates. IMPRESSION: 1. COVID pneumonia and possible superimposed bacterial infection. 2. Urinary tract infection with gram-negative rods and sepsis, present on admission. 3. Acute renal failure. 4. Hyperglycemia. 5. Diabetes. 6. Prior mechanical heart valve. 7. Atrial fibrillation. 8. Mixed diastolic and systolic heart failure. PLAN: 1. Continue to wean Levophed. 2. Continue current antibiotics until culture results are back. 3. Continue judicious use of fluids. 4. Monitor creatinine. 5. Monitor and control blood sugars. 6. Complete echocardiogram and Cardiology evaluation. 7. Digoxin as needed for rate control. 8. Case discussed with nursing, Internal Medicine, administration, and the patient. Greater than 35 minutes in direct critical care time. Shelton Cornejo MD [facility]/MODL /[id number]
--- NOTE | 2019-12-30 18:58 | Consultation ---
DATE OF CONSULTATION: Initial Nephrology Consultation Report REASON FOR CONSULTATION: Elevated serum creatinine of 2.3. HISTORY OF PRESENT ILLNESS: Mr. Fraser is a 69-year-old male with multiple medical problems including coronary artery disease, CHF, who presents to the hospital because of some shortness of breath and also some fevers. This had been going on for several days now. He was discovered to be COVID positive, so he is admitted. When the patient was admitted, he was actually quite hypotensive. I believe his systolic blood pressure was actually in the 60s. He was given in the emergency room a total of about 2 L of normal saline. Looking back at the previous patient's medical records on 12/13/2019, he had a serum creatinine of 2.34. In previous admissions, in 2019 he had serum creatinine about 1.1 to 1.4. PAST MEDICAL HISTORY: The patient has multiple medical problems. The patient's medical history includes: 1. Coronary artery disease. 2. History of congestive heart failure. 3. History of diabetes. 4. History of hyperlipidemia. 5. Atrial fibrillation. 6. Atherosclerotic peripheral vascular disease. 7. He has AICD. PAST SURGICAL HISTORY: 1. Right AKA, cholecystectomy, coronary artery bypass graft surgery in 1996 with mitral valve replacement. 2. AICD placement. HOME MEDICATIONS: The patient was taking simvastatin, warfarin, metoprolol, lisinopril, amiodarone. He was on Lasix twice a day, levothyroxine, metolazone, Flomax. REVIEW OF SYSTEMS: Pertinent as per what is in HPI. PHYSICAL EXAMINATION: VITAL SIGNS: Currently blood pressure is 108/68, pulse 101. GENERAL: The patient is a middle aged, average sized. HEENT: No increased JVD. He is on nasal cannula oxygen. CARDIOVASCULAR: Tachycardiac. LUNGS: Decreased breath sounds. ABDOMEN: Decreased bowel sounds. EXTREMITIES: The patient has a right oddna-dan-oujn amputation. No edema. LABORATORY RESULTS: Sodium 132, potassium 4.4, chloride 104, bicarbonate 18, BUN and creatinine 43 and 2.3 respectively. Hematocrit 35.2. Urinalysis shows trace protein, small blood, 6-10 red cells, 11-20 white cells, moderate bacteria. Urine culture does show gram-negative bacilli. IMPRESSION: 1. Acute kidney injury versus progressive kidney failure in a patient with coronavirus disease pneumonia. 2. Acute kidney injury versus secondary to progressive chronic kidney disease. 3. Urosepsis. 4. Coronavirus disease pneumonia.. 5. Atrial fibrillation. 6. Congestive heart failure. 7. Coronary artery disease. 8. Atrial fibrillation. 9. Coronavirus disease sepsis. 10. Sepsis/SIRS. 11. History of automatic implantable cardioverter defibrillator. 12. Diabetes. 13. Hypotension. 14. Shock. PLAN: The patient has gotten some IV fluids. It looks like he is developing, he has some type of urosepsis. The patient is on some antibiotics. We will wait for the cultures to come out. In the meantime, though he is on Levophed, they have come down on the Levophed. However, he has a little bit of a metabolic acidosis. I will give him some IV fluids and maybe some lactated Ringer just 50 mL an hour for 1 L just because he is also in sepsis and shock. This will facilitate him getting off the Levophed. I will not give too much IV fluids because he has a history of congestive heart failure, but I think 1 L given slowly will be judicious. I will go ahead and NSAIDs class 2 inhibitors, IV contrast should be avoided. I will check a renal ultrasound also to check the chronicity of the kidney failure. I will follow the patient with you. Thank you for this consultation. Ather MD SHELLEY Turner/ERICA /[id number]
--- NOTE | 2019-12-30 20:14 | Diagnostic Imaging Report ---
EXAM: Renal Ultrasound INDICATION: ^CKD ^Y COMPARISON: Abdominal ultrasound dated 12/10/2018 TECHNIQUE: Transverse and longitudinal images of the kidneys and bladder were obtained. FINDINGS: Right Kidney: Size: 10.1 cm Echogenicity: Normal Parenchymal thickness: Normal Collecting system: No hydronephrosis Stones: None Cyst/Mass: None Left Kidney: Size: 12.7 cm Echogenicity: Normal Parenchymal thickness: Normal Collecting system: No hydronephrosis Stones: None Cyst/Mass: 5 x 4.5 x 4.4 cm midpole cyst, previously 5.7 x 4.6 x 5.9 cm. 3.1 x 3.2 x 2.6 cm superior pole cyst, previously 2.9 x 3.5 x 3 cm. Bladder: Collapsed by a Lima catheter in place, limiting evaluation. IMPRESSION: Left renal cysts, measuring up to 5 cm. Otherwise, unremarkable renal ultrasound. Signed by: Dr. Dawson Minor MD on 12/30/2019 8:11 PM
[2019-12-30] MEDS ORDERED: ENOXAPARIN SOD INJ 40 MG/0.4 ML SYR SC SCH (21:00)
[2019-12-31] VITALS (15 sets, daily range): BP systolic 85–139; BP diastolic 59–106
[2019-12-31] MEDS: ATORVASTATIN 10 MG TAB PO SCH ×2 (00:41→22:15)
[2019-12-31] MEDS: LINEZOLID 600 MG/D5W 300ML 300 ML IV SCH ×3 (01:06→22:15)
[2019-12-31] MEDS: INSULIN GLARGINE 100 UNITS/ML VIAL SQ SCH (01:09)
[2019-12-31] MEDS: INSULIN LISPRO 100 UNIT/1 ML 3ML VIAL SQ SCH ×4 (01:09→17:00)
[2019-12-31] MEDS: NOREPINEPHRINE 8 MG/D5W 250 ML 250 ML IV SCH ×3 (01:12→17:02)
[2019-12-31] MEDS: OXYCODONE/ACETAMINOPHEN 5-325 1 EACH TABLET PO PRN (01:48)
[2019-12-31] MEDS: MEROPENEM 1GM 100 ML IV SCH ×3 (05:29→23:26)
[2019-12-31] MEDS: LEVOTHYROXINE SODIUM 125 MCG TAB PO SCH (05:33)
[2019-12-31 05:48] LABS: BASOPHILS # (AUTO) 0.1 (0.0-0.1); BASOPHILS % 0.3 % (0.0-1.0); EOSINOPHILS # (AUTO) 0.1 (0.0-0.4); EOSINOPHILS % 0.7 % (0.0-6.0); HEMATOCRIT 32.7 % (38.2-49.6); HEMOGLOBIN 10.4 g/dL (14.0-18.0); LYMPHOCYTES # (AUTO) 0.8 (1.0-3.2); LYMPHOCYTES % 4.8 % (18.0-39.1); MEAN CORPUSCULAR HEMOGLOBIN 28.3 pg (28-32); MEAN CORPUSCULAR HGB CONC 31.8 g/dL (31-35); MEAN CORPUSCULAR VOLUME 89.1 fL (81-99); MONOCYTES # (AUTO) 1.5 (0.2-0.8); MONOCYTES % 8.5 % (4.4-11.3); NEUTROPHILS # (AUTO) 14.7 (2.1-6.9); NEUTROPHILS % 84.8 % (38.7-80.0); PLATELET COUNT 217 x10e3/uL (140-360); RED BLOOD COUNT 3.67 x10e6/uL (4.3-5.7); RED CELL DISTRIBUTION WIDTH 16.9 % (11.7-14.4)
[2019-12-31 05:57] LABS: INR 3.77
[2019-12-31 06:04] LABS: ALBUMIN 1.9 g/dL (3.5-5.0); ALBUMIN/GLOBULIN RATIO 0.4 (0.8-2.0); ANION GAP 11.7 mmol/L (8-16); CALCIUM 8.6 mg/dL (8.4-10.2); CREATININE, SERUM 1.39 mg/dL (0.72-1.25); POTASSIUM 3.7 mmol/L (3.5-5.1); PROTHROMBIN TIME 40.2 seconds (11.9-14.5)
[2019-12-31 06:17] LABS: THYROID STIMULATING HORMONE 1.279 uIU/mL (0.350-4.940)
--- NOTE | 2019-12-31 06:25 | NUR ---
DR. ROMAN INFORMED OF PTS STATUS, AFIB RVR, NEW ORDERS RECEIVED - DC METOPROLOL SUCCINATE AND LOVENOX. NEW ORDER RECEIVED FOR METOPROLOL TARTRATE 25 MG BID, MAY ADMINISTER DIGOXIN 0.25 MG ONCE FOR AFIB RVR, INFORMED OF CUR
[2019-12-31] MEDS ORDERED: DIGOXIN INJ 0.25 MG/ML 2 ML AMP IV ONE (06:45)
--- NOTE | 2019-12-31 07:30 | NUR ---
WALKING ROUNDS WITH JENARO SINGER
[2019-12-31] MEDS: ZINC SULFATE 220 MG CAP PO SCH (08:28)
[2019-12-31] MEDS: AMIODARONE HCL 200 MG TAB PO SCH (08:28)
[2019-12-31] MEDS: TAMSULOSIN HCL 0.4 MG CAP PO SCH (08:28)
[2019-12-31] MEDS: FINASTERIDE 5 MG TAB PO SCH (08:28)
[2019-12-31] MEDS: ASCORBIC ACID 500 MG TAB PO SCH ×2 (08:28→17:00)
[2019-12-31] MEDS: METOPROLOL TARTRATE 25 MG TAB PO SCH ×2 (08:28→17:01)
[2019-12-31] MEDS: GABAPENTIN 300 MG CAP PO SCH (08:28)
[2019-12-31] MEDS: FAMOTIDINE 20 MG/2 ML VIAL IV SCH ×2 (08:28→17:00)
--- NOTE | 2019-12-31 08:30 | Diagnostic Imaging Report ---
EXAMINATION: CHEST SINGLE (PORTABLE) INDICATION: Respiratory failure COMPARISON: Chest radiograph 12/30/2019 FINDINGS: LINES/TUBES:Right IJ central venous catheter unchanged. Left chest AICD. LUNGS:The lungs are moderately inflated. Interval increase in multifocal bilateral airspace opacities. PLEURA:No pleural effusion or pneumothorax. MEDIASTINUM:Cardiomediastinal silhouette is stably enlarged. Sternotomy wires in place. BONES/SOFT TISSUES:No acute osseous injury. ABDOMEN:No free air under the diaphragm. IMPRESSION: Interval increase in bilateral multifocal airspace opacities consistent with known history of viral pneumonia. Superimposed pulmonary interstitial edema is also a consideration. Signed by: Tho Love MD on 12/31/2019 8:26 AM
[2019-12-31] MEDS ORDERED: METOPROLOL SUCCINATE 25 MG TAB XL PO SCH (09:00)
--- NOTE | 2019-12-31 09:00 | NUR ---
per Dionisio [employer]UTRITION SERVICES ASSISTANT, patient to wean off levophed as tolerated, will continue to monitor.
[2019-12-31] MEDS ORDERED: LACTATED RINGER'S 1,000 ML INJ ONE ×2 (14:30)
--- NOTE | 2019-12-31 16:32 | Progress Note ---
DATE: SUBJECTIVE: The patient is still with some dyspnea, although it is improved. He does not have fevers. PHYSICAL EXAMINATION: VITAL SIGNS: The blood pressure is 120/75 and saturation is 94% on 3 L. HEENT: Shows no facial swelling or erythema. CARDIAC: Reveals regular rate and rhythm with normal S1 and S2. LUNGS: Auscultation of lungs reveals decreased breath sounds at the bases. There is no wheezing. ABDOMEN: Soft and nontender. There is no rebound or guarding. EXTREMITIES: Shows no leg edema or calf tenderness. There is an cvhkf-aml-hils amputation on the left side. RADIOGRAPHIC DATA: Chest x-ray shows increased multifocal airspace disease. Ultrasound of the kidneys shows small left renal cyst, but otherwise unremarkable ultrasound. LABORATORY DATA: White blood cell count is 17.38, hemoglobin is 10.4, and platelet count is 217. BUN to creatinine ratio is improved to 31/1.31. Other electrolytes are within normal limits. The blood sugars 233. The albumin is 1.9. The total bilirubin is 1.4. IMPRESSION: 1. COVID-19, viral pneumonia and superimposed bacterial infection. 2. Acute renal failure. 3. Diabetes with hyperglycemia. 4. Mechanical heart valve. 5. Atrial fibrillation. 6. Mixed diastolic and systolic heart failure. 7. Urinary tract infection with extended-spectrum beta-lactamase producing Escherichia coli and severe sepsis, present on admission. PLAN: 1. Continue meropenem. 2. Continue judicious use of IV fluids with monitoring of creatinine. 3. Increase Lantus insulin at night. 4. Continue to hold warfarin until INR is normal. 5. Wean off Levophed. 6. Continue supplemental oxygen. 7. Continue Lovenox for DVT prophylaxis. Shelton Cornejo MD [facility]/MODL /[id number]
[2019-12-31] MEDS: AZITHROMYCIN 500MG/NS 250 ML 250 ML IV SCH (17:00)
[2019-12-31] MEDS ORDERED: WARFARIN SOD 1 MG TAB PO SCH (17:00)
[2019-12-31] MEDS: CHOLECALCIFEROL 400 UNIT TAB PO SCH (17:01)
--- NOTE | 2019-12-31 19:05 | NUR ---
REPORT RECEIVED FROM JENARO SINGER
--- NOTE | 2019-12-31 19:26 | NUR ---
order clarification: start coumadin tommorow per stephanie hurd, the decison will be made depending on INR results tommorow morning.
--- NOTE | 2019-12-31 20:02 | NUR ---
REPOSITIONING PROVIDED TO PATIENT HYDRATION PROVIED TO PATIENT
--- NOTE | 2019-12-31 23:44 | NUR ---
REPOSITIONING PROVIDED TO PATIENT
[2020-01-01] MEDS: INSULIN LISPRO 100 UNIT/1 ML 3ML VIAL SQ SCH ×5 (00:08→21:00)
[2020-01-01] MEDS: INSULIN GLARGINE 100 UNITS/ML VIAL SQ SCH ×2 (00:08→21:00)
--- NOTE | 2020-01-01 00:27 | NUR ---
SNACK PROVIDED TO PATIENT, EARLIER IN THIS SHIFT-DINNER WAS GIVEN TO PATIENT
[2020-01-01] MEDS: ALBUMIN 25% 12.5GM 0.25 GM/ML BTL IV SCH ×5 (00:31→18:51)
--- NOTE | 2020-01-01 00:42 | NUR ---
PATIENT TITRATED DOWN TO 10MCG/MIN-LEVOPHED PER MEDICAL PLAN, ALBUMIN HAS BEEN STARTED ON PATIENT.
[2020-01-01] MEDS: NOREPINEPHRINE 8 MG/D5W 250 ML 250 ML IV SCH ×2 (00:49→04:27)
[2020-01-01] MEDS: MEROPENEM 1GM 100 ML IV SCH ×2 (06:34→13:36)
[2020-01-01] MEDS: LEVOTHYROXINE SODIUM 125 MCG TAB PO SCH (06:34)
[2020-01-01] MEDS ORDERED: LACTATED RINGER'S 1,000 ML ONE (06:37)
[2020-01-01 06:38] LABS: BASOPHILS % 0.3 % (0.0-1.0); EOSINOPHILS # (AUTO) 0.2 (0.0-0.4); EOSINOPHILS % 2.1 % (0.0-6.0); HEMATOCRIT 30.8 % (38.2-49.6); HEMOGLOBIN 9.6 g/dL (14.0-18.0); LYMPHOCYTES % 8.5 % (18.0-39.1); MEAN CORPUSCULAR HEMOGLOBIN 27.7 pg (28-32); MEAN CORPUSCULAR HGB CONC 31.2 g/dL (31-35); MEAN CORPUSCULAR VOLUME 88.8 fL (81-99); MONOCYTES # (AUTO) 1.1 (0.2-0.8); MONOCYTES % 9.4 % (4.4-11.3); NEUTROPHILS # (AUTO) 9.3 (2.1-6.9); NEUTROPHILS % 79.2 % (38.7-80.0); PLATELET COUNT 193 x10e3/uL (140-360); RED BLOOD COUNT 3.47 x10e6/uL (4.3-5.7); RED CELL DISTRIBUTION WIDTH 16.8 % (11.7-14.4)
--- NOTE | 2020-01-01 06:42 | NUR ---
infectious disease progress note 01/01/2020 The patient is still with some dyspnea, although it is improved. He does not have fevers. patient no new complaints PHYSICAL EXAMINATION: VITAL SIGNS: The blood pressure is 120/75 and saturation is 94% on 3 L. morbidly obese patient HEENT: Shows no facial swelling or erythema. CARDIAC: Reveals regular rate and rhythm with normal S1 and S2. LUNGS: Auscultation of lungs reveals decreased breath sounds at the bases. There is no wheezing. ABDOMEN: Soft and nontender. There is no rebound or guarding. EXTREMITIES: Shows no leg edema or calf tenderness. There is an lanta-wod-xlsi amputation on the left side. RADIOGRAPHIC DATA: Chest x-ray shows increased multifocal airspace disease. Ultrasound of the kidneys shows small left renal cyst, but otherwise unremarkable ultrasound. LABORATORY DATA: White blood cell count is 17.38, hemoglobin is 10.4, and platelet count is 217. BUN to creatinine ratio is improved to 31/1.31. Other electrolytes are within normal limits. The blood sugars 233. The albumin is 1.9. The total bilirubin is 1.4. laboratory data reviewed IMPRESSION: sepsis septic shock present admission is better 1. COVID-19, viral pneumonia and superimposed bacterial infection. 2. Acute renal failure. 3. Diabetes with hyperglycemia. 4. Mechanical heart valve. 5. Atrial fibrillation. 6. Mixed diastolic and systolic heart failure. 7. Urinary tract infection with extended-spectrum beta-lactamase producing Escherichia coli and severe sepsis, present on admission. PLAN: 1. Continue meropenem.Soco 14 days 2. Continue judicious use of IV fluids with monitoring of creatinine. 3. Increase Lantus insulin at night. 4. Continue to hold warfarin until INR is normal. 5. Wean off Levophed. 6. Continue supplemental oxygen. 7. Continue Lovenox for DVT prophylaxis. [id number]
[2020-01-01 06:54] LABS: INR 3.56; PROTHROMBIN TIME 38.4 seconds (11.9-14.5)
--- NOTE | 2020-01-01 07:14 | NUR ---
WALKING ROUNDS DONE WITH KATT SINGER
[2020-01-01 07:35] LABS: ALANINE AMINOTRANSFERASE 27 IU/L (0-55); ALBUMIN 1.9 g/dL (3.5-5.0); ALBUMIN/GLOBULIN RATIO 0.4 (0.8-2.0); ALKALINE PHOSPHATASE 140 IU/L (40-150); ANION GAP 9.4 mmol/L (8-16); BLOOD UREA NITROGEN 21 mg/dL (7-26); BUN/CREATININE RATIO 23 (6-25); CALCIUM 8.8 mg/dL (8.4-10.2); CARBON DIOXIDE 28 mmol/L (22-29); CHLORIDE 103 mmol/L (98-107); CREATININE, SERUM 0.91 mg/dL (0.72-1.25); EST GLOMERULAR FILTRATION RATE > 60 ML/MIN (60-); GLUCOSE 147 mg/dL (74-118); POTASSIUM 3.4 mmol/L (3.5-5.1); SODIUM 137 mmol/L (136-145)
[2020-01-01 07:44] LABS: CREATINE KINASE MB 2.6 ng/mL (0-5.0)
[2020-01-01] MEDS: FAMOTIDINE 20 MG/2 ML VIAL IV SCH ×2 (08:40→17:16)
[2020-01-01] MEDS: LINEZOLID 600 MG/D5W 300ML 300 ML IV SCH ×2 (08:40→23:30)
[2020-01-01] MEDS: TAMSULOSIN HCL 0.4 MG CAP PO SCH (08:41)
[2020-01-01] MEDS: AMIODARONE HCL 200 MG TAB PO SCH (08:41)
--- NOTE | 2020-01-01 08:49 | NUR ---
DR ROMAN OFFICE CONTACTED AND MESSAGE LEFT WITH UPDATE AND RECENT LEVOPHED RATE, LAB VALUES AND RECENT EKG.
[2020-01-01] MEDS: GABAPENTIN 300 MG CAP PO SCH (08:57)
[2020-01-01] MEDS: ZINC SULFATE 220 MG CAP PO SCH (08:57)
[2020-01-01] MEDS: ASCORBIC ACID 500 MG TAB PO SCH ×2 (08:57→17:16)
[2020-01-01] MEDS: METOPROLOL TARTRATE 25 MG TAB PO SCH ×2 (08:57→17:16)
[2020-01-01] MEDS: CHOLECALCIFEROL 400 UNIT TAB PO SCH ×2 (09:16→18:20)
--- NOTE | 2020-01-01 10:12 | NUR ---
TIEN WILL HER, ORDER TO DC LR RECEIVED.
--- NOTE | 2020-01-01 10:14 | NUR ---
LEVOPHED TAPER... DOSE DECREASED TO 7.5 MCG/MIN
[2020-01-01] MEDS: FINASTERIDE 5 MG TAB PO SCH (10:54)
--- NOTE | 2020-01-01 11:04 | NUR ---
LEVOPHED TAPER...DOSE DECREASED TO 7 MCG/MIN
[2020-01-01] MEDS ORDERED: INSULIN LISPRO 100 UNIT/1 ML 3ML VIAL SQ ONE (11:45)
--- NOTE | 2020-01-01 12:00 | NUR ---
levophed taper,, dose decreased to 6.5 mcg/min
--- NOTE | 2020-01-01 13:00 | NUR ---
levophed taper,, dose decreased to 5.8 mcg/min
--- NOTE | 2020-01-01 13:37 | NUR ---
levophed taper.. dose decreased to 4.9 mcg/min
--- NOTE | 2020-01-01 15:00 | NUR ---
levophed taper.. dose decreased to 4.0mcg/min
[2020-01-01] MEDS ORDERED: POTASSIUM CHLORIDE 20MEQ/100ML 200 ML IV ONE (15:30)
--- NOTE | 2020-01-01 16:00 | NUR ---
levophed taper... dose decreased to 3.2 mcg/min
[2020-01-01] MEDS ORDERED: WARFARIN SOD 1 MG TAB PO SCH (17:00)
--- NOTE | 2020-01-01 17:00 | NUR ---
levophed taper.. dose decreased to 2.1 mcg/min
[2020-01-01] MEDS: AZITHROMYCIN 500MG/NS 250 ML 250 ML IV SCH (17:16)
--- NOTE | 2020-01-01 17:58 | Progress Note ---
DATE: SUBJECTIVE: The patient has no new complaints. He is breathing well on nasal cannula. His Levophed is decreased to . PHYSICAL EXAMINATION: VITAL SIGNS: The blood pressure is 119/90, saturation is 97%, and the pulse is 86. HEENT: Shows no facial swelling or erythema. CARDIAC: Reveals regular rate and rhythm with normal S1, S2. LUNGS: Auscultation of lungs reveals clear breath sounds bilaterally. There is no wheezing. ABDOMEN: Soft and nontender. There is no rebound or guarding. EXTREMITIES: Shows no leg edema or calf tenderness. There is no cyanosis or clubbing. SKIN: Shows no rashes. NEUROLOGICAL: Shows no focal abnormalities. The patient is status post tilge-dug-wrtb amputation on the right side. LABORATORY DATA: White blood cell count is 11.7, hemoglobin is 9.6, and the platelet count is 193. The BUN to creatinine ratio is 21 to 0.9 and potassium is 3.4. Blood sugar is 307. Albumin is 1.9. RADIOGRAPHIC DATA: Chest x-ray shows bilateral infiltrates. IMPRESSION: 1. COVID-19 and viral pneumonia with superimposed bacterial infection. 2. Diabetes with hyperglycemia. 3. Acute renal failure. 4. Atrial fibrillation. 5. Mixed diastolic and systolic heart failure. 6. Mechanical heart valve. 7. Urinary tract infection with extended spectrum beta-lactamase producing E coli and severe sepsis, present on admission. PLAN: 1. Wean off Levophed. 2. Albumin. 3. Continue to adjust blood sugars. 4. Continue oxygen. 5. Continue current antibiotics. 6. Continue Lovenox. Shelton Cornejo MD [facility]/MODL /[id number]
--- NOTE | 2020-01-01 18:03 | Progress Note ---
DATE: SUBJECTIVE: Mr. Fraser is feeling little bit better. He is still on 7 mcg of dopamine, but his breathing is better. Discussed with Renal. PHYSICAL EXAMINATION: GENERAL: He is currently alert and oriented, obese. VITAL SIGNS: Stable, currently afebrile. HEENT: Not icteric. NECK: Supple. CHEST: Clear. HEART: S1 and S2. No S3, S4, or murmur. ABDOMEN: Soft. IMPRESSION: Sepsis secondary to pyelonephritis, urinary tract infection with extended-spectrum beta-lactamase, currently on meropenem 500 IV q.8; acute kidney injury on presentation, improved; COVID-19, slowly getting better; morbidly obese patient, sepsis secondary to pyelonephritis, better; diabetes mellitus. Continue as ordered with meropenem for 14 days. MD ESTEBAN Guerrero/ERICA /[id number]
[2020-01-01] MEDS: ATORVASTATIN 10 MG TAB PO SCH (23:31)
[2020-01-02] VITALS (15 sets, daily range): BP systolic 78–117; BP diastolic 46–78
[2020-01-02] MEDS: MEROPENEM 1GM 100 ML IV SCH ×5 (02:20→22:46)
[2020-01-02] MEDS: ALBUMIN 25% 12.5GM 0.25 GM/ML BTL IV SCH ×2 (04:34→06:30)
[2020-01-02 05:05] LABS: BASOPHILS % 0.3 % (0.0-1.0); EOSINOPHILS # (AUTO) 0.2 (0.0-0.4); EOSINOPHILS % 2.7 % (0.0-6.0); HEMATOCRIT 27.9 % (38.2-49.6); HEMOGLOBIN 8.8 g/dL (14.0-18.0); LYMPHOCYTES # (AUTO) 1.1 (1.0-3.2); LYMPHOCYTES % 11.9 % (18.0-39.1); MEAN CORPUSCULAR HEMOGLOBIN 28.2 pg (28-32); MEAN CORPUSCULAR HGB CONC 31.5 g/dL (31-35); MEAN CORPUSCULAR VOLUME 89.4 fL (81-99); MONOCYTES # (AUTO) 0.9 (0.2-0.8); MONOCYTES % 10.4 % (4.4-11.3); NEUTROPHILS # (AUTO) 6.5 (2.1-6.9); NEUTROPHILS % 74.1 % (38.7-80.0); PLATELET COUNT 160 x10e3/uL (140-360); RED BLOOD COUNT 3.12 x10e6/uL (4.3-5.7); RED CELL DISTRIBUTION WIDTH 16.7 % (11.7-14.4)
[2020-01-02 05:33] LABS: ALANINE AMINOTRANSFERASE 23 IU/L (0-55); ALBUMIN 2.6 g/dL (3.5-5.0); ALBUMIN/GLOBULIN RATIO 0.7 (0.8-2.0); ALKALINE PHOSPHATASE 138 IU/L (40-150); ANION GAP 11.6 mmol/L (8-16); BLOOD UREA NITROGEN 21 mg/dL (7-26); BUN/CREATININE RATIO 25 (6-25); CALCIUM 8.2 mg/dL (8.4-10.2); CARBON DIOXIDE 28 mmol/L (22-29); CHLORIDE 104 mmol/L (98-107); CREATININE, SERUM 0.84 mg/dL (0.72-1.25); EST GLOMERULAR FILTRATION RATE > 60 ML/MIN (60-); GLUCOSE 127 mg/dL (74-118); POTASSIUM 3.6 mmol/L (3.5-5.1); SODIUM 140 mmol/L (136-145)
[2020-01-02] MEDS: LEVOTHYROXINE SODIUM 125 MCG TAB PO SCH (06:30)
[2020-01-02] MEDS: INSULIN LISPRO 100 UNIT/1 ML 3ML VIAL SQ SCH ×4 (07:30→21:06)
[2020-01-02] MEDS ORDERED: ALBUMIN 25% 25GM 100ML 0.25 GM/ML BTL IV ONE (08:15)
--- NOTE | 2020-01-02 08:28 | Diagnostic Imaging Report ---
Examination: Single AP view of the chest. COMPARISON: 12/31/2019 INDICATION: Respiratory failure, viral pneumonia DISCUSSION: Left subclavian approach implantable cardiac device and right internal jugular central venous catheter are stable in position. The lateral aspect of the left lung base is not included on the current radiograph. Within this limitation, no appreciable interval change in confluent bilateral mid and lower lung zone predominant airspace opacities relative to 12/31/2019. Stable cardiomediastinal contour with median sternotomy and valve replacement changes. No acute osseous abnormality. IMPRESSION: Stable findings compatible with multifocal pneumonia. As before, superimposed pulmonary edema is a consideration in light of postsurgical changes of the heart and mediastinum. Signed by: Dr. Dionisio Larios M.D. on 01/02/2020 8:25 AM
[2020-01-02] MEDS ORDERED: ALBUMIN 25% 25GM 100ML 100 ML IV ONE (09:00)
[2020-01-02] MEDS: AMIODARONE HCL 200 MG TAB PO SCH (09:10)
[2020-01-02] MEDS: GABAPENTIN 300 MG CAP PO SCH (09:11)
[2020-01-02] MEDS: CHOLECALCIFEROL 400 UNIT TAB PO SCH ×2 (09:12→17:33)
[2020-01-02] MEDS: ASCORBIC ACID 500 MG TAB PO SCH ×2 (09:12→17:33)
[2020-01-02] MEDS: FAMOTIDINE 20 MG/2 ML VIAL IV SCH ×2 (09:19→17:33)
[2020-01-02] MEDS: LINEZOLID 600 MG/D5W 300ML 300 ML IV SCH ×2 (09:19→21:05)
[2020-01-02] MEDS: TAMSULOSIN HCL 0.4 MG CAP PO SCH (09:30)
[2020-01-02] MEDS: FINASTERIDE 5 MG TAB PO SCH (09:30)
--- NOTE | 2020-01-02 09:40 | Progress Note ---
DATE: Pulmonary and Critical Care Progress Note SUBJECTIVE: The patient was moved from the ER to the Intensive Care Unit last night. He received additional albumin this morning and his Levophed was stopped. He does not have any complaints of dyspnea. He does not complain of pain. He has no nausea or vomiting. PHYSICAL EXAMINATION: VITAL SIGNS: The patient is afebrile. The blood pressure is now 80/50 with a MAP of 60. He is 100% saturated on 2 L. His pulse is 78. HEENT: Shows no facial swelling or erythema. CARDIAC: Reveals regular rate and rhythm with normal S1 and S2. LUNGS: Auscultation of lungs reveals crackles at the bases. There is no wheezing. ABDOMEN: Soft, nontender. There is no rebound or guarding. EXTREMITIES: Shows a prior vsrsv-dtk-tnwc amputation on the right side. There is no leg edema. LABORATORY DATA: BUN to creatinine ratio is normal. Other electrolytes are within normal limits. The hemoglobin is 8.8. White blood cell count is 8.8. Platelet count is 160. RADIOGRAPHIC DATA: Chest x-ray shows bilateral infiltrates. IMPRESSION: 1. Coronavirus disease-2019 and viral pneumonia with superimposed bacterial infection. 2. Acute kidney injury. 3. Atrial fibrillation. 4. Mixed diastolic and systolic heart failure. 5. Mechanical heart valve. 6. Urinary tract infection with sepsis from extended spectrum beta-lactamase producing Escherichia coli. PLAN: 1. Additional fluids or albumin. 2. Wean off Levophed. 3. Await echocardiogram. 4. Continue Lovenox. 5. Continue current antibiotics. MD KATE Banegas/ERICA /[id number]
[2020-01-02 09:44] LABS: INR 2.02; PROTHROMBIN TIME 24.3 seconds (11.9-14.5)
[2020-01-02] MEDS: ZINC SULFATE 220 MG CAP PO SCH (09:45)
[2020-01-02] MEDS ORDERED: WARFARIN SOD 2 MG TAB PO SCH (17:00)
[2020-01-02] MEDS: AZITHROMYCIN 500MG/NS 250 ML 250 ML IV SCH (17:33)
[2020-01-02] MEDS: NOREPINEPHRINE 8 MG/D5W 250 ML 250 ML IV SCH (18:00)
[2020-01-02] MEDS: ATORVASTATIN 10 MG TAB PO SCH (21:05)
[2020-01-02] MEDS: INSULIN GLARGINE 100 UNITS/ML VIAL SQ SCH (21:07)
[2020-01-03] VITALS (20 sets, daily range): BP systolic 96–171; BP diastolic 48–97
[2020-01-03 05:22] LABS: BASOPHILS % 0.4 % (0.0-1.0); EOSINOPHILS # (AUTO) 0.3 (0.0-0.4); EOSINOPHILS % 3.1 % (0.0-6.0); HEMATOCRIT 28.6 % (38.2-49.6); HEMOGLOBIN 8.9 g/dL (14.0-18.0); LYMPHOCYTES # (AUTO) 1.1 (1.0-3.2); LYMPHOCYTES % 11.9 % (18.0-39.1); MEAN CORPUSCULAR HEMOGLOBIN 28.4 pg (28-32); MEAN CORPUSCULAR HGB CONC 31.1 g/dL (31-35); MEAN CORPUSCULAR VOLUME 91.4 fL (81-99); MONOCYTES # (AUTO) 0.7 (0.2-0.8); MONOCYTES % 7.2 % (4.4-11.3); NEUTROPHILS # (AUTO) 7.2 (2.1-6.9); NEUTROPHILS % 76.9 % (38.7-80.0); PLATELET COUNT 146 x10e3/uL (140-360); RED BLOOD COUNT 3.13 x10e6/uL (4.3-5.7); RED CELL DISTRIBUTION WIDTH 16.5 % (11.7-14.4)
[2020-01-03 05:30] LABS: INR 1.64; PROTHROMBIN TIME 20.6 seconds (11.9-14.5)
[2020-01-03 05:33] LABS: ALANINE AMINOTRANSFERASE 25 IU/L (0-55); ALBUMIN 2.9 g/dL (3.5-5.0); ALBUMIN/GLOBULIN RATIO 0.8 (0.8-2.0); ALKALINE PHOSPHATASE 146 IU/L (40-150); ANION GAP 11.4 mmol/L (8-16); BLOOD UREA NITROGEN 24 mg/dL (7-26); BUN/CREATININE RATIO 29 (6-25); CALCIUM 8.6 mg/dL (8.4-10.2); CARBON DIOXIDE 28 mmol/L (22-29); CHLORIDE 103 mmol/L (98-107); CREATININE, SERUM 0.82 mg/dL (0.72-1.25); EST GLOMERULAR FILTRATION RATE > 60 ML/MIN (60-); GLUCOSE 131 mg/dL (74-118); POTASSIUM 3.4 mmol/L (3.5-5.1); SODIUM 139 mmol/L (136-145)
[2020-01-03] MEDS: LEVOTHYROXINE SODIUM 125 MCG TAB PO SCH (06:29)
[2020-01-03] MEDS: MEROPENEM 1GM 100 ML IV SCH ×3 (06:29→22:00)
[2020-01-03] MEDS: ZINC SULFATE 220 MG CAP PO SCH (09:00)
[2020-01-03] MEDS: INSULIN LISPRO 100 UNIT/1 ML 3ML VIAL SQ SCH ×4 (09:38→21:00)
[2020-01-03] MEDS: LINEZOLID 600 MG/D5W 300ML 300 ML IV SCH ×2 (09:40→20:39)
[2020-01-03] MEDS: FAMOTIDINE 20 MG/2 ML VIAL IV SCH ×2 (09:40→17:42)
[2020-01-03] MEDS: FINASTERIDE 5 MG TAB PO SCH (09:46)
[2020-01-03] MEDS: AMIODARONE HCL 200 MG TAB PO SCH (09:46)
[2020-01-03] MEDS: CHOLECALCIFEROL 400 UNIT TAB PO SCH ×2 (09:46→17:43)
[2020-01-03] MEDS: TAMSULOSIN HCL 0.4 MG CAP PO SCH (09:46)
[2020-01-03] MEDS: ASCORBIC ACID 500 MG TAB PO SCH ×2 (09:46→17:43)
[2020-01-03] MEDS: GABAPENTIN 300 MG CAP PO SCH (09:46)
--- NOTE | 2020-01-03 14:01 | NUR ---
report received from [facility] ICU nurse. pt resting in room 296; in stable condition.
[2020-01-03] MEDS: AZITHROMYCIN 500MG/NS 250 ML 250 ML IV SCH (17:41)
[2020-01-03] MEDS: WARFARIN SOD 2 MG TAB PO SCH (17:42)
[2020-01-03] MEDS: NOREPINEPHRINE 8 MG/D5W 250 ML 250 ML IV SCH (18:00)
--- NOTE | 2020-01-03 20:04 | NUR ---
Received change of shift report from AM nurse. Walking rounds completed. MAURA Corrales is on the floor to see patient. Will f/u with orders.
[2020-01-03] MEDS: ATORVASTATIN 10 MG TAB PO SCH (20:40)
[2020-01-03] MEDS: INSULIN GLARGINE 100 UNITS/ML VIAL SQ SCH (21:00)
--- NOTE | 2020-01-03 22:33 | Progress Note ---
DATE: 01/02/2020 CONSULTING PHYSICIANS: 1. Yady Hanson MD, with Nephrology. 2. Alec Arevalo MD, with Cardiology. 3. Shelton Cornejo MD, with Pulmonology/Critical Care Medicine. SUBJECTIVE: The patient moved from ER to ICU last night, received additional albumin this morning. Currently, he has no complaints of pain, dyspnea, nausea, vomiting, or diarrhea. OBJECTIVE: VITAL SIGNS: Temperature 98.6, heart rate 74, blood pressure 101/46, respirations 23, oxygen saturation 97%. GENERAL: Supine. LUNGS: Generally clear with diminished bases. Oxygen at 2 L via nasal cannula. HEENT: EOMI. NECK: Supple. CARDIOVASCULAR: Regular rate and rhythm without murmur. Levophed has been stopped. ABDOMEN: Bowel sounds positive. Soft, nontender. No guarding. Lima catheter with ryan urine. EXTREMITIES: Without pitting edema. No clubbing, cyanosis, or marked swelling or signs of DVT. 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 NEUROLOGICAL: GCS 15. Nonfocal. Mostly Tuvaluan-speaking. LABORATORY DATA: WBCs 8.82, hemoglobin 8.8, hematocrit 27.9, platelets 160. PT 24.3, INR 2.02. Fingerstick blood glucose 165. Sodium 140, potassium 3.6, chloride 104, CO2 of 28, anion gap 11.6, BUN 21, creatinine 0.84, estimated GFR greater than 60, glucose 127, calcium 8.2, total bilirubin 1.1, AST 48, ALT 23, alkaline phosphatase 138, total protein 6.1, albumin 2.6. IMAGING: Chest x-ray today showed stable findings compatible with multifocal pneumonia, as before superimposed pulmonary edema is a consideration in light of postsurgical changes of the heart and mediastinum. On 12/29, echocardiogram showed left ventricular ejection fraction of 29%, moderate aortic stenosis. Aortic valve area measures 1.3 cm2. Mechanical MVR is well-seated. ASSESSMENT AND PLAN: 1. Viral community-acquired pneumonia due to coronavirus disease-2019 with superimposed bacterial pneumonia. Continue current antibiotics per Infectious Disease. Continue azithromycin, Merrem, Zyvox, ascorbic acid, zinc sulfate, supplemental oxygen. 2. Acute kidney injury, improving. Creatinine 0.84. Monitor fluid status and renal labs. 3. Chronic atrial fibrillation, heart rate controlled at 74. Continue amiodarone and beta-flower. AICD in situ. 4. Mixed systolic and diastolic congestive heart failure with hypotension. The patient received additional albumin this morning. Levophed has been weaned off. 5. Moderate aortic stenosis and mechanical mitral heart valve in situ. Warfarin being held until INR is within normal limits and INR is 2.02 today. Defer to Cardiology. 6. Urinary tract infection with sepsis from extended spectrum beta lactamase producing E coli. ID follows. On Merrem and Zyvox. 7. Prophylaxis. Lovenox and Pepcid. Time spent 35 minutes. Billing code [id number]. Dictated by Antoni Estevez, EXPORT SPECIALIST MD JUDY Smith/ERICA /[id number]
--- NOTE | 2020-01-03 23:03 | Progress Note ---
DATE: 01/03/2020 SUBJECTIVE: The patient is lying supine in bed. He was seen in room #296. He was transferred from the [facility] ICU bed #11 today. He currently complains of pain in the shoulders, rated at 5/10 on a 0-10 pain scale. Currently denies chills, headache, dizziness, chest pain, palpitations, nausea, vomiting, diarrhea, or constipation. He had a bowel movement today. OBJECTIVE: VITAL SIGNS: Temperature 98.5, heart rate 98, blood pressure 117/97, respirations 22, and oxygen saturation 98%. Intake and output 900 mL In and 1250 mL Out. GENERAL: Supine. He is not in prone position. LUNGS: Overall clear, diminished in the bases. He is on 2 L of oxygen via nasal cannula, and respirations are relaxed. HEENT: EOMI. NECK: Supple. CARDIOVASCULAR: Regular rate and rhythm. No murmur. He has a right IJ triple-lumen central line. Currently, no IV fluids. Levophed was weaned off yesterday. ABDOMEN: Bowel sounds positive. Soft, nontender, and obese. EXTREMITIES: No clubbing, cyanosis, edema, or signs of DVT. 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 NEUROLOGIC: GCS 15. Nonfocal, mostly Thai-speaking. LABORATORY DATA: WBCs 9.31, RBCs 3.13, hemoglobin 8.9, hematocrit 28.6, and platelets 146. PT 20.6, INR 1.64. Fingerstick blood glucose levels 130 and 225. Sodium 139, potassium 3.4, chloride 103, CO2 of 28, anion gap 11.4, BUN 24, creatinine 0.82, estimated GFR greater than 60, glucose 131, and calcium 8.6. Most recent magnesium level on 12/28 it was 1.7. Today total bilirubin 1, AST 44, ALT 25, alkaline phosphatase 146, total protein 6.5, albumin 2.9. No new imaging results. Echocardiogram done 12/29 showed left ventricular ejection fraction 29%, moderate aortic stenosis. Aortic valve area 1.3 cm2. Mechanical mitral valve replacement is well seated. ASSESSMENT AND PLAN: 1. Viral CAP, POA, due to COVID-19 with superimposed bacterial pneumonia. Continue IV antibiotics per Infectious Disease. He is on azithromycin, Merrem, Zyvox, vitamin C, zinc sulfate, warfarin, and cholecalciferol. Wean oxygen as tolerated. 2. Acute kidney injury, improved. Creatinine is 0.82. Monitor renal function. 3. Chronic atrial fibrillation with heart rate controlled. Continue amiodarone and beta-flower. 4. Mixed systolic and diastolic congestive heart failure with hypotension, improved. He is no longer on Levophed. Cardiology continues to follow. Ejection fraction on echocardiogram is 29%. 5. Mechanical mitral heart valve in situ. Warfarin resumed today with a dose of 2 mg daily. INR 1.64. 6. Moderate aortic stenosis. 7. Urinary tract infection with sepsis from extended spectrum beta lactamase producing Escherichia coli. WBCs 9.31. Continue Merrem and Zyvox. Infectious Disease following. 8. Mild acute hypokalemia. Potassium level is 3.4. We will ask that 20 mEq potassium chloride be given. Check magnesium level in the morning. 9. Transaminitis. AST 44. Monitor. 10. Prophylaxis, warfarin and Pepcid. Billing code [id number]. Time spent 35 minutes. Dictated by Antoni Estevez NP MD JUDY Smith/KEVINL /[id number]
[2020-01-04] VITALS (8 sets, daily range): BP systolic 108–181; BP diastolic 59–69
[2020-01-04] MEDS: MEROPENEM 1GM 100 ML IV SCH ×3 (05:37→22:30)
[2020-01-04] MEDS: LEVOTHYROXINE SODIUM 125 MCG TAB PO SCH (05:37)
--- NOTE | 2020-01-04 05:45 | NUR ---
Patient resting quitly at this time. Continue monitor.
--- NOTE | 2020-01-04 07:00 | NUR ---
BEDSIDE SHIFT REPORT RECEIVED FROM ORCHESTRA DIRECTOR RN. PT DENIES NEEDS AT THIS TIME.
[2020-01-04] MEDS: INSULIN LISPRO 100 UNIT/1 ML 3ML VIAL SQ SCH ×4 (07:30→21:00)
[2020-01-04] MEDS: FAMOTIDINE 20 MG/2 ML VIAL IV SCH ×2 (09:21→17:20)
[2020-01-04] MEDS: CHOLECALCIFEROL 400 UNIT TAB PO SCH ×2 (09:21→17:22)
[2020-01-04] MEDS: TAMSULOSIN HCL 0.4 MG CAP PO SCH (09:21)
[2020-01-04] MEDS: LINEZOLID 600 MG/D5W 300ML 300 ML IV SCH ×2 (09:21→22:16)
[2020-01-04] MEDS: GABAPENTIN 300 MG CAP PO SCH (09:21)
[2020-01-04] MEDS: ZINC SULFATE 220 MG CAP PO SCH (09:21)
[2020-01-04] MEDS: ASCORBIC ACID 500 MG TAB PO SCH ×2 (09:21→17:20)
[2020-01-04] MEDS: FINASTERIDE 5 MG TAB PO SCH (09:21)
[2020-01-04] MEDS: AMIODARONE HCL 200 MG TAB PO SCH (09:21)
[2020-01-04] MEDS: OXYCODONE/ACETAMINOPHEN 5-325 1 EACH TABLET PO PRN (09:22)
[2020-01-04 11:41] LABS: BASOPHILS % 0.4 % (0.0-1.0); EOSINOPHILS # (AUTO) 0.3 (0.0-0.4); EOSINOPHILS % 3.2 % (0.0-6.0); HEMATOCRIT 29.2 % (38.2-49.6); HEMOGLOBIN 8.9 g/dL (14.0-18.0); LYMPHOCYTES % 11.2 % (18.0-39.1); MEAN CORPUSCULAR HEMOGLOBIN 27.7 pg (28-32); MEAN CORPUSCULAR HGB CONC 30.5 g/dL (31-35); MONOCYTES # (AUTO) 0.6 (0.2-0.8); MONOCYTES % 6.8 % (4.4-11.3); NEUTROPHILS # (AUTO) 6.7 (2.1-6.9); NEUTROPHILS % 77.9 % (38.7-80.0); RED BLOOD COUNT 3.21 x10e6/uL (4.3-5.7); RED CELL DISTRIBUTION WIDTH 16.8 % (11.7-14.4)
[2020-01-04 11:52] LABS: PLATELET COUNT 122 x10e3/uL (140-360)
[2020-01-04 11:53] LABS: ALANINE AMINOTRANSFERASE 27 IU/L (0-55); ALBUMIN 2.5 g/dL (3.5-5.0); ALBUMIN/GLOBULIN RATIO 0.7 (0.8-2.0); ALKALINE PHOSPHATASE 171 IU/L (40-150); ANION GAP 8.7 mmol/L (8-16); BLOOD UREA NITROGEN 16 mg/dL (7-26); BUN/CREATININE RATIO 20 (6-25); CALCIUM 8.6 mg/dL (8.4-10.2); CARBON DIOXIDE 30 mmol/L (22-29); CHLORIDE 107 mmol/L (98-107); EST GLOMERULAR FILTRATION RATE > 60 ML/MIN (60-); GLUCOSE 203 mg/dL (74-118); MAGNESIUM 1.8 MG/DL (1.3-2.1); PHOSPHORUS 2.5 MG/DL (2.3-4.7); POTASSIUM 3.7 mmol/L (3.5-5.1); SODIUM 142 mmol/L (136-145)
[2020-01-04 12:19] LABS: INR 2.53; PROTHROMBIN TIME 29.2 seconds (11.9-14.5)
--- NOTE | 2020-01-04 15:17 | NUR ---
Nutrition Screen Note RD Recommendation for Physician: -Recommend adding low sodium to diet order -If PO intake <50% of meals, offer Ensure Compact Plan of Care: RD following, monitoring for tolerance and adequacy Nutrition reason for involvement: Length of stay Primary Diagnose(s): acute respiratory disease due to COVID-19 PMH: diabetes, CAD, CHF, HTN, chronic renal insufficiency Ht: 72 in Wt:225 lb BMI: 30.5 kg/m2 IBW:[address] Assessment: (01/04/2020) Chart reviewed. Labs and meds reviewed. Pt is a 69 year old male admitted with acute respiratory disease due to COVID-19. Unable to enter room due to droplet isolation precautions and pt is primarily Divehi speaking per chart. Spoke to RN who reported pt is eating about 50% of meals. Unable to obtain weight history from pt at this time. Per weight history in chart, pt weighed 242 lbs in March 2019 from a previous admission. Pt currently weighs 225 lbs per chart. If accurate, this would be a 7% weight loss in 9 months which would be insignificant weight loss. Will continue to monitor Current Diet: 1800 ADA/1.2 L fluid restriction Malnutrition Evaluation (01/04/20) Unable to speak to pt. Will re-evaluate at follow-up as appropriate. Diet Education Needs Assessment: RD is available for diet education as needed Nutrition Care Level: low Signed: Mary Jo Fernando, PATRICK, LD
[2020-01-04] MEDS: WARFARIN SOD 2 MG TAB PO SCH (17:22)
[2020-01-04] MEDS: NOREPINEPHRINE 8 MG/D5W 250 ML 250 ML IV SCH (17:41)
--- NOTE | 2020-01-04 18:36 | Progress Note ---
DATE: SUBJECTIVE: The patient is feeling better overall. He has less dyspnea and less cough. PHYSICAL EXAMINATION: VITAL SIGNS: Blood pressure is 118/70, saturation is 94% on 2 L. HEENT: Shows no facial swelling or erythema. CARDIAC: Reveals regular rate and rhythm with normal S1, S2. LUNGS: Auscultation of lungs reveals clear breath sounds bilaterally. There is no wheezing. ABDOMEN: Soft and nontender. There is no rebound or guarding. EXTREMITIES: Examination of the extremities shows status post hbieg-sud-albh amputation on one side. NEUROLOGICAL: Shows no focal abnormalities. LABORATORY DATA: Hemoglobin of 8.9 with a platelet count of 122. BUN to creatinine ratio is normal. Other electrolytes are within normal limits. Albumin is 2.5. RADIOGRAPHIC DATA: Chest x-ray shows bilateral infiltrates. IMPRESSION: 1. COVID-19 infection and viral pneumonia with superimposed bacterial infection. 2. Acute kidney injury. 3. Atrial fibrillation. 4. Mixed diastolic and systolic heart failure. 5. Urinary tract infection with sepsis from extended spectrum beta lactamase producing Escherichia coli. PLAN: 1. Complete antibiotics. 2. Wean oxygen. 3. Physical therapy. Shelton Cornejo MD [facility]/MODL /[id number]
--- NOTE | 2020-01-04 19:35 | NUR ---
BEDSIDE SHIFT REPORT RECEIVED FROM DAY RN. PT SPEAKS MALTESE. PT IS ALERT AND ORIENTED X3. IJ TL RT - SITE HEALTHY. LINE FLUSHES EASILY. IJ DRESSING REINFORCED. TELE ON. RESPIRATIONS EVEN AND UNLABORED. O2 2LN/C. RENEE TO GRAVITY DRAINING CLEAR YELLOW URINE. HOB ELEVATED. CALL LIGHT WITHIN REACH. BED LOCKED IN LOW POSITION.
[2020-01-04] MEDS: INSULIN GLARGINE 100 UNITS/ML VIAL SQ SCH (21:00)
[2020-01-04] MEDS: ATORVASTATIN 10 MG TAB PO SCH (22:16)
[2020-01-05] VITALS (7 sets, daily range): BP systolic 116–137; BP diastolic 66–73
[2020-01-05] MEDS: LEVOTHYROXINE SODIUM 125 MCG TAB PO SCH (05:56)
[2020-01-05] MEDS: MEROPENEM 1GM 100 ML IV SCH ×4 (05:56→23:00)
[2020-01-05 06:47] LABS: BASOPHILS % 0.3 % (0.0-1.0); EOSINOPHILS # (AUTO) 0.2 (0.0-0.4); EOSINOPHILS % 2.5 % (0.0-6.0); HEMATOCRIT 28.5 % (38.2-49.6); HEMOGLOBIN 8.9 g/dL (14.0-18.0); LYMPHOCYTES # (AUTO) 1.1 (1.0-3.2); LYMPHOCYTES % 11.9 % (18.0-39.1); MEAN CORPUSCULAR HEMOGLOBIN 28.2 pg (28-32); MEAN CORPUSCULAR HGB CONC 31.2 g/dL (31-35); MEAN CORPUSCULAR VOLUME 90.2 fL (81-99); MONOCYTES # (AUTO) 0.6 (0.2-0.8); MONOCYTES % 6.8 % (4.4-11.3); NEUTROPHILS # (AUTO) 7.2 (2.1-6.9); NEUTROPHILS % 78.1 % (38.7-80.0); PLATELET COUNT 114 x10e3/uL (140-360); RED BLOOD COUNT 3.16 x10e6/uL (4.3-5.7); RED CELL DISTRIBUTION WIDTH 16.8 % (11.7-14.4)
[2020-01-05 06:58] LABS: INR 3.79
--- NOTE | 2020-01-05 07:00 | NUR ---
BEDSIDE SHIFT REPORT RECEIVED FROM DEVIL TENDER RN. PT DENIES NEEDS AT THIS TIME.
[2020-01-05 07:04] LABS: PROTHROMBIN TIME 40.4 seconds (11.9-14.5)
--- NOTE | 2020-01-05 07:05 | NUR ---
LAB CALLED WITH CRITICAL PTT 40.4- PT ON COUMADIN 4MG. ENDORSED TO DAY RN - HE WILL NOTIFY PHYSICIAN.
[2020-01-05 07:12] LABS: ALANINE AMINOTRANSFERASE 25 IU/L (0-55); ALBUMIN 2.5 g/dL (3.5-5.0); ALBUMIN/GLOBULIN RATIO 0.6 (0.8-2.0); ALKALINE PHOSPHATASE 166 IU/L (40-150); ANION GAP 9.9 mmol/L (8-16); BLOOD UREA NITROGEN 17 mg/dL (7-26); BUN/CREATININE RATIO 22 (6-25); CALCIUM 8.5 mg/dL (8.4-10.2); CARBON DIOXIDE 31 mmol/L (22-29); CHLORIDE 106 mmol/L (98-107); CREATININE, SERUM 0.79 mg/dL (0.72-1.25); EST GLOMERULAR FILTRATION RATE > 60 ML/MIN (60-); GLUCOSE 133 mg/dL (74-118); POTASSIUM 3.9 mmol/L (3.5-5.1); SODIUM 143 mmol/L (136-145)
[2020-01-05] MEDS: INSULIN LISPRO 100 UNIT/1 ML 3ML VIAL SQ SCH ×4 (07:30→21:00)
[2020-01-05] MEDS: ASCORBIC ACID 500 MG TAB PO SCH ×2 (08:43→17:01)
[2020-01-05] MEDS: LINEZOLID 600 MG/D5W 300ML 300 ML IV SCH ×2 (08:43→22:08)
[2020-01-05] MEDS: AMIODARONE HCL 200 MG TAB PO SCH (08:43)
[2020-01-05] MEDS: TAMSULOSIN HCL 0.4 MG CAP PO SCH (08:43)
[2020-01-05] MEDS: FAMOTIDINE 20 MG/2 ML VIAL IV SCH ×2 (08:43→17:00)
[2020-01-05] MEDS: GABAPENTIN 300 MG CAP PO SCH (08:43)
[2020-01-05] MEDS: FINASTERIDE 5 MG TAB PO SCH (08:43)
[2020-01-05] MEDS: CHOLECALCIFEROL 400 UNIT TAB PO SCH ×2 (08:43→17:01)
[2020-01-05] MEDS: ZINC SULFATE 220 MG CAP PO SCH (08:44)
[2020-01-05] MEDS ORDERED: FAMOTIDINE 20 MG TAB PO SCH (16:30)
--- NOTE | 2020-01-05 16:30 | Progress Note ---
DATE: SUBJECTIVE: The patient feels much better today. He has no new complaints. PHYSICAL EXAMINATION: VITAL SIGNS: The blood pressure is 124/70, saturation is 98% on 3 L. HEENT: No facial swelling or erythema. CARDIAC: Regular rate and rhythm with normal S1, S2. LUNGS: Auscultation of lungs reveals crackles at the bases. There is no wheezing. ABDOMEN: Soft, nontender. There is no rebound or guarding. EXTREMITIES: No leg edema or calf tenderness. There is no cyanosis or clubbing. SKIN: No rashes. NEUROLOGICAL: No focal abnormalities. LABORATORY DATA: BUN to creatinine ratio and electrolytes within normal limits. Albumin is 2.5. The hemoglobin is 8.9. White blood cell count is 9.2, and the platelet count is 114. IMPRESSION: 1. Coronavirus disease 19 infection and viral pneumonia. 2. Superimposed bacterial infection. 3. Atrial fibrillation. 4. Chronic mixed diastolic and systolic heart failure. 5. Urinary tract infection. PLAN: 1. Complete antibiotics. 2. Wean off oxygen. 3. Physical therapy. 4. Probable discharge home. Shelton Cornejo MD [facility]/MOD[facility] /[id number]
[2020-01-05] MEDS: ATORVASTATIN 10 MG TAB PO SCH (22:08)
[2020-01-05] MEDS: INSULIN GLARGINE 100 UNITS/ML VIAL SQ SCH (22:26)
[2020-01-06] VITALS (8 sets, daily range): BP systolic 114–132; BP diastolic 56–78
[2020-01-06 06:32] LABS: BASOPHILS % 0.3 % (0.0-1.0); EOSINOPHILS # (AUTO) 0.2 (0.0-0.4); EOSINOPHILS % 2.5 % (0.0-6.0); HEMATOCRIT 27.6 % (38.2-49.6); HEMOGLOBIN 8.6 g/dL (14.0-18.0); LYMPHOCYTES # (AUTO) 1.2 (1.0-3.2); MEAN CORPUSCULAR HEMOGLOBIN 28.2 pg (28-32); MEAN CORPUSCULAR HGB CONC 31.2 g/dL (31-35); MEAN CORPUSCULAR VOLUME 90.5 fL (81-99); MONOCYTES # (AUTO) 0.6 (0.2-0.8); MONOCYTES % 6.1 % (4.4-11.3); NEUTROPHILS # (AUTO) 7.4 (2.1-6.9); NEUTROPHILS % 77.8 % (38.7-80.0); PLATELET COUNT 116 x10e3/uL (140-360); RED BLOOD COUNT 3.05 x10e6/uL (4.3-5.7); RED CELL DISTRIBUTION WIDTH 16.9 % (11.7-14.4)
[2020-01-06 06:42] LABS: INR 4.51
[2020-01-06 06:45] LABS: PROTHROMBIN TIME 46.5 seconds (11.9-14.5)
[2020-01-06 06:50] LABS: ALANINE AMINOTRANSFERASE 26 IU/L (0-55); ALBUMIN 2.4 g/dL (3.5-5.0); ALBUMIN/GLOBULIN RATIO 0.6 (0.8-2.0); ALKALINE PHOSPHATASE 182 IU/L (40-150); ANION GAP 10.9 mmol/L (8-16); BLOOD UREA NITROGEN 15 mg/dL (7-26); BUN/CREATININE RATIO 20 (6-25); CALCIUM 8.6 mg/dL (8.4-10.2); CARBON DIOXIDE 31 mmol/L (22-29); CHLORIDE 106 mmol/L (98-107); CREATININE, SERUM 0.74 mg/dL (0.72-1.25); EST GLOMERULAR FILTRATION RATE > 60 ML/MIN (60-); GLUCOSE 117 mg/dL (74-118); MAGNESIUM 1.8 MG/DL (1.3-2.1); POTASSIUM 3.9 mmol/L (3.5-5.1); SODIUM 144 mmol/L (136-145)
--- NOTE | 2020-01-06 07:00 | NUR ---
BEDSIDE SHIFT REPORT RECEIVED FROM DIRECTOR SPORTS RN. PT DENIES NEEDS AT THIS TIME.
[2020-01-06] MEDS: LEVOTHYROXINE SODIUM 125 MCG TAB PO SCH (07:10)
[2020-01-06] MEDS: MEROPENEM 1GM 100 ML IV SCH ×3 (07:10→22:00)
--- NOTE | 2020-01-06 07:22 | NUR ---
BEDSIDE SHIFT REPORT GIVEN TO DAY RN. IJ TL PATENT. PT,CBC,CMP,MAG DRAWN THIS AM. PTT 46.5 CALLED CRITICAL VALUE- COUMADIN ON HOLD. DAY RN TO CALL REGARDING CRITICAL LAB.
[2020-01-06] MEDS: TAMSULOSIN HCL 0.4 MG CAP PO SCH (08:48)
[2020-01-06] MEDS: FAMOTIDINE 20 MG/2 ML VIAL IV SCH ×2 (08:48→17:33)
[2020-01-06] MEDS: ASCORBIC ACID 500 MG TAB PO SCH ×2 (08:48→17:33)
[2020-01-06] MEDS: AMIODARONE HCL 200 MG TAB PO SCH (08:48)
[2020-01-06] MEDS: FINASTERIDE 5 MG TAB PO SCH (08:48)
[2020-01-06] MEDS: LINEZOLID 600 MG/D5W 300ML 300 ML IV SCH ×2 (08:48→21:00)
[2020-01-06] MEDS: GABAPENTIN 300 MG CAP PO SCH (08:48)
[2020-01-06] MEDS: ZINC SULFATE 220 MG CAP PO SCH (08:49)
[2020-01-06] MEDS: CHOLECALCIFEROL 400 UNIT TAB PO SCH ×2 (08:49→17:33)
[2020-01-06] MEDS: INSULIN LISPRO 100 UNIT/1 ML 3ML VIAL SQ SCH ×4 (08:52→21:00)
--- NOTE | 2020-01-06 10:35 | NUR ---
ORDERS RECEIVED FOR HOME IV ABX. BEDSIDE NURSE HAYDEN WENT TO BEDSIDE TO GET CONSENT FOR CHOICE FOR HOME IV ABX OVER THE PHONE W HOG TENDER. CONSENT WAS SIGNED AND CHOICE LETTER WAS SIGNED. [employer] @ OFF: [phone] / FAX: [phone]. PT STATES HE ALREADY HAS HOME OXYGEN W ARPAN. INFORMED HE WOULD NEED TO HAVE THE FAMILY BRING TANK AT DC. IMM LETTER EXPLAINED TO PT. PT VERBALIZED UNDERSTANDING. MAURITIAN IMM LETTER SIGNED. COPY TO PT AND COPY TO CHART.
--- NOTE | 2020-01-06 11:45 | NUR ---
CALL RECEIVED FROM OLY LUONG STATES THE SON WOULD LIKE A CALL BACK, BECAUSE HIS FATHER IS C/O BACK PAIN AND DOES NOT FEEL HE IS READY TO DC HOME. CALL TO ESTHER TO DISCUSS PT'S PAIN. REQUESTED WE GET LOCATION AND RATE PAIN ON SCALE OF 1-10. CT SCAN NOTED W DEGENERATIVE DISCS NOTED. CALL PLACED TO GISSEL EVANS @ [phone]. NICOLAS STATES HIS FATHER STATES HIS BACK IS HURTING HIM. STATES THE FATHER IS ALWAYS EAGER TO RETURN HOME. STATES HE WILL PROBABLY END UP BRINGING HIM BACK TO THE HOSPITAL. DISCUSSED BRINGING O2 TANK AT DC. STATES THE PT'S TANK IS EMPTY. O2 IS W RHEMA. CM WILL F/U W THE COMPANY. CM WENT TO THE UNIT. CALL TO THE PT'S ROOM. PT STATES HE HAS PAIN TO HIS UPPER AND LOWER BACK. PAIN IS AN 8. STATES HE TAKES MEDS AT HOME FOR HIS PAIN, BUT DID NOT KNOW THE NAME OF THE MEDICINE. ATTEMPTED TO CONFERENCE ESTHER IN TO THE CALL, BUT NO ANSWER. ESTHER CALLED THE UNIT. INFO WAS GIVEN. STATES HE WOULD LIKE FOR PT TO GET THE PT UP. STATES HE WILL ORDER SOMETHING NOW FOR THE PT'S PAIN AND SOMETHING PRN. ESTHER WILL CALL THE SON TO DISCUSS FURTHER CARE.
--- NOTE | 2020-01-06 12:06 | NUR ---
OK FROM THE STANDPOINT OF DR. Ronda ROMAN FOR PT TO DISCHARGE HOME AND RESTART HOME MEDICATIONS. WAIT UNTIL 01/09 TO RESTART COUMADIN.
[2020-01-06] MEDS ORDERED: HYDROCODONE/APAP 10MG-325MG TAB PO SCH (12:30)
--- NOTE | 2020-01-06 12:40 | NUR ---
CALL TO NATALIE / [employer] [facility] TO GET TANK FOR DC. AWAITING CALL BACK.
[2020-01-06] MEDS ORDERED: ACETAMINOPHEN325 M1 PO (13:48)
[2020-01-06] MEDS ORDERED: VENTOLIN HFA18 GM INH (13:48)
[2020-01-06] MEDS ORDERED: ASCORBIC ACID500 MG PO (13:48)
[2020-01-06] MEDS ORDERED: ZINC SULFATE220 M1 PO (13:48)
[2020-01-06] MEDS ORDERED: Cholecalciferol PO (13:48)
[2020-01-06] MEDS ORDERED: MERREM1 GM IV (13:48)
[2020-01-06] MEDS ORDERED: SODIUM CHLORIDE 0.9% 250ML 250 ML ONE (14:09)
[2020-01-06] MEDS ORDERED: DECADRON6 MG PO (14:10)
--- NOTE | 2020-01-06 14:57 | NUR ---
PT IS ON RHEMA FOR O2 SO WILL INCLUDE THE BARBI LIFT, FAXED ORDER AND NOTES TO SUPPORT NEED TO RHEMA.
--- NOTE | 2020-01-06 16:19 | Progress Note ---
DATE: Pulmonary Critical Care Progress Note SUBJECTIVE: The patient is feeling better. He is complaining of some back pain and received medications. He is scheduled to receive IV antibiotics at home. PHYSICAL EXAMINATION: VITAL SIGNS: Blood pressure is 125/60, saturation is 96% on 3 L. CARDIAC: Reveals regular rate and rhythm with normal S1 and S2. LUNGS: Auscultation of lungs reveals crackles at the bases. There is no wheezing. ABDOMEN: Soft and nontender. There is no rebound or guarding. EXTREMITIES: Examination of the extremities shows an jognh-dxw-ckhq amputation. IMPRESSION: 1. Extended spectrum beta-lactamase producing. 2. Escherichia coli urinary tract infection. 3. Atrial fibrillation. 4. Chronic mixed diastolic and systolic heart failure. 5. COVID-19 and viral pneumonia. PLAN: 1. Arrange for completion of IV antibiotics at home through home health. 2. Physical therapy. 3. Home oxygen evaluation. Shelton Cornejo MD [facility]/ERICA /[id number]
--- NOTE | 2020-01-06 16:29 | Progress Note ---
DATE: 01/05/2020 CONSULTING PHYSICIANS: 1. Dr. Hanson with Nephrology. 2. Dr. Cornejo with Pulmonology. 3. Dr. Edwards with Infectious Disease. 4. Dr. Alec Arevalo with Cardiology. SUBJECTIVE: The patient is lying supine in bed. His oxygen was increased from 2 L/minute to 4 L/minute today. Per the RN, he complains of joint pain at times. He did have a loose stool today. Currently, tolerating ADA diet well. OBJECTIVE: VITAL SIGNS: Temperature 99.5, pulse 107, blood pressure 116/73, respirations 18, and oxygen saturation 95%. GENERAL: Supine, not prone. LUNGS: Generally clear with diminished bases. Oxygen at 4 L/minute via nasal cannula. HEENT: EOMI. NECK: Supple. CARDIOVASCULAR: Regular rate and rhythm. No murmur. He has a right IJ triple-lumen central line. ABDOMEN: Bowel sounds positive. Soft, nontender. EXTREMITIES: Without pitting edema. No clubbing, cyanosis, or marked swelling. He has a right lower extremity ydkra-bmy-whxo amputation. NEUROLOGIC: GCS is 15, nonfocal, mostly Pakistani-speaking. LABORATORY DATA: WBCs 9.21, hemoglobin 8.9, hematocrit 28.5, platelets 114. PT 40.4, INR 3.79. Sodium 143, potassium 3.9, chloride 106, CO2 of 31, BUN 17, creatinine 0.79, EGFR greater than 60, glucose 133, calcium 8.5, total bilirubin 0.8, AST 36, ALT 25, alkaline phosphatase 166, total protein 6.4, albumin 2.5. No new microbiology or imaging results. ASSESSMENT AND PLAN: 1. Viral community acquired pneumonia due to COVID-19 with superimposed bacterial pneumonia, POA, Infectious Disease following and on azithromycin, Merrem, and Zyvox. Continue warfarin, vitamin C, zinc sulfate, and cholecalciferol. Wean oxygen as tolerated. Currently, requiring a higher oxygen concentration. 2. Acute kidney injury, improved. Creatinine 0.79 with estimated GFR greater than 60. Monitor. 3. Chronic atrial fibrillation with rapid ventricular rate. Continue amiodarone and beta-flower. Current heart rate 107. 4. Mixed systolic and diastolic congestive heart failure with hypotension, improved. EF 29%. 5. MVR. INR today 3.79. Thus, his Coumadin will be held today. We will plan on resuming his home dose tomorrow if his INR comes back down. 6. Moderate aortic stenosis. 7. Multidrug resistant extended-spectrum beta-lactamase Escherichia coli urinary tract infection, status post sepsis, POA. Continue Merrem and Zyvox. WBCs 9.21. 8. Mild acute hypokalemia, resolved. 9. Transaminitis. AST 36 (41). Alkaline phosphatase 166 (171). 10. Mild thrombocytopenia, platelets 114 (122). 11. Prophylaxis. Warfarin and Pepcid. TIME SPENT: 35 minutes. BILLING CODE: [id number]. Dictated by Antoni Estevez, BLOOD BANK ORDER CONTROL CLERK MD JUDY Smith/ERICA /[id number]
--- NOTE | 2020-01-06 16:44 | Progress Note ---
DATE: 01/04/2020 SUBJECTIVE: The patient complains of pain in the shoulders from nsci-sa-qmos, usually 5 on a 0-10 pain scale. Denies any chills, headache, chest pain, back pain, palpitations, dizziness, nausea, vomiting, diarrhea, or constipation. OBJECTIVE: VITAL SIGNS: Temperature 97.8, pulse 80, blood pressure 108/62, respirations 18, and oxygen saturation 97% on 2 L of oxygen by nasal cannula. GENERAL: Supine, no acute distress. LUNGS: Clear. Diminished in the bases on 2 L of oxygen with a relaxed respirations. HEENT: EOMI. NECK: Supple. CARDIOVASCULAR: Regular rate and rhythm. No murmur. Right IJ triple-lumen central line without IV fluids. ABDOMEN: Bowel sounds positive. Soft, nontender, obese. No guarding. EXTREMITIES: Without pitting edema. No clubbing, cyanosis, or signs of DVT. Right lower extremity, ygvaj-uat-otht amputation present prior to arrival. NEUROLOGIC: GCS 15, nonfocal. LABORATORY DATA: WBC 8.52, RBC 3.21, hemoglobin 8.9, hematocrit 29.2, platelets 122. PT 29.2, INR 2.53. Sodium 142, potassium 3.7, chloride 107, CO2 30, anion gap 8.7, BUN 16, creatinine 0.8 and estimated GFR greater than 60, glucose 203. Fingerstick blood glucose levels 167, 210, 132. Calcium 8.6, phosphorus 2.5, magnesium 1.8, total bilirubin 0.8, AST 41, ALT 27, alkaline phosphatase 171, total protein 6.3. On 12/28, final urine culture showed ESBL E coli, which is multidrug resistant. No new imaging studies. ASSESSMENT/PLAN: 1. Viral community-acquired pneumonia due to COVID-19 with superimposed bacterial pneumonia, POA. Continue IV antibiotics, azithromycin, Merrem and Zyvox per ID. Continue warfarin, vitamin C, zinc sulfate, and cholecalciferol. Wean oxygen to room air as tolerated. 2. Acute kidney injury, improved. Creatinine 0.80 (0.82). Monitor renal function. 3. Chronic atrial fibrillation with heart rate controlled. Continue amiodarone and beta-flower. Heart rate 80. 4. Mixed systolic and diastolic congestive heart failure with hypotension, improved. Levophed was discontinued. Ejection fraction 29%. Cardiology following. 5. History of mitral valve replacement, on warfarin 2 mg daily. INR 2.53 (1.64). 6. Moderate aortic stenosis. 7. Multidrug resistant extended-spectrum beta-lactamases Escherichia coli urinary tract infection with sepsis, POA, ID following. Continue Merrem and Zyvox per Infectious Disease. The patient will need Merrem for a total of 14 days. 8. Mild acute hypokalemia with potassium level 3.7 (3.4). 9. Transaminitis, AST 41 and alkaline phosphatase 171, monitor. 10. Mild thrombocytopenia. Platelet count 122 (146), monitor. 11. Prophylaxis. Warfarin and Pepcid. BILLING CODE: [id number]. TIME SPENT: 35 minutes. Dictated by Antoni Estevez, ABBEY MD [facility]/MODL /[id number]
--- NOTE | 2020-01-06 17:03 | NUR ---
CALL FROM YANIV ALEXANDER @ [phone] / FAX: [phone]. STATES SHE HAD NOT BEEN ABLE TO FIND A AGENCY. FAXED REFERRAL TO [facility] @ OFF: [phone] / FAX: [phone]. CONFIRMED FAX WAS RECEIVED AND SPOKE Ariela ACUÑA. STATES THEY WILL NOT BE ABLE TO SEE PT UNTIL MONDAY MORNING. STATES THEIR SCHEDULE FOR TOMORROW IS FULL. INFORMED HIM I WILL LET THE TEAM KNOW. GAVE JESSICA A HELPER/DRIVER. NOTIFIED ESTHER TO HOLD DC. SPOKE Ariela BLAKE, RN / BEDSIDE NURSE AND HAYDEN THE HOUSE SUP. HAYDEN WILL LET THE PT AND FAMILY KNOW.
--- NOTE | 2020-01-06 19:00 | NUR ---
Received nursing shift report from morning nurse. Pt alert and oriented to name, mostly Trinidadian speaking. No s/s of pain at this time. Call arcos within reach.
[2020-01-06] MEDS: ATORVASTATIN 10 MG TAB PO SCH (21:00)
[2020-01-06] MEDS: INSULIN GLARGINE 100 UNITS/ML VIAL SQ SCH (21:00)
[2020-01-06] MEDS ORDERED: OXYCODONE/ACETAMINOPHEN 5-325 1 EACH TABLET PO PRN (22:45)
--- NOTE | 2020-01-06 23:41 | Discharge Summary ---
CHIEF COMPLAINT: Dyspnea. HISTORY OF PRESENT ILLNESS: The patient is a 69-year-old male, who was found to be COVID positive weeks prior to admission and sent to [facility], and then subsequently discharged sometime a week prior to arrival. He began feeling short of breath on 12/28. He uses 2 L of oxygen via nasal cannula at home, but was not using it because it dries out his nose. PAST MEDICAL HISTORY: Arthritis, atrial fibrillation, chronic systolic CHF, type 2 diabetes mellitus, hypothyroidism, hyperlipidemia, BPH, coronary artery disease, peripheral vascular disease, BPV. PAST SURGICAL HISTORY: Coronary artery bypass graft, cholecystectomy, mechanical mitral valve replacement, right AKA, AICD. FAMILY HISTORY: Mother had diabetes mellitus. SOCIAL HISTORY: Noncontributory. ALLERGIES: NO KNOWN ALLERGIES. ADMITTING DIAGNOSES: 1. Coronavirus disease-2019 pneumonia with septic shock. 2. Xiqzt-af-lcsttuf systolic congestive heart failure. 3. Atrial fibrillation with rapid ventricular rate. 4. Type 2 diabetes mellitus. 5. Hyperlipidemia. 6. Benign prostatic hypertrophy. 7. Hypothyroidism. DISCHARGE DIAGNOSES: 1. Viral community-acquired pneumonia due to coronavirus disease-2019 with superimposed bacterial pneumonia, present on admission. 2. Acute kidney injury, improved. 3. Chronic paroxysmal atrial fibrillation, currently with heart rate controlled. 4. Mixed systolic and diastolic congestive heart failure with hypotension, improved. 5. Mechanical mitral valve replacement in situ, current long-term use of anticoagulant (warfarin). 6. Moderate aortic stenosis. 7. Multidrug resistant extended spectrum beta-lactamases Escherichia coli urinary tract infection, status post sepsis, present on admission. 8. Mild acute hypokalemia, resolved. 9. Transaminitis. 10. Mild thrombocytopenia. 11. Hyperlipidemia. 12. Benign prostatic hypertrophy. 13. Hypothyroidism. When the patient came in, he required ICU care as he was on Levophed drip due to hypotension from sepsis. His diuretics were held due to the septic shock. He received amiodarone for the atrial fibrillation with RVR. His INR was carefully monitored and he was on warfarin due to his MVR. Levophed drip was eventually weaned off. On 12/30, his dyspnea was improving. His heart rate was 109, blood pressure 95/72, still on Levophed drip 10 mcg/minute. Oxygen at 3 L/minute. Kidney ultrasound showed small left renal cyst, otherwise it was negative. His hemoglobin A1c was 8.3%. On 12/28, coronavirus PCR detected. Chest x-ray had shown interval increase in bilateral multifocal airspace opacities. Lantus and sliding scale insulin were used to help control his hyperglycemia and diabetes. He was on digoxin and beta-flower due to AFib with RVR. Echocardiogram had shown left ventricular ejection fraction of 29%, moderate aortic stenosis, aortic valve area of 1.3 cm2, mechanical MVR well seated. Levophed was stopped on 01/01 with a blood pressure 101/46, MAP of 64, received additional albumin on 01/01. At that time, he was on 2 L of oxygen via nasal cannula with respiratory rate 23, oxygen saturation 97%. Per infectious Disease, the patient to be on Merrem for a total of 14 days for the urinary tract infection. He continued to improve and was transferred out of [facility] ICU to room 296 and appropriately downgraded. At that time, his INR was 1.64, hemoglobin 8.9, hematocrit 28.6, and platelets 146. Minimal complaints other than pain in his shoulders. Home oxygen evaluation was ordered. On 01/03, the home oxygen evaluation was completed and showed oxygen saturation at rest on room air was 87%, oxygen saturation with exertion on 3 L of oxygen via nasal cannula was 98%. On 01/03, his INR was stable at 2.54 and he was on warfarin 4 mg daily. The patient received azithromycin, Zyvox, and meropenem. Antibiotics during his stay, he will only be required to complete the Merrem post discharge via his PICC line. His right IJ triple-lumen central line was discontinued. On 01/04, his INR increased to 3.79 and his warfarin was held due to that increase. The patient's INR today, the day of discharge, 01/05 was 4.51. Thus, we will encourage him to hold his Coumadin again today. He can resume his home dose tomorrow. On 01/04, his heart rate was 107, blood pressure 116/73. He required an increase in his oxygen from 2 L/minute to 4 L/minute. Complaining of some mild joint pain at times. Had a loose stool, but otherwise no complaints. Today, per the nurse, the patient really does not want to be discharged home, as he has fear of contaminating his family with COVID-19. The patient suddenly has complaints of back pain. He did have a CT of the chest on 12/28, which showed bilateral lungs suspicious for multifocal pneumonia including viral and large right upper and lower paratracheal lymph nodes, likely reactive, moderate cardiomegaly, mild nodularity of the hepatic contour suggesting cirrhosis and in the bones and soft tissues section, no aggressive lytic or suspicious focal sclerotic lesions. Multilevel degenerative disk in the thoracic spine, worse at T9-T10, midline sternotomy wires, mild bilateral gynecomastia. The patient was given [place] 10 mg orally once, which seemed to help his pain. He was complaining of back pain 8/10 on a 0-10 pain scale, both at the top and the bottom. Given his DDD, the patient can resume his home medication of Percocet 5-325 mg tablets p.o. every 12 hours p.r.n. for severe pain. He takes Flomax for BPH. Levothyroxine for the hypothyroidism 125 mcg p.o. daily. He can continue his home Lantus for his diabetes. Continue amiodarone for paroxysmal atrial fibrillation. Home Health with Physical Therapy as well as DME, a Cornelius lift have been ordered. [facility] evaluation for home safety eval as well as medication education. DISCHARGE PRESCRIPTIONS: 1. P.r.n. Tylenol. 2. Vitamin C for a month. 3. Vitamin D for month. 4. Zinc sulfate for a month. 5. Ventolin HFA for cough. 6. Decadron 6 mg p.o. daily for a total of 10 days, as he is going home on home oxygen at 2 L/minute via nasal cannula. Today on the day of discharge, temperature 98.7, heart rate 71, blood pressure 119/65, respirations 20, oxygen saturation 99%. Sodium 144, potassium 3.9, chloride 106, CO2 31, BUN 15, creatinine 0.74, estimated GFR greater than 60, glucose 117. WBCs 9.54, hemoglobin 8.6, hematocrit 27.6, platelets 116. INR 4.51. Total bilirubin 1, AST 33, ALT 26, alkaline phosphatase 182. Case was discussed with Dr. Jeffries, Dr. Edwards, Dr. Cornejo, Brian SINGER, Cyndi Accelerator Operator, and the patient's son, Abe. Abe was reached via [phone]. The patient to follow up with his PCP, Dr Matty Campos as well as Dr. Edwards in one month. Continue ADA diet. Activity level as tolerated. Dictated by Antoni Estevez, SLURRY BLENDER MD JUDY Smith/ERICA /[id number]
[2020-01-07] VITALS (8 sets, daily range): BP systolic 109–138; BP diastolic 56–86
[2020-01-07] MEDS: MEROPENEM 1GM 100 ML IV SCH ×3 (05:57→22:00)
[2020-01-07] MEDS: LEVOTHYROXINE SODIUM 125 MCG TAB PO SCH (05:57)
--- NOTE | 2020-01-07 07:00 | NUR ---
PATIENT IS IN STABLE CONDITION WITH NO S/S OF RESPIRATORY DISTRESS-NO PAIN VOICED. TELEMETRY APPLIED. 02 APPLIED AT 4L NC. BED ALARM APPLIED. CALL LIGHT IS WITHIN REACH, PATIENT INSTRUCTED TO CALL FOR ASSISTANCE NEEDED.
[2020-01-07] MEDS: INSULIN LISPRO 100 UNIT/1 ML 3ML VIAL SQ SCH ×4 (07:30→21:52)
[2020-01-07] MEDS: AMIODARONE HCL 200 MG TAB PO SCH (08:26)
[2020-01-07] MEDS: LINEZOLID 600 MG/D5W 300ML 300 ML IV SCH (08:26)
[2020-01-07] MEDS: TAMSULOSIN HCL 0.4 MG CAP PO SCH (08:26)
[2020-01-07] MEDS: FAMOTIDINE 20 MG/2 ML VIAL IV SCH ×2 (08:26→17:00)
[2020-01-07] MEDS: ZINC SULFATE 220 MG CAP PO SCH (08:27)
[2020-01-07] MEDS: ASCORBIC ACID 500 MG TAB PO SCH ×2 (08:27→17:00)
[2020-01-07] MEDS: CHOLECALCIFEROL 400 UNIT TAB PO SCH ×2 (08:27→17:01)
[2020-01-07] MEDS: GABAPENTIN 300 MG CAP PO SCH (08:27)
[2020-01-07] MEDS: FINASTERIDE 5 MG TAB PO SCH (08:27)
[2020-01-07 09:38] LABS: PROTHROMBIN TIME 51.7 seconds (11.9-14.5)
[2020-01-07 09:39] LABS: INR 5.14
--- NOTE | 2020-01-07 10:02 | NUR ---
CALLED AND INFORM Payal JOLLY.Anay. OF CRITICAL PT OF 51.7 AND INR OF 5.14- NO NEW ORDERS RECEIVED.
[2020-01-07] MEDS ORDERED: PHYTONADIONE 10 MG/ML AMP SQ SCH (11:30)
--- NOTE | 2020-01-07 12:14 | NUR ---
[facility] NOT ABLE TO ACCEPT PT, FAXED CLINICALS TO [facility], THEY ARE ABLE TO ACCEPT COVID PTS AND ARE RUNNING THE BENEFITS TO SEE IF IN NETWORK. WILL LET KNOW WHEN ABLE TO ACCEPT OR DENY PT.
[2020-01-07] MEDS ORDERED: PHYTONADIONE 10 MG/ML AMP SC ONE (12:40)
[2020-01-07] MEDS ORDERED: TYLENOL WITH C1 EACH PO (12:41)
--- NOTE | 2020-01-07 13:20 | NUR ---
PT'S FAMILY DECIDED PT SHOULD GO TO SNF FOR ABX AND P.T. ORDERS FOR SNF EVAL AND TRANSFER NOTIFIED CARLA WITH CATHERINE TO CANCEL REFERRAL [facility] [place] AT [facility] WILL PROCEED WITH SNF
--- NOTE | 2020-01-07 13:29 | NUR ---
SPOKE WITH GISSEL SCOTT AND HE STATES [facility] IS OKAY COMPLETED CHOICE FORM FILED IN CHART AND FAXED CLINICALS TO BUILDING FOR REVIEW. COMPLETED PASRR AND RTF AND PUT WITH CHART
--- NOTE | 2020-01-07 15:25 | Progress Note ---
DATE: SUBJECTIVE: The patient is feeling better overall. He still needs IV antibiotics. The family decided against going home with home health and prefers [facility] facility. PHYSICAL EXAMINATION: VITAL SIGNS: Blood pressure is 137/77 and saturation is 92%. He is on 4 L. HEENT: Shows no facial swelling or erythema. CARDIAC: Reveals regular rate and rhythm with normal S1 and S2. LUNGS: Auscultation of lungs reveals rhonchorous breath sounds bilaterally. There is no wheezing. ABDOMEN: Soft and nontender. There is no rebound or guarding. EXTREMITIES: Shows no leg edema or calf tenderness. There is no cyanosis or clubbing. SKIN: Shows no rashes. NEUROLOGICAL: Shows no focal abnormalities. LABORATORY DATA: BUN to creatinine ratio is normal. The other electrolytes are within normal limits. Albumin is 2.4. IMPRESSION: 1. COVID-19 and viral pneumonia. 2. Extended-spectrum beta-lactamase producing Escherichia coli urinary tract infection. 3. Atrial fibrillation. 4. Chronic heart failure. PLAN: 1. The patient will go to SNF to complete IV antibiotics. 2. Physical therapy. 3. Continue oxygen. Shelton Cornejo MD [facility]/KEVIN[facility] /[id number]
--- NOTE | 2020-01-07 19:31 | NUR ---
PATIENT IS IN STABLE CONDITION WITH NO S/S OF RESPIRATORY DISTRESS-NO PAIN VOICED. TELEMETRY APPLIED. 02 APPLIED AT 4L NC. DIAPER APPLIED. BED ALARM APPLIED. CALL LIGHT IS WITHIN REACH, PATIENT INSTRUCTED TO CALL FOR ASSISTANCE NEEDED. REPORT GIVEN TO ONCOMING NURSE.
--- NOTE | 2020-01-07 19:35 | NUR ---
Completed shift report from morning nurse. Pt alert and oriented to name, lying in bed HOB 60 degrees. Denies pain at this time. Call arcos within reach.
[2020-01-07] MEDS: ATORVASTATIN 10 MG TAB PO SCH (21:00)
[2020-01-07] MEDS: INSULIN GLARGINE 100 UNITS/ML VIAL SQ SCH (21:52)
[2020-01-08] VITALS: BP 115/77
--- NOTE | 2020-01-08 05:50 | NUR ---
Blood drawn from right IJ, Pt tolerated well. No acute distress noted. O2 @3L NC. Call light within reach.
[2020-01-08] MEDS: LEVOTHYROXINE SODIUM 125 MCG TAB PO SCH (05:58)
[2020-01-08] MEDS: MEROPENEM 1GM 100 ML IV SCH ×3 (05:58→22:00)
[2020-01-08 06:03] LABS: BASOPHILS % 0.1 % (0.0-1.0); EOSINOPHILS # (AUTO) 0.1 (0.0-0.4); EOSINOPHILS % 1.3 % (0.0-6.0); HEMATOCRIT 27.6 % (38.2-49.6); HEMOGLOBIN 8.7 g/dL (14.0-18.0); LYMPHOCYTES # (AUTO) 1.1 (1.0-3.2); LYMPHOCYTES % 15.8 % (18.0-39.1); MEAN CORPUSCULAR HEMOGLOBIN 29.4 pg (28-32); MEAN CORPUSCULAR HGB CONC 31.5 g/dL (31-35); MEAN CORPUSCULAR VOLUME 93.2 fL (81-99); MONOCYTES # (AUTO) 0.4 (0.2-0.8); MONOCYTES % 5.6 % (4.4-11.3); NEUTROPHILS # (AUTO) 5.5 (2.1-6.9); NEUTROPHILS % 76.8 % (38.7-80.0); PLATELET COUNT 124 x10e3/uL (140-360); RED BLOOD COUNT 2.96 x10e6/uL (4.3-5.7); RED CELL DISTRIBUTION WIDTH 16.8 % (11.7-14.4)
[2020-01-08 06:19] LABS: INR 2.86; PROTHROMBIN TIME 32.2 seconds (11.9-14.5)
[2020-01-08 06:28] LABS: ALANINE AMINOTRANSFERASE 25 IU/L (0-55); ALBUMIN 2.3 g/dL (3.5-5.0); ALBUMIN/GLOBULIN RATIO 0.6 (0.8-2.0); ALKALINE PHOSPHATASE 206 IU/L (40-150); ANION GAP 10.2 mmol/L (8-16); BLOOD UREA NITROGEN 23 mg/dL (7-26); BUN/CREATININE RATIO 25 (6-25); CALCIUM 8.3 mg/dL (8.4-10.2); CARBON DIOXIDE 30 mmol/L (22-29); CHLORIDE 104 mmol/L (98-107); CREATININE, SERUM 0.92 mg/dL (0.72-1.25); EST GLOMERULAR FILTRATION RATE > 60 ML/MIN (60-); GLUCOSE 137 mg/dL (74-118); POTASSIUM 4.2 mmol/L (3.5-5.1); SODIUM 140 mmol/L (136-145)
--- NOTE | 2020-01-08 07:15 | NUR ---
PATIENT IS IN STABLE CONDITION WITH NO S/S OF RESPIRATORY DISTRESS. NO PAIN VOICED. TELEMETRY APPLIED. 02 APPLIED. PATIENT REPOSITION- BED ALARM APPLIED. CALL LIGHT IS WITHIN REACH, PATIENT INSTRUCTED TO CALL FOR ASSISTANCE NEEDED.
[2020-01-08] MEDS: INSULIN LISPRO 100 UNIT/1 ML 3ML VIAL SQ SCH ×4 (07:30→20:15)
[2020-01-08] MEDS: FAMOTIDINE 20 MG/2 ML VIAL IV SCH ×2 (08:01→17:08)
[2020-01-08] MEDS: ASCORBIC ACID 500 MG TAB PO SCH ×2 (08:06→17:08)
[2020-01-08] MEDS: GABAPENTIN 300 MG CAP PO SCH (08:06)
[2020-01-08] MEDS: AMIODARONE HCL 200 MG TAB PO SCH (08:06)
[2020-01-08] MEDS: CHOLECALCIFEROL 400 UNIT TAB PO SCH ×2 (08:06→17:08)
[2020-01-08] MEDS: TAMSULOSIN HCL 0.4 MG CAP PO SCH (08:06)
[2020-01-08] MEDS: FINASTERIDE 5 MG TAB PO SCH (08:06)
[2020-01-08] MEDS: ZINC SULFATE 220 MG CAP PO SCH (08:06)
[2020-01-08 08:30] VITALS: BP 127/94
[2020-01-08 10:19] VITALS: BP 127/94
[2020-01-08 12:00] VITALS: BP 133/65
[2020-01-08] MEDS: WARFARIN SOD 2 MG TAB PO SCH (17:08)
--- NOTE | 2020-01-08 19:15 | NUR ---
PATIENT IS IN STABLE CONDITION WITH NO S/S OF RESPIRATORY DISTRESS-NO PAIN VOICED. TELEMETRY APPLIED. 02 APPLIED AT 2L NC. DIAPER APPLIED. CALL LIGHT IS WITHIN REACH, PATIENT INSTRUCTED TO CALL FOR ASSISTANCE NEEDED. REPORT GIVEN TO ONCOMING NURSE.
--- NOTE | 2020-01-08 19:20 | NUR ---
Patient visited in room during nursing rounds. On droplet isolation for positive covid test. Alert and oriented x3. On bedrest and has a right AKA. A-fib on telemetry reading. Pt on IV antibiotic treatment (IV Merrem) as scheduled. Call arcos within reach. Will monitor pt closely.
--- NOTE | 2020-01-08 19:21 | NUR ---
Pt 98% O2 saturation on 2L NC.
--- NOTE | 2020-01-08 19:50 | Progress Note ---
DATE: SUBJECTIVE: The patient's family has decided again on SNF. He is still receiving the IV antibiotics. PHYSICAL EXAMINATION: VITAL SIGNS: The patient is afebrile. The blood pressure is 133/65, saturation is 97%. He is on 4 L. HEENT: Shows no facial swelling or erythema. CARDIAC: Reveals regular rate and rhythm. Normal S1, S2. LUNGS: Auscultation of lungs reveals clear breath sounds bilaterally. There is no wheezing. ABDOMEN: Soft, nontender. There is no rebound or guarding. LABORATORY DATA: Hemoglobin is 8.7. White blood cell count and platelet count are normal. BUN to creatinine ratio is normal. Albumin is 2.3. IMPRESSION: 1. Viral pneumonia and COVID-19 infection. 2. Extended spectrum beta-lactamase producing Escherichia coli with urinary tract infection. 3. Atrial fibrillation. 4. Chronic heart failure. PLAN: 1. [facility] 2. Physical therapy. 3. Oxygen. 4. Complete IV antibiotics. Shelton Cornejo MD [facility] /[id number]
[2020-01-08 20:09] VITALS: BP 127/75
[2020-01-08] MEDS: INSULIN GLARGINE 100 UNITS/ML VIAL SQ SCH (20:15)
[2020-01-08] MEDS: ATORVASTATIN 10 MG TAB PO SCH (20:15)
[2020-01-08 21:00] VITALS: BP 127/75
[2020-01-09] VITALS (8 sets, daily range): BP systolic 103–137; BP diastolic 45–90
--- NOTE | 2020-01-09 00:15 | NUR ---
Patient given a bed bath. Pt tolerated bath well. Diaper and linens were changed. Pt appear comfortable at this time.
[2020-01-09] MEDS: MEROPENEM 1GM 100 ML IV SCH ×3 (06:25→22:00)
[2020-01-09] MEDS: LEVOTHYROXINE SODIUM 125 MCG TAB PO SCH (06:25)
[2020-01-09] MEDS: INSULIN LISPRO 100 UNIT/1 ML 3ML VIAL SQ SCH ×4 (07:30→20:15)
[2020-01-09] MEDS: FAMOTIDINE 20 MG/2 ML VIAL IV SCH ×2 (09:21→16:32)
[2020-01-09] MEDS: ASCORBIC ACID 500 MG TAB PO SCH ×2 (09:22→16:33)
[2020-01-09] MEDS: CHOLECALCIFEROL 400 UNIT TAB PO SCH ×2 (09:22→16:33)
[2020-01-09] MEDS: GABAPENTIN 300 MG CAP PO SCH (09:22)
[2020-01-09] MEDS: TAMSULOSIN HCL 0.4 MG CAP PO SCH (09:22)
[2020-01-09] MEDS: ZINC SULFATE 220 MG CAP PO SCH (09:22)
[2020-01-09] MEDS: AMIODARONE HCL 200 MG TAB PO SCH (09:22)
[2020-01-09] MEDS: FINASTERIDE 5 MG TAB PO SCH (09:22)
--- NOTE | 2020-01-09 09:42 | Progress Note ---
DATE: SUBJECTIVE: The patient is seen and evaluated. Available labs and notes reviewed. Discussed with staff. Discussed with Dr. Edwards. Please refer to chart for more information. REVIEW OF SYSTEMS: No nausea, vomiting, fever, chills, chest pain, or shortness of breath. MEDICATIONS: Reviewed. From ID point of view, the patient is on meropenem. LABORATORY STUDIES: No new CBC or BMP available. MICROBIOLOGY: No new microbiology studies available. RADIOLOGY: No new radiology studies available. PHYSICAL EXAMINATION: VITAL SIGNS: Temperature 98.3, pulse 97, respirations 20, blood pressure 137/82. The patient remains on 2 L of nasal cannula with a saturation of 94-98%. GENERAL: Alert and oriented, no acute distress. CV: S1-S2. CHEST: Equal expansion. No acute distress. ABDOMEN: Soft, obese, nontender. HEENT: Moist. No pallor. No JVD. EXTREMITIES: Old right AKA. ASSESSMENT AND PLAN: 1. Coronavirus disease-19 pneumonia. 2. Extended-spectrum beta-lactamases urinary tract infection. 3. Pyelonephritis. 4. Diabetes mellitus. 5. Obesity. 6. Debility with old right above-knee amputation. Plan for meropenem for 14 days. Continue with zinc, vitamin C, and vitamin D. Plan for SNF in progress. Continue to monitor the patient clinically, follow up with the labs. Please refer to chart for more information. Dictated by Reddy Cooper PA-C (Al) Jd Edwards MD /MODL /[id number]
--- NOTE | 2020-01-09 13:34 | Progress Note ---
DATE: SUBJECTIVE: The patient is still complaining of fatigue. PHYSICAL EXAMINATION: VITAL SIGNS: The blood pressure is 110/45 and the saturation is 95% on a nasal cannula. HEENT: No facial swelling or erythema. CARDIAC: Regular rate and rhythm with a normal S1, S2. There are no murmurs or rubs. LUNGS: Auscultation of lungs reveals rhonchi bilaterally. There is no wheezing. ABDOMEN: Soft, nontender. There is no rebound or guarding. EXTREMITIES: No leg edema or calf tenderness. IMPRESSION: 1. Escherichia coli urinary tract infection. 2. Viral pneumonia and coronavirus disease-19 infection. 3. Diabetes. 4. Obesity. PLAN: 1. Complete course of meropenem. 2. Arrangements now being made for SNF placement. 3. Wean oxygen. 4. Physical therapy. Shelton Cornejo MD [facility] /[id number]
[2020-01-09] MEDS: WARFARIN SOD 2 MG TAB PO SCH (16:33)
--- NOTE | 2020-01-09 19:15 | NUR ---
Patient visited in room during nursing rounds. On droplet isolation for positive covid test. Alert and oriented x3. On bedrest and has a right AKA. A-fib on telemetry reading. Pt on IV antibiotic treatment (IV Merrem) as scheduled. O2 sat 95%-99% on 2L NC. Pt diapered and assisted to use urinal prn. Call arcos within reach. Will monitor pt closely.
[2020-01-09] MEDS: INSULIN GLARGINE 100 UNITS/ML VIAL SQ SCH (20:15)
[2020-01-09] MEDS: ATORVASTATIN 10 MG TAB PO SCH (20:15)
[2020-01-10] VITALS (7 sets, daily range): BP systolic 114–142; BP diastolic 65–92
[2020-01-10] MEDS: MEROPENEM 1GM 100 ML IV SCH ×3 (05:30→22:07)
[2020-01-10] MEDS: LEVOTHYROXINE SODIUM 125 MCG TAB PO SCH (05:30)
[2020-01-10 06:00] LABS: BASOPHILS % 0.3 % (0.0-1.0); EOSINOPHILS # (AUTO) 0.2 (0.0-0.4); EOSINOPHILS % 2.7 % (0.0-6.0); HEMATOCRIT 26.4 % (38.2-49.6); HEMOGLOBIN 8.5 g/dL (14.0-18.0); LYMPHOCYTES # (AUTO) 0.9 (1.0-3.2); LYMPHOCYTES % 11.1 % (18.0-39.1); MEAN CORPUSCULAR HGB CONC 32.2 g/dL (31-35); MEAN CORPUSCULAR VOLUME 96.4 fL (81-99); MONOCYTES # (AUTO) 0.8 (0.2-0.8); MONOCYTES % 10.7 % (4.4-11.3); NEUTROPHILS # (AUTO) 5.7 (2.1-6.9); NEUTROPHILS % 74.8 % (38.7-80.0); PLATELET COUNT 144 x10e3/uL (140-360); RED BLOOD COUNT 2.74 x10e6/uL (4.3-5.7); RED CELL DISTRIBUTION WIDTH 18.8 % (11.7-14.4)
[2020-01-10 06:04] LABS: ALANINE AMINOTRANSFERASE 27 IU/L (0-55); ALBUMIN 2.6 g/dL (3.5-5.0); ALBUMIN/GLOBULIN RATIO 0.6 (0.8-2.0); ALKALINE PHOSPHATASE 270 IU/L (40-150); ANION GAP 10.2 mmol/L (8-16); BLOOD UREA NITROGEN 18 mg/dL (7-26); BUN/CREATININE RATIO 24 (6-25); CALCIUM 8.6 mg/dL (8.4-10.2); CARBON DIOXIDE 31 mmol/L (22-29); CHLORIDE 105 mmol/L (98-107); CREATININE, SERUM 0.76 mg/dL (0.72-1.25); EST GLOMERULAR FILTRATION RATE > 60 ML/MIN (60-); GLUCOSE 129 mg/dL (74-118); POTASSIUM 4.2 mmol/L (3.5-5.1); SODIUM 142 mmol/L (136-145)
[2020-01-10] MEDS: INSULIN LISPRO 100 UNIT/1 ML 3ML VIAL SQ SCH ×4 (08:42→21:00)
[2020-01-10] MEDS: CHOLECALCIFEROL 400 UNIT TAB PO SCH ×2 (08:44→17:37)
[2020-01-10] MEDS: ZINC SULFATE 220 MG CAP PO SCH (08:44)
[2020-01-10] MEDS: AMIODARONE HCL 200 MG TAB PO SCH (08:44)
[2020-01-10] MEDS: FINASTERIDE 5 MG TAB PO SCH (08:44)
[2020-01-10] MEDS: TAMSULOSIN HCL 0.4 MG CAP PO SCH (08:44)
[2020-01-10] MEDS: FAMOTIDINE 20 MG/2 ML VIAL IV SCH ×2 (08:44→17:35)
[2020-01-10] MEDS: ASCORBIC ACID 500 MG TAB PO SCH ×2 (08:44→17:37)
--- NOTE | 2020-01-10 09:00 | NUR ---
telemetry notified me of patient's heart rate in 130's. ordered meds given. lopressor noted to be on hold. will notify attending for orders.
--- NOTE | 2020-01-10 10:39 | NUR ---
CALLED [facility] AND SPOKE WITH ABDOUL TO CHECK ON AUTH. [phone]. SHE FORWARDED TO AUTH TEAM THEY STATE THE PT WAS NOT SUBMITTED WITH AN EXPEDITE STATUS SO IT CAN TAKE UP TO 14 DAYS TO GET AUTH. ON HOLD TO BE TRANSFERRED FOR 59 MINUTES AND CUT OFF. LET FACILITY KNOW WHAT I WAS TOLD ABOUT THE REFERRAL NOT BEING IN EXPEDITED STATUS.
--- NOTE | 2020-01-10 10:50 | Progress Note ---
DATE: SUBJECTIVE: The patient is seen and evaluated. Available labs and notes reviewed. Discussed with staff. The patient remains on 3 L of oxygen with saturation of 93% at the minimum, however, it is documented at 4 L of nasal cannula, also complaining of loose bowel movement. Otherwise, no nausea, vomiting, fever, chills, chest pain, or shortness of breath. MEDICATIONS: The patient is on Merrem, vitamin C, zinc sulfate, vitamin D, and amiodarone. LABORATORY STUDIES: White count of 7.66, hemoglobin 8.5, and platelet 144. Sodium 142, potassium 4.2, and creatinine 0.76. Coronavirus PCR was not detected on 12/29/2019. RADIOLOGY STUDIES: No new radiology studies available. PHYSICAL EXAMINATION: VITAL SIGNS: Temperature 98.2, pulse 132, respirations 30, and blood pressure 121/88. Discussed with the nurse. Apparently, oxygen was raised up to 4 L later on because of respiratory rate and heart rate, which has improved now. GENERAL: Alert and oriented, no acute distress. Responds very appropriately. CV: S1-S2. CHEST: Equal expansion. Decreased breath sounds. No acute distress. ABDOMEN: Obese, soft, nontender. HEENT: Moist. No pallor. No JVD. EXTREMITIES: Old right above-knee amputation. Moves all extremities. ASSESSMENT AND PLAN: 1. Coronavirus disease-19 pneumonia. 2. Extended-spectrum beta-lactamases urinary tract infection. 3. Pyelonephritis. 4. Diabetes. 5. Obesity. 6. Old right above-knee amputation. The patient is on 4 L of oxygen at home. Raised his oxygen two 4 this morning. Remains on Merrem to complete a total of 14 days. Continue with vitamin C, zinc, and vitamin D. Possibly transfer to SNF. Clinically, no acute distress. We will add Questran for loose bowel movement. Please refer to chart for more information. Dictated by Reddy Cooper PA-C (Al) Jd Edwards MD /MODL /[id number]
[2020-01-10] MEDS: CHOLESTYRAMINE 4 GM PACKET PO SCH (12:42)
[2020-01-10 13:45] LABS: INR 2.01; PROTHROMBIN TIME 24.2 seconds (11.9-14.5)
--- NOTE | 2020-01-10 17:00 | NUR ---
attempted to sit patient on side of bed to eat dinner per patient request. patient's heart rate immediately goes up to 140's once exerting himself with physical activity assisted back in bed and pulled up for dinner. heart rate does come back to 110's quickly. attending aware orders placed.
--- NOTE | 2020-01-10 17:16 | Progress Note ---
DATE: SUBJECTIVE: The patient is still awaiting placement at [facility]. No new issues. PHYSICAL EXAMINATION: VITAL SIGNS: The blood pressure is 135/88, saturation is 97% on 4 L. HEENT: Shows no facial swelling or erythema. CARDIAC: Reveals regular rate and rhythm with normal S1, S2. LUNGS: Auscultation of lungs shows clear breath sounds bilaterally. There is no wheezing. ABDOMEN: Soft, nontender. There is no rebound or guarding. EXTREMITIES: Shows no leg edema or calf tenderness. There is no cyanosis or clubbing. There is an nzvnx-kvc-zgny amputation on one side. IMPRESSION: 1. Escherichia coli urinary tract infection. 2. Viral pneumonia and COVID-19 infection. 3. Diabetes. 4. Obesity. PLAN: 1. Complete course of meropenem. 2. SNF placement. 3. Physical therapy. 4. Oxygen. MD KATE Banegas/ERICA /[id number]
[2020-01-10] MEDS: WARFARIN SOD 2 MG TAB PO SCH (17:35)
--- NOTE | 2020-01-10 19:29 | NUR ---
received report from day nurse. patient is resting comfortably in the bed. bed is in lowest position and call light is within reach. will continue to monitor patient.
[2020-01-10] MEDS ORDERED: SODIUM CHLORIDE 0.9% 250ML 250 ML ONE (20:35)
[2020-01-10] MEDS: INSULIN GLARGINE 100 UNITS/ML VIAL SQ SCH (21:00)
[2020-01-10] MEDS: METOPROLOL TARTRATE 25 MG TAB PO SCH (22:06)
[2020-01-10] MEDS: ATORVASTATIN 10 MG TAB PO SCH (22:06)
[2020-01-11] VITALS (10 sets, daily range): BP systolic 107–164; BP diastolic 59–147
[2020-01-11 04:39] LABS: BASOPHILS % 0.2 % (0.0-1.0); EOSINOPHILS # (AUTO) 0.2 (0.0-0.4); EOSINOPHILS % 1.7 % (0.0-6.0); HEMATOCRIT 27.8 % (38.2-49.6); HEMOGLOBIN 8.5 g/dL (14.0-18.0); LYMPHOCYTES # (AUTO) 0.9 (1.0-3.2); LYMPHOCYTES % 10.1 % (18.0-39.1); MEAN CORPUSCULAR HEMOGLOBIN 28.7 pg (28-32); MEAN CORPUSCULAR HGB CONC 30.6 g/dL (31-35); MEAN CORPUSCULAR VOLUME 93.9 fL (81-99); MONOCYTES % 11.7 % (4.4-11.3); NEUTROPHILS # (AUTO) 6.7 (2.1-6.9); NEUTROPHILS % 75.8 % (38.7-80.0); PLATELET COUNT 198 x10e3/uL (140-360); RED BLOOD COUNT 2.96 x10e6/uL (4.3-5.7)
[2020-01-11 04:57] LABS: ALANINE AMINOTRANSFERASE 26 IU/L (0-55); ALBUMIN 2.6 g/dL (3.5-5.0); ALBUMIN/GLOBULIN RATIO 0.6 (0.8-2.0); ALKALINE PHOSPHATASE 244 IU/L (40-150); ANION GAP 11.3 mmol/L (8-16); BLOOD UREA NITROGEN 12 mg/dL (7-26); BUN/CREATININE RATIO 20 (6-25); CALCIUM 8.8 mg/dL (8.4-10.2); CARBON DIOXIDE 31 mmol/L (22-29); CHLORIDE 106 mmol/L (98-107); CREATININE, SERUM 0.61 mg/dL (0.72-1.25); EST GLOMERULAR FILTRATION RATE > 60 ML/MIN (60-); GLUCOSE 125 mg/dL (74-118); POTASSIUM 4.3 mmol/L (3.5-5.1); SODIUM 144 mmol/L (136-145)
[2020-01-11] MEDS: LEVOTHYROXINE SODIUM 125 MCG TAB PO SCH (05:20)
[2020-01-11] MEDS: MEROPENEM 1GM 100 ML IV SCH ×3 (05:20→21:51)
[2020-01-11 06:34] LABS: INR 2.44; PROTHROMBIN TIME 28.3 seconds (11.9-14.5)
--- NOTE | 2020-01-11 07:00 | NUR ---
RECEIVED REPORT FROM PM RN. PT IS ALERT RESTING IN BED, NO S/S OF DISTRESS. PT'S DIAPER WAS CHANGED. CALL LIGHT WITHIN REACH AND INSTRUCTED PT TO CALL RN FOR HELP
--- NOTE | 2020-01-11 07:04 | NUR ---
change of shift report given to day nurse.
[2020-01-11] MEDS: CHOLECALCIFEROL 400 UNIT TAB PO SCH ×2 (08:55→17:20)
[2020-01-11] MEDS: ASCORBIC ACID 500 MG TAB PO SCH ×2 (08:55→17:20)
[2020-01-11] MEDS: METOPROLOL TARTRATE 25 MG TAB PO SCH ×2 (08:55→21:50)
[2020-01-11] MEDS: ZINC SULFATE 220 MG CAP PO SCH (08:55)
[2020-01-11] MEDS: FAMOTIDINE 20 MG/2 ML VIAL IV SCH ×2 (08:55→17:20)
[2020-01-11] MEDS: AMIODARONE HCL 200 MG TAB PO SCH (08:55)
[2020-01-11] MEDS: TAMSULOSIN HCL 0.4 MG CAP PO SCH (08:55)
[2020-01-11] MEDS: FINASTERIDE 5 MG TAB PO SCH (08:55)
[2020-01-11] MEDS: INSULIN LISPRO 100 UNIT/1 ML 3ML VIAL SQ SCH ×4 (09:44→21:58)
[2020-01-11] MEDS: CHOLESTYRAMINE 4 GM PACKET PO SCH ×2 (09:51→17:00)
--- NOTE | 2020-01-11 10:43 | NUR ---
Estephanie Krause, ABBEY making rounds. pt will go home on Monday after last antibiotic is complete. AUTOMATION SOFTWARE ENGINEER spoke with family
--- NOTE | 2020-01-11 13:54 | Diagnostic Imaging Report ---
EXAMINATION: CHEST SINGLE (PORTABLE) INDICATION: pneumonia COMPARISON: Multiple prior chest x-ray examinations most recent dated 01/02/2020. FINDINGS: AP view TUBES and LINES: There is a right IJ central venous catheter with distal tip in SVC. The pacemaker is intact. Median sternotomy wires are seen. LUNGS/PLEURA: There are bilateral patchy opacities compatible with multifocal pneumonia.. There is increased right basilar opacity likely due to effusion or atelectasis. HEART AND MEDIASTINUM: Status post valve replacement. The cardiomediastinal silhouette is unremarkable. BONES AND SOFT TISSUES: No acute osseous lesion. Soft tissues are unremarkable. UPPER ABDOMEN: No free air under the diaphragm. IMPRESSION: Unchanged bilateral patchy opacities compatible with multifocal pneumonia. Increased right basilar opacity likely due to effusion or atelectasis. Signed by: Reddy Jackson MD on 01/11/2020 1:51 PM
[2020-01-11] MEDS: WARFARIN SOD 2 MG TAB PO SCH (17:20)
--- NOTE | 2020-01-11 17:47 | Progress Note ---
DATE: SUBJECTIVE: The patient gets short of breath with movement, but is now on 3 L. He still complains of some weakness. He has no chest pain. He has no nausea or vomiting. PHYSICAL EXAMINATION: VITAL SIGNS: Blood pressure is 133/60, saturation is 96% on 3 L. HEENT: No facial swelling or erythema. CARDIAC: Regular rate and rhythm with normal S1, S2. There are no murmurs or rubs. LUNGS: Auscultation of lungs shows decreased breath sounds at the bases. There is no wheezing. ABDOMEN: Soft, nontender. There is no rebound or guarding. EXTREMITIES: An vqimf-eea-czze amputation on the left side. LABORATORY DATA: Hemoglobin is 8.5. Platelet count and white blood cell count are normal. BUN to creatinine ratio is normal. Electrolytes are normal. Albumin is 2.6. IMPRESSION: 1. Viral pneumonia coronavirus disease-19 infection. 2. Escherichia coli urinary tract infection. 3. Diabetes. 4. Obesity. PLAN: 1. Complete antibiotics. 2. Continue oxygen. 3. Physical therapy. Shelton Cornejo MD [facility] /[id number]
[2020-01-11] MEDS: ATORVASTATIN 10 MG TAB PO SCH (21:50)
[2020-01-11] MEDS: INSULIN GLARGINE 100 UNITS/ML VIAL SQ SCH (21:52)
[2020-01-12] VITALS (8 sets, daily range): BP systolic 106–145; BP diastolic 60–90
[2020-01-12] MEDS: MEROPENEM 1GM 100 ML IV SCH ×3 (05:12→20:25)
[2020-01-12] MEDS: LEVOTHYROXINE SODIUM 125 MCG TAB PO SCH (05:12)
[2020-01-12 05:47] LABS: BASOPHILS % 0.4 % (0.0-1.0); EOSINOPHILS # (AUTO) 0.3 (0.0-0.4); EOSINOPHILS % 2.4 % (0.0-6.0); HEMATOCRIT 26.2 % (38.2-49.6); HEMOGLOBIN 8.2 g/dL (14.0-18.0); MEAN CORPUSCULAR HGB CONC 31.3 g/dL (31-35); MONOCYTES # (AUTO) 1.5 (0.2-0.8); MONOCYTES % 14.2 % (4.4-11.3); NEUTROPHILS # (AUTO) 7.5 (2.1-6.9); NEUTROPHILS % 72.6 % (38.7-80.0); PLATELET COUNT 201 x10e3/uL (140-360); RED BLOOD COUNT 2.73 x10e6/uL (4.3-5.7); RED CELL DISTRIBUTION WIDTH 17.8 % (11.7-14.4)
[2020-01-12 06:14] LABS: ALANINE AMINOTRANSFERASE 22 IU/L (0-55); ALBUMIN 2.6 g/dL (3.5-5.0); ALBUMIN/GLOBULIN RATIO 0.6 (0.8-2.0); ALKALINE PHOSPHATASE 224 IU/L (40-150); ANION GAP 8.9 mmol/L (8-16); BLOOD UREA NITROGEN 10 mg/dL (7-26); BUN/CREATININE RATIO 16 (6-25); CALCIUM 8.7 mg/dL (8.4-10.2); CARBON DIOXIDE 33 mmol/L (22-29); CHLORIDE 106 mmol/L (98-107); CREATININE, SERUM 0.63 mg/dL (0.72-1.25); EST GLOMERULAR FILTRATION RATE > 60 ML/MIN (60-); GLUCOSE 74 mg/dL (74-118); POTASSIUM 3.9 mmol/L (3.5-5.1); SODIUM 144 mmol/L (136-145)
[2020-01-12 06:42] LABS: INR 3.52; PROTHROMBIN TIME 38.1 seconds (11.9-14.5)
--- NOTE | 2020-01-12 07:00 | NUR ---
received report from pm RN. pt is sleeping in bed, no s/s of distress. call light within reach
--- NOTE | 2020-01-12 07:02 | NUR ---
report given to day nurse.
[2020-01-12] MEDS: INSULIN LISPRO 100 UNIT/1 ML 3ML VIAL SQ SCH ×4 (07:30→20:25)
[2020-01-12] MEDS: FINASTERIDE 5 MG TAB PO SCH (08:12)
[2020-01-12] MEDS: ZINC SULFATE 220 MG CAP PO SCH (08:12)
[2020-01-12] MEDS: CHOLECALCIFEROL 400 UNIT TAB PO SCH ×2 (08:12→16:50)
[2020-01-12] MEDS: ASCORBIC ACID 500 MG TAB PO SCH ×2 (08:12→16:50)
[2020-01-12] MEDS: METOPROLOL TARTRATE 25 MG TAB PO SCH ×2 (08:12→20:24)
[2020-01-12] MEDS: FAMOTIDINE 20 MG/2 ML VIAL IV SCH ×2 (08:12→16:50)
[2020-01-12] MEDS: AMIODARONE HCL 200 MG TAB PO SCH (08:12)
[2020-01-12] MEDS: CHOLESTYRAMINE 4 GM PACKET PO SCH ×2 (08:12→15:56)
[2020-01-12] MEDS: TAMSULOSIN HCL 0.4 MG CAP PO SCH (08:12)
--- NOTE | 2020-01-12 09:29 | NUR ---
pt called and stated that he "needed air" pt is in stable condition and receiving oxygen via nasal cannula. o2 sat WNL. no SOB and resp non-labored. pt accused staff of not checking on him for 3 hours, pt reassured that staff has been in the room multiple times this morning.
[2020-01-12] MEDS: WARFARIN SOD 1 MG TAB PO SCH (16:50)
--- NOTE | 2020-01-12 17:41 | Progress Note ---
DATE: SUBJECTIVE: The patient should complete his antibiotics tomorrow. He is not having fever or pain. PHYSICAL EXAMINATION: VITAL SIGNS: Blood pressure is 145/76 and saturation is 97% on 3 L. CARDIAC: Reveals regular rate and rhythm with normal S1, S2. LUNGS: Auscultation of lungs shows clear breath sounds bilaterally. There is no wheezing. ABDOMEN: Soft and nontender. There is no rebound or guarding. EXTREMITIES: Shows no leg edema. There is an ptqgb-goq-hace amputation on one side. IMPRESSION: 1. Pneumonia and COVID-19 infection. 2. Escherichia coli urinary tract infection. 3. Diabetes. 4. Obesity. PLAN: 1. Complete antibiotics. 2. Oxygen evaluation. 3. Physical therapy. 4. Probable discharge home tomorrow. Patient should be on low-dose Eliquis for one month. Shelton Cornejo MD [facility] /[id number]
[2020-01-12] MEDS: ATORVASTATIN 10 MG TAB PO SCH (20:24)
[2020-01-12] MEDS: INSULIN GLARGINE 100 UNITS/ML VIAL SQ SCH (20:25)
[2020-01-13] VITALS (8 sets, daily range): BP systolic 112–147; BP diastolic 65–95
--- NOTE | 2020-01-13 05:14 | NUR ---
patients heart rate is sustained at 176 beats. spoke with set up mold technician. received order for one time dose Lopressor 50mg po. Also received order to increase lopressor to 50mg po Q12 hours.
[2020-01-13] MEDS ORDERED: METOPROLOL TARTRATE 50 MG TAB PO ONE (05:15)
--- NOTE | 2020-01-13 05:30 | NUR ---
patients heart rate is still sustained at 176. patient is in distress using accessory muscles to breathe. patient is on 6L oxygen via the nasal cannula oxygen saturation is 97%. Rapid response initiated. Rapid response team managed to stabilize patients heart rate. Attending MAJOR LEAGUE BASEBALL PLAYER notified via telephone, no new orders received. Quality Director notified of rapid response, no new orders received. patient is resting in bed, bed is in lowest position and call light is within reach.
[2020-01-13] MEDS ORDERED: DILTIAZEM HCL VIAL 5 ML ONE (06:01)
[2020-01-13 06:04] LABS: BASOPHILS # (AUTO) 0.1 (0.0-0.1); BASOPHILS % 0.5 % (0.0-1.0); EOSINOPHILS # (AUTO) 0.2 (0.0-0.4); EOSINOPHILS % 1.1 % (0.0-6.0); HEMATOCRIT 29.7 % (38.2-49.6); LYMPHOCYTES # (AUTO) 1.6 (1.0-3.2); LYMPHOCYTES % 10.9 % (18.0-39.1); MEAN CORPUSCULAR HEMOGLOBIN 28.9 pg (28-32); MEAN CORPUSCULAR HGB CONC 30.3 g/dL (31-35); MEAN CORPUSCULAR VOLUME 95.5 fL (81-99); MONOCYTES # (AUTO) 2.1 (0.2-0.8); MONOCYTES % 13.9 % (4.4-11.3); NEUTROPHILS # (AUTO) 10.9 (2.1-6.9); NEUTROPHILS % 72.9 % (38.7-80.0); PLATELET COUNT 301 x10e3/uL (140-360); RED BLOOD COUNT 3.11 x10e6/uL (4.3-5.7); RED CELL DISTRIBUTION WIDTH 17.3 % (11.7-14.4)
[2020-01-13 06:15] LABS: INR 4.22
[2020-01-13] MEDS: LEVOTHYROXINE SODIUM 125 MCG TAB PO SCH (06:17)
[2020-01-13] MEDS: MEROPENEM 1GM 100 ML IV SCH (06:17)
[2020-01-13 06:30] LABS: PROTHROMBIN TIME 44.1 seconds (11.9-14.5)
[2020-01-13 06:32] LABS: ALANINE AMINOTRANSFERASE 25 IU/L (0-55); ALBUMIN/GLOBULIN RATIO 0.6 (0.8-2.0); ALKALINE PHOSPHATASE 268 IU/L (40-150); ANION GAP 14.4 mmol/L (8-16); BLOOD UREA NITROGEN 11 mg/dL (7-26); BUN/CREATININE RATIO 15 (6-25); CALCIUM 9.2 mg/dL (8.4-10.2); CARBON DIOXIDE 30 mmol/L (22-29); CHLORIDE 105 mmol/L (98-107); CREATININE, SERUM 0.72 mg/dL (0.72-1.25); EST GLOMERULAR FILTRATION RATE > 60 ML/MIN (60-); GLUCOSE 72 mg/dL (74-118); POTASSIUM 4.4 mmol/L (3.5-5.1); SODIUM 145 mmol/L (136-145)
--- NOTE | 2020-01-13 06:52 | NUR ---
RECEIVED BEDSIDE SHIFT REPORT FROM OFF GOING NURSE. PATIENT IS RESTING IN BED. NO ACUTE DISTRESS NOTED AT THIS TIME. CALL LIGHT WITHIN REACH. BED IN THE LOWEST POSITION.
--- NOTE | 2020-01-13 07:15 | NUR ---
report given to day nurse.
[2020-01-13] MEDS: INSULIN LISPRO 100 UNIT/1 ML 3ML VIAL SQ SCH ×4 (07:30→21:00)
--- NOTE | 2020-01-13 07:41 | NUR ---
infectious disease progress note Patient seen and examined chart reviewed Patient with no new complaints Discussed with the medical team Late entry for 01/12/2020 The patient should complete his antibiotics tomorrow. He is not having fever or pain. PHYSICAL EXAMINATION: VITAL SIGNS: Blood pressure is 145/76 and saturation is 97% on 3 L. CARDIAC: Reveals regular rate and rhythm with normal S1, S2. LUNGS: Auscultation of lungs shows clear breath sounds bilaterally. There is no wheezing. ABDOMEN: Soft and nontender. There is no rebound or guarding. EXTREMITIES: Shows no leg edema. There is an [id number]-[id number] amputation on one side. IMPRESSION: 1. Pneumonia and COVID-19 infection. 2. Escherichia coli urinary tract infection. 3. Diabetes. 4. Obesity. PLAN: 1. Complete antibiotics. 2. Oxygen evaluation. 3. Physical therapy. 4. Probable discharge home tomorrow. Patient should be on low-dose Eliquis for one month.
--- NOTE | 2020-01-13 08:11 | Diagnostic Imaging Report ---
Examination: Single AP view of the chest. COMPARISON: Portable chest 01/11/2020 INDICATION: Shortness of breath, COVID. IMPRESSION: 1. Lines and Tubes: Unchanged right IJ central line and left upper chest cardiac device. 2. No interval change in diffuse bilateral interstitial alveolar opacities consistent with multifocal pneumonia. No change in right mid lung and basal consolidation, which may reflect pneumonia and/or effusion. 3. Enlarged cardiac silhouette. Pulmonary vasculature is obscured. 4. No acute bony abnormalities. Signed by: Dr. Giuliano Cerrato M.D. on 01/13/2020 8:08 AM
[2020-01-13] MEDS: FINASTERIDE 5 MG TAB PO SCH (08:38)
[2020-01-13] MEDS: AMIODARONE HCL 200 MG TAB PO SCH (08:38)
[2020-01-13] MEDS: TAMSULOSIN HCL 0.4 MG CAP PO SCH (08:38)
[2020-01-13] MEDS: ASCORBIC ACID 500 MG TAB PO SCH ×2 (08:38→16:11)
[2020-01-13] MEDS: CHOLECALCIFEROL 400 UNIT TAB PO SCH ×2 (08:38→16:11)
[2020-01-13] MEDS: FAMOTIDINE 20 MG/2 ML VIAL IV SCH ×2 (08:38→16:11)
[2020-01-13] MEDS: ZINC SULFATE 220 MG CAP PO SCH (08:38)
[2020-01-13] MEDS: CHOLESTYRAMINE 4 GM PACKET PO SCH ×2 (08:38→16:11)
[2020-01-13 09:14] LABS: EOSINOPHILS % (MANUAL) 1 % (0-7); LYMPHOCYTES % (MANUAL) 9 % (19-48); MONOCYTES % (MANUAL) 7 % (3.4-9.0); NEUTROPHILS % (MANUAL) 82 % (40-74); OVALOCYTES FEW
[2020-01-13 09:15] LABS: ANISOCYTOSIS SLIGHT; PLATELET ESTIMATE ADEQUATE; PLATELET MORPHOLOGY COMMENT NORMAL; RBC MORPHOLOGY COMMENT NORMAL
--- NOTE | 2020-01-13 13:24 | Progress Note ---
DATE: SUBJECTIVE: Mr. Fraser is doing well. There are no new complaints. REVIEW OF SYSTEMS: Otherwise . PHYSICAL EXAMINATION: GENERAL: Currently alert, oriented. VITAL SIGNS: Stable afebrile. HEENT: Not icteric. NECK: Supple. CHEST: Clear. HEART: S1-S2, no murmur. ABDOMEN: Soft. IMPRESSION: 1. Sepsis on admission, to finish 14 days of antibiotic. 2. Obesity, stable. 3. COVID-19 present admission, stable. PLAN: The patient will be discharged home on Monday. No antibiotic and he will be off insulation by then. MD ESTEBAN Guerrero/ERICA /[id number]
[2020-01-13] MEDS ORDERED: MEROPENEM 1GM 100 ML IV SCH (14:00)
--- NOTE | 2020-01-13 14:30 | NUR ---
infectious disease progress note Patient seen and examined chart reviewed DOING BETTER Patient with no new complaints Discussed with the medical team Late entry for 01/12/2020 The patient should complete his antibiotics tomorrow. He is not having fever or pain. PHYSICAL EXAMINATION: VITAL SIGNS: Blood pressure is 145/76 and saturation is 97% on 3 L. CARDIAC: Reveals regular rate and rhythm with normal S1, S2. LUNGS: Auscultation of lungs shows clear breath sounds bilaterally. There is no wheezing. ABDOMEN: Soft and nontender. There is no rebound or guarding. EXTREMITIES: Shows no leg edema. There is an sjbqs-qbk-zenq amputation on one side. IMPRESSION: 1. Pneumonia and COVID-19 infection. 2. Escherichia coli urinary tract infection. 3. Diabetes. 4. Obesity. PLAN: 1. Complete antibiotics. 2. Oxygen evaluation. 3. Physical therapy. 4. Probable discharge home . Patient should be on low-dose Eliquis for one month.
--- NOTE | 2020-01-13 15:10 | NUR ---
PATIENT EDUCATED MULTIPLE TIMES TO KEEP OXYGEN ON. STILL TAKES IT OFF AT TIMES.
[2020-01-13] MEDS: WARFARIN SOD 1 MG TAB PO SCH (16:11)
--- NOTE | 2020-01-13 16:57 | NUR ---
RECEIVED ORDER FOR HOME HEALTH; SN/PT EVAL AND TREAT. CALL TO [facility]. THEY ARE STILL NOT ABLE TO ACCEPT THIS PT. NOTIFIED THE NURSE THE [facility]ION COMPANY AND CM HAD DIFFICULTY GETTING A HH AGENCY TO ACCEPT THIS PT. WILL NOTIFY SURESH OF THIS.
[2020-01-13] MEDS: METOPROLOL TARTRATE 25 MG TAB PO SCH (17:00)
--- NOTE | 2020-01-13 17:45 | NUR ---
Nutrition Screen Note RD Recommendation for Physician: -Recommend adding low sodium to diet order -If PO intake <50% of meals, offer Ensure Compact Plan of Care: RD following, monitoring for tolerance and adequacy Nutrition reason for involvement: follow up Primary Diagnose(s): acute respiratory disease due to COVID-19 PMH: diabetes, CAD, CHF, HTN, chronic renal insufficiency Ht: 72 in Wt:234 lbs (01/04) 225 lbs (12/29) BMI: 30.5 kg/m2 (using weight of 225 lbs) IBW:[address] Assessment: 01/12: Follow up. Chart reviewed. Per nursing note, it is recorded that a rapid response was called this morning. It is noted that pt had been consuming 75-100% of meals. Will continue to monitor. (01/04/2020) Chart reviewed. Labs and meds reviewed. Pt is a 69 year old male admitted with acute respiratory disease due to COVID-19. Unable to enter room due to droplet isolation precautions and pt is primarily Japanese speaking per chart. Spoke to RN who reported pt is eating about 50% of meals. Unable to obtain weight history from pt at this time. Per weight history in chart, pt weighed 242 lbs in March 2019 from a previous admission. Pt currently weighs 225 lbs per chart. If accurate, this would be a 7% weight loss in 9 months which would be insignificant weight loss. Will continue to monitor Current Diet: 1800 ADA/1.2 L fluid restriction Malnutrition Evaluation (01/04/20) Unable to speak to pt. Will re-evaluate at follow-up as appropriate. Diet Education Needs Assessment: RD is available for diet education as needed Nutrition Care Level: low Signed: Mary Jo Fernando, PATRICK, LD
--- NOTE | 2020-01-13 19:07 | NUR ---
BEDSIDE SHIFT REPORT GIVEN TO ONCOMING NURSE. PATIENT IS IN STABLE CONDITION, NO ACUTE DISTRESS NOTED AT THIS TIME. CALL LIGHT WITHIN REACH. BED IN THE LOWEST POSITION.
--- NOTE | 2020-01-13 19:15 | NUR ---
Patient visited in room during nursing rounds. On droplet isolation for positive covid test. Alert and oriented x3. On bedrest and has a right AKA. A-fib on telemetry reading. Pt on 2L Hi-flow NC at this time. Call arcos within reach. Will monitor pt closely.
[2020-01-13] MEDS: ATORVASTATIN 10 MG TAB PO SCH (19:55)
--- NOTE | 2020-01-13 20:10 | NUR ---
Patient's O2 sat at 2L Hi-flow NC is 89%. Raised Hi-flow to 4L and O2 sat now is 93%. Will continue to monitor.
[2020-01-13] MEDS ORDERED: INSULIN GLARGINE 100 UNITS/ML VIAL SQ SCH (21:00)
--- NOTE | 2020-01-13 22:00 | NUR ---
O2 sat at 97% at this time at 6L Hi-flow NC. Amount of oxygen was adjusted by RT (Jennifer) from 4L.
--- NOTE | 2020-01-13 22:30 | NUR ---
Pt given a bed bath and tolerated bath well. No sign of distress or discomfort at this time.
[2020-01-14] VITALS: BP 140/79
[2020-01-14 04:00] VITALS: BP 102/51
[2020-01-14] MEDS: METOPROLOL TARTRATE 25 MG TAB PO SCH ×2 (05:02→16:42)
[2020-01-14] MEDS: LEVOTHYROXINE SODIUM 125 MCG TAB PO SCH (05:15)
[2020-01-14 05:37] LABS: BASOPHILS % 0.4 % (0.0-1.0); EOSINOPHILS % 0.1 % (0.0-6.0); HEMATOCRIT 26.9 % (38.2-49.6); HEMOGLOBIN 8.3 g/dL (14.0-18.0); LYMPHOCYTES # (AUTO) 0.7 (1.0-3.2); LYMPHOCYTES % 7.5 % (18.0-39.1); MEAN CORPUSCULAR HEMOGLOBIN 29.3 pg (28-32); MEAN CORPUSCULAR HGB CONC 30.9 g/dL (31-35); MEAN CORPUSCULAR VOLUME 95.1 fL (81-99); MONOCYTES % 9.9 % (4.4-11.3); NEUTROPHILS % 80.8 % (38.7-80.0); PLATELET COUNT 262 x10e3/uL (140-360); RED BLOOD COUNT 2.83 x10e6/uL (4.3-5.7); RED CELL DISTRIBUTION WIDTH 17.5 % (11.7-14.4)
[2020-01-14 06:11] LABS: ALANINE AMINOTRANSFERASE 24 IU/L (0-55); ALBUMIN 2.9 g/dL (3.5-5.0); ALBUMIN/GLOBULIN RATIO 0.6 (0.8-2.0); ALKALINE PHOSPHATASE 243 IU/L (40-150); ANION GAP 16.9 mmol/L (8-16); BLOOD UREA NITROGEN 21 mg/dL (7-26); BUN/CREATININE RATIO 25 (6-25); CALCIUM 8.9 mg/dL (8.4-10.2); CARBON DIOXIDE 26 mmol/L (22-29); CHLORIDE 106 mmol/L (98-107); CREATININE, SERUM 0.85 mg/dL (0.72-1.25); EST GLOMERULAR FILTRATION RATE > 60 ML/MIN (60-); GLUCOSE 135 mg/dL (74-118); POTASSIUM 4.9 mmol/L (3.5-5.1); SODIUM 144 mmol/L (136-145)
--- NOTE | 2020-01-14 06:40 | NUR ---
RECEIVED BEDSIDE SHIFT REPORT FROM OFF GOING NURSE. PATIENT IS RESTING IN BED, NO S/S OF ACUTE DISTRESS NOTED. CALL LIGHT WITHIN REACH. BED IN THE LOWEST POSITION.
[2020-01-14 07:50] VITALS: BP 117/78
[2020-01-14 07:58] LABS: PROTHROMBIN TIME 59.3 seconds (11.9-14.5)
[2020-01-14] MEDS: CHOLESTYRAMINE 4 GM PACKET PO SCH ×2 (08:06→16:01)
[2020-01-14] MEDS: ASCORBIC ACID 500 MG TAB PO SCH ×2 (08:06→16:42)
[2020-01-14] MEDS: TAMSULOSIN HCL 0.4 MG CAP PO SCH (08:06)
[2020-01-14] MEDS: FAMOTIDINE 20 MG/2 ML VIAL IV SCH ×2 (08:06→16:42)
[2020-01-14] MEDS: FINASTERIDE 5 MG TAB PO SCH (08:06)
[2020-01-14] MEDS: ZINC SULFATE 220 MG CAP PO SCH (08:06)
[2020-01-14] MEDS: CHOLECALCIFEROL 400 UNIT TAB PO SCH ×2 (08:06→16:42)
[2020-01-14] MEDS: AMIODARONE HCL 200 MG TAB PO SCH (08:06)
--- NOTE | 2020-01-14 08:10 | NUR ---
PAGED DR. ROMAN TO NOTIFY OF CRITICAL PT/INR. WAITING CORPORATE PLANNING MANAGER BACK.
--- NOTE | 2020-01-14 08:15 | NUR ---
PER DR. ROMAN, THE PT/INR SHOULD TREND DOWN ON ITS OWN. DO NOT ADMINISTER ANY MEDICATION. ASSESS PT/INR TOMORROW.
[2020-01-14 08:24] LABS: INR 6.15
[2020-01-14] MEDS: INSULIN LISPRO 100 UNIT/1 ML 3ML VIAL SQ SCH ×3 (08:36→16:30)
[2020-01-14 08:57] VITALS: BP 117/78
[2020-01-14 11:50] VITALS: BP 100/59
[2020-01-14] MEDS ORDERED: PHYTONADIONE 1 MG/0.5 ML AMP IM ONE (12:45)
--- NOTE | 2020-01-14 13:08 | NUR ---
CALL TO [facility] @ [phone]. STATES THEY ARE IN NETWORK AND COULD ACCEPT THE PT, BUT DO NOT HAVE PHYSICAL THERAPIST FOR A COVID PT.
[2020-01-14 15:19] VITALS: BP 109/78
[2020-01-14] MEDS ORDERED: Cholecalciferol PO (15:42)
[2020-01-14] MEDS ORDERED: LOPRESSOR25 MG PO (15:42)
[2020-01-14] MEDS ORDERED: ZINC SULFATE220 M1 PO (15:42)
[2020-01-14] MEDS ORDERED: COUMADIN1 MG PO (15:42)
[2020-01-14] MEDS ORDERED: AMIODARONE HCL200 MG PO (15:42)
[2020-01-14] MEDS ORDERED: ASCORBIC ACID500 MG PO (15:42)
[2020-01-14] MEDS ORDERED: ACETAMINOPHEN325 M1 PO (15:42)
[2020-01-14] MEDS: WARFARIN SOD 1 MG TAB PO SCH (16:00)
--- NOTE | 2020-01-14 16:02 | NUR ---
PER DR. ROMAN PATIENT TO RESTART COUMADIN ON MondayDecember.
--- NOTE | 2020-01-14 16:59 | NUR ---
[facility] CALLED TO NOTIFY PATIENT WAS SATING IN THE HIGH 80'S AND SHOWING AFIB IN THE 110'S-120'S. PATIENT AND TECH WENT IN TO THE ROOM. PATIENT'S NASAL CANNULA WAS OFF. APPLIED NASAL CANNULA AND ADMINISTERED EVENING MEDICATIONS. CALLED [facility] AND PATIENT IS SHOWING AFIB @ 100 AND O2 SAT 94%, PATIENT CONTINUES AT 2L NASAL CANNULA. NO ACUTE DISTRESS NOTED.
--- NOTE | 2020-01-14 17:13 | NUR ---
NOTIFIED ABBEY SANTANA OF PATIENT SHOWING AFIB IN THE 110'S-120'S AND O2 SAT OF HIGH 80S ALSO PATIENT HAD TAKEN OFF OXYGEN. PER ABBEY SANTANA PATIENT IS STILL OK TO DISCHARGE.
--- NOTE | 2020-01-14 17:30 | NUR ---
SON EDUCATED TO MAKE SURE THAT PATIENT KEEPS OXYGEN ON TO MAINTAIN OXYGEN LEVELS.
--- NOTE | 2020-01-14 17:30 | NUR ---
CALLED SON (NICOLAS VICK) TO GIVE DISCHARGE TEACHING. EXPLAINED THOROUGHLY ALL THE NEW PRESCRIPTIONS, CONTINUED HOME MEDICATIONS, AND STOPPED MEDICATIONS. HE VERBALIZED UNDERSTANDING. PER SON OK TO SIGN HIS NAME TELEPHONE DISCHARGE. PATIENT'S DAUGHTER IS TO PICK HIM UP.
--- NOTE | 2020-01-14 18:10 | NUR ---
nfectious disease progress note Patient seen and examined chart reviewed DOING BETTER discussed with medical team no new issues Patient with no new complaints Discussed with the medical team Late entry for 01/12/2020 The patient should complete his antibiotics tomorrow. He is not having fever or pain. PHYSICAL EXAMINATION: VITAL SIGNS: Blood pressure is 145/76 and saturation is 97% on 3 L. CARDIAC: Reveals regular rate and rhythm with normal S1, S2. LUNGS: Auscultation of lungs shows clear breath sounds bilaterally. There is no wheezing. ABDOMEN: Soft and nontender. There is no rebound or guarding. EXTREMITIES: Shows no leg edema. There is an vfbre-zqp-szfy amputation on one side. IMPRESSION: 1. Pneumonia and COVID-19 infection. 2. Escherichia coli urinary tract infection. 3. Diabetes. 4. Obesity. PLAN: 1. Complete antibiotics. 2. Oxygen evaluation. 3. Physical therapy. 4. Probable discharge home . Patient should be on low-dose Eliquis for one
--- NOTE | 2020-01-14 18:46 | NUR ---
RECEIVED DISCHARGE ORDER FROM ABBEY SANTANA. PATIENT IS IN STABLE CONDITION. IV LINE TO RIGHT INTERNAL JUGULAR DISCONTINUED WITH TIP INTACT @ 1745, PRESSURE APPLIED TO SITE, PRESSURE DRESSING APPLIED, NO BLEEDING NOTED. DISCHARGE TEACHING PROVIDED TO GISSEL VICK OVER THE PHONE, WITNESSED BY ANOTHER FLOOR NURSE. PATIENT ON NC @ 2L, OXYGEN TANK PROVIDED BY CASE MANAGEMENT. PATIENT ACCOMPANIED TO PRIVATE AUTO VIA WHEELCHAIR BY STAFF.
--- NOTE | 2020-01-14 22:28 | Discharge Summary ---
PRIMARY CARE PHYSICIAN: Matty Campos MD CONSULTING PHYSICIANS: Include: 1. Yady Turner MD, with Nephrology. 2. Alec Arevalo MD, With Cardiology. 3. Shelton Cornejo MD, with Pulmonology. 4. Jd Edwards MD, with Infectious Disease. CHIEF COMPLAINT: Dyspnea. HISTORY OF PRESENT ILLNESS: The patient is a 69-year-old male, who was found to be COVID positive weeks prior to admission and sent to [facility] and then subsequently discharged sometime a week prior to arrival. He began feeling short of breath on 12/28. He uses 2 L of oxygen via nasal cannula at home, but was not using it because it dries out his nose. PAST MEDICAL HISTORY: Arthritis, atrial fibrillation, chronic systolic CHF, type 2 diabetes mellitus, hypothyroidism, hyperlipidemia, BPH, coronary artery disease, peripheral vascular disease, BPV. PAST SURGICAL HISTORY: Coronary artery bypass graft, cholecystectomy, mechanical mitral valve replacement, right AKA, AICD. FAMILY HISTORY: Mother had diabetes mellitus. SOCIAL HISTORY: Noncontributory. ALLERGIES: NO KNOWN ALLERGIES. ADMITTING DIAGNOSES: 1. coronavirus disease-2019 pneumonia with septic shock. 2. Acute on chronic systolic congestive heart failure. 3. Atrial fibrillation, rapid ventricular response. 4. Type 2 diabetes mellitus. 5. Hyperlipidemia. 6. Benign prostatic hypertrophy. 7. Hypothyroidism. DISCHARGE DIAGNOSES: 1. Viral community-acquired pneumonia due to coronavirus disease-19. with superimposed bacterial pneumonia, present on admission. 2. Acute kidney injury, improved. 3. Chronic paroxysmal atrial fibrillation, currently with heart rate controlled. 4. Mixed systolic and diastolic congestive heart failure with hypotension, improved. 5. Mechanical mitral valve replacement in situ, current long-term use of anticoagulant (warfarin). 6. Moderate aortic stenosis. 7. Multidrug-resistant extended spectrum beta-lactamase Escherichia coli urinary tract infection, status post sepsis, present on admission. 8. Mild acute hypokalemia, resolved. 9. Transaminitis. 10. Mild thrombocytopenia. 11. Hypercoagulable state due to warfarin. 12. Benign prostatic hypertrophy. 13. Hypothyroidism. When the patient came in, he required ICU care as he was on Levophed drip due to hypotension from sepsis. His diuretics were held due to the septic shock. He received amiodarone for atrial fibrillation with RVR. His INR was carefully monitored and he was on warfarin due to his MVR. Levophed drip was eventually weaned off on 12/30 as dyspnea was improving. His heart rate was 109, blood pressure 95/72, still on Levophed drip at 10 mcg/minute and oxygen at 3 L/minute. His kidney ultrasound showed small left renal cyst, otherwise was negative. His hemoglobin A1c was 8.3% on 12/28. Coronavirus PCR detected. Chest x-ray had shown interval increase and bilateral multifocal airspace opacities. Lantus and sliding scale insulin were used to help control his hyperglycemia and diabetes. He was on digoxin and beta-flower due to AFib with RVR. Echocardiogram had shown left ventricular ejection fraction of 29%, moderate aortic stenosis, aortic valve area of 1.2 cm2, mechanical MVR well-seated. Levophed was stopped on 01/01 with a blood pressure 101/46, MAP of 64, received additional albumin on 01/01. At that time, he was on 2 L of oxygen via nasal cannula with a respiratory rate 23, oxygen saturation 97%. Per Infectious Disease, the patient was to be on Merrem for a total of 14 days for the urinary tract infection. He continued to improve and was transferred out of [facility] ICU to room 296 and appropriately downgraded. At that time, his INR was 1.64, hemoglobin 8.9, hematocrit 28.6, and platelets 146. Minimal complaints other than pain in his shoulders. Home oxygen evaluation was ordered on 01/03, the home oxygen evaluation was completed and showed oxygen saturation at rest on room air was 87%. Oxygen saturation with exertion on 3 L of oxygen via nasal cannula was 98%. On 01/03, his INR was stable at 2.54 and he was on warfarin 4 mg daily. The patient received azithromycin, Zyvox, and meropenem antibiotics during his stay. His right IJ triple-lumen central line was discontinued and his upper extremity PICC line was maintained with plans to complete the Merrem post discharge via the PICC line. On 01/04, his INR increased to 3.79 and his warfarin was held due to that increase. On 01/05, the INR was 4.51 and Coumadin was to be held. There are plans to discharge the patient home. In fact, I had already dictated a discharge summary on 01/05. He had minimal complaints only, those of mild joint pain at times and a loose stool. The patient really did not want to be discharged home as he had a fear of contaminating his family with COVID-19. The patient suddenly had complaints of back pain. He had a CT of the chest on 12/28, which showed bilateral lung suspicious for multifocal pneumonia including viral and large right upper and lower paratracheal lymph nodes, likely reactive, moderate cardiomegaly, mild nodularity of the hepatic contour suggesting cirrhosis and in the bones and soft tissues section, no aggressive lytic or suspicious focal sclerotic lesions, multilevel degenerative disk disease in the thoracic spine, worse at T9 and T10, midline sternotomy wires, mild bilateral gynecomastia. The patient was given [place] 10 mg orally once at that time, which seemed to help his pain. He was complaining of back pain 8/10 on a 0-10 pain scale, both at the top and the bottom. Given his DDD, the plan was for the patient to resume his home medication of Percocet 5-325 mg tablets p.o. every 12 hours p.r.n. for severe pain. He takes Flomax for BPH, levothyroxine for hypothyroidism 125 mcg p.o. daily. The patient can resume his Lantus insulin for his diabetes at home. Continue amiodarone for paroxysmal atrial fibrillation. Home health with physical therapy as well as shelter evaluation for home safety eval and medication education earlier list was ordered through Case Management. At that point, the patient's family did not want a discharge, instead wanted him to go to a shelter facility. On 01/09, Questran was added due to loose stools. His Merrem finished on 01/12. Thus, he is no longer eligible for shelter facility. The patient can be discharged home on his home dose of oxygen at 2 L/minute via nasal cannula. PHYSICAL EXAMINATION: VITAL SIGNS: Today on his day of discharge, 01/13, vital signs, temperature 98.6, heart rate 80, respirations 20, blood pressure 100/59, pulse oximetry 98%. LABORATORY DATA: WBC 9.93, RBC 2.83, hemoglobin 8.3, hematocrit 26.9, platelets 262, PT 59.3, INR 6.15. Dr. Arevalo with Cardiology aware and states vitamin K unnecessary today and we should continue the warfarin at 1 mg per day and that the INR will gradually decrease. His D-dimer on 01/12 was 2.85. Sodium 144, potassium 4.9, chloride 106, CO2 of 26, anion gap 16.9, BUN 21, creatinine 0.85, estimated GFR greater than 60, glucose 135. Fingerstick blood glucose level 163, calcium 8.9, total bilirubin 1.6, AST 34, ALT 24, alkaline phosphatase 243, total protein 7.4, albumin 2.9. Most recent chest x-ray results on 01/12 show unchanged right IJ central line and left upper chest cardiac device. No interval change in diffuse bilateral interstitial alveolar opacities, consistent with multifocal pneumonia. No change in right mid lung and basal consolidation, which may reflect pneumonia and/or effusion. Enlarged cardiac silhouette. Pulmonary vasculature obscured. No acute bony abnormalities. A 12-lead EKG obtained at 5:55 a.m. in the morning yesterday on January 12 showed atrial fibrillation with RVR with premature or aberrantly conducted complexes, ventricular rate 137 beats per minute, right bundle branch block. However, his heart rate today is consistently around 80. Case was discussed with Dr. Jeffries, Dr. Edwards, Dr. Cornejo, Rachelle, RN, [place] case maker. The case had been previously discussed with the patient's son, Abe, on 01/05. The patient is to follow up with his PCP, Dr. Campos, in 2-3 weeks, as well as Dr. Edwards in 2-3 weeks. Continue ADA diet. Activity level as tolerated. Discharge prescriptions provided will be Coumadin 1 mg p.o. daily at 1700, zinc sulfate 220 mg p.o. daily, ascorbic acid 1000 mg p.o. b.i.d., cholecalciferol 400 units p.o. b.i.d., Tylenol 650 mg p.o. every 6 hours p.r.n. for mild pain or fever, amiodarone 100 mg p.o. daily, Lopressor 50 mg p.o. q.12 hours, Ventolin HFA two inhalations every 8 hours p.r.n. for cough. Dictated by Antoni Estevez, ABBEY Alex Jeffries MD [facility] /[id number]
== END 2020-01-14 18:46 | disposition home or self-care (01) | DRG 871 ==
LOC: ER 14:57 → ERHOLD 18:38 → COVIDICU 01-02 05:18 → MED/SURG3 01-03 12:10
PROVIDERS: ADMIT Internal Medicine; ATTEND Internal Medicine
DX: A41.9 Sepsis, unspecified organism (principal); J18.9 Pneumonia, unspecified organism; U07.1 COVID-19; R65.21 Severe sepsis with septic shock; I50.43 Acute on chronic combined systolic (congestive) and diastolic (congestive) heart failure; J15.9 Unspecified bacterial pneumonia; N17.0 Acute kidney failure with tubular necrosis; Z16.12 Extended spectrum beta lactamase (ESBL) resistance; N12 Tubulo-interstitial nephritis, not specified as acute or chronic; D68.32 Hemorrhagic disorder due to extrinsic circulating anticoagulants; J44.0 Chronic obstructive pulmonary disease with (acute) lower respiratory infection; I11.0 Hypertensive heart disease with heart failure; E78.5 Hyperlipidemia, unspecified; E03.9 Hypothyroidism, unspecified; I48.0 Paroxysmal atrial fibrillation; Z79.01 Long term (current) use of anticoagulants; E87.6 Hypokalemia; I35.0 Nonrheumatic aortic (valve) stenosis; D69.6 Thrombocytopenia, unspecified; T45.515A Adverse effect of anticoagulants, initial encounter; R74.0 Nonspecific elevation of levels of transaminase and lactic acid dehydrogenase [LDH]; Z95.2 Presence of prosthetic heart valve; B96.20 Unspecified Escherichia coli [E. coli] as the cause of diseases classified elsewhere; Z95.810 Presence of automatic (implantable) cardiac defibrillator; I25.10 Atherosclerotic heart disease of native coronary artery without angina pectoris; Z95.1 Presence of aortocoronary bypass graft; Z89.611 Acquired absence of right leg above knee; E11.51 Type 2 diabetes mellitus with diabetic peripheral angiopathy without gangrene; Z79.4 Long term (current) use of insulin; Z68.31 Body mass index [BMI] 31.0-31.9, adult; E11.65 Type 2 diabetes mellitus with hyperglycemia; E66.01 Morbid (severe) obesity due to excess calories
CPT/HCPCS: 36415; 51700; 70450; 71045; 71250; 76770; 80053; 80162; 81001; 82550; 82553; 82948; 83036; 83605; 83735; 83880; 84100; 84443; 84484; 85025; 85379; 85610; 85730; 87040; 87086; 87186; 93005; 93041; 93306; 96372; 97139; 99284; J0456; J1160; J1650; J1815; J2020; J3370; J3430; J3480; J7030; J7040; J7050; J7121; P9047; U0002

== ENCOUNTER 2020-03-28 03:56 | Inpatient (IN) | payer MEDICARE, OTHER ==
[2020-03-28] VITALS (8 sets, daily range): BP systolic 91–107; BP diastolic 62–96
[~2020-03-28] VITALS: Ht 182.9 cm; Wt 107.0 kg
[~2020-03-28 03:56] MED LIST changes: +ACETAMINOPHEN325 M1 PO; +ASCORBIC ACID500 MG PO; +COUMADIN1 MG PO; +Cholecalciferol PO; +DECADRON6 MG PO; +LOPRESSOR25 MG PO; +MERREM1 GM IV; +TYLENOL WITH C1 EACH PO; +VENTOLIN HFA18 GM INH; +ZINC SULFATE220 M1 PO
--- NOTE | 2020-03-28 04:02 | Emergency Department Note ---
History of Present Illnes History of Present Illness History of Present Illness This is a 69 year old male brought from [facility] for evaluation of dyspnea with low oxygen saturation. Per EMS, patient is oxygen dependant at home. REcent hospitalization in December 2019 for COVID-19 URI. . Historian: Patient Arrival Mode: [facility] Onset (how long ago): day(s) (5) Radiation: Reports non-radiation Severity: moderate Onset quality: gradual Duration (how long): day(s) Timing of current episode: constant Progression: worsening Context: Reports recent illness Associated symptoms: Reports shortness of breath Past Medical/Family History Physician Review I have reviewed the patient's past medical and family history. Any updates have been documented here. Past Medical History Recent Fever: No Clinical Suspicion of Infectio: Yes New/Unexplained Change in Ment: No Past Medical History: Hypertension, Diabetes, COPD, CHF, A-Fib Other Medical History: RAKA Nueropathy Past Surgical History: CABG, Pacer/AICD Other Surgery: right aka MITRAL VALVE DEFIBRILLATOR-2014 HEART BYPASS NOSE SX ALEX Social History Smoking Cessation: Never Smoker Alcohol Use: None Any Illegal Drug Use: No Other Last Tetanus: UTD Review of Systems Review of Systems Constitutional: Reports weakness EENTM: Reports no symptoms Cardiovascular: Reports no symptoms Respiratory: Reports dyspnea Gastrointestinal: Reports no symptoms Genitourinary: Reports no symptoms Musculoskeletal: Reports no symptoms Integumentary: Reports no symptoms Neurological: Reports no symptoms Psychological: Reports no symptoms Endocrine: Reports no symptoms Hematological/Lymphatic: Reports no symptoms Physical Exam Related Data Allergies: Coded Allergies: No Known Allergies (Unverified , 09/18/16) Physical Exam CONSTITUTIONAL Constitutional: Present morbidly obese HENT HENT: Present normocephalic, Present atraumatic, Present oropharynx clear/ moist, Present nose normal HENT L/R: Present left ext ear normal, Present right ext ear normal EYES Eyes: Reports PERRL, Reports conjunctivae normal NECK Neck: Present ROM normal PULMONARY Pulmonary: Present effort normal, Present breath sounds normal CARDIOVASCULAR Cardiovascular: Present regular rhythm, Present heart sounds normal, Present capillary refill normal, Present normal rate GASTROINTESTINAL Abdominal: Present soft, Present nontender, Present bowel sounds normal GENITOURINARY Genitourinary: Present exam deferred SKIN Skin: Present warm, Present dry MUSCULOSKELETAL Musculoskeletal: Present ROM normal NEUROLOGICAL Neurological: Present alert, Present oriented x 3, Present no gross motor or sensory deficits PSYCHOLOGICAL Psychological: Present mood/affect normal, Present judgement normal Results Laboratory Lab results reviewed: Yes Imaging Imaging results reviewed: Yes Impressions [place] [address] Patient Name: NICOLAS VICK MR #: [id number] : 1950 Age/Sex: 69/M Req #: [id number] Adm Physician: NICOLAS CHRISTENSEN MD Ordered by: YAMINI SOUSA DO Report #: [id number] Location: [facility] Room/Bed: [place] [address] Procedure: [id number] DX/CHEST SINGLE (PORTABLE) Exam Date: 03/28/20 Exam Time: 0455 REPORT STATUS: Signed EXAMINATION: CHEST SINGLE (PORTABLE) INDICATION: Short of breath COMPARISON: Chest x-ray 09/25/2015 FINDINGS: TUBES and LINES: Left internal jugular central venous catheter, tip in the central aspect of the left brachiocephalic vein. Left chest wall cardiac device with single lead in the right ventricle.. LUNGS/PLEURA: Prominent interstitial lung markings. Hazy opacities in the mid and lower lungs. Obscured right hemidiaphragm. No pneumothorax. HEART AND MEDIASTINUM: Cardiac size is moderately enlarged. Aortic valve replacement. BONES AND SOFT TISSUES: No acute osseous lesion. Soft tissues are unremarkable. UPPER ABDOMEN: No free air under the diaphragm. IMPRESSION: Moderate cardiopulmonary and pulmonary edema. Small right pleural effusion. Signed by: Bautista Bradley DO on 03/28/2020 6:01 AM Dictated By: BAUTISTA BRADLEY DO 0 Transcribed By: JESENIA on 03/28/20600 COPY TO: YAMINI SOUSA DO~ Procedures 12 Lead ECG Interpretation ECG Interpretation : ECG: ECG 1 Building Custodian: Interpreted by ED physician Date: Mar 28, 2020 Time: 04:37 Prior ECG tracings: reviewed Rhythm: atrial fibrillation Ectopy: PVC's Rate: normal BPM: 79 Conduction: right bundle branch block ST segments normal: Yes T waves normal: Yes Other findings: PRWP Clinical Impression: abnormal ECG Central Line Placement Central Line Location: left internal jubular Time out performed: Yes Patient Placed on Monitor/Puls: Yes MD Prep: mask, gown, gloves Central Line Prep: Chlorhexidine scrub Local Anesthetic: lidocaine 1% Amount of anesthesia used (mL): 4 Ultrasound Used for Placement: Yes Central Line Lumen Inserted: triple Post Procedure: sutured in place, good blood return, all ports aspirated/flushed/capped, sterile dressing applied Post Procedure X-ray: tip of catheter in good condition, no pneumothorax seen Patient tolerated procedure: well Complications: none Additional comments Time of procedure at 0430 Critical Care Time Total Critical Care Time (min): 31 Critcal care necessary due to: shock Critcal care time spent by me: blood dram for specimens, develop tx plan w patient/surrogate, examination of patient, obtaining hx from patient/surrogate, order/perform tx or interventions, order/review laboratory studies, order/review radiographic studies, pulse oximetry, re-evaluation of patient condition, review of old charts Assessment & Plan Medical Decision Making MDM Diff Dx : septic shock, PNA, CHF, respiratory distress, ACS Assessment & Plan Final Impression: (1) CHF (congestive heart failure) (2) Hypoxia (3) Renal insufficiency (4) Pneumonia (5) Renal insufficiency (6) Hypotension Depart Disposition: ADMITTED Home Meds Active Scripts Metoprolol Tartrate (LOPRESSOR) 25 Mg Tab, 50 MG PO Q12H for 30 Days, #60 TAB 0 Refills Prov:ESTHER ZAIDI NP 01/14/20 Amiodarone Hcl (AMIODARONE HCL) 200 Mg Tablet, 100 MG PO DAILY for 30 Days, #30 TAB 0 Refills Prov:ESTHER ZAIDI NP 01/14/20 Acetaminophen (ACETAMINOPHEN) 325 Mg Tablet, 650 MG PO Q6H PRN for Mild Pain (1- 3) or Fever>100.8 for 14 Days, #30 TAB 0 Refills Prov:ESTHER ZAIDI NP 01/14/20 [Cholecalciferol] 400 UNIT TAB No Conflict Check, 400 UNIT PO BID for 14 Days, #30 TAB 0 Refills Prov:ESTHER ZAIDI SWING DRIVER 01/14/20 Ascorbic Acid (ASCORBIC ACID) 500 Mg Tablet, 1000 MG PO BID for 14 Days, #30 TAB 0 Refills Prov:ESTHER ZAIDI ABBEY 01/14/20 Zinc Sulfate (ZINC SULFATE) 220 Mg Capsule, 220 MG PO DAILY for 14 Days, #14 TAB 0 Refills Prov:ESTHER ZAIDI SWING DRIVER 01/14/20 Warfarin Sodium (COUMADIN) 1 Mg Tablet, 1 MG PO QD17 for 30 Days, #30 TAB 0 Refills Prov:ESTHER ZAIDI SWING DRIVER 01/14/20 Albuterol Sulfate (VENTOLIN HFA) 18 Gm Hfa.aer.ad, 2 INH INH Q8H PRN for COUGH for 30 Days, #2 INH 1 Refill Prov:ESTHER ZAIDI ABBEY 01/06/20 Meropenem (MERREM) 1 Gm Inj, 1 G IV Q8H for 8 Days, #24 DOSE 0 Refills Prov:ESTHER ZAIDI SWING DRIVER 01/06/20 Reported Medications Sennosides/Docusate Sodium ([employer] SENNA PLUS TABLET) 1 Each Tablet, 1 TAB PO BID 04/12/19 Oxycodone Hcl/Acetaminophen (PERCOCET 5-325 MG TABLET) 1 Each Tablet, 1 TAB PO Q12HR PRN for SEVERE PAIN (7-10) 04/12/19 Omeprazole Magnesium (PRILOSEC OTC) 20 Mg Tablet.dr, 20 MG PO DAILY 04/12/19 Insulin Glargine (LANTUS 3ML PEN) 100 Units/1 Ml Inj, 50 UNITS SC DAILY 04/12/19 Lactulose (LACTULOSE) 20 Gm/30 Ml Solution, 30 ML PO TID PRN for CONSTIPATION, EACH 04/12/19 Atorvastatin Calcium (ATORVASTATIN CALCIUM) 10 Mg Tablet, 10 MG PO 2100, #30 TAB 04/12/19 Tamsulosin Hcl* (FLOMAX*) 0.4 Mg Cap, 0.4 MG PO DAILY, #30 CAP 01/10/18 Levothyroxine Sodium (LEVOTHYROXINE SODIUM) 50 Mcg Tablet, 125 MCG PO DAILY, #30 TAB 12/26/17 Insulin Lispro (HUMALOG) 100 Unit/1 Ml Cartridge, 38 SQ AC 09/18/16 Gabapentin (GABAPENTIN) 300 Mg Capsule, 600 MG PO DAILY, #60 CAP 06/07/15 Finasteride (PROSCAR) 5 Mg Tablet, 5 MG PO DAILY 10/21/14 YAMINI SOUSA DO Mar 28, 2020 04:02
[2020-03-28] MEDS ORDERED: PIPERACILLIN/TAZO 4.5 GM 100 ML IV STA (04:03)
[2020-03-28] MEDS ORDERED: SODIUM CHLORIDE 0.9% 1000ML 1,000 ML IV STA ×2 (04:03→05:16)
--- OUTSIDE RECORDS SUMMARY | 2020-03-28 04:29 | XMS REPORT | Clinical Summary ---
Author Author GARIMA [facility] Organization [facility] Address Unknown Phone Unavailable Care Team Providers Care Sample Builder Name Role Phone Andres--Matty Pyle PCP Allergies No Known Allergies Medications End Date Status Medication Sig Dispensed Refills Start Date Active esomeprazole (NEXIUM) 40 Take 1 0 11/18 MG capsule capsule by 0 mouth daily. Active finasteride (PROSCAR) 5 Take 1 tablet 0 mg tablet by mouth 0 daily. Active furosemide (LASIX) 80 MG Take 1 tablet 0 11/18 tablet by mouth 0 daily. Active warfarin (COUMADIN, Take 1 tablet 0 JANTOVEN) 2 MG tablet by mouth 0 daily. Active tamsulosin (FLOMAX) 0.4 Take 1 0 mg Cap 24 hr capsule capsule by 0 mouth nightly. Active simvastatin (ZOCOR) 40 MG Take 1 tablet 0 / tablet by mouth 0 daily. Active potassium chloride SA Take 1 tablet 0 11/19/19 2 (K-DUR,KLOR-CON) 20 MEQ by mouth 0 tablet daily. Active acetaminophen-codeine Take 1 tablet 0 12/05/19 2 (TYLENOL #3) 300-30 mg by mouth 0 per tablet daily as needed. Active gabapentin (NEURONTIN) Take 1 0 02 400 MG capsule capsule by 0 mouth 2 (two) times daily. Active levothyroxine (SYNTHROID, Take 1 tablet 0 10/25 LEVOTHROID) 125 MCG by mouth 0 tablet every morning. Active metoprolol tartrate Take 1 tablet 0 (LOPRESSOR) 25 MG tablet by mouth 2 0 (two) times daily. Active losartan (COZAAR) 25 MG Take 1 tablet 0 tablet by mouth 0 daily. Active nystatin-triamcinolone APLIQUE EN 0 02 (MYCOLOG II) 100,000-0.1 LAS AREAS 0 unit/g-% cream AFECTADAS CADA RAMSES TIMOTHY INDICADO Active LEVEMIR FLEXTOUCH U-100 0 INSULN 100 unit/mL (3 mL) 0 InPn injection Active insulin lispro (HUMALOG) 0 100 unit/mL InPn 0 Active metOLazone (ZAROXOLYN) Take 1 tablet 0 02 2.5 MG tablet by mouth 0 daily. 12/21/2019 Discontinued amiodarone (PACERONE) 100 Take 1 tablet 0 10/25 MG tablet by mouth 0 daily. 12/21/2019 Discontinued ibuprofen (ADVIL,MOTRIN) Take 1 tablet 0 12/04 600 MG tablet by mouth 0 daily as needed for Pain. Active Problems Problem Noted Date COVID-19 12/14/2019 Hypoxemia 12/13/2019 Exposure to COVID-19 virus 12/13/2019 Encounters Care Team Description Date Type Specialty 12/16/2019 Orders Only General Internal Me pierce Bo, MD Vito Lawrence, MD Familia Mcallister, MD Donavan Carlson Narendra, MD Omranian, MD Bossman Galvan, Giovanny Oakes MD COVID-19 (Primary Dx); Exposure to COVID-19 virus; Hypoxemia; Chronic respiratory failure with hypoxia (HCC); Essential hypertension; Hypothyroidism, unspecified type; Chronic atrial fibrillation (HCC); Diabetes mellitus type 2 in obese (HCC); Benign prostatic hyperplasia without lower urinary tract symptoms; Congestive heart failure, unspecified HF chronicity, unspecified heart failure type (HCC); Acute renal failure, unspecified acute renal failure type (HCC); Acute respiratory failure with hypoxia (HCC); Bradycardia 12/13/2019 Hospital Cardiology - Encounter 12/21/2019 12/13/2019 Travel after 03/28/2019 Social History Date Tobacco Use Types Packs/Day Years Used Unknown If Ever Smoked Sex Assigned at Date Recorded Not on file Industry Job Start Date Occupation Not on file Not on file Not on file Travel End Travel History Travel Start No recent travel history available. Last Filed Vital Signs Time Taken Vital Sign Reading 12/21/2019 4:00 PM CDT Blood Pressure 106/55 12/21/2019 4:00 PM CDT Pulse 50 12/21/2019 4:00 PM CDT Temperature 36.6 C (97.9 F) 12/21/2019 4:00 PM CDT Respiratory Rate 18 12/21/2019 4:00 PM CDT Oxygen Saturation 97% 12/18/2019 11:09 AM CDT Inhaled Oxygen 60% Concentration 12/16/2019 9:15 AM CDT Weight 97.7 kg (215 lb 6.2 oz) 12/13/2019 7:00 PM CDT Height 175.3 cm (5' 9") 12/16/2019 9:15 AM CDT Body Mass Index 31.81 Plan of Treatment Not on file Procedures Comments Procedure Name Priority Date/Time Associated Diag nosis ARRYTHMIA IMPLANT REPORT 01/14/2020 - SCAN 3:00 PM CDT ARRYTHMIA IMPLANT REPORT 12/23/2019 - SCAN 12:00 PM CDT RHYTHM STRIP - SCAN 12/23/2019 12:00 PM CDT POCT-GLUCOSE METER Routine 12/21/2019 4:02 PM CDT POCT-GLUCOSE METER Routine 12/21/2019 1:03 PM CDT POCT-GLUCOSE METER Routine 12/21/2019 9:31 AM CDT (CELLAVISION MANUAL DIFF) Routine 12/21/2019 3:43 AM CDT CBC W/PLT COUNT & AUTO Routine 12/21/2019 DIFFERENTIAL 3:43 AM CDT PROTHROMBIN TIME/INR Routine 12/21/2019 3:43 AM CDT MAGNESIUM Routine 12/21/2019 3:43 AM CDT COMPREHENSIVE METABOLIC Routine 12/21/2019 PANEL 3:43 AM CDT CBC W/PLT COUNT & AUTO Routine 12/21/2019 DIFFERENTIAL 3:43 AM CDT POCT-GLUCOSE METER Routine 12/20/2019 8:51 PM CDT POCT-GLUCOSE METER Routine 12/20/2019 3:53 PM CDT POCT-GLUCOSE METER Routine 12/20/2019 12:57 PM CDT POCT-GLUCOSE METER Routine 12/20/2019 8:34 AM CDT BLOOD GAS, VENOUS Routine 12/20/2019 6:40 AM CDT PHOSPHORUS Routine 12/20/2019 6:40 AM CDT MAGNESIUM Routine 12/20/2019 6:40 AM CDT COMPREHENSIVE METABOLIC Routine 12/20/2019 PANEL 6:40 AM CDT (CELLAVISION MANUAL DIFF) Routine 12/20/2019 6:39 AM CDT CBC W/PLT COUNT & AUTO Routine 12/20/2019 DIFFERENTIAL 6:39 AM CDT PROTHROMBIN TIME/INR Routine 12/20/2019 6:39 AM CDT CBC W/PLT COUNT & AUTO Routine 12/20/2019 DIFFERENTIAL 6:39 AM CDT POCT-GLUCOSE METER Routine 12/20/2019 1:06 AM CDT POCT-GLUCOSE METER Routine 12/19/2019 10:14 PM CDT POCT-GLUCOSE METER Routine 12/19/2019 4:49 PM CDT BLOOD GAS, ARTERIAL STAT 12/19/2019 12:16 PM CDT POCT-GLUCOSE METER Routine 12/19/2019 10:08 AM CDT BLOOD GAS, ARTERIAL STAT 12/19/2019 8:40 AM CDT POCT-GLUCOSE METER Routine 12/19/2019 5:56 AM CDT (CELLAVISION MANUAL DIFF) Routine 12/19/2019 3:40 AM CDT CBC W/PLT COUNT & AUTO Routine 12/19/2019 DIFFERENTIAL 3:40 AM CDT PROTHROMBIN TIME/INR Routine 12/19/2019 3:40 AM CDT BLOOD GAS, ARTERIAL STAT 12/19/2019 3:40 AM CDT PHOSPHORUS Routine 12/19/2019 3:40 AM CDT MAGNESIUM Routine 12/19/2019 3:40 AM CDT C-REACTIVE PROTEIN Routine 12/19/2019 3:40 AM CDT D-DIMER Routine 12/19/2019 3:40 AM CDT COMPREHENSIVE METABOLIC Routine 12/19/2019 PANEL 3:40 AM CDT CBC W/PLT COUNT & AUTO Routine 12/19/2019 DIFFERENTIAL 3:40 AM CDT FERRITIN Routine 12/19/2019 3:40 AM CDT LACTATE DEHYDROGENASE Routine 12/19/2019 (LDH) 3:40 AM CDT BLOOD GAS, ARTERIAL STAT 12/18/2019 11:57 PM CDT POCT-GLUCOSE METER Routine 12/18/2019 9:52 PM CDT BLOOD GAS, ARTERIAL STAT 12/18/2019 8:17 PM CDT TRANSFUSION SERVICE 12/18/2019 REPORT - SCAN 6:03 PM CDT POCT-GLUCOSE METER Routine 12/18/2019 4:45 PM CDT BLOOD GAS, ARTERIAL STAT 12/18/2019 3:24 PM CDT BLOOD GAS, ARTERIAL STAT 12/18/2019 12:19 PM CDT POCT-GLUCOSE METER Routine 12/18/2019 12:02 PM CDT POCT-GLUCOSE METER Routine 12/18/2019 9:31 AM CDT BLOOD GAS, ARTERIAL STAT 12/18/2019 9:29 AM CDT BLOOD GAS, ARTERIAL STAT 12/18/2019 5:02 AM CDT CBC W/PLT COUNT & AUTO Routine 12/18/2019 DIFFERENTIAL 4:36 AM CDT PROTHROMBIN TIME/INR Routine 12/18/2019 4:36 AM CDT PHOSPHORUS Routine 12/18/2019 4:36 AM CDT MAGNESIUM Routine 12/18/2019 4:36 AM CDT COMPREHENSIVE METABOLIC Routine 12/18/2019 PANEL 4:36 AM CDT CBC W/PLT COUNT & AUTO Routine 12/18/2019 DIFFERENTIAL 4:36 AM CDT PREPARE PLASMA STAT 12/17/2019 11:54 PM CDT POCT-GLUCOSE METER Routine 12/17/2019 11:27 PM CDT BLOOD GAS, ARTERIAL STAT 12/17/2019 11:03 PM CDT POCT-GLUCOSE METER Routine 12/17/2019 7:05 PM CDT TRANSFUSION SERVICE 12/17/2019 REPORT - SCAN 6:33 PM CDT BLOOD GAS, ARTERIAL STAT 12/17/2019 6:31 PM CDT POCT-GLUCOSE METER Routine 12/17/2019 5:00 PM CDT BLOOD GAS, ARTERIAL STAT 12/17/2019 1:34 PM CDT POCT-GLUCOSE METER Routine 12/17/2019 10:48 AM CDT BLOOD GAS, ARTERIAL STAT 12/17/2019 10:32 AM CDT BLOOD GAS, ARTERIAL STAT 12/17/2019 4:11 AM CDT CBC W/PLT COUNT & AUTO Routine 12/17/2019 DIFFERENTIAL 4:10 AM CDT PROTHROMBIN TIME/INR Routine 12/17/2019 4:10 AM CDT B-TYPE NATRIURETIC FACTOR Routine 12/17/2019 (BNP) 4:10 AM CDT PHOSPHORUS Routine 12/17/2019 4:10 AM CDT MAGNESIUM Routine 12/17/2019 4:10 AM CDT C-REACTIVE PROTEIN Routine 12/17/2019 4:10 AM CDT D-DIMER Routine 12/17/2019 4:10 AM CDT COMPREHENSIVE METABOLIC Routine 12/17/2019 PANEL 4:10 AM CDT CBC W/PLT COUNT & AUTO Routine 12/17/2019 DIFFERENTIAL 4:10 AM CDT FERRITIN Routine 12/17/2019 4:10 AM CDT LACTATE DEHYDROGENASE Routine 12/17/2019 (LDH) 4:10 AM CDT TRANSFUSE PLASMA STAT 12/16/2019 11:40 PM CDT BLOOD GAS, ARTERIAL STAT 12/16/2019 11:37 PM CDT POCT-GLUCOSE METER Routine 12/16/2019 11:36 PM CDT BLOOD GAS, ARTERIAL STAT 12/16/2019 8:33 PM CDT POCT-GLUCOSE METER Routine 12/16/2019 5:22 PM CDT ABORH, MANUAL STAT 12/16/2019 4:58 PM CDT BLOOD GAS, ARTERIAL STAT 12/16/2019 3:37 PM CDT TYPE AND SCREEN, STAT 12/16/2019 AUTOMATED 3:36 PM CDT BLOOD GAS, ARTERIAL STAT 12/16/2019 12:32 PM CDT POCT-GLUCOSE METER Routine 12/16/2019 12:29 PM CDT BLOOD GAS, ARTERIAL STAT 12/16/2019 9:58 AM CDT LACTIC ACID, VENOUS STAT 12/16/2019 9:57 AM CDT THROMBOELASTOGRAPH (TEG) Routine 12/16/2019 9:57 AM CDT G6PD, QUANTITATIVE Routine 12/16/2019 9:57 AM CDT PROCALCITONIN Routine 12/16/2019 9:57 AM CDT POCT-GLUCOSE Routine 12/16/2019 6:40 AM CDT POCT-CALCIUM IONIZED Routine 12/16/2019 6:40 AM CDT POCT-HEMATOCRIT Routine 12/16/2019 6:40 AM CDT POCT-HEMOGLOBIN Routine 12/16/2019 6:40 AM CDT POCT-POTASSIUM Routine 12/16/2019 6:40 AM CDT POCT-SODIUM Routine 12/16/2019 6:40 AM CDT POCT-BLOOD GASES, Routine 12/16/2019 ARTERIAL 6:40 AM CDT POCT-GLUCOSE METER Routine 12/16/2019 6:16 AM CDT CBC W/PLT COUNT & AUTO Routine 12/16/2019 DIFFERENTIAL 5:11 AM CDT HEPATIC FUNCTION PANEL Add-On 12/16/2019 5:11 AM CDT FIBRINOGEN Add-On 12/16/2019 5:11 AM CDT CREATINE KINASE (CK) Add-On 12/16/2019 5:11 AM CDT TROPONIN I Add-On 12/16/2019 5:11 AM CDT PROTHROMBIN TIME/INR Routine 12/16/2019 5:11 AM CDT BASIC METABOLIC PANEL (7) Routine 12/16/2019 5:11 AM CDT CBC W/PLT COUNT & AUTO Routine 12/16/2019 DIFFERENTIAL 5:11 AM CDT TSH/FREE T4 IF INDICATED Routine 12/16/2019 5:11 AM CDT B-TYPE NATRIURETIC FACTOR Routine 12/16/2019 (BNP) 5:11 AM CDT ECG 12-LEAD Routine 12/16/2019 2:04 AM CDT Procedure Note - Interface, External Ris In - 12/16/2019 2:13 AM CDT Ventricula r Rate 136 BPM Atrial Rate 59 BPM QRS Duration 162 ms Q-T Interval 374 ms QTC Calculatio n(Bazett) 562 ms R Mcintosh 161 degrees T Mcintosh 15 degrees Undetermi tamika rhythm Right bundle branch block Abnormal ECG When compared with ECG of 0 02:04, Current undetermin ed rhythm precludes rhythm comparison , needs review ECG 12-LEAD Routine 12/16/2019 2:04 AM CDT ECG 12-LEAD Routine 12/16/2019 2:04 AM CDT Procedure Note - Interface, External Ris In - 12/16/2019 2:13 AM CDT Ventricula r Rate 136 BPM Atrial Rate 136 BPM QRS Duration 160 ms Q-T Interval 374 ms QTC Calculatio n(Bazett) 562 ms R Mcintosh 166 degrees T Mcintosh 5 degrees Suspect arm lead reversal, interpreta tion assumes no reversal Wide QRS tachycardi a with occasional Premature ventricula r complexes and Fusion complexes Right bundle branch block Abnormal ECG No previous ECGs available POCT-GLUCOSE METER Routine 12/15/2019 8:24 PM CDT LIMITED 2D ECHOCARDIOGRAM Routine 12/15/2019 4:21 PM CDT POCT-GLUCOSE METER Routine 12/15/2019 4:03 PM CDT ECG 12-LEAD Routine 12/15/2019 1:55 PM CDT POCT-GLUCOSE METER Routine 12/15/2019 12:29 PM CDT XR CHEST 1 VIEW CARA 12/15/2019 PORTABLE/BEDSIDE 10:48 AM CDT POCT-GLUCOSE METER Routine 12/15/2019 8:31 AM CDT CBC W/PLT COUNT & AUTO Routine 12/15/2019 DIFFERENTIAL 4:34 AM CDT PROTHROMBIN TIME/INR Routine 12/15/2019 4:34 AM CDT BASIC METABOLIC PANEL (7) Routine 12/15/2019 4:34 AM CDT CBC W/PLT COUNT & AUTO Routine 12/15/2019 DIFFERENTIAL 4:34 AM CDT POCT-GLUCOSE METER Routine 12/14/2019 9:55 PM CDT POCT-GLUCOSE METER Routine 12/14/2019 4:43 PM CDT BASIC METABOLIC PANEL (7) Routine 12/14/2019 2:54 PM CDT POCT-GLUCOSE METER Routine 12/14/2019 11:27 AM CDT POCT-GLUCOSE METER Routine 12/14/2019 8:21 AM CDT URINALYSIS WITH Routine 12/14/2019 MICROSCOPIC IF INDICATED 5:06 AM CDT CBC W/PLT COUNT & AUTO Routine 12/14/2019 DIFFERENTIAL 5:05 AM CDT PROTHROMBIN TIME/INR Routine 12/14/2019 5:05 AM CDT TROPONIN I Routine 12/14/2019 5:05 AM CDT CREATINE KINASE (CK) Routine 12/14/2019 5:05 AM CDT CBC W/PLT COUNT & AUTO Routine 12/14/2019 DIFFERENTIAL 5:05 AM CDT POCT-GLUCOSE METER Routine 12/13/2019 11:40 PM CDT CREATINE KINASE (CK) Routine 12/13/2019 10:19 PM CDT D-DIMER Routine 12/13/2019 10:19 PM CDT PROTHROMBIN TIME/INR Routine 12/13/2019 10:19 PM CDT FERRITIN Routine 12/13/2019 10:19 PM CDT LACTATE DEHYDROGENASE Routine 12/13/2019 (LDH) 10:19 PM CDT C-REACTIVE PROTEIN Routine 12/13/2019 10:19 PM CDT MAGNESIUM Routine 12/13/2019 10:19 PM CDT HEPATIC FUNCTION PANEL Routine 12/13/2019 10:19 PM CDT BASIC METABOLIC PANEL (7) Routine 12/13/2019 10:19 PM CDT TROPONIN I Routine 12/13/2019 10:19 PM CDT SARS-COV2/RT-PCR ([facility] & Routine 12/13/2019 REF LABS) 10:19 PM CDT after 03/28/2019 Results * ARRYTHMIA IMPLANT REPORT - SCAN (01/14/2020 3:00 PM CDT) Only the most recent of 2 results within the time period is included. Narrative Performed At This result has an attachment that is n ot available. * RHYTHM STRIP - SCAN (12/23/2019 12:00 PM CDT) Narrative Performed At This result has an attachment that is n ot available. * POC-Glucose meter (12/21/2019 4:02 PM CDT) Only the most recent of 33 results within the time period is included. POC-Glucose Meter 280 (H)Comment: : TESTED AT 70 - 110 mg/dL [address] [address]: Crawler Dragline Operator/Revit Drafter ID = [id number] for NZEGWU, CLEMENT Specimen Blood Performing Organization Address [facility] Ph one Number [address] [facility] * Manual Differential (12/21/2019 3:43 AM CDT) Only the most recent of 3 results within the time period is included. % Neutros 98 % [facility] % Lymphs 1 % [facility] % Monos 1 % [facility] # Neutros 9.90 (H) 1.78 - 5.38 K/ul [facility] # Lymphs 0.10 (L) 1.32 - 3.57 K/ul [facility] # Monos 0.10 (L) 0.30 - 0.82 K/uL [facility] Total Counted 100 [facility] WBC Morphology Normal [facility] Platelet Morphology Normal [facility] Poikilocytes 1+ few [facility] Ovalocytes 1+ few [facility] Artifact Present [facility] Platelet Conc Adequate [facility] Specimen Blood Narrative Performed At Crawler Dragline Operator ID - Briseida Overholt [facility] User comments: [facility] Slide comments: Performing Organization Address [facility] Ph one Number [address] 0 [phone] [place] [address] * CBC with platelet count + automated diff (12/21/2019 3:43 AM CDT) Only the most recent of 8 results within the time period is included. WBC 10.1 3.5 - 10.5 K/L [facility] RBC 4.51 (L) 4.63 - 6.08 M/L [facility] Hemoglobin 12.6 (L) 13.7 - 17.5 GM/DL [facility] Hematocrit 40.1 40.1 - 51.0 % [facility] MCV 88.9 79.0 - 92.2 fL [facility] MCH 27.9 25.7 - 32.2 pg [facility] MCHC 31.4 (L) 32.3 - 36.5 GM/DL [facility] RDW 15.5 (H) 11.6 - 14.4 % [facility] Platelets 254 150 - 450 K/CU MM [facility] MPV 11.3 9.4 - 12.4 fL [facility] nRBC 0 0 - 0 /100 WBC [facility] Specimen Blood Performing Organization Address City/State/Zipcode Ph one Number [place] [address] [phone] [place] [address] * Daily Prothrombin time/INR while on warfarin (12/21/2019 3:43 AM CDT) Only the most recent of 9 results within the time period is included. Protime 35.9 (H) 11.9 - 14.2 seconds [facility] INR 3.7 <=5.9 [facility] Specimen Blood Narrative Performed At Effective 11/21/2018: PT Reference Range Change [facility] New: 11.9-14.2Previous: 11.7-14.7 [facility] NTER RECOMMENDED COUMADIN/WARFARIN INR THERA PY RANGES STANDARD DOSE: 2.0-3.0Includes: PRO PHYLAXIS for venous thrombosis, systemic embolization; TREATMENT for venous thro mbosis and/or pulmonary embolus. HIGH RISK: Target INR is 2.5-3.5 for pa tients wiht mechanical heart valves. While on warfarin. Performing Organization Address [facility] Ph one Number [place] [address] [address] [phone] [place] [address] * Magnesium (12/21/2019 3:43 AM CDT) Only the most recent of 6 results within the time period is included. Magnesium 1.9 1.6 - 2.6 mg/dL [facility] Specimen Blood Narrative Performed At Crawler Dragline Operator ID - ANTONY L [facility] Performing Organization Address [facility] Ph one Number [place] [address] [address] [phone] [address] * Comprehensive metabolic panel (12/21/2019 3:43 AM CDT) Only the most recent of 5 results within the time period is included. Protein, Total 7.4 6.0 - 8.3 gm/dL [facility] Albumin 2.8 (L) 3.5 - 5.0 g/dL [facility] Alkaline Phosphatase 145 40 - 150 U/L [facility] Total Bilirubin 0.9 0.2 - 1.2 mg/dL [facility] Sodium 136 136 - 145 meq/L [facility] Potassium 4.1 3.5 - 5.1 meq/L [facility] Chloride 110 (H) 98 - 107 meq/L [facility] CO2 20 (L) 22 - 29 meq/L [facility] BUN 33 (H) 7 - 21 mg/dL [facility] Creatinine 0.98 0.57 - 1.25 mg/dL [facility] Glucose 268 (H) 70 - 105 mg/dL [facility] Calcium 8.2 (L) 8.4 - 10.2 mg/dL [facility] AST 35 (H) 5 - 34 U/L [facility] ALT 25 6 - 55 U/L [facility] EGFR Comment: INSUFFICIENT CLINICAL [facility] DATA TO CALCULATE ESTIMATED [facility] GFR. Specimen Blood Narrative Performed At Crawler Dragline Operator ID - ANTONY Zambrano [facility] Performing Organization Address [facility] Ph one Number [place] [address] [facility] * Phosphorus (12/20/2019 6:40 AM CDT) Only the most recent of 4 results within the time period is included. Phosphorus 2.6 2.3 - 4.7 mg/dL [facility] Specimen Blood Narrative Performed At Crawler Dragline Operator ID - MURPHY Walker [facility] Performing Organization Address [facility] Ph one Number [address] [facility] * Blood gas, venous (12/20/2019 6:40 AM CDT) pH, Hiram 7.39 7.32 - 7.42 [facility] pCO2, Hiram 40 (L) 41 - 51 mmHg [facility] pO2, Hiram 62 (H) 25 - 40 mmHg [facility] O2 Sat, Hiram 91.4 (H) 40.0 - 70.0 % [facility] HCO3, Hiram 24 21 - 29 mmol/L [facility] Base Excess, Hiram -1.4 -2.0 - 3.0 mmol/L [facility] Patient Temperature 37.0 C [facility] Specimen Blood Performing Organization Address [facility] one Number [place] [address] [facility] * Blood gas, arterial (12/19/2019 12:16 PM CDT) Only the most recent of 19 results within the time period is included. pH, Arterial 7.44 7.35 - 7.45 [facility] pCO2, Arterial 38 35 - 45 mmHg [facility] pO2, Arterial 83 80 - 90 mmHg [facility] O2 Sat, Arterial 96.5 96.0 - 97.0 % [facility] HCO3, Arterial 25 21 - 29 mmol/L [facility] Base Excess, Arterial 1.1 -2.0 - 3.0 mmol/L [facility] Patient Temperature 37.0 C [facility] Specimen Blood, Arterial Performing Organization Address [facility] one Number [place] [address] [facility] * C-Reactive Protein (12/19/2019 3:40 AM CDT) Only the most recent of 3 results within the time period is included. CRP 7.25 (H) 0.00 - 0.50 mg/dL [facility] Specimen Blood Narrative Performed At Crawler Dragline Operator ID - PIAYA L [facility] Performing Organization Address [facility] one Number [place] [address] [facility] * D-dimer (12/19/2019 3:40 AM CDT) Only the most recent of 3 results within the time period is included. D-Dimer, Quant 1.22 (H) <0.50 MG/L FEU [facility] Specimen Blood Narrative Performed At Intended Use: The D-Dimer Assay can be used to aid in the diagnosis of Deep Vein [facility] Thrombosis (DVT) and Pulmonary Embolism Disease (PED) . [facility] In patients with low pre-test probabili ty, various studies concerning STA Liatest D-dimer test have reported that with a cutoff value of 0.50 MG/L FEU, the Negative Predictive Value (NPV) reg arding the exclusion of thrombosis is within 95-100% range. While on warfarin. Performing Organization Address [facility] Ph one [address] * Lactate dehydrogenase (LDH) (12/19/2019 3:40 AM CDT) Only the most recent of 3 results within the time period is included. LDH 435 (H) 125 - 220 U/L [facility] Specimen Blood Narrative Performed At Crawler Dragline Operator ID - ANTONY L [facility] Performing Organization Address [facility] one [address] * Ferritin (12/19/2019 3:40 AM CDT) Only the most recent of 3 results within the time period is included. Ferritin 552.31 (H) 5.00 - 275.00 ng/mL [facility] Specimen Blood Narrative Performed At Crawler Dragline Operator ID - MURPHY C [facility] Performing Organization Address [facility] one [address] * TRANSFUSION SERVICE REPORT - SCAN (12/18/2019 6:03 PM CDT) Only the most recent of 2 results within the time period is included. Narrative Performed At This result has an attachment that is n ot available. * Prepare plasma (12/17/2019 11:54 PM CDT) Unit ABO O Neg [facility] UNIT NUMBER [id number] [facility] [place] Status TX_TIMEINCHART [facility] Blood Bank Product FFP [facility] [place] PRODUCT CODE [id number] [facility] Specimen Blood Performing Organization Address [facility] one Number [place] * B-type Natriuretic Factor (BNP) (12/17/2019 4:10 AM CDT) Only the most recent of 2 results within the time period is included. BNP 1,555 (H) 0 - 100 pg/mL [facility] Specimen Blood Narrative Performed At [employer] ID - LM [facility] Performing Organization Address [facility] one [place] [id number] * Transfuse plasma (12/16/2019 11:40 PM CDT) Only the most recent of 2 results within the time period is included. * ABORH, manual (12/16/2019 4:58 PM CDT) ABO Grouping O [facility] Rh Factor POS [facility] Specimen Blood Performing Organization Address [facility] one [place] [address] [phone] [place] [address] * Type and screen, automated (12/16/2019 3:36 PM CDT) ABO/RH AUTOMATED (BEAKER) O POSITIVE [facility] Ab Scrn NEGATIVE [facility] Specimen Blood Performing Organization Address [facility] one [place] [address] [phone] [place] [address] * Procalcitonin (12/16/2019 9:57 AM CDT) Procalcitonin 1.29 (H) <0.05 ng/mL [facility] Specimen Blood Narrative Performed At SEPSIS RISK (ng/mL) [facility] Low:0.05-0.50 [facility] Intermediate: 0.51-2.00 High: >=2.01 Performing Organization Address [facility] Ph one Number [facility] [address] [place], [place] [address] [facility] * G6PD, quantitative (12/16/2019 9:57 AM CDT) G-6-Pd, Quant 16.1 7.0 - 20.5 U/g Hgb [facility] Specimen Blood Narrative Performed At Performing Lab [facility] itute [address] [place], [place] [id number] I Cheikh HE, PhD, LILLIANA Performing Organization Address [facility] one Number [facility], [address] [place] [address] [facility] [address] [address] * Lactic acid, venous (12/16/2019 9:57 AM CDT) Lactate, Venous 1.27 0.50 - 2.20 mmol/L [facility] Specimen Blood Narrative Performed At Crawler Dragline Operator ID - AABOONEID [facility] Performing Organization Address [facility] Ph one Number [place] [address] [facility] * Thromboelastograph (TEG) (12/16/2019 9:57 AM CDT) TEG Activated Clotting 9.9 (H) 4.0 - 7.0 minutes [facility] TEG Fibrinogen Activity 70.7 61.0 - 73.0 degrees C [facility] TEG Platelet Aggregation 77.7 (H) 55.0 - 65.0 MM [facility] TEG-H Activated Clotting 9.4 (H) 4.0 - 7.0 minutes [facility] TEG-H Fibrinogen Activity 71.0 61.0 - 73.0 degrees [facility] TEG-H Platelet 78.2 (H) 55.0 - 65.0 MM [facility] Aggregation [facility] Specimen Blood Performing Organization Address [facility] one Number [address] [facility] * POCT-HEMATOCRIT (12/16/2019 6:40 AM CDT) POC-Hematocrit 39 (L)Comment: : 40 - 50 % [facility] Crawler Dragline Operator/Revit Drafter ID = [facility] [id number] for MARFIL, SWATI Specimen Blood Performing Organization Address [facility] one [address] 0 [phone] [place] [address] * POCT-HEMOGLOBIN (12/16/2019 6:40 AM CDT) POC-Hemoglobin 13.3Comment: : TESTED AT [facility] 13.0 - 16.8 g/d L [address] [address]: Crawler Dragline Operator/Revit Drafter ID = [id number] for MARFIL, SWATI Specimen Blood Performing Organization Address [facility] one [address] 0 [phone] [place] [address] * POCT-GLUCOSE (12/16/2019 6:40 AM CDT) POC-Glucose 211 (H)Comment: : TESTED AT 70 - 110 mg/dL [facility] I [address] [address]: Crawler Dragline Operator/Revit Drafter ID = [id number] for MARFIL, SWATI Specimen Blood Performing Organization Address [facility] one [address] 0 [phone] [place] [address] * POC-Sodium (12/16/2019 6:40 AM CDT) POC-Sodium 142Comment: : TESTED AT [facility] 135 - 148 meq/L [address] [address]: Crawler Dragline Operator/Revit Drafter ID = [id number] for MARFIL, SWATI Specimen Blood Performing Organization Address [facility] one Number [address] [facility] * POC-Potassium (12/16/2019 6:40 AM CDT) POC-Potassium 3.4 (L)Comment: : TESTED AT 3.6 - 5.5 meq/L C [address] [address]: Crawler Dragline Operator/Revit Drafter ID = [id number] for MARFIL, SWATI Specimen Blood Performing Organization Address [facility] one Number [address] 0 [phone] [place] [address] * POC-Calcium ionized (12/16/2019 6:40 AM CDT) POC-Calcium Ionized 1.14Comment: : TESTED AT [facility] 1.12 - 1.2 7 mmol/L [address] [address]: Crawler Dragline Operator/Revit Drafter ID = [id number] for MARFIL, SWATI Specimen Blood Performing Organization Address [facility] one Number [address] [facility] * POC-Blood gases, arterial (12/16/2019 6:40 AM CDT) Temp. Celsius-POC 103.0 [facility] FIO2-POC 44 [facility] pH, Arterial-POC 7.450 7.350 - 7.450 [facility] PCO2, Arterial-POC 48.9 (H) 35.0 - 45.0 mm Hg [facility] PO2, Arterial-POC 71.0 (L) 80.0 - 90.[address] [facility] SO2, Arterial-POC 92.0 (L) 96.0 - 97.0 % [facility] HCO3, Arterilal-POC 33.3 (H) 21.0 - 29.0 meq/L [facility] BE, Arterial-POC 10.0 (H)Comment: : TESTED AT -2.0 - 3.0 meq/ L [address] [address]: Crawler Dragline Operator/Revit Drafter ID = [id number] for SWATI HE Specimen Blood Performing Organization Address [facility] one Number [address] [facility] * TSH/Free T4 If Indicated (12/16/2019 5:11 AM CDT) TSH 1.337 0.350 - 4.940 uIU/mL [facility] Specimen Blood Narrative Performed At Crawler Dragline Operator ID - ANTONY L [facility] Performing Organization Address [facility] one Number [address] [facility] * Troponin I (12/16/2019 5:11 AM CDT) Only the most recent of 3 results within the time period is included. Troponin I 0.08 (H) 0.00 - 0.03 ng/mL [facility] Specimen Blood Narrative Performed At Troponin I (TnI) levels must be interpreted in the co ntext of the presenting [facility] symptoms and the clinical findings. Elevated TnI leve ls indicate myocardial [facility] damage, but are not specific for ischem ic heart disease. Elevated TnI levels are seen in patients with other cardiac con ditions (including myocarditis and congestive heart failure), and slight T nI elevations occur in patients with other conditions, including sepsis, frank al failure, acidosis, acute neurological disease, and persistent tachyarrhythmia . Crawler Dragline Operator ID - AAHAMID Performing Organization Address [facility] one [address] [facility] * Fibrinogen (12/16/2019 5:11 AM CDT) Fibrinogen 603 (H) 225 - 434 mg/dl [facility] Specimen Blood Narrative Performed At While on warfarin. [facility] Performing Organization Address [facility] Ph one Number [address] [facility] * Creatine Kinase (CK) (12/16/2019 5:11 AM CDT) Only the most recent of 3 results within the time period is included. Total CK 94 29 - 200 U/L [facility] Specimen Blood Narrative Performed At Crawler Dragline Operator ID - DARRYN [facility] Performing Organization Address [facility] Ph one Number [address] [phone] [place] [address] * Hepatic function panel (12/16/2019 5:11 AM CDT) Only the most recent of 2 results within the time period is included. Protein, Total 8.4 (H) 6.0 - 8.3 gm/dL [facility] Albumin 3.4 (L) 3.5 - 5.0 g/dL [facility] Total Bilirubin 1.3 (H) 0.2 - 1.2 mg/dL [facility] Bilirubin, Direct 1.0 (H) 0.1 - 0.5 mg/dL [facility] Alkaline Phosphatase 180 (H) 40 - 150 U/L [facility] AST 77 (H) 5 - 34 U/L [facility] ALT 36 6 - 55 U/L [facility] Specimen Blood Narrative Performed At Crawler Dragline Operator ID - MURPHY Walker [facility] Performing Organization Address [facility] one [facility] [address] [place], [place] [address] [facility] * Basic Metabolic Panel (12/16/2019 5:11 AM CDT) Only the most recent of 4 results within the time period is included. Sodium 143 136 - 145 meq/L [facility] Potassium 4.0 3.5 - 5.1 meq/L [facility] Chloride 100 98 - 107 meq/L [facility] CO2 30 (H) 22 - 29 meq/L [facility] BUN 40 (H) 7 - 21 mg/dL [facility] Creatinine 1.20 0.57 - 1.25 mg/dL [facility] Glucose 188 (H) 70 - 105 mg/dL [facility] Calcium 9.1 8.4 - 10.2 mg/dL [facility] EGFR Comment: INSUFFICIENT CLINICAL [facility] DATA TO CALCULATE ESTIMATED [facility] GFR. Specimen Blood Narrative Performed At Crawler Dragline Operator ID - ANTONY Zambrano [facility] Performing Organization Address [facility] one [address] [facility] * ECG 12 lead (12/16/2019 2:04 AM CDT) Only the most recent of 2 results within the time period is included. Specimen Narrative Performed At Ventricular Rate 136 BPM [facility] Atrial Rate 59 BPM QRS Duration 162 ms Q-T Interval 374 ms QTC Calculation(Bazett) 562 ms R Mcintosh 161 degrees T Mcintosh 15 degrees Undetermined rhythm with a PVC Right bundle branch block Abnormal ECG When compared with ECG of 16-DEC-2019 0 2:04, Tihe heart rate has increased Confirmed by Tabatha [place] (1 50) on 12/17/2019 6:31:38 AM Procedure Note Interface, External Ris In - 12/17/2019 6:31 AM CDT Ventricular Rate 136 BPM Atrial Rate 59 BPM QRS Duration 162 ms Q-T Interval 374 ms QTC Calculation(Bazett) 562 ms R Mcintosh 161 degrees T Mcintosh 15 degrees Undetermined rhythm with a PVC Right bundle branch block Abnormal ECG When compared with ECG of 16-DEC-2019 02:04, Tihe heart rate has increased Confirmed by Tabatha [place] ([id number]) on 12/17/2019 6:31:38 AM Performing Organization Address City/State/Zipcode Ph one Number [facility] * Limited 2D Echocardiogram (12/15/2019 4:21 PM CDT) Ejection Fraction [facility] Specimen Narrative Performed At Transthoracic Echocardiography Report (TTE) [facility] Demographics [facility] Patient Name NICOLAS VICK Date of Study 12/15/2019 CERVANT ES [id number] GenderMale Visit Number [id number] Tj malone [id number] Room Number 7515 Number Date of Birth1950 Referring Physician Samara Bo Age69 year(s) Barometers Calibrator Adeel velazco CS AnalystAlex ZadeInterpreting Yared Ramirez, Physician Procedure Type of Study TTE procedure:LIMITED 2D ECHOCARDIOGRAM (Routine) Indications:Known or suspected heart fa ilure. Clinical History Atrial Fibrillation/flutter COPD Coronary Artery Disease Diabetes Hypertension S/P CABG S/P MVR HGB 11 HCT 35.2 % Contrast Medium: Definity. Amount - 3 m l Height: 69 inches Weight: 99.79 kg (220 lbs) BSA: 2.15 m^2 BMI: 32.49 kg/m^2 HR: 57 bpm BP: 152/65 mmHg Summary The left ventricle is chamber size (by vol index) is mildly enlarged (male - LVED 75-89ml/m2). The following segme nt(s) appear akinetic: basal to mid inferior, inferoseptal, inferolateral . The other segments are hypokinetic. Estimated LVEF by qualitat lacy assessment is severely reduced (25-29%) . Unable to estimate peak systolic PA pre ssure; inadequate TR velocity signal. RV chamber size is moderately enlarged . Signature Findings Left Ventricle LV endoc ardium is adequately visualized with IV ultrasound enhancing agent. The left ventricle is chamber size (by vol index) is mildly enlarged (male - LVED 75-89ml/m2). Normal LV wall thickness. The following segment(s) appear akinetic: basal to mid inferior, inferoseptal, inferolateral . The other segments are hypokinetic. Global LV systolic function severely reduced . Estimated LVEF by qualitative assessment is severely reduced (25-29%) . Left AtriumLA s ize is severely enlarged (>48 ml/m2) . Right VentricleRV chamb er size is moderately enlarged . RV pacing wire is visualized . Right Atrium Right atrium dilated. RA pacing wire is visualized . Aortic Valve Mild A oV cusp thickening. Mitral Valve A mech anical MV prosthesis is visualized . Tricuspid ValveA trace of tricuspid regurgitation. Unable to estimate peak systolic PA pressure; inadequate TR velocity signal. Pulmonic Valve PV is no t well visualized. Aorta Aortic root size (SInus of Valsalva diameter) is normal . PericardiumNo e vidence of pericardial effusion. IVC/SVC/PA/PV/PleuralThe estimated RA pressure by IVC dynamics 16-20mmHg . Chambers/Structures Left Atrium LA Dimension: 5.94 cm LA Area: 37.58 cm^2 LA Volume: 158.85 ml LA Vol. Index: 74 ml/m^2 Left Ventricle LVIDd: 6.7 cm LV Septum Diastolic: 1.03 cm LV PW Diastolic: 1.13 cm LVEDV Ly's:175.22 ml LVESV Ly's:124.98 ml LVEF Ly's: 28.7 % LVEDVI: 81 ml/m^2 LVESVI: 58 ml/m^2 Aorta Ao Root S of Elysia.: 3.68 cm Procedure Note Interface, External Ris In - 12/16/2019 10:54 AM CDT Transthoracic Echocardiography Report (TTE) Demographics Patient Name NICOLAS VICK Date of Study 12/15/2019 HERMELINDA Gender Male Visit Number [id number] Race Unknown Room Number 7515 Number Date of 1950 Referring Physician Samara Bo Age 69 year(s) Barometers Calibrator Adeel Shelley [facility] Business Development Director Alex De Leon Interpreting Physician YING Sapp Procedure Type of Study TTE procedure:LIMITED 2D ECHOCARDIOGRAM (Routine) Indications:Known or suspected heart failure. Clinical History Atrial Fibrillation/flutter COPD Coronary Artery Disease Diabetes Hypertension S/P CABG S/P MVR HGB 11 HCT 35.2 % Contrast Medium: Definity. Amount - 3 ml Height: 69 inches Weight: 99.79 kg (220 lbs) BSA: 2.15 m^2 BMI: 32.49 kg/m^2 HR: 57 bpm BP: 152/65 mmHg Summary The left ventricle is chamber size (by vol index) is mildly enlarged (male - LVED 75-89ml/m2). The following segment(s) appear akinetic: basal to mid inferior, inferoseptal, inferolateral . The other segments are hypokinetic. Estimated LVEF by qualitative assessment is severely reduced (25-29%) . Unable to estimate peak systolic PA pressure; inadequate TR velocity signal. RV chamber size is moderately enlarged . Signature Findings Left Ventricle LV endocardium is adequately visualized with IV ultrasound enhancing agent. The left ventricle is chamber size (by vol index) is mildly enlarged (male - LVED 75-89ml/m2). Normal LV wall thickness. The following segment(s) appear akinetic: basal to mid inferior, inferoseptal, inferolateral . The other segments are hypokinetic. Global LV systolic function severely reduced . Estimated LVEF by qualitative assessment is severely reduced (25-29%) . Left Atrium LA size is severely enlarged (>48 ml/m2) . Right Ventricle RV chamber size is moderately enlarged . RV pacing wire is visualized . Right Atrium Right atrium dilated. RA pacing wire is visualized . Aortic Valve Mild AoV cusp thickening. Mitral Valve A mechanical MV prosthesis is visualized . Tricuspid Valve A trace of tricuspid regurgitation. Unable to estimate peak systolic PA pressure; inadequate TR velocity signal. Pulmonic Valve PV is not well visualized. Aorta Aortic root size (SInus of Valsalva diameter) is normal . Pericardium No evidence of pericardial effusion. IVC/SVC/PA/PV/Pleural The estimated RA pressure by IVC dynamics 16-20mmHg . Chambers/Structures Left Atrium LA Dimension: 5.94 cm LA Area: 37.58 cm^2 LA Volume: 158.85 ml LA Vol. Index: 74 ml/m^2 Left Ventricle LVIDd: 6.7 cm LV Septum Diastolic: 1.03 cm LV PW Diastolic: 1.13 cm LVEDV Ly's:175.22 ml LVESV Ly's:124.98 ml LVEF Ly's: 28.7 % LVEDVI: 81 ml/m^2 LVESVI: 58 ml/m^2 Aorta Ao Root S of Elysia.: 3.68 cm Performing Organization Address City/State/Zipcode Ph one Number [facility] * XR chest 1 view portable / bedside (12/15/2019 10:48 AM CDT) Specimen Narrative Performed At FINAL REPORT Digital Legends [facility] CHEST ONE VIEW HISTORY: Shortness of breath,Covid COMPARISON: None FINDINGS: 2 portable AP images of the chest were obtained. There are diffuse bilateral pulmonary opacities suggestiv e of bilateral pneumonia and/or pulmonary edema. Question minimal right pleural effusion . No pneumothorax. Cardiac shadow borderline enlarged. A p rosthetic cardiac valve is present. Left subclavian transvenous ca rdiac pacing hardware is present, with the lead in the region of the right ventricle. Sternotomy wires are present. Degenerative changes are present in the spine. IMPRESSION: Diffuse bilateral pulmonary opacities suggestive of bilateral pneumonia. Signed: Tien Le MD Report Verified Date/Time: 0 12:27:44 Reading Location: [address] Transiti onal Reading Room Procedure Note Interface, External Ris In - 12/15/2019 12:30 PM CDT FINAL REPORT CHEST ONE VIEW HISTORY: Shortness of breath, Covid COMPARISON: None FINDINGS: 2 portable AP images of the chest were o btained. There are diffuse bilateral pulmonary opacities suggestive of bilateral pneumonia and/or pulmonary edema. Question minimal right pleural effusion. No pneumothorax. Cardiac shadow borderline enlarged. A prosthetic cardiac valve is present. Left subclavian transvenous cardiac pacing hardware is present, with the lead in the region of the right ventricle. Sternotomy wires are present. Degenerative changes are present in the spine. IMPRESSION: Diffuse bilateral pulmonary opacities suggestive of bilateral pneumonia. Signed: Tien Le MD Report Verified Date/Time: 12/15/2019 12:27:44 Reading Location: [address] Transitional Reading Room Performing Organization Address City/State/Zipcode Ph one Number [facility] * Urinalysis with Microscopic If Indicated (12/14/2019 5:06 AM CDT) Color, UA Light Yellow [facility] Clarity, UA Clear [facility] Specific [place], UA 1.009 1.001 - 1.035 [facility] pH, UA 5.0 5.0 - 8.0 [facility] Protein, UA Negative Negative [facility] Glucose, UA Negative Negative [facility] Ketones, UA Negative Negative [facility] Bilirubin, UA Negative Negative [facility] Blood, UA Negative Negative [facility] Nitrite, UA Negative Negative [facility] Leukocytes, UA Negative Negative [facility] Urobilinogen, UA 0.2 0.2 - 1.0 mg/dL [facility] Specimen Source [facility] Specimen Urine Narrative Performed At Crawler Dragline Operator ID - [auto] [facility] Performing Organization Address City/State/Zipcode Ph one Number [facility] [address] [place], [place] [address] MED[facility]ENTER * SARS-CoV2/RT-PCR (Symptomatic ONLY) (12/13/2019 10:19 PM CDT) SARS-COV2/RT-PCR Detected (AA)Comment: This is Not Detected, Negative [facility] a corrected result. Previous [facility] result was Not Detected on 12/13/2019 at 2331 CDT SARS-COV-2 PERFORMING LAB [facility] Specimen Other Narrative Performed At Results are for the detection of SARS-C oV-2 RNA. The SARS-CoV-2 RNA is generally [facility] detectable in nasopharyngeal swab speci mens during the acute phase of infection. [facility] Positive results are indicative of acti ve infection with SARS-CoV-2; clinical correlation with patient history and ot her diagnostic information is necessary to determine patient infection status. Positive results do not rule out bacterial infection or co-infection wit h other viruses. The agent detected may not be the definite cause of disease. The limit of detection for this assay i s 250 copies/mL. This SARS CoV-2 test is a rapid, real-t maximilian RT-PCR test intended for the qualitative detection of nucleic acid f rom SARS-CoV-2 in a nasopharyngeal swab specimen collected from individuals cyril pected of COVID-19 by their healthcare provider. This test has not been Food and Drug Ad ministration (FDA) cleared or approved and has been authorized by FDA under an Emergency Use Authorization (EUA). This EUA will be effective until the declara tion that circumstances exist justifying the authorization of the emergency use of in vitro diagnostic tests for detection and/or diagnosis of COVID-19 is terminated under Section 564(b)(2) of the Act or the EUA is revoked under Sec tion 564(g) of the Act. Fact Sheet for Healthcare Providers: https://www.[employer]/Documents/Xpert%20Xpress%20SARS%20CoV-2/Fact%20Sheets/30 2-3802%37OZNB-SPZ-8%20HEALTHCARE%20PROV IDERS%20FACT%20SHEET.pdf Fact Sheet for Healthcare Patients: https://www.[employer]/Documents/Xpert%20Xpress%20SARS%20CoV-2/Fact%20Sheets/30 2-3801%57UHXM-QCE-3%20PATIENT%20FACT%20 SHEET.pdf Performing Laboratory: [address] [place] [address] Performing Organization Address City/State/Zipcode Ph one Number [facility] [address] [place] [address] [facility] after 03/28/2019 Insurance Payer Benefit Subscriber ID Type Phone Address Plan / Group [employer] MEDICARE [place] [employer] xxxxxxxxx CARE [place] MEDICAID - MEDICAID MGD MEDICAID xxxxxxxxx Medica id CARE [employer] Non-Contra cted CDC REVIEW CDC REVIEW xxxxx[place] [address] [place] [address] [phone] [facility] ([facility]) [place], [place] [address] Advance Directives For more information, please contact: [address] [address] Date Inactivated Comments Code Status Date Activated 12/21/2019 10:10 PM Full Code 12/13/2019 6:54 PM This code status was determined by: Patient
--- NOTE | 2020-03-28 04:30 | NUR ---
ER MD AT PTS BS, CENTRAL LINE PLACED TO PTS LEFT IJ, PT TOLERATED PROCEDURE WELL, RAD CALLED FOR LINE PLACEMENT VERIFICATION.
[2020-03-28 04:31] LABS: BASOPHILS # (AUTO) 0.1 (0.0-0.1); BASOPHILS % 0.6 % (0.0-1.0); EOSINOPHILS # (AUTO) 0.3 (0.0-0.4); EOSINOPHILS % 4.1 % (0.0-6.0); HEMATOCRIT 29.1 % (38.2-49.6); HEMOGLOBIN 8.7 g/dL (14.0-18.0); LYMPHOCYTES # (AUTO) 1.9 (1.0-3.2); LYMPHOCYTES % 24.5 % (18.0-39.1); MEAN CORPUSCULAR HEMOGLOBIN 27.1 pg (28-32); MEAN CORPUSCULAR HGB CONC 29.9 g/dL (31-35); MEAN CORPUSCULAR VOLUME 90.7 fL (81-99); MONOCYTES % 12.3 % (4.4-11.3); NEUTROPHILS # (AUTO) 4.5 (2.1-6.9); NEUTROPHILS % 58.4 % (38.7-80.0); PLATELET COUNT 227 x10e3/uL (140-360); RED BLOOD COUNT 3.21 x10e6/uL (4.3-5.7); RED CELL DISTRIBUTION WIDTH 17.2 % (11.7-14.4)
[2020-03-28 04:50] LABS: ALBUMIN 2.8 g/dL (3.5-5.0); ALBUMIN/GLOBULIN RATIO 0.6 (0.8-2.0); ANION GAP 12.6 mmol/L (8-16); CALCIUM 8.3 mg/dL (8.4-10.2); CREATININE, SERUM 2.44 mg/dL (0.72-1.25); POTASSIUM 4.6 mmol/L (3.5-5.1)
[2020-03-28 04:56] LABS: CREATINE KINASE MB 1.7 ng/mL (0-5.0)
[2020-03-28 05:00] LABS: B-TYPE NATRIURETIC PEPTIDE2 209.2 pg/mL (0-100)
[2020-03-28] MEDS ORDERED: MORPHINE SULFATE INJ 4 MG/ML INJ 1ML IV PRN (05:15)
--- OUTSIDE RECORDS SUMMARY | 2020-03-28 05:19 | XMS REPORT | Clinical Summary ---
Author Author GARIMA [facility] Organization [facility] Address Unknown Phone Unavailable Care Team Providers Care Outbound Sales Consultant Name Role Phone Andres--Matty Pyle PCP Allergies [...] ms QTC Calculatio n(Bazett) 562 ms R [place] 161 degrees T [place] 15 degrees Undetermi tamika rhythm Right bundle [...] ms QTC Calculatio n(Bazett) 562 ms R [place] 166 degrees T [place] 5 degrees Suspect arm lead reversal, interpreta [...] I Routine 12/13/2019 10:19 PM CDT SARS-COV2/RT-PCR ([facility] & Routine 12/13/2019 REF LABS) 10:19 PM [...] : TESTED AT 70 - 110 mg/dL [address] [address]: Vocational Evaluator/Bilingual Speech Language Pathologist ID = [id number] for NZEGWU, CLEMENT Specimen Blood Performing Organization Address [facility] Ph one Number [address] [facility] * Manual Differential (12/21/2019 3:43 AM CDT) Only the most recent of 3 results within the time period is included. % Neutros 98 % [facility] % Lymphs 1 % [facility] % Monos 1 % [facility] # Neutros 9.90 (H) 1.78 - 5.38 K/ul [facility] # Lymphs 0.10 (L) 1.32 - 3.57 K/ul [facility] # Monos 0.10 (L) 0.30 - 0.82 K/uL [facility] Total Counted 100 [facility] WBC Morphology Normal [facility] Platelet Morphology Normal [facility] Poikilocytes 1+ few [facility] Ovalocytes 1+ few [facility] Artifact Present [facility] Platelet Conc Adequate [facility] Specimen Blood Narrative Performed At Vocational Evaluator ID - Briseida Overholt [facility] User comments: [facility] Slide comments: Performing Organization Address [facility] Ph one Number [address] 0 [phone] [place] [address] * CBC with platelet count + automated diff (12/21/2019 3:43 AM CDT) Only the most recent of 8 results within the time period is included. WBC 10.1 3.5 - 10.5 K/L [facility] RBC 4.51 (L) 4.63 - 6.08 M/L [facility] Hemoglobin 12.6 (L) 13.7 - 17.5 GM/DL [facility] Hematocrit 40.1 40.1 - 51.0 % [facility] MCV 88.9 79.0 - 92.[address] [facility] MCH 27.9 25.7 - 32.[address] [facility] MCHC 31.4 (L) 32.3 - 36.5 GM/DL [facility] RDW 15.5 (H) 11.6 - 14.4 % [facility] Platelets 254 150 - 450 K/CU MM [facility] MPV 11.3 9.4 - 12.[address] [facility] nRBC 0 0 - 0 /[address] [facility] Specimen Blood Performing Organization Address City/State/Zipcode Ph one Number [place] [address] 0 [phone] [place] [address] * Daily Prothrombin time/INR while on warfarin (12/21/2019 3:43 AM CDT) Only the most recent of 9 results within the time period is included. Protime 35.9 (H) 11.9 - 14.2 seconds [facility] INR 3.7 <=5.9 [facility] Specimen Blood Narrative Performed At Effective 11/21/2018: PT Reference Range Change [facility] New: 11.9-14.2Previous: 11.7-14.7 [facility] NTER RECOMMENDED COUMADIN/WARFARIN INR THERA PY RANGES STANDARD DOSE: 2.0-3.0Includes: PRO PHYLAXIS for venous thrombosis, systemic embolization; TREATMENT for venous thro mbosis and/or pulmonary embolus. HIGH RISK: Target INR is 2.5-3.5 for pa tients wiht mechanical heart valves. While on warfarin. Performing Organization Address [facility] Ph one Number [place] [address] 0 [phone] [place] [address] * Magnesium (12/21/2019 3:43 AM CDT) Only the most recent of 6 results within the time period is included. Magnesium 1.9 1.6 - 2.6 mg/dL [facility] Specimen Blood Narrative Performed At Vocational Evaluator ID - ANTONY L [facility] Performing Organization Address [facility] Ph one Number [place] [address] 0 [phone] [address] * Comprehensive metabolic panel (12/21/2019 3:43 AM CDT) Only the most recent of 5 results within the time period is included. Protein, Total 7.4 6.0 - 8.3 gm/dL [facility] Albumin 2.8 (L) 3.5 - 5.0 g/dL [facility] Alkaline Phosphatase 145 40 - 150 U/L [facility] Total Bilirubin 0.9 0.2 - 1.2 mg/dL [facility] Sodium 136 136 - 145 meq/L [facility] Potassium 4.1 3.5 - 5.1 meq/L [facility] Chloride 110 (H) 98 - 107 meq/L [facility] CO2 20 (L) 22 - 29 meq/L [facility] BUN 33 (H) 7 - 21 mg/dL [facility] Creatinine 0.98 0.57 - 1.25 mg/dL [facility] Glucose 268 (H) 70 - 105 mg/dL [facility] Calcium 8.2 (L) 8.4 - 10.2 mg/dL [facility] AST 35 (H) 5 - 34 U/L [facility] ALT 25 6 - 55 U/L [facility] EGFR Comment: INSUFFICIENT CLINICAL [facility] DATA TO CALCULATE ESTIMATED [facility] GFR. Specimen Blood Narrative Performed At Vocational Evaluator ID - ANTONY Zambrano [facility] Performing Organization Address [facility] Ph one Number [place] [address] [facility] * Phosphorus (12/20/2019 6:40 AM CDT) Only the most recent of 4 results within the time period is included. Phosphorus 2.6 2.3 - 4.7 mg/dL [facility] Specimen Blood Narrative Performed At Vocational Evaluator ID - MURPHY Walker [facility] Performing Organization Address [facility] Ph one Number [address] [facility] * Blood gas, venous (12/20/2019 6:40 AM CDT) pH, Hiram 7.39 7.32 - 7.42 [facility] pCO2, Hiram 40 (L) 41 - [address] [facility] pO2, Hiram 62 (H) 25 - [address] [facility] O2 Sat, Hiram 91.4 (H) 40.0 - 70.0 % [facility] HCO3, Hiram 24 21 - 29 mmol/L [facility] Base Excess, Hiram -1.4 -2.0 - 3.0 mmol/L [facility] Patient Temperature 37.0 C [facility] Specimen Blood Performing Organization Address [facility] one Number [place] [address] [facility] * Blood gas, arterial (12/19/2019 12:16 PM CDT) Only the most recent of 19 results within the time period is included. pH, Arterial 7.44 7.35 - 7.45 [facility] pCO2, Arterial 38 35 - [address] [facility] pO2, Arterial 83 80 - [address] [facility] O2 Sat, Arterial 96.5 96.0 - 97.0 % [facility] HCO3, Arterial 25 21 - 29 mmol/L [facility] Base Excess, Arterial 1.1 -2.0 - 3.0 mmol/L [facility] Patient Temperature 37.0 C [facility] Specimen Blood, Arterial Performing Organization Address [facility] one Number [place] [address] [facility] * C-Reactive Protein (12/19/2019 3:40 AM CDT) Only the most recent of 3 results within the time period is included. CRP 7.25 (H) 0.00 - 0.50 mg/dL [facility] Specimen Blood Narrative Performed At Vocational Evaluator ID - PIAYA L [facility] Performing Organization Address [facility] one Number [place] [address] [facility] * D-dimer (12/19/2019 3:40 AM CDT) Only the most recent of 3 results within the time period is included. D-Dimer, Quant 1.22 (H) <0.50 MG/L FEU [facility] Specimen Blood Narrative Performed At Intended Use: The D-Dimer Assay can be used to aid in the diagnosis of Deep Vein [facility] Thrombosis (DVT) and Pulmonary Embolism Disease (PED) . [facility] In patients with low pre-test probabili ty, various studies concerning STA Liatest D-dimer test have reported that with a cutoff value of 0.50 MG/L FEU, the Negative Predictive Value (NPV) reg arding the exclusion of thrombosis is within 95-100% range. While on warfarin. Performing Organization Address [facility] Ph one [address] * Lactate dehydrogenase (LDH) (12/19/2019 3:40 AM CDT) Only the most recent of 3 results within the time period is included. LDH 435 (H) 125 - 220 U/L [facility] Specimen Blood Narrative Performed At Vocational Evaluator ID - ANTONY L [facility] Performing Organization Address [facility] one [address] * Ferritin (12/19/2019 3:40 AM CDT) Only the most recent of 3 results within the time period is included. Ferritin 552.31 (H) 5.00 - 275.00 ng/mL [facility] Specimen Blood Narrative Performed At Vocational Evaluator ID - MURPHY C [facility] Performing Organization Address [facility] one [address] * TRANSFUSION SERVICE REPORT - SCAN (12/18/2019 6:03 PM CDT) Only the most recent of 2 results within the time period is included. Narrative Performed At This result has an attachment that is n ot available. * Prepare plasma (12/17/2019 11:54 PM CDT) Unit ABO O Neg [place] UNIT NUMBER [id number] [place] Status TX_TIMEINCHART [facility] Blood Bank Product FFP [place] PRODUCT CODE [id number] [place] Specimen Blood Performing Organization Address [facility] one Number [place] * B-type Natriuretic Factor (BNP) (12/17/2019 4:10 AM CDT) Only the most recent of 2 results within the time period is included. BNP 1,555 (H) 0 - 100 pg/mL [facility] Specimen Blood Narrative Performed At Vocational Evaluator ID - LM [facility] Performing Organization Address [facility] one [place] [phone] * Transfuse plasma (12/16/2019 11:40 PM CDT) Only the most recent of 2 results within the time period is included. * ABORH, manual (12/16/2019 4:58 PM CDT) ABO Grouping O [facility] Rh Factor POS [facility] Specimen Blood Performing Organization Address [facility] one [place] [address] [phone] [place] [address] * Type and screen, automated (12/16/2019 3:36 PM CDT) ABO/RH AUTOMATED (BEAKER) O POSITIVE [facility] Ab Scrn NEGATIVE [facility] Specimen Blood Performing Organization Address [facility] one [place] [address] [phone] [place] [address] * Procalcitonin (12/16/2019 9:57 AM CDT) Procalcitonin 1.29 (H) <0.05 ng/mL [facility] Specimen Blood Narrative Performed At SEPSIS RISK (ng/mL) [facility] Low:0.05-0.50 [facility] Intermediate: 0.51-2.00 High: >=2.01 Performing Organization Address [facility] Ph one Number [phone] [address] [place], [place] [address] [facility] * G6PD, quantitative (12/16/2019 9:57 AM CDT) G-6-Pd, Quant 16.1 7.0 - 20.5 U/g Hgb [facility] Specimen Blood Narrative Performed At Performing Lab [facility] itute [address] [place], [place] [id number] I Cheikh HE, PhD, LILLIANA Performing Organization Address [facility] one Number [facility], [address] [place] [address] [facility] [address] [address] * Lactic acid, venous (12/16/2019 9:57 AM CDT) Lactate, Venous 1.27 0.50 - 2.20 mmol/L [facility] Specimen Blood Narrative Performed At Vocational Evaluator ID - AABOONEID [facility] Performing Organization Address [facility] Ph one Number [place] [address] [facility] * Thromboelastograph (TEG) (12/16/2019 9:57 AM CDT) TEG Activated Clotting 9.9 (H) 4.0 - 7.0 minutes [facility] TEG Fibrinogen Activity 70.7 61.0 - 73.0 degrees C [facility] TEG Platelet Aggregation 77.7 (H) 55.0 - 65.0 MM [facility] TEG-H Activated Clotting 9.4 (H) 4.0 - 7.0 minutes [facility] TEG-H Fibrinogen Activity 71.0 61.0 - 73.0 degrees [facility] TEG-H Platelet 78.2 (H) 55.0 - 65.0 MM [facility] EALTH Aggregation [facility] Specimen Blood Performing Organization Address [facility] one Number [address] [facility] * POCT-HEMATOCRIT (12/16/2019 6:40 AM CDT) POC-Hematocrit 39 (L)Comment: : 40 - 50 % [facility] Vocational Evaluator/Bilingual Speech Language Pathologist ID = [facility] [id number] for MARFIL, SWATI Specimen Blood Performing Organization Address [facility] one [address] 0 [phone] [place] [address] * POCT-HEMOGLOBIN (12/16/2019 6:40 AM CDT) POC-Hemoglobin 13.3Comment: : TESTED AT [facility] 13.0 - 16.8 g/d L [address] [address]: Vocational Evaluator/Bilingual Speech Language Pathologist ID = [id number] for MARFIL, SWATI Specimen Blood Performing Organization Address [facility] one [address] 7703 0 [phone] [place] [address] * POCT-GLUCOSE (12/16/2019 6:40 AM CDT) POC-Glucose 211 (H)Comment: : TESTED AT 70 - 110 mg/dL [facility] I [address] [address]: Vocational Evaluator/Bilingual Speech Language Pathologist ID = [id number] for MARFIL, SWATI Specimen Blood Performing Organization Address [facility] one [address] 0 [phone] [place] [address] * POC-Sodium (12/16/2019 6:40 AM CDT) POC-Sodium 142Comment: : TESTED AT [facility] 135 - 148 meq/L [address] [address]: Vocational Evaluator/Bilingual Speech Language Pathologist ID = [id number] for MARFIL, SWATI Specimen Blood Performing Organization Address [facility] one Number [address] [facility] * POC-Potassium (12/16/2019 6:40 AM CDT) POC-Potassium 3.4 (L)Comment: : TESTED AT 3.6 - 5.5 meq/L C [address] [address]: Vocational Evaluator/Bilingual Speech Language Pathologist ID = [id number] for MARFIL, SWATI Specimen Blood Performing Organization Address [facility] one Number [address] 0 [phone] [place] [address] * POC-Calcium ionized (12/16/2019 6:40 AM CDT) POC-Calcium Ionized 1.14Comment: : TESTED AT [facility] 1.12 - 1.2 7 mmol/L [address] [address]: Vocational Evaluator/Bilingual Speech Language Pathologist ID = [id number] for MARFIL, SWATI Specimen Blood Performing Organization Address [facility] one Number [address] [facility] * POC-Blood gases, arterial (12/16/2019 6:40 AM CDT) Temp. Celsius-POC 103.0 [facility] FIO2-POC 44 [facility] pH, Arterial-POC 7.450 7.350 - 7.450 [facility] PCO2, Arterial-POC 48.9 (H) 35.0 - 45.0 mm Hg [facility] PO2, Arterial-POC 71.0 (L) 80.0 - 90.[address] [facility] SO2, Arterial-POC 92.0 (L) 96.0 - 97.0 % [facility] HCO3, Arterilal-POC 33.3 (H) 21.0 - 29.0 meq/L [facility] BE, Arterial-POC 10.0 (H)Comment: : TESTED AT -2.0 - 3.0 meq/ L [address] [address]: Vocational Evaluator/Bilingual Speech Language Pathologist ID = [id number] for SWATI HE Specimen Blood Performing Organization Address [facility] one Number [address] [facility] * TSH/Free T4 If Indicated (12/16/2019 5:11 AM CDT) TSH 1.337 0.350 - 4.940 uIU/mL [facility] Specimen Blood Narrative Performed At Vocational Evaluator ID - ANTONY L [facility] Performing Organization Address [facility] one Number [address] [facility] * Troponin I (12/16/2019 5:11 AM CDT) Only the most recent of 3 results within the time period is included. Troponin I 0.08 (H) 0.00 - 0.03 ng/mL [facility] Specimen Blood Narrative Performed At Troponin I (TnI) levels must be interpreted in the co ntext of the presenting [facility] symptoms and the clinical findings. Elevated TnI leve ls indicate myocardial [facility] damage, but are not specific for ischem ic heart disease. Elevated TnI levels are seen in patients with other cardiac con ditions (including myocarditis and congestive heart failure), and slight T nI elevations occur in patients with other conditions, including sepsis, frank al failure, acidosis, acute neurological disease, and persistent tachyarrhythmia . Vocational Evaluator ID - AAHAMID Performing Organization Address [facility] one [address] [facility] * Fibrinogen (12/16/2019 5:11 AM CDT) Fibrinogen 603 (H) 225 - 434 mg/dl [facility] Specimen Blood Narrative Performed At While on warfarin. [facility] Performing Organization Address [facility] Ph one Number [address] [facility] * Creatine Kinase (CK) (12/16/2019 5:11 AM CDT) Only the most recent of 3 results within the time period is included. Total CK 94 29 - 200 U/L [facility] Specimen Blood Narrative Performed At Vocational Evaluator ID - DARRYN [facility] Performing Organization Address [facility] Ph one Number [address] 0 [phone] [place] [address] * Hepatic function panel (12/16/2019 5:11 AM CDT) Only the most recent of 2 results within the time period is included. Protein, Total 8.4 (H) 6.0 - 8.3 gm/dL [facility] Albumin 3.4 (L) 3.5 - 5.0 g/dL [facility] Total Bilirubin 1.3 (H) 0.2 - 1.2 mg/dL [facility] Bilirubin, Direct 1.0 (H) 0.1 - 0.5 mg/dL [facility] Alkaline Phosphatase 180 (H) 40 - 150 U/L [facility] AST 77 (H) 5 - 34 U/L [facility] ALT 36 6 - 55 U/L [facility] Specimen Blood Narrative Performed At Vocational Evaluator ID - MURPHY Walker [facility] Performing Organization Address [facility] one [facility] [address] [place], [place] [address] [facility] * Basic Metabolic Panel (12/16/2019 5:11 AM CDT) Only the most recent of 4 results within the time period is included. Sodium 143 136 - 145 meq/L [facility] Potassium 4.0 3.5 - 5.1 meq/L [facility] Chloride 100 98 - 107 meq/L [facility] CO2 30 (H) 22 - 29 meq/L [facility] BUN 40 (H) 7 - 21 mg/dL [facility] Creatinine 1.20 0.57 - 1.25 mg/dL [facility] Glucose 188 (H) 70 - 105 mg/dL [facility] Calcium 9.1 8.4 - 10.2 mg/dL [facility] EGFR Comment: INSUFFICIENT CLINICAL [facility] DATA TO CALCULATE ESTIMATED [facility] GFR. Specimen Blood Narrative Performed At Vocational Evaluator ID - ANTONY Zambrano [facility] Performing Organization Address [facility] one [address] [facility] * ECG 12 lead (12/16/2019 2:04 AM CDT) Only the most recent of 2 results within the time period is included. Specimen Narrative Performed At Ventricular Rate 136 BPM GE MUSE Atrial Rate 59 BPM QRS Duration 162 ms Q-T Interval 374 ms QTC Calculation(Bazett) 562 ms R [place] 161 degrees T [place] 15 degrees Undetermined rhythm with a PVC [...] 374 ms QTC Calculation(Bazett) 562 ms R [place] 161 degrees T [place] 15 degrees Undetermined rhythm with a PVC Right bundle branch block Abnormal ECG When compared with ECG of 16-DEC-2019 02:04, Tihe heart rate has increased Confirmed by Tabatha LA[place] MICHAEL ([id number]) on 12/17/2019 6:31:38 AM Performing Organization Address City/State/Zipcode Ph one Number GE MUSE * Limited 2D Echocardiogram (12/15/2019 4:21 PM CDT) Ejection Fraction [facility] ECHO [facility]ART[facility] Specimen Narrative Performed At Transthoracic Echocardiography Report (TTE) [facility] ECH O HEARTLAB [facility] Patient Name NICOLAS VCIK Date of Study 12/15/2019 CERVANT ES [id number] GenderMale Visit Number [id number] Tj malone [id number] Room Number 7515 Number Date of Birth1950 Referring Physician Samara Bo Age69 year(s) Lending Manager Adeel velazco CS AnalystAlex ZadeInterpreting Yared Ramirez, [...] Study 12/15/2019 HERMELINDA Gender Male Visit Number [id number] Race Unknown Room Number 7515 Number Date of 1950 Referring Physician Samara Bo Age 69 year(s) Lending Manager Adeel Shelley [facility] Assembler [employer] Alex De Leon Interpreting Physician YING Sapp [...] Performing Organization Address City/State/Zipcode Ph one Number [facility] ECHO HEARTLAB MKCKESSON CPACS * XR chest 1 view portable / bedside (12/15/2019 10:48 AM CDT) Specimen Narrative Performed At FINAL REPORT [employer] CHE[facility] ONE VIEW HISTORY: Shortness of breath,Covid [...] Report Verified Date/Time: 0 12:27:44 Reading Location: [address] Transiti onal Reading Room Procedure Note [...] Report Verified Date/Time: 12/15/2019 12:27:44 Reading Location: [address] Transitional Reading Room Performing Organization Address City/State/Zipcode Ph one Number GE RIS * Urinalysis with Microscopic If Indicated (12/14/2019 5:06 AM CDT) Color, UA Light Yellow [facility] Clarity, UA Clear [facility] Specific [place], UA 1.009 1.001 - 1.035 [facility] pH, UA 5.0 5.0 - 8.0 [facility] Protein, UA Negative Negative [facility] Glucose, UA Negative Negative [facility] Ketones, UA Negative Negative [facility] Bilirubin, UA Negative Negative [facility] Blood, UA Negative Negative [facility] Nitrite, UA Negative Negative [facility] Leukocytes, UA Negative Negative [facility] Urobilinogen, UA 0.2 0.2 - 1.0 mg/dL [facility] Specimen Source [facility] Specimen Urine Narrative Performed At Vocational Evaluator ID - [auto] [facility] Performing Organization Address City/State/Zipcode Ph one Number [id number] [address] [place], [place] [address] MED[facility]ENTER * SARS-CoV2/RT-PCR (Symptomatic ONLY) (12/13/2019 10:19 PM CDT) SARS-COV2/RT-PCR Detected (AA)Comment: This is Not Detected, Negative [facility] a corrected result. Previous [facility] result was Not Detected on 12/13/2019 at 2331 CDT SARS-COV-2 PERFORMING LAB [facility] Specimen Other Narrative Performed At Results are for the detection of SARS-C oV-2 RNA. The SARS-CoV-2 RNA is generally [facility] detectable in nasopharyngeal swab speci mens during the acute phase of infection. [facility] Positive results are indicative of acti [...] the Act. Fact Sheet for Healthcare Providers: https://www.[employer]/Documents/Xpert%20Xpress%20SARS%20CoV-2/Fact%20Sheets/30 2-3802%68FGUP-WRG-8%20HEALTHCARE%20PROV IDERS%20FACT%20SHEET.pdf Fact Sheet for Healthcare Patients: https://www.[employer]/Documents/Xpert%20Xpress%20SARS%20CoV-2/Fact%20Sheets/30 2-3801%71RQZD-BBM-0%20PATIENT%20FACT%20 SHEET.pdf Performing Laboratory: [address] [place] [address] Performing Organization Address City/State/Zipcode Ph one Number [id number] [address] [place] [address] [facility] after 03/28/2019 Insurance Payer Benefit Subscriber ID Type Phone Address Plan / Group [employer] MEDICARE KEYLA [employer] xxxxxxxxx CARE [place] MEDICAID - MEDICAID MGD MEDICAID xxxxxxxxx Medica id CARE [employer] Non-Contra cted CDC REVIEW CDC REVIEW xxxxx[place] [address] [place] [phone] Advance Directives For more information, please contact: [address] [place] [address] [address] Date Inactivated Comments Code Status Date Activated 12/21/2019 10:10 PM Full Code 12/13/2019 6:54 PM This code status was determined by: Patient
[2020-03-28 05:36] LABS: ABG PCO2 55 mmHg (35-45); ABG PH 7.29 (7.35-7.45); ABG PO2 47 mmHg (80-105)
[2020-03-28 05:37] LABS: ABG HCO3 27 mmol/L (22-26); ABG TCO2 29
--- NOTE | 2020-03-28 06:04 | Diagnostic Imaging Report ---
EXAMINATION: CHEST SINGLE (PORTABLE) INDICATION: Short of breath COMPARISON: Chest x-ray 09/25/2015 FINDINGS: TUBES and LINES: Left internal jugular central venous catheter, tip in the central aspect of the left brachiocephalic vein. Left chest wall cardiac device with single lead in the right ventricle.. LUNGS/PLEURA: Prominent interstitial lung markings. Hazy opacities in the mid and lower lungs. Obscured right hemidiaphragm. No pneumothorax. HEART AND MEDIASTINUM: Cardiac size is moderately enlarged. Aortic valve replacement. BONES AND SOFT TISSUES: No acute osseous lesion. Soft tissues are unremarkable. UPPER ABDOMEN: No free air under the diaphragm. IMPRESSION: Moderate cardiopulmonary and pulmonary edema. Small right pleural effusion. Signed by: Bautista Bradley DO on 03/28/2020 6:01 AM
[2020-03-28] MEDS ORDERED: NOREPINEPHRINE 8 MG/D5W 250 ML 250 ML ONE ×2 (06:25→16:41)
[2020-03-28] MEDS: NOREPINEPHRINE INJ 4MG/4ML 8 MG in DEXTROSE 5% 250ML 250 ML IV SCH (06:29)
--- NOTE | 2020-03-28 06:52 | NUR ---
walking rounds with sandy hudson
--- NOTE | 2020-03-28 06:53 | NUR ---
Received report from off going nurse. patient in room in bed. resting quietly with eyes closed. easily arroused to touch. no s/s of acute distress. no c/o pain or discomfort. has right AKA, right IJ and right 18g to forearm. Levophed drip as ordered running at 10mcg. pending ICU room assignment.
--- NOTE | 2020-03-28 07:19 | NUR ---
INCREASED LEVOPHED FROM 10MCG TO 15MCG
[2020-03-28] MEDS ORDERED: VANCOMYCIN 1GM/NS 250 ML 250 ML IV ONE (07:30)
[2020-03-28 09:54] LABS: CLARITY,URINE CLEAR (CLEAR); COLOR,URINE YELLOW (YELLOW); KETONES,URINE TRACE (NEGATIVE); LEUKOCYTE ESTERASE ,URINE NEGATIVE (NEGATIVE); NITRITE,URINE NEGATIVE (NEGATIVE); PROTEIN,URINE DIPSTICK NEGATIVE (NEGATIVE)
[2020-03-28 09:55] LABS: BILIRUBIN,URINE NEGATIVE (NEGATIVE); URINE UROBILINOGEN 0.2 mg/dL (0.2 - 1)
[2020-03-28 10:01] LABS: EPITHELIAL CELLS,URINE FEW /LPF; HYALINE CASTS 0-1 (0-1); MUCUS,URINE FEW (RARE); RBC,URINE 0-5 /HPF (0-5); WBC,URINE (MAN) 0-5 /HPF (0-5)
[2020-03-28] MEDS ORDERED: AMIODARONE HCL 200 MG TAB PO SCH (11:00)
--- NOTE | 2020-03-28 12:46 | Consultation ---
DATE OF CONSULTATION: 03/28/2020 Cardiac Consultation REASON FOR CONSULTATION: Multiple medical and cardiac problems, came for shortness of breath, hypotension, not quite clear what is going on with him. HISTORY OF PRESENT ILLNESS: An unfortunate 69-year-old gentleman who is known with coronary artery disease, status post coronary artery bypass surgery and mitral valve replacement in 1994. He is known with advanced congestive heart failure, atrial fibrillation, ICD placement, moderate aortic stenosis, diabetes mellitus, hyperlipidemia, prostate problem, peripheral arterial vascular disease, status post right above-knee amputation. That is one of several admission, his problem started few months back with COVID infection in September or October. [facility], then he was released. He came to this institution with pneumonia and respiratory distress. He was discharged home on medication as well as oxygen. For the last few days, he is not feeling well and he is having cough and weak. No energy, so he came to the emergency room. In the emergency room, apparently patient was hypotensive. They started a central line left internal jugular and started him on Levophed drip. His heart rate was controlled with atrial fibrillation, bundle branch block, nonspecific ST changes with intermittent pacing. I visited with the patient who is really truly poorly historian. He is not having any quality of life. That is one of several admissions for this gentleman. He said his problem is weakness and he is unable to do a lot of things. He does have easy fatigability. He is taking care by family. But he is not feeling well for several days now. REVIEW OF SYSTEMS: Done to all systems, as per history and physical; GENERAL: Failure to thrive, easy fatigability. HEENT: Decreased vision, decreased hearing. PULMONARY AND CARDIAC: Shortness of breath. No energy. GI: Poor appetite. : Increased frequency. MUSCULOSKELETAL: Aches and pain, weakness. SOCIAL HISTORY: He is taking care by family. He does have excellent family support. PAST MEDICAL HISTORY: 1. Coronary artery disease, status post coronary artery bypass surgery, mitral valve replacement in 1994. 2. Advance systolic CHF. 3. Atrial fibrillation. 4. ICD. 5. Moderate aortic stenosis. 6. Diabetes mellitus severe end organ damage. 7. Hyperlipidemia. 8. Peripheral vascular disease, status post right above-knee amputation. 9. Right ear and bilateral cataract surgery. 10. ICD device is Fanplayr placed in October 2016. 11. Cholecystectomy. 12. COVID infection. 13. Oxygen dependency. HOME MEDICATIONS: Include: 1. Warfarin 1 mg a day. 2. Lipitor 10 mg a day. 3. Amiodarone 10 mg a day. 4. Lopressor 50 mg twice a day. 5. Levothyroxine 50 mcg a day. 6. Albuterol. 7. Vitamins. 8. Gabapentin 600 mg twice a day. 9. Oxycodone. 10. Insulin Lantus and sliding scale. ALLERGIES: NONE. PHYSICAL EXAMINATION: VITAL SIGNS: Height of 6 feet. Weight of 234 pounds, blood pressure 90/60, heart rate 70, respiratory rate of 18. HEENT: Pupils are reactive. NECK: No elevation of jugular venous pulsation. CHEST: Bilateral crackles. HEART: PMI 5th left intercostal space with ejection systolic murmur. No mitral valve click audible. ABDOMEN: Soft, obese. EXTREMITIES: Right above-knee amputation. The left leg got severe skin changes. NEUROLOGIC: Awake, alert, able to move his extremities. LABORATORY DATA: Sodium of 136, potassium 4.6, bicarb of 26, BUN 68, and creatinine of 2.44. White blood cell count of 7.7, hemoglobin of 8.7, hematocrit 29%, and platelet count of 227,000. EKG, atrial fibrillation, controlled ventricular response, right bundle branch block. IMPRESSION AND PLAN: 1. Advanced heart failure. The patient seems to be euvolemic at this time point. He is not in acute decompensation. 2. Coronary artery disease, status post coronary artery bypass. 3. Valvular disease, status post mitral valve replacement and moderate aortic stenosis. 4. ICD. 5. Acute hypoxemic respiratory failure, which ABG showing PO2 of 47, pCO2 of 55, so it is acute hypercapnic hypoxic respiratory failure. 6. Chronic renal insufficiency with creatinine of 2.4. 7. Chronic atrial fibrillation. 8. Diabetes mellitus severe end-organ damage. 9. Severe peripheral arterial vascular disease with right above knee amputation. 10. Debility. From a cardiac point of view, the patient already started on Levophed for hypotension, this should be weaned off. We will continue small dose beta-flower. We will continue his amiodarone, levothyroxine, and Lipitor. We will observe volume status. He need to have INR checked and then adjust warfarin dosage as needed. Prognosis is guarded with many complex cardiac medical problem are really worse. MD SAPNA Walker/[place] /[id number]
[2020-03-28] MEDS ORDERED: ACETAMINOPHEN 325 MG TAB PO PRN (13:00)
[2020-03-28] MEDS ORDERED: ALBUTEROL SULFATE HFA 8GM INHALATION AEROSOL INH PRN (13:00)
[2020-03-28] MEDS ORDERED: DEXTROSE 50% SYRINGE 50 ML IV PRN (13:15)
[2020-03-28 13:27] LABS: INR 2.06; PROTHROMBIN TIME 24.2 seconds (11.9-14.5)
[2020-03-28] MEDS: ALBUMIN 25% 25GM 100ML 0.25 GM/ML BTL IV SCH ×2 (13:38→17:22)
[2020-03-28] MEDS ORDERED: FUROSEMIDE INJ 10 MG/ML 4 ML VIAL IV ONE (13:40)
--- NOTE | 2020-03-28 13:42 | Consultation ---
DATE OF CONSULTATION: Pulmonary Critical Care Consultation. CHIEF COMPLAINT: Fatigue and dyspnea. HISTORY OF PRESENT ILLNESS: The patient is a 69-year-old man. He has a history of systolic cardiomyopathy with an ejection fraction of 30% as well as a prior mitral valve replacement with a mechanical mitral valve, and atrial fibrillation. He required hospitalization in the [facility] for COVID-19 and viral pneumonia in late November. He was discharged and subsequently re-admitted to [facility] in early December with superimposed bacterial pneumonia and respiratory failure, acute kidney injury, and congestive heart failure. He has been at home, doing well until last night. He developed some difficulty breathing. He did not have fever or cough. He did not have trouble with pain. He denied any abdominal pain. PAST SURGICAL HISTORY: 1. Status post cholecystectomy in 1992. 2. Status post mgibt-kfr-lplw amputation. 3. Status post mitral valve replacement and CABG 20 years ago. PAST MEDICAL HISTORY: 1. Diabetes. 2. Coronary artery disease. 3. Chronic systolic cardiomyopathy. 4. Hypertension. 5. Chronic renal insufficiency. ALLERGIES: NO KNOWN DRUG ALLERGIES. SOCIAL HISTORY: The patient is a lifelong nonsmoker. He is not a drinker. FAMILY HISTORY: There is a history of diabetes as well as heart disease. REVIEW OF SYSTEMS: The patient denies any fevers. He is not having any headache. He has no dyspnea or phlegm production. He is not having any neck pain. He denies any chest pain. He does not have any abdominal pain. There is no nausea or vomiting. He has some mild leg edema. He is status post xjjec-irh-idhw amputation on the right side. PHYSICAL EXAMINATION: VITAL SIGNS: Blood pressure is 107/66, saturation is 100% on 2 L, his respiratory rate is 18, and he is afebrile. HEENT: Shows no facial swelling or erythema. LYMPHATIC: Shows no submandibular, cervical, or supraclavicular adenopathy. CARDIAC: Reveals regular rate and rhythm with normal S1. There is a prosthetic S2 sound. LUNGS: Auscultation of lungs reveals crackles at the bases. There is no wheezing. ABDOMEN: Soft and nontender. There is no rebound or guarding. EXTREMITIES: Examination of the extremities shows an aqkov-hjb-fdxj amputation on the right side as well as 1 to 2+ leg edema on the left. NEUROLOGIC: Shows no focal abnormalities. LABORATORY DATA: BUN to creatinine ratio is 68 to 2.44. Other electrolytes are within normal limits. Blood sugar is 132. Albumin is 2.8. White blood cell count is 7.7, hemoglobin is 8.7, and the platelet count is 227,000. RADIOGRAPHIC DATA: Chest x-ray shows moderate cardiomegaly with some pulmonary edema. There is a small right pleural effusion. IMPRESSION: 1. Gjcvv-wa-hhaztuk systolic congestive heart failure. 2. Systolic cardiomyopathy with an ejection fraction of 30%, present on admission. 3. Atrial fibrillation, present on admission. 4. History of prosthetic mitral valve. 5. Acute on chronic kidney injury. 6. Prostatic hypertrophy and history of urinary retention. 7. Diabetes, requiring insulin at home. 8. Obesity. PLAN: 1. The patient will have a Lima catheter placed as well as a renal ultrasound to check for any urinary obstruction. 2. Wean Levophed as tolerated. 3. The patient to receive Lasix along with albumin. 4. The patient has been zapata-cultured and started on antibiotics. 5. Continue to monitor and control blood sugars. 6. Continue Synthroid. 7. Cardiology consultation. 8. Monitor INR and give Coumadin as needed to maintain an INR between 2 and 3. Shelton Cornejo MD [facility]/[place] /[id number]
[2020-03-28] MEDS: AMIODARONE HCL 200 MG TAB PO SCH (15:10)
[2020-03-28] MEDS: FINASTERIDE 5 MG TAB PO SCH (15:10)
--- NOTE | 2020-03-28 15:55 | NUR ---
History of present illness: 69-year-old gentleman who presented to the emergency department complaining of shortness of breath probably getting worse during the last 5 days. He does have a complex medical history which is that of hypertension, diabetes mellitus, COPD, CHF, status post AICD placement, moderate aortic stenosis and status post right above-knee amputation. And atrial fibrillation. He is known to have a diabetic ejection fraction of 30% or so and has had previous coronary artery bypass graft surgery in the past. The patient was not a very good historian he was sleepy at the time of my interview. He however was able t o state his date of which is 1950 and his age of 69. The patient has been placed on Levophed in view of clinical presentation of hypotension upon admission and blood cultures were drawn and empirically the patient was given Zosyn 3.375 g IV along with a bolus of IV fluids. There has been no reported nausea, no vomiting, no chest pain. However been short winded. Chest x-ray demonstrated no acute abnormalities. There appears to be no history of fever or chills. He was admitted at [facility] back on December 2019 at which time the patient was diagnosed as having COVID-19 infection. Lab data disclosed hemoglobin 9.7, WBC 7.72, platelet count 227,000 Chemistry profile profile revealed sodium 136, potassium 4.6, chloride 102, CO2 26, BUN 68, creatinine 2.44, glucose 132, calcium 8.3, alkaline phosphatase 186. I did speak with the patient's transformation coach Dr. Arevalo who knows the patient quite well from previous hospitalization. He has been kept on levo fed and EKG done in the ER did reveal atrial fibrillation, bundle branch block, nonspecific ST changes with intermittent pacing. Past medical history: Significant for systolic CHF, coronary disease, atrial fibrillation, ICD, moderate aortic stenosis. In addition there is a history diabetes mellitus, peripheral artery disease, hyperlipidemia, right ear and bila teral cataract surgery Past medical history: Previous coronary artery bypass graft surgery, mitral valve replacement in 1994, ICD placement on October 2016, status post right above-knee amputation as a result of PVD Social history: No tobacco alcohol abuse unaware. Allergies: No known drug allergies. HOME MEDICATIONS: Include: 1. Warfarin 1 mg a day. 2. Lipitor 10 mg a day. 3. Amiodarone 10 mg a day. 4. Lopressor 50 mg twice a day. 5. Levothyroxine 50 mcg a day. 6. Albuterol. 7. Vitamins. 8. Gabapentin 600 mg twice a day. 9. Oxycodone. 10. Insulin Lantus and sliding scale. Review of system: Constitutional: No Fever, No chills, No General weakness HEENT: No headaches. Cardiovascular: Denies chest pain, palpitations, PND, swelling of the legs. Complains of orthopnea. Respiratory: No Cough, hemoptysis. Somewhat short winded. GI: Denies Nausea/V/D, hematemesis, melena. : Denies Hematuria, Dysuria, Frequency Musculoskeletal: Denies joint pain Neuro: No focal weakness Psych: No anxiety or depression. Skin: No rashes, Itching, Hives Physical examination. Patient was hemodynamically stable at the time of arrival to the emergency room department. The patient was confused. Blood pressure was 63/49, respiration 20, pulse 81, oxygen flow rate 2 L/min. HEENT: No gross abnormalities Neck: Supple no JVD Lungs: Clear to auscultation Heart: Regular rate and rhythm, no murmurs no gallops Abdomen: Soft non tender, no guarding. Extremities: No edema. Status post right AKA Neurologic: Alert oriented 3, no focal weakness. Psychiatrist: Normal mood, normal judgment. Skin: No rashes LABORATORY DATA: Sodium of 136, potassium 4.6, bicarb of 26, BUN 68, and creatinine of 2.44. White blood cell count of 7.7, hemoglobin of 8.7, hematocrit 29%, and platelet count of 227,000 EKG demonstrated atrial fibrillation, controlled ventricular response, right bundle branch block Assessment: -Hypotension -Advanced heart failure -Coronary artery disease -Atrial fibrillation, chronic -Status post ICD placement -Status post mitral valve replacement and moderate aortic stenosis. -Diabetes mellitus, severe endorgan damage -Vascular disease with resultant right above-knee amputation -Debility -Status post coronary artery bypass graft surgery Plan of care: -Sepsis work-up -Empirically placed on antibiotic treatment -Wean pressor drugs. -Follow-up cultures. -Glycemic control -Monitor O2 -Follow-up labs
[2020-03-28] MEDS: METOPROLOL TARTRATE 25 MG TAB PO SCH (17:00)
[2020-03-28] MEDS: INSULIN REGULAR, HUMAN 100 UNIT/1 ML 3ML VIAL SQ SCH ×2 (17:52→20:53)
[2020-03-28] MEDS: PIPERACILLIN/TAZO 2.25 GM 50 ML IV SCH (17:58)
[2020-03-28] MEDS: WARFARIN SOD 1 MG TAB PO SCH (20:52)
[2020-03-28] MEDS: TAMSULOSIN HCL 0.4 MG CAP PO SCH (20:52)
[2020-03-28] MEDS: ATORVASTATIN 10 MG TAB PO SCH (20:52)
[2020-03-28] MEDS ORDERED: ATORVASTATIN 10 MG TAB PO SCH ×2 (21:00)
[2020-03-28] MEDS ORDERED: MAGNESIUM HYDROXIDE 30 ML UDC PO ONE (23:00)
[2020-03-29] VITALS (13 sets, daily range): BP systolic 76–147; BP diastolic 55–97
[2020-03-29] MEDS: PIPERACILLIN/TAZO 2.25 GM 50 ML IV SCH ×3 (00:51→18:17)
[2020-03-29 04:59] LABS: BASOPHILS # (AUTO) 0.1 (0.0-0.1); BASOPHILS % 0.6 % (0.0-1.0); EOSINOPHILS # (AUTO) 0.3 (0.0-0.4); EOSINOPHILS % 3.2 % (0.0-6.0); HEMATOCRIT 29.7 % (38.2-49.6); HEMOGLOBIN 8.8 g/dL (14.0-18.0); LYMPHOCYTES # (AUTO) 1.3 (1.0-3.2); LYMPHOCYTES % 14.1 % (18.0-39.1); MEAN CORPUSCULAR HEMOGLOBIN 26.8 pg (28-32); MEAN CORPUSCULAR HGB CONC 29.6 g/dL (31-35); MEAN CORPUSCULAR VOLUME 90.5 fL (81-99); MONOCYTES # (AUTO) 1.1 (0.2-0.8); MONOCYTES % 11.2 % (4.4-11.3); NEUTROPHILS # (AUTO) 6.6 (2.1-6.9); NEUTROPHILS % 70.6 % (38.7-80.0); PLATELET COUNT 233 x10e3/uL (140-360); RED BLOOD COUNT 3.28 x10e6/uL (4.3-5.7); RED CELL DISTRIBUTION WIDTH 17.2 % (11.7-14.4)
[2020-03-29 05:10] LABS: INR 2.38; PROTHROMBIN TIME 27.1 seconds (11.9-14.5)
[2020-03-29 05:17] LABS: ALBUMIN 3.2 g/dL (3.5-5.0); ALBUMIN/GLOBULIN RATIO 0.7 (0.8-2.0); ANION GAP 12.1 mmol/L (8-16); CALCIUM 8.6 mg/dL (8.4-10.2); CREATININE, SERUM 1.91 mg/dL (0.72-1.25); POTASSIUM 4.1 mmol/L (3.5-5.1)
[2020-03-29 05:18] LABS: CHOL/HDL RATIO 3.2 (3.9-4.7)
[2020-03-29 05:37] LABS: THYROID STIMULATING HORMONE 0.517 uIU/mL (0.350-4.940)
[2020-03-29] MEDS: LEVOTHYROXINE SODIUM 50 MCG TAB PO SCH (05:41)
[2020-03-29] MEDS: NOREPINEPHRINE INJ 4MG/4ML 8 MG in DEXTROSE 5% 250ML 250 ML IV SCH (06:15)
[2020-03-29 06:47] LABS: CREATINE KINASE MB 1.6 ng/mL (0-5.0)
[2020-03-29] MEDS: INSULIN REGULAR, HUMAN 100 UNIT/1 ML 3ML VIAL SQ SCH ×4 (08:15→21:00)
[2020-03-29] MEDS: METOPROLOL TARTRATE 25 MG TAB PO SCH ×2 (08:16→17:00)
[2020-03-29] MEDS: AMIODARONE HCL 200 MG TAB PO SCH (08:16)
[2020-03-29] MEDS: FINASTERIDE 5 MG TAB PO SCH (08:17)
[2020-03-29] MEDS ORDERED: LEVOTHYROXINE SODIUM 50 MCG TAB PO SCH (09:00)
[2020-03-29] MEDS ORDERED: TAMSULOSIN HCL 0.4 MG CAP PO SCH (09:00)
[2020-03-29] MEDS ORDERED: LACTULOSE SYRUP 20 GM/30 ML UDC PO ONE (09:15)
--- NOTE | 2020-03-29 10:40 | Progress Note ---
DATE: Pulmonary Critical Care Progress Note SUBJECTIVE: The patient is complaining of abdominal discomfort. He reports some constipation. He did have a small bowel movement the night before last. He denies any vomiting. He is not having fevers. His Levophed has been decreased to 5 mcg. He is urinating better and is negative 1362 mL. PHYSICAL EXAMINATION: VITAL SIGNS: Blood pressure is now 111/61 on 5 mcg of Levophed. Saturation is 100% on 4 L. HEENT: Shows no facial swelling or erythema. LYMPHATIC: Shows no submandibular, cervical, or supraclavicular adenopathy. CARDIAC: Reveals regular rate and rhythm with normal S1 and S2. LUNGS: Auscultation of lungs reveals decreased breath sounds at the bases. There is no wheezing. ABDOMEN: Soft. There is some distention. There is no rebound or guarding. EXTREMITIES: The patient is status post tkkgf-mfy-smxm amputation on the right side. LABORATORY DATA: The BUN to creatinine ratio is 63 to 1.91. The other electrolytes are within normal limits. Glucose is 155. Albumin is 3.2. White blood cell count is 9.3 and hemoglobin is 8.8. The platelet count is 233. IMPRESSION: 1. Xqavn-jf-pyhnzdm systolic congestive heart failure. 2. Systolic cardiomyopathy with ejection fraction of 30%, present on admission. 3. Atrial fibrillation, present on admission. 4. History of prosthetic mitral valve. 5. Bbkxc-pr-mmcxdqp kidney injury. 6. Diabetes requiring insulin at home on a regular basis. 7. Prostatic hypertrophy and history of urinary retention, present on admission. 8. Hypothyroidism, requiring Synthroid at home. 9. Abdominal distension and constipation. 10. Obesity. PLAN: 1. The patient will have an ultrasound of the abdomen today as well as a KUB. 2. Lactulose now. 3. Wean Levophed as tolerated. 4. Continue diuresis. 5. Continue to monitor creatinine. 6. Physical therapy. 7. Continue warfarin. Shelton Cornejo MD [facility] /[id number]
[2020-03-29] MEDS: INSULIN GLARGINE 100 UNITS/ML VIAL SQ SCH (10:54)
[2020-03-29] MEDS ORDERED: FUROSEMIDE INJ 10 MG/ML 4 ML VIAL IV ONE (11:00)
[2020-03-29] MEDS: MIDODRINE HCL 5 MG TABLET PO SCH ×2 (11:22→18:13)
--- NOTE | 2020-03-29 11:22 | Diagnostic Imaging Report ---
EXAM: ABDOMEN-1VIEW (KUB), INDICATION: Abdominal pain. COMPARISON: KUB 12-08-2018. Chest radiograph 03-28-2020. FINDINGS: Body habitus and under penetration somewhat limits evaluation. No evidence of bowel obstruction. No evidence of free intraperitoneal air. Surgical clips in the right upper quadrant. Degenerative changes of the thoracolumbar spine. Partially visualized moderate cardiomegaly and AICD lead. Status post median sternotomy. Partially seen valve replacement. Patchy opacities at the lung bases with small right pleural effusion, better characterized on prior chest radiograph. IMPRESSION: Nonobstructive bowel gas pattern. Signed by: Dr. Clifford Kohler MD on 03/29/2020 11:18 AM
--- NOTE | 2020-03-29 13:28 | Diagnostic Imaging Report ---
EXAM: US ABDOMEN COMPLETE INDICATION: Abdominal pain. COMPARISON: CT abdomen/pelvis 03-06-2019. TECHNIQUE: Transverse and longitudinal barahona scale and color doppler sonographic images of the abdomen were obtained. FINDINGS: LIVER 14.3 cm in the right midclavicular line. Mild nodular appearance of the liver. No evidence of mass. SPLEEN 9.8 cm in maximum diameter. Normal echogenicity, no masses. GALLBLADDER Status post cholecystectomy. BILE DUCTS No intra nor extra-hepatic biliary dilation. Common bile duct measures 0.4 cm PANCREAS: Visualized portions are normal. Pancreatic tail was not visualized. RIGHT KIDNEY: 10.5 cm Echogenicity: Normal Collecting System: No hydronephrosis Stones: None Cyst/Mass: None LEFT KIDNEY: 12.6 cm Echogenicity: Normal Collecting System: No hydronephrosis Stones: None Cyst/Mass: Left renal anechoic simple appearing cyst, measuring up to 4.5 cm. VESSELS: Aorta: Not well visualized. Inferior Vena Cava: Visualized portions are normal Main Portal Vein: 1.1 cm, normal size with hepatopetal flow. FREE FLUID: None IMPRESSION: No acute sonographic abnormality. Status post cholecystectomy. No CBD dilatation. Mild nodular appearance of the liver, suggestive of early cirrhosis. Signed by: Dr. Clifford Kohler MD on 03/29/2020 1:25 PM
--- NOTE | 2020-03-29 13:36 | Consultation ---
DATE OF CONSULTATION: HISTORY OF PRESENT ILLNESS: Mr. Fraser is a 69-year-old male, who was recently in hospital with COVID-19. The patient has history of obesity, history of coronary artery disease, mitral valve replacement, congestive heart failure, ICD placement, aortic stenosis, diabetes mellitus, hyperlipidemia, peripheral vascular disease, and right hbbyj-qqi-qagd amputation, multiple admissions to the hospital, extremely ill, comes in the emergency room because he was little bit confused, not feeling well with febrile, hypotensive. The patient was admitted. The patient is currently more alert. Events noted. He has been seen by Cardiology . PAST MEDICAL HISTORY: The patient, who does have history of coronary artery disease, congestive heart failure, atrial fibrillation, ICD filter, aortic stenosis, diabetes mellitus, hyperlipidemia, obesity, peripheral vascular disease, cholecystectomy, 2 months ago had COVID infection. PAST SURGICAL HISTORY: Otherwise as above. ALLERGIES: NKA. SOCIAL HISTORY: There is no smoking, drug abuse, or alcohol abuse currently. FAMILY HISTORY: Otherwise hypertension and diabetes. The patient was started on Zosyn. LABORATORY DATA: Reviewed. His white count 9.35, hemoglobin 8.8. His sodium 139, potassium 4.1 with a creatinine 1.91. His liver enzyme within normal limit. Alkaline phosphatase 156. Blood cultures one set is showing gram-positive cocci. His chest x-ray showed pulmonary edema. When I assessed the patient, he is currently more alert. His complaint now he is having right upper quadrant pain. PHYSICAL EXAMINATION: GENERAL: Currently alert and oriented. VITAL SIGNS: Stable, currently afebrile. HEENT: He is not icteric. NECK: Supple. CHEST: Crackles. HEART: S1 and S2. ABDOMEN: Soft. He did have right upper quadrant discomfort. EXTREMITIES: No edema. SKIN: No rash. IMPRESSION: Sepsis, present on admission. He is currently on Zosyn. Continue Zosyn. Obtain ultrasound of the gallbladder. Recheck CBC. Recheck chem panel. Concerned about cholecystitis. We will follow with you. MD ESTEBAN Guerrero/ERICA /[id number]
--- NOTE | 2020-03-29 14:06 | Consultation ---
DATE OF CONSULTATION: REASON FOR CONSULTATION: Acute kidney injury. HISTORY OF PRESENT ILLNESS: The patient is a 69-year-old male with past medical history of CHF with ejection fraction of 30%, hypertension, diabetes type 2, coronary artery disease, BPH with history of retention in the past, mechanical mitral valve replacement, aortic fibrillation, on anticoagulation, was admitted with generalized weakness, shortness of breath. The patient apparently recently admitted at the [facility] with COVID-19 pneumonia. He came back in December with superimposed bacterial pneumonia, respiratory failure, and got better and went home, but the patient returns to the emergency room with shortness of breath and generalized weakness. The patient was found to be in acute kidney injury with creatinine of 2.4, baseline creatinine is 0.9. In the emergency room, blood pressure was low, the patient was given 1 L of normal saline bolus and was started on Levophed. The patient was admitted to ICU. The patient has evidence of volume overload with peripheral edema and chest x-ray with pulmonary edema. The patient was seen by Cardiology and Pulmonary, and was given Lasix and albumin, and the patient has been urinating well. Creatinine this morning is better at 1.9. Today, the patient complains of constipation and shortness of breath. PAST MEDICAL HISTORY: As above. PAST SURGICAL HISTORY: Cholecystectomy, in 1992; above knee amputation, mitral valve replacement, and CABG 20 years ago. ALLERGIES: NO KNOWN DRUG ALLERGIES. SOCIAL HISTORY: Lifelong nonsmoker. Not a drinker. No intravenous drug abuse. FAMILY HISTORY: Positive for diabetes and heart disease. REVIEW OF SYSTEMS: GENERAL: Positive for fatigue. No fever. No chills. HEENT: No headache. No blurry vision. NECK: No dysphagia. CARDIOVASCULAR: No chest pain. No PND. No orthopnea. RESPIRATORY: Positive for shortness of breath. Positive for dyspnea on exertion. No cough. No hemoptysis. GI: No nausea, vomiting. Positive for constipation. No hematemesis or melena. MUSCULOSKELETAL: Positive for ankle swelling. NEUROLOGIC: No numbness, weakness, or tingling. SKIN: No new rash. GENITOURINARY: No urinary urgency, frequency, or hesitancy. PHYSICAL EXAMINATION: VITAL SIGNS: Blood pressure 106/58, pulse of 115, 97% to 100% on 2 L nasal cannula, and temperature 98.0. GENERAL: The patient is awake and alert, not in apparent distress. HEENT: PERRLA. Extraocular muscles are intact. NECK: No elevated JVD. HEART: S1, S2. LUNGS: Decreased breath sounds at the bases. ABDOMEN: Soft, obese. EXTREMITIES: Positive 2 mm bilateral lower extremity edema. NEUROLOGIC: No focal deficits. SKIN: No new rash. MEDICATIONS: Currently, on finasteride 5 mg p.o. daily, zosyn, amiodarone, insulin, levothyroxine, Coumadin, atorvastatin, Flomax, metoprolol, norepinephrine at 4 mcg/min, albuterol neb treatment. LABORATORY DATA: Sodium 139, potassium 4.1, chloride 103, CO2 of 28, BUN 63, creatinine 1.9, glucose 155. White count 9.3, hemoglobin 8.8, and platelet count is 233. INR 2.38. Chest x-ray done on 03/28/2020, moderate cardiomegaly plus pulmonary edema and small right pleural effusion. ABG; on admission 7.29 pH, pCO2 of 55, PO2 of 47, bicarb of 27. UA positive ketone trace, no protein, no leukocyte esterase, no WBC, no RBC. COVID PCR is pending. BNP was 209. ASSESSMENT AND PLAN: 1. Acute kidney injury, likely secondary to cardiorenal syndrome. The patient has evidence of volume overload. Continue with diuresis as blood pressure tolerates. We will recommend to start midodrine, wean Levophed off and continue with the Lasix and albumin. Repeat lab in the morning. 2. Congestive heart failure with ejection fraction of 30%. Currently with volume overload. Lasix as per #1. 3. History of hypertension. Currently, blood pressure is on the lower side, on Levophed. Continue with antibiotics. Follow up on all the cultures, pressor support. 4. Diabetes type 2 per primary team. 5. Coronary artery disease, status post CABG. Cardiology following. 6. Aortic valve replacement, on Coumadin. 7. Atrial fibrillation. Cardiology following, on amiodarone and anticoagulation. The patient's overall condition is critical and prognosis is guarded. Thank you, Dr. Escalante, for the consult. Nicky Kohli MD [facility]/MODL /[id number]
[2020-03-29] MEDS: WARFARIN SOD 1 MG TAB PO SCH (18:17)
--- NOTE | 2020-03-29 20:02 | Progress Note ---
DATE: 03/29/2020 This is in coverage of Dr. Escalante. SUBJECTIVE: Feeling better. Deny dizziness. OBJECTIVE: VITAL SIGNS: Temperature 99.0, pulse 93, respiratory rate 21, and blood pressure 117/64. GENERAL: No acute distress. HEENT: Normal conjunctiva. LUNGS: Decreased breath sounds. HEART: Regular rate and rhythm. Normal S1 and S2. GI: Abdomen is soft and nondistended. NEUROLOGIC: Alert and oriented x3. PSYCHIATRIC: No hallucination. LABORATORY DATA: White count 9, hemoglobin 9, and platelet count 233. Creatinine 1.9. INR 2.4. Abdominal ultrasound, no acute disease. ASSESSMENT AND PLAN: 1. Shock, etiology not completely clear, possibly cardiogenic shock. The patient is on empiric antibiotics. The patient is currently off vasopressor. 2. Acute kidney injury, getting better. Nephrology is on-board. 3. Systolic congestive heart failure, atrial fibrillation with mechanical mitral valve replacement. At this time difficult to assess volume status. We will continue diuresis per marketing database consultant. The patient's Coumadin is therapeutic. 4. Gastrointestinal and deep venous thrombosis prophylaxis, Coumadin. MD WILLIAM Brian/ERICA /[id number]
[2020-03-29] MEDS: TAMSULOSIN HCL 0.4 MG CAP PO SCH (20:43)
[2020-03-29] MEDS: ATORVASTATIN 10 MG TAB PO SCH (20:43)
[2020-03-30] VITALS (17 sets, daily range): BP systolic 94–142; BP diastolic 39–111
[2020-03-30] MEDS: PIPERACILLIN/TAZO 2.25 GM 50 ML IV SCH ×3 (01:29→16:55)
[2020-03-30] MEDS: DIGOXIN INJ 0.25 MG/ML 2 ML AMP IV SCH ×3 (02:20→06:20)
[2020-03-30] MEDS: METOPROLOL TARTRATE 25 MG TAB PO SCH ×3 (03:01→22:20)
[2020-03-30 05:56] LABS: BASOPHILS % 0.4 % (0.0-1.0); EOSINOPHILS # (AUTO) 0.2 (0.0-0.4); EOSINOPHILS % 1.3 % (0.0-6.0); HEMOGLOBIN 8.5 g/dL (14.0-18.0); LYMPHOCYTES # (AUTO) 1.2 (1.0-3.2); MEAN CORPUSCULAR HEMOGLOBIN 26.6 pg (28-32); MEAN CORPUSCULAR HGB CONC 30.4 g/dL (31-35); MEAN CORPUSCULAR VOLUME 87.8 fL (81-99); MONOCYTES # (AUTO) 1.3 (0.2-0.8); MONOCYTES % 11.7 % (4.4-11.3); NEUTROPHILS # (AUTO) 8.4 (2.1-6.9); NEUTROPHILS % 75.2 % (38.7-80.0); PLATELET COUNT 222 x10e3/uL (140-360); RED BLOOD COUNT 3.19 x10e6/uL (4.3-5.7); RED CELL DISTRIBUTION WIDTH 17.2 % (11.7-14.4)
[2020-03-30 06:00] LABS: INR 2.63; PROTHROMBIN TIME 29.3 seconds (11.9-14.5)
[2020-03-30 06:07] LABS: ANION GAP 12.6 mmol/L (8-16); CREATININE, SERUM 1.51 mg/dL (0.72-1.25); MAGNESIUM 1.7 MG/DL (1.3-2.1); POTASSIUM 3.6 mmol/L (3.5-5.1)
[2020-03-30 06:11] LABS: ALBUMIN 2.9 g/dL (3.5-5.0); ALBUMIN/GLOBULIN RATIO 0.6 (0.8-2.0); ANION GAP 11.5 mmol/L (8-16); CREATININE, SERUM 1.5 mg/dL (0.72-1.25); POTASSIUM 3.5 mmol/L (3.5-5.1)
[2020-03-30] MEDS: NOREPINEPHRINE INJ 4MG/4ML 8 MG in DEXTROSE 5% 250ML 250 ML IV SCH (06:15)
[2020-03-30] MEDS: LEVOTHYROXINE SODIUM 50 MCG TAB PO SCH (06:35)
[2020-03-30] MEDS: INSULIN REGULAR, HUMAN 100 UNIT/1 ML 3ML VIAL SQ SCH ×4 (07:25→22:20)
[2020-03-30] MEDS: MIDODRINE HCL 5 MG TABLET PO SCH ×3 (08:11→15:36)
[2020-03-30] MEDS: FINASTERIDE 5 MG TAB PO SCH (08:11)
[2020-03-30] MEDS: AMIODARONE HCL 200 MG TAB PO SCH (08:11)
[2020-03-30] MEDS: INSULIN GLARGINE 100 UNITS/ML VIAL SQ SCH (08:12)
[2020-03-30] MEDS ORDERED: CITRATE OF MAGNESIA 300ML BOTTLE PO ONE (09:40)
--- NOTE | 2020-03-30 10:14 | Progress Note ---
DATE: SUBJECTIVE: The patient still complains of constipation and difficulty moving his bowels. He is off pressors. He had a low-grade temperature of 100.4 last night. PHYSICAL EXAMINATION: VITAL SIGNS: Blood pressure is 137/67, saturation is 95% on 2 L, and the pulse is 86. HEENT: Shows no facial swelling or erythema. LYMPHATIC: Shows no submandibular, cervical, or supraclavicular adenopathy. CARDIAC: Reveals a regular rate and rhythm with normal S1, S2. LUNGS: Auscultation of lungs reveals rhonchorous breath sounds bilaterally. There is no wheezing. ABDOMEN: Soft. There is mild distention. There is no rebound or guarding. EXTREMITIES: Examination of the extremities shows lcgik-[id number] amputation on the right side. LABORATORY DATA: White blood cell count is 11.2, hemoglobin is 8.5, and platelet count is 222,000. The BUN to creatinine ratio is 58 to 1.51 and the other electrolytes are within normal limits. Albumin is 2.9. RADIOGRAPHIC DATA: Ultrasound shows no evidence of cholelithiasis. IMPRESSION: 1. Acute on chronic systolic congestive heart failure. 2. Chronic systolic cardiomyopathy with ejection fraction 30%, present on admission. 3. Atrial fibrillation, present on admission. 4. History of prosthetic mitral valve. 5. Acute on chronic kidney injury. 6. Diabetes, requiring insulin at home. 7. Prostatic hypertrophy. 8. Hypothyroidism, requiring Synthroid. 9. Abdominal distention and constipation. 10. Fever of unclear etiology. 11. Obesity. PLAN: 1. The patient will be continued on piperacillin and tazobactam. 2. Await final culture results. 3. Continue . 4. Monitor INR and continue Coumadin. 5. Lactulose. 6. Possible transfer out of intensive care unit. Shelton Cornejo MD [facility]/MODL /[id number]
--- NOTE | 2020-03-30 15:31 | Progress Note ---
DATE: 03/30/2020 Renal Progress Note SUBJECTIVE: Respiratory problem noted. The patient is resting comfortably. PHYSICAL EXAMINATION: VITAL SIGNS: Blood pressure 108/53, pulse 63, and respiration 20. GENERAL: The patient is no acute distress. HEENT: No increased JVD. CARDIOVASCULAR: Regular rate and rhythm. LUNGS: Decreased BS at the bases bilaterally. ABDOMEN: Positive bowel sounds. EXTREMITIES: The patient has a right AKA. His left leg has trace edema. Intake and output for the last 24 hours; his intake has been 1380, output 3200. LABORATORY RESULTS: Sodium 141, potassium 3.6, chloride 103, bicarb 29, BUN and creatinine 58 and 1.5 respectively. IMPRESSION AND PLAN: 1. Acute kidney injury, superimposed on chronic kidney disease. 2. Congestive heart failure. 3. Cardiorenal syndrome. 4. Atherosclerotic peripheral vascular disease. PLAN: The patient's renal function is relatively stable. He may have plateaued. Right now, he is nonoliguric. His urine output is adequate. I am not going to give him any Lasix right now just because I want to see if his serum creatinine comes down some more. He does not appear to be in any respiratory distress. I will go ahead and have a chest x-ray checked tomorrow. Continue present management. Ather MD SHELLEY Hanson/ERICA /[id number]
[2020-03-30] MEDS: WARFARIN SOD 1 MG TAB PO SCH (16:55)
[2020-03-30 17:29] LABS: AMYLASE 87 U/L (25-125); LIPASE 13 U/L (8-78)
--- NOTE | 2020-03-30 17:52 | Progress Note ---
DATE: SUBJECTIVE: Mr. Fraser remains in the intensive care unit. He is off pressors, low fever. OBJECTIVE: GENERAL: Currently alert and oriented. VITAL SIGNS: Stable. He had low fever, 100.4. HEENT: He is not icteric. NECK: Supple. CHEST: Clear. HEART: S1 and S2. ABDOMEN: Soft. Bowel sounds present. EXTREMITIES: No edema. SKIN: No rash. He seems to be a little bit confused today. LABORATORY DATA: Reviewed. His blood cultures, coagulase-negative staph 06/27. His white count is 11.5 and hemoglobin of 8. Sodium 141, potassium 3.6, creatinine of 1.51, and his glucose is 132. Ultrasound of the abdomen showed no acute abnormality, status post cholecystectomy. IMPRESSION: Sepsis, qzepd-fq-lyoleac kidney disease. Source of sepsis is unclear. He is currently on Coumadin and Zosyn. We will obtain CT of abdomen and pelvis with oral contrast and recheck CBC, recheck chem panel. Check amylase and lipase. MD ESTEBAN Guerrero/MODL /[id number]
[2020-03-30] MEDS ORDERED: DIATRIZOATE MEGL/DIATRIZOA SOD 30 ML BTL PO ONE (21:50)
[2020-03-30] MEDS: ATORVASTATIN 10 MG TAB PO SCH (22:19)
[2020-03-30] MEDS: TAMSULOSIN HCL 0.4 MG CAP PO SCH (22:19)
--- NOTE | 2020-03-30 23:32 | NUR ---
03/30/20 Subjective The patient, in ICU, was awake, alert, presents low-grade fever. No respiratory distress. Review of system Constitutional: No Fever, No chills, No General weakness HEENT: No headaches. Cardiovascular: Denies chest pain, palpitations, PND, swelling of the legs. Complains of orthopnea. Respiratory: No Cough, hemoptysis. Somewhat short winded. GI: Denies Nausea/V/D, hematemesis, melena. : Denies Hematuria, Dysuria, Frequency Musculoskeletal: Denies joint pain Neuro: No focal weakness Psych: No anxiety or depression. Skin: No rashes, Itching, Hives Physical exam The patient was confused. Vital signs: Temperature 100, pulse 65, respirations 22, pulse oximetry 95 on nasal cannula 2 L. Blood pressure 124/68. HEENT: No gross abnormalities Neck: Supple no JVD Lungs: Clear to auscultation Heart: Regular rate and rhythm, no murmurs no gallops Abdomen: Soft non tender, no guarding. Extremities: No edema. Status post right AKA Neurologic: Alert oriented 3, no focal weakness. Psychiatrist: Normal mood, normal judgment. Assessment: 69-year-old gentleman with past medical history of hypertension, diabetes mellitus, COPD, CHF, Afib, status post AICD placement, moderate aortic stenosis and status post right above-knee amputation, ejection fraction of 30% or so and has had previous coronary artery bypass graft surgery, COVID-19 infection in December 2019; who presented to the emergency department complaining of shortness of breath probably getting worse during the last 5 days. The patient has been placed on Levophed in view of clinical presentation of hypotension. he was given Zosyn 3.375 g IV along with a bolus of IV fluids -Sepsis -Acute on chronic kidney disease -Chronic systolic cardiomyopathy with ejection fraction of 30% -Hypotension -Advanced heart failure -Coronary artery disease -Atrial fibrillation, chronic -Status post ICD placement -Status post mitral valve replacement and moderate aortic stenosis. -Diabetes mellitus, severe endorgan damage -Vascular disease with resultant right above-knee amputation -Debility -Status post coronary artery bypass graft surgery -Hypothyroidism -Abdominal distention -Prostatic hypertrophy 03/30/2020: Mild fever. No respiratory distress. WBC 11.88, hemoglobin 8.6, hematocrit 28.5, BUN 58, creatinine 1.51, albumin 2.9. CT of the abdomen and pelvis: 1. Patchy bibasilar lung opacities could represent atelectasis or pneumonia. Small pleural effusions. 2. New small volume intraperitoneal ascites. No definite loculated collection, although assessment is limited due to noncontrast exam. Plan of care: -Sepsis work-up -Telemetry -Antibiotics -Wean pressor drugs. -Follow-up cultures. -Glycemic control -Lactulose -Monitor INR -Continue DVT prophylaxis -Monitor O2 -Follow-up labs
--- NOTE | 2020-03-31 00:28 | Diagnostic Imaging Report ---
EXAM: CT Abdomen and Pelvis WITHOUT contrast INDICATION: r/o infection COMPARISON: CT dated 03/06/2019.. TECHNIQUE: Abdomen and pelvis were scanned utilizing a multidetector helical scanner from the lung base to the pubic symphysis without administration of IV contrast. Absence of intravenous contrast decreases sensitivity for detection of focal lesions and vascular pathology. Coronal and sagittal reformations were obtained. Routine protocol was performed. IV CONTRAST: None ORAL CONTRAST: None COMPLICATIONS: None FINDINGS: LOWER THORAX: Small right pleural effusion with fluid tracking into the major fissure. Trace left pleural effusion. Patchy bibasilar airspace opacities. Diffuse bronchial wall thickening. Prosthetic mitral valve. Cardiac lead in the right ventricle. Mild cardiomegaly. HEPATOBILIARY: Previously seen 1.7 cm hypodense lesion at the hepatic dome is not well appreciated on current exam, likely due to streak artifact from arm positioning. No biliary ductal dilation. GALLBLADDER: There are cholecystectomy clips. SPLEEN: No splenomegaly. PANCREAS: No focal masses or ductal dilatation. ADRENALS: No adrenal nodules KIDNEYS/URETERS: Simple fluid attenuating left renal cyst measuring up to 4.7 cm, incompletely characterized on noncontrast exam, not significantly changed in size. No hydronephrosis. GI TRACT: No abnormal distention, wall thickening, or evidence of bowel obstruction. There are diverticula within the colon without evidence of diverticulitis. Appendix is normal. PELVIC ORGANS/BLADDER: Lima catheter in a nondistended bladder.. LYMPH NODES: No lymphadenopathy. VESSELS: Unremarkable. PERITONEUM / RETROPERITONEUM: Simple fluid density ascites tracking along the liver, bilateral paracolic gutters, into the dependent pelvis. Simple density mesenteric ascites. No free air. BONES: There are degenerative changes in the spine. SOFT TISSUES: Partially imaged bilateral gynecomastia IMPRESSION: 1. Patchy bibasilar lung opacities could represent atelectasis or pneumonia. Small pleural effusions. 2. New small volume intraperitoneal ascites. No definite loculated collection, although assessment is limited due to noncontrast exam. Signed by: Jose Juan Granados MD on 03/31/2020 12:24 AM
[2020-03-31] MEDS: PIPERACILLIN/TAZO 2.25 GM 50 ML IV SCH ×4 (00:38→23:33)
[2020-03-31] MEDS ORDERED: SODIUM CHLORIDE 0.9% 250ML 250 ML ONE (01:49)
[2020-03-31 04:00] VITALS: BP 108/48
[2020-03-31 04:44] LABS: BASOPHILS % 0.3 % (0.0-1.0); EOSINOPHILS # (AUTO) 0.2 (0.0-0.4); HEMATOCRIT 28.5 % (38.2-49.6); HEMOGLOBIN 8.6 g/dL (14.0-18.0); LYMPHOCYTES # (AUTO) 1.2 (1.0-3.2); LYMPHOCYTES % 9.8 % (18.0-39.1); MEAN CORPUSCULAR HGB CONC 30.2 g/dL (31-35); MEAN CORPUSCULAR VOLUME 89.3 fL (81-99); MONOCYTES # (AUTO) 1.3 (0.2-0.8); MONOCYTES % 11.1 % (4.4-11.3); NEUTROPHILS # (AUTO) 9.1 (2.1-6.9); NEUTROPHILS % 76.5 % (38.7-80.0); PLATELET COUNT 187 x10e3/uL (140-360); RED BLOOD COUNT 3.19 x10e6/uL (4.3-5.7); RED CELL DISTRIBUTION WIDTH 17.3 % (11.7-14.4)
[2020-03-31 04:54] LABS: INR 2.43; PROTHROMBIN TIME 27.6 seconds (11.9-14.5)
[2020-03-31 05:01] LABS: ALBUMIN 2.7 g/dL (3.5-5.0); ALBUMIN/GLOBULIN RATIO 0.6 (0.8-2.0); ANION GAP 11.7 mmol/L (8-16); CALCIUM 8.9 mg/dL (8.4-10.2); CREATININE, SERUM 1.24 mg/dL (0.72-1.25); POTASSIUM 3.7 mmol/L (3.5-5.1)
[2020-03-31] MEDS: METOPROLOL TARTRATE 25 MG TAB PO SCH ×2 (06:00→20:35)
[2020-03-31] MEDS: LEVOTHYROXINE SODIUM 50 MCG TAB PO SCH (06:17)
[2020-03-31] MEDS: INSULIN REGULAR, HUMAN 100 UNIT/1 ML 3ML VIAL SQ SCH ×4 (07:30→22:33)
[2020-03-31 08:00] VITALS: BP 101/41
[2020-03-31] MEDS: FINASTERIDE 5 MG TAB PO SCH (08:07)
[2020-03-31] MEDS: MIDODRINE HCL 5 MG TABLET PO SCH ×3 (08:07→16:33)
[2020-03-31] MEDS: INSULIN GLARGINE 100 UNITS/ML VIAL SQ SCH (08:43)
[2020-03-31] MEDS: AMIODARONE HCL 200 MG TAB PO SCH (08:47)
[2020-03-31 09:00] VITALS: BP 101/41
--- NOTE | 2020-03-31 09:04 | Diagnostic Imaging Report ---
EXAMINATION: CHEST SINGLE (PORTABLE) INDICATION: Pneumonia COMPARISON: Chest radiograph 01/13/2020, CT abdomen and pelvis 03/30/2020 FINDINGS: LINES/TUBES:Left chest AICD. EKG leads overlie the chest. LUNGS:The lungs are moderately inflated. Persistent bilateral interstitial and airspace opacities are somewhat improved compared to the prior radiograph of 01/13/2020. PLEURA:Trace right pleural effusion. No pneumothorax. MEDIASTINUM:Cardiomediastinal silhouette is stably enlarged. BONES/SOFT TISSUES:No acute osseous injury. ABDOMEN:No free air under the diaphragm. IMPRESSION: Persistent bilateral interstitial and airspace opacities, somewhat improved compared to 01/13/2020. Trace right pleural effusion. Signed by: Tho Love MD on 03/31/2020 9:01 AM
[2020-03-31] MEDS ORDERED: CITRATE OF MAGNESIA 300ML BOTTLE PO ONE (09:30)
--- NOTE | 2020-03-31 09:45 | Progress Note ---
DATE: SUBJECTIVE: The patient is still complaining of some constipations by moving his bowels yesterday. He complains of some nasal congestion. PHYSICAL EXAMINATION: VITAL SIGNS: The patient is afebrile. The blood pressure is 101/41, saturation is 100% on 3 L. Pulse is 58. HEENT: Shows no facial swelling or erythema. LYMPHATIC: Shows no submandibular, cervical, or supraclavicular adenopathy. CARDIAC: Reveals regular rate and rhythm with normal S1, S2. LUNGS: Auscultation of lungs shows decreased breath sounds at the bases. There is no wheezing. ABDOMEN: Soft and nontender. There is no rebound or guarding. EXTREMITIES: Shows some swelling in the left upper extremity. There is nxmrc-ciy-gprn amputation in the right leg. IMPRESSION: 1. Acute on chronic systolic congestive heart failure. 2. Chronic systolic cardiomyopathy with ejection fraction of 30%, present on admission. 3. Atrial fibrillation. 4. Prosthetic mitral valve. 5. Acute on chronic kidney injury. 6. Diabetes. 7. Hypothyroidism. PLAN: 1. The patient will have venous duplex of the upper extremities today because of arm swelling. 2. Magnesium citrate. 3. Continue Coumadin. 4. Continue amiodarone and current cardiac medications. 5. Continue to monitor and control blood sugars. Shelton Corneoj MD [facility]/MODL /[id number]
[2020-03-31] MEDS ORDERED: FUROSEMIDE INJ 10 MG/ML 4 ML VIAL IV ONE (10:45)
[2020-03-31 12:00] VITALS: BP 134/62
--- NOTE | 2020-03-31 14:26 | NUR ---
INFECTIOUS DISEASE PROGRESS NOTE DR. ADIA BRISENO CC: 69-year-old gentleman with past medical history of hypertension, diabetes mellitus, COPD, CHF, Afib, status post AICD placement, moderate aortic stenosis and status post right above-knee amputation, ejection fraction of 30% or so and has had previous coronary artery bypass graft surgery, COVID-19 infection in December 2019; who presented to the emergency department complaining of shortness of breath probably getting worse during the last 5 days. The patient has been placed on Levophed in view of clinical presentation of hypotension. he was given Zosyn 3.375 g IV along with a bolus of IV fluids ROS: + congestion ALL 14 POINT ROS NEG UNLESS OTHERWISE NOTED PHYSICAL EXAM: OBJECTIVE: GENERAL: Currently alert and oriented. VITAL SIGNS: Stable. per chart HEENT: He is not icteric. normocephalic NECK: Supple. no JVD CHEST: Clear. diminished HEART: S1 and S2. ABDOMEN: Soft. Bowel sounds present. EXTREMITIES: No edema. SKIN: No rash. no edema LABS: reviewed RADIOLOGY: reviewed IMPRESSION: Sepsis present on admission L[place]ORE on CKD s/p COVID Leukocytosis prosthetic MV hypotension CHF exacerbation Coag neg staph contaminant blood culture PLAN: US of upper extremities due to swelling on zosyn continue the same for now Soo Pepper MSN, BONDING SUPERVISOR, AGACNP-BC Adia Briseno M.D.
[2020-03-31 16:00] VITALS: BP 135/82
--- NOTE | 2020-03-31 16:09 | Progress Note ---
DATE: 03/31/2020 Renal Progress Note SUBJECTIVE: Events over the past 24 hours have been noted. The patient was complaining of swelling of the left arm. PHYSICAL EXAMINATION: VITAL SIGNS: In the last 24 hours, the patient has had 170 mL and 1600 out. Blood pressure of 101/41, pulse 58, and respiration 18. GENERAL: The patient is in no acute distress. HEENT: No increased JVD. CARDIOVASCULAR: Regular rate and rhythm. LUNGS: Decreased breath sounds at bases bilaterally. ABDOMEN: The patient is obese. EXTREMITIES: No edema. There is edema of the left arm. LABORATORY RESULTS: Sodium 141, potassium 3.7, chloride 103, bicarbonate 30, BUN and creatinine 53 and 1.24 respectively. IMPRESSION/PLAN: 1. Acute kidney injury, superimposed on chronic kidney disease. 2. Congestive heart failure. 3. Cardiorenal syndrome. 4. Atherosclerotic peripheral vascular disease. The patient's renal function is improving. He has been restarted on Lasix 40 mg a day. I agree with this. His urine output is very good. Can continue present management. Avoid NSAIDs, MCKEON-2 inhibitors, and IV contrast. The patient's renal function is improving. Ather MD SHELLEY Hanson/ERICA /[id number]
[2020-03-31] MEDS: WARFARIN SOD 1 MG TAB PO SCH (17:25)
--- NOTE | 2020-03-31 19:04 | NUR ---
Progress note Internal medicine 03/31/2020 Subjective: Awake, alert, oriented, complains of constipation and nasal congestion. Physical exam Vital signs: BP 118/62, pulse 96, temperature 97.8, pulse ox 90% on nasal cannula 2 L. Constitutional: He is oriented to person, place, and time. He appears well-developed. HEENT: Head: Normocephalic and atraumatic. PERRLA. Cardiovascular: Regular rhythm, no murmurs, no rubs, no gallops. Pulmonary/Chest: Decreased breathing sounds. Abdominal: Soft, nontender, bowel sounds positive and normal. No distention, no guarding, no rebound. Musculoskeletal: Normal range of motion. Extremities: Edema of the left upper extremity, iaabg-duh-fgei amputation of the right leg. Neurological: He is alert and oriented to person, place, and time. Skin: Skin is warm and dry. Psychiatric: He has a normal mood and affect. Assessment Acute on chronic systolic congestive heart failure Chronic systolic cardiomyopathy, ejection fraction of 30% Atrial fibrillation Prostatic mitral valve Acute on chronic kidney injury Diabetes Hypothyroidism 03/31/2020 Stable vital signs Good urine output. Labs: Sodium 141, potassium 3.7, chloride 103, bicarb 30, BUN 53, creatinine 1.24. Plan Telemetry Antibiotics Continue home medications BP control Glycemic control Heart rate control Pain control Glucose control DVT/GI prophylaxis Venous duplex of the upper extremities Monitor kidney function ID consult noted Nephrology consult noted
[2020-03-31 20:00] VITALS: BP 118/62
[2020-03-31] MEDS: TAMSULOSIN HCL 0.4 MG CAP PO SCH (20:35)
[2020-03-31] MEDS: ATORVASTATIN 10 MG TAB PO SCH (20:35)
[2020-04-01] VITALS (7 sets, daily range): BP systolic 100–139; BP diastolic 40–72
[2020-04-01 04:44] LABS: BASOPHILS % 0.4 % (0.0-1.0); EOSINOPHILS # (AUTO) 0.3 (0.0-0.4); EOSINOPHILS % 2.9 % (0.0-6.0); HEMOGLOBIN 8.7 g/dL (14.0-18.0); LYMPHOCYTES # (AUTO) 1.1 (1.0-3.2); LYMPHOCYTES % 9.6 % (18.0-39.1); MEAN CORPUSCULAR HEMOGLOBIN 28.2 pg (28-32); MEAN CORPUSCULAR HGB CONC 31.1 g/dL (31-35); MEAN CORPUSCULAR VOLUME 90.6 fL (81-99); MONOCYTES % 8.9 % (4.4-11.3); NEUTROPHILS # (AUTO) 8.6 (2.1-6.9); NEUTROPHILS % 77.8 % (38.7-80.0); PLATELET COUNT 179 x10e3/uL (140-360); RED BLOOD COUNT 3.09 x10e6/uL (4.3-5.7); RED CELL DISTRIBUTION WIDTH 17.5 % (11.7-14.4)
[2020-04-01 05:05] LABS: ALANINE AMINOTRANSFERASE 9 IU/L (0-55); ALBUMIN 2.7 g/dL (3.5-5.0); ALBUMIN/GLOBULIN RATIO 0.6 (0.8-2.0); ALKALINE PHOSPHATASE 143 IU/L (40-150); ANION GAP 14.3 mmol/L (8-16); BLOOD UREA NITROGEN 50 mg/dL (7-26); BUN/CREATININE RATIO 50 (6-25); CALCIUM 9.1 mg/dL (8.4-10.2); CARBON DIOXIDE 29 mmol/L (22-29); CHLORIDE 104 mmol/L (98-107); EST GLOMERULAR FILTRATION RATE > 60 ML/MIN (60-); GLUCOSE 109 mg/dL (74-118); POTASSIUM 3.3 mmol/L (3.5-5.1); SODIUM 144 mmol/L (136-145)
[2020-04-01] MEDS: LEVOTHYROXINE SODIUM 50 MCG TAB PO SCH (06:12)
[2020-04-01] MEDS: INSULIN REGULAR, HUMAN 100 UNIT/1 ML 3ML VIAL SQ SCH ×4 (07:25→20:57)
[2020-04-01] MEDS: MIDODRINE HCL 5 MG TABLET PO SCH ×3 (08:00→16:42)
[2020-04-01] MEDS: FINASTERIDE 5 MG TAB PO SCH (08:29)
[2020-04-01] MEDS: METOPROLOL TARTRATE 25 MG TAB PO SCH ×2 (08:29→20:54)
[2020-04-01] MEDS: PIPERACILLIN/TAZO 2.25 GM 50 ML IV SCH (08:29)
[2020-04-01] MEDS: AMIODARONE HCL 200 MG TAB PO SCH (08:29)
[2020-04-01] MEDS ORDERED: FUROSEMIDE 40 MG TAB PO SCH (09:00)
[2020-04-01] MEDS: INSULIN GLARGINE 100 UNITS/ML VIAL SQ SCH (09:22)
--- NOTE | 2020-04-01 09:32 | Progress Note ---
DATE: SUBJECTIVE: The patient is currently complaining of some abdominal discomfort. He did move his bowels yesterday. He is not having any nausea or vomiting. His dyspnea is improved. Ultrasound of the upper extremities showed no deep vein thrombosis. PHYSICAL EXAMINATION: VITAL SIGNS: Blood pressure is 136/72, saturation is 98% on 3 L and the pulse is 95. HEENT: Shows no facial swelling or erythema. LYMPHATIC: Shows no submandibular, cervical, or supraclavicular adenopathy. CARDIAC: Reveals regular rate and rhythm with normal S1 and S2. LUNGS: Auscultation of lungs reveals decreased breath sounds at the bases. There is no wheezing. ABDOMEN: Soft, nontender. There is no rebound or guarding. EXTREMITIES: Shows no leg edema or calf tenderness. There is no cyanosis or clubbing. SKIN: Shows no rashes. NEUROLOGICAL: Shows no focal abnormalities. LABORATORY DATA: BUN to creatinine ratio is 50 to 1.0, potassium is 3.3, and the other electrolytes are within normal limits. The albumin is 2.7. White blood cell count is 11.03, the hemoglobin is 8.7. The platelet count is 179. IMPRESSION: 1. Acute on chronic systolic congestive heart failure. 2. Chronic systolic cardiomyopathy with ejection fraction of 30%, present on admission. 3. Atrial fibrillation. 4. Prosthetic mitral valve. 5. Acute on chronic kidney injury. 6. Diabetes. PLAN: 1. Continue warfarin and current cardiac regimen. 2. Continue to monitor and control blood sugars. 3. Physical therapy. 4. Discuss abdominal pain with Dr. Escalante. Shelton Cornejo MD [facility] /[id number]
[2020-04-01] MEDS ORDERED: POTASSIUM CHLORIDE 20 MEQ TAB CR PO ONE (09:40)
--- NOTE | 2020-04-01 15:20 | NUR ---
INFECTIOUS DISEASE PROGRESS NOTE DR. ADIA BRISENO CC: 69-year-old gentleman with past medical history of hypertension, diabetes mellitus, COPD, CHF, Afib, status post AICD placement, moderate aortic stenosis and status post right above-knee amputation, ejection fraction of 30% or so and has had previous coronary artery bypass graft surgery, COVID-19 infection in December 2019; who presented to the emergency department complaining of shortness of breath probably getting worse during the last 5 days. The patient has been placed on Levophed in view of clinical presentation of hypotension. he was given Zosyn 3.375 g IV along with a bolus of IV fluids ROS: + congestion ALL 14 POINT ROS NEG UNLESS OTHERWISE NOTED PHYSICAL EXAM: OBJECTIVE: GENERAL: Currently alert and oriented. VITAL SIGNS: Stable. per chart HEENT: He is not icteric. normocephalic NECK: Supple. no JVD CHEST: Clear. diminished HEART: S1 and S2. ABDOMEN: Soft. Bowel sounds present. EXTREMITIES: No edema. SKIN: No rash. no edema LABS: reviewed RADIOLOGY: reviewed IMPRESSION: Sepsis present on admission LENORE on CKD s/p COVID Leukocytosis prosthetic MV hypotension CHF exacerbation Coag neg staph contaminant blood culture PLAN: on zosyn continue the same for now Soo Pepper MSN, TELEPHONE SERVICE REPRESENTATIVE, AGACNP-BC Adia Briseno M.D.
--- NOTE | 2020-04-01 16:14 | Progress Note ---
DATE: 04/01/2020 Renal Progress Note SUBJECTIVE: Events over the past 24 hours have been noted. The patient is lying down flat. He has no complaints. The nurse reports that he is complaining of some abdominal pain. Intake and output in the last 24 hours, has had 1110 mL in, 2595 out. PHYSICAL EXAMINATION: VITAL SIGNS: Blood pressure 136/72, pulse 95, and respiration 20. GENERAL: The patient is in no acute distress. HEENT: No increased JVD. CARDIOVASCULAR: Regular rate and rhythm. LUNGS: Decreased breath sounds at bases bilaterally. ABDOMEN: The patient is obese. EXTREMITIES: No edema. There is edema in the left arm. LABORATORY REPORT: Sodium of 144, potassium 3.3, chloride 104, bicarbonate 29, BUN and creatinine 50 and 1.0 respectively. IMPRESSION/PLAN: 1. Acute kidney injury superimposed on chronic kidney disease. 2. Congestive heart failure. 3. Cardiorenal syndrome. 4. Atherosclerotic peripheral vascular disease. The patient's renal function continues to improve. His serum creatinine is down to 1. The patient has been restarted on Lasix 40 mg once a day, I agree with this. NSAIDs, MCKEON-2 inhibitors, and IV contrast should be avoided. I will go ahead and start the patient on some potassium chloride 20 mEq once a day also, so that he does not become hypokalemic. He is hypokalemic now and his potassium will be replaced if not been replaced already. Ather MD SHELLEY Hanson/[facility] /[id number]
[2020-04-01] MEDS: WARFARIN SOD 1 MG TAB PO SCH (16:44)
[2020-04-01] MEDS: ATORVASTATIN 10 MG TAB PO SCH (20:54)
[2020-04-01] MEDS: TAMSULOSIN HCL 0.4 MG CAP PO SCH (20:54)
--- NOTE | 2020-04-01 21:44 | NUR ---
Internal Medicine Boris coverage [id number]
--- NOTE | 2020-04-01 22:30 | Progress Note ---
DATE: 04/01/2020 Internal Medicine Progress Note This is coverage for Dr. Abe Escalante. SUBJECTIVE: The patient still feeling very weak. He is not mobilizing very well. He is eating only small amounts and he has decreased appetite. He is mainly eating his liquids. Lima in place. 2 L/minutes by nasal cannula oxygen. 94% oxygen saturation. Overall, he feels mildly better than previous. REVIEW OF SYSTEMS: No diarrhea, no headaches. OBJECTIVE: VITAL SIGNS: Noted, reviewed per the chart record. ABDOMEN: Large, obese abdomen, but soft, mildly distended/gaseous, but no maria victoria abdominal pain. EXTREMITIES: 1+ edema of the legs. LABORATORY DATA: 2.3 potassium, 1.0 creatinine. white count, 28 hematocrit, 2.43 INR. LFTs noted. Last chest x-ray with persistent bilateral interstitial airspace opacities that were improved with trace right pleural effusion. This chest x-ray yesterday. IMPRESSION AND PLAN: 1. Acute on chronic congestive heart failure, left ventricular ejection fraction 30%. Slightly improved from admit. 2. Acute kidney injury, cardiorenal syndrome. Improving. 3. Hypertension. 4. Diabetes. 5. Coronary artery disease, status post CABG. 6. History of aortic valve replacement. 7. Atrial fibrillation. 8. Obesity. 9. Oral dysphagia, poor teeth. 10. Possible sepsis. 11. Peripheral vascular disease, status post right above the knee amputation. 12. History of AICD. 13. Oxygen dependency. Continue oxygen and wean per protocol. Continue diuresis. Control blood pressure slowly. Continue diabetic control. Follow up electrolytes and renal function very closely. Continue empiric antibiotics and deescalate if no sepsis is proven. As of now, there is 1/2 blood cultures with coag-negative Staphylococcus. Continue blood thinners. Mobilize as feasible with PT and OT. Yemi Alberts MD [facility] /[id number]
[2020-04-02 03:00] VITALS: BP 121/56
[2020-04-02 03:43] LABS: BASOPHILS # (AUTO) 0.1 (0.0-0.1); BASOPHILS % 0.5 % (0.0-1.0); EOSINOPHILS # (AUTO) 0.4 (0.0-0.4); EOSINOPHILS % 3.9 % (0.0-6.0); HEMATOCRIT 28.2 % (38.2-49.6); HEMOGLOBIN 8.4 g/dL (14.0-18.0); LYMPHOCYTES # (AUTO) 1.2 (1.0-3.2); LYMPHOCYTES % 12.6 % (18.0-39.1); MEAN CORPUSCULAR HEMOGLOBIN 26.8 pg (28-32); MEAN CORPUSCULAR HGB CONC 29.8 g/dL (31-35); MEAN CORPUSCULAR VOLUME 89.8 fL (81-99); MONOCYTES # (AUTO) 0.8 (0.2-0.8); MONOCYTES % 7.8 % (4.4-11.3); NEUTROPHILS # (AUTO) 7.4 (2.1-6.9); NEUTROPHILS % 74.9 % (38.7-80.0); PLATELET COUNT 209 x10e3/uL (140-360); RED BLOOD COUNT 3.14 x10e6/uL (4.3-5.7)
[2020-04-02 03:53] LABS: INR 2.74; PROTHROMBIN TIME 30.3 seconds (11.9-14.5)
[2020-04-02 04:02] LABS: ALANINE AMINOTRANSFERASE 11 IU/L (0-55); ALBUMIN 2.6 g/dL (3.5-5.0); ALBUMIN/GLOBULIN RATIO 0.5 (0.8-2.0); ALKALINE PHOSPHATASE 138 IU/L (40-150); ANION GAP 12.2 mmol/L (8-16); BLOOD UREA NITROGEN 41 mg/dL (7-26); BUN/CREATININE RATIO 45 (6-25); CALCIUM 9.2 mg/dL (8.4-10.2); CARBON DIOXIDE 31 mmol/L (22-29); CHLORIDE 106 mmol/L (98-107); CREATININE, SERUM 0.92 mg/dL (0.72-1.25); EST GLOMERULAR FILTRATION RATE > 60 ML/MIN (60-); GLUCOSE 87 mg/dL (74-118); POTASSIUM 3.2 mmol/L (3.5-5.1); SODIUM 146 mmol/L (136-145)
[2020-04-02 04:45] LABS: FERRITIN 266.5 ng/mL (21.81-274.66)
[2020-04-02] MEDS: PANTOPRAZOLE 40 MG 10ML VIAL IV SCH ×2 (05:11→16:36)
[2020-04-02] MEDS: LEVOTHYROXINE SODIUM 50 MCG TAB PO SCH (05:11)
[2020-04-02] MEDS: INSULIN REGULAR, HUMAN 100 UNIT/1 ML 3ML VIAL SQ SCH ×4 (07:30→21:00)
[2020-04-02 08:00] VITALS: BP 120/75
[2020-04-02] MEDS: METOPROLOL TARTRATE 25 MG TAB PO SCH ×2 (08:35→21:26)
[2020-04-02] MEDS: MIDODRINE HCL 5 MG TABLET PO SCH ×3 (08:35→16:36)
[2020-04-02] MEDS: FUROSEMIDE INJ 10 MG/ML 4 ML VIAL IV SCH ×3 (08:35→22:50)
[2020-04-02] MEDS: AMIODARONE HCL 200 MG TAB PO SCH (08:36)
[2020-04-02] MEDS: FINASTERIDE 5 MG TAB PO SCH (08:36)
[2020-04-02] MEDS: POTASSIUM CHLORIDE 20 MEQ TAB CR PO SCH ×3 (08:46→16:16)
[2020-04-02] MEDS: INSULIN GLARGINE 100 UNITS/ML VIAL SQ SCH (08:48)
[2020-04-02 10:00] VITALS: BP 120/67
--- NOTE | 2020-04-02 10:09 | Progress Note ---
DATE: Pulmonary Critical Care Progress Note SUBJECTIVE: The patient consulted with Gastroenterology yesterday. They recommended continuing the proton pump inhibitor. He also complains of some discomfort from the Lima. He complains of some pain and discomfort from the Lima. He is concerned about the amount of assistance at home. Apparently his family is not available to help him as much as he would like. He thinks that he would benefit from home health aide, but this has been denied in the past because he owns his own house. The patient also is requesting a hospital bed prior to discharge. PHYSICAL EXAMINATION: VITAL SIGNS: Blood pressure is 121/96, saturations 96%. He is on 2 L. Pulse is 65. HEENT: Shows no facial swelling or erythema. LYMPHATIC: Shows no submandibular, supraclavicular or axillary adenopathy. CARDIAC: Reveals regular rate and rhythm with normal S1 and S2. LUNGS: Auscultation of lungs shows decreased breath sounds at the bases. There is no wheezing. ABDOMEN: Soft and nontender. There is no rebound or guarding. 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 LABORATORY DATA: White blood cell count is 9.8, hemoglobin is 8.4, and platelet count is 209. BUN to creatinine ratio is 41 to 0.92. Potassium is 3.2. Sodium is 146. Albumin is 2.6. IMPRESSION: 1. Acute on chronic systolic congestive heart failure. 2. Chronic systolic cardiomyopathy with ejection fraction of 30%. 3. Atrial fibrillation. 4. Prosthetic mitral valve. 5. Acute on chronic kidney injury. 6. Diabetes. PLAN: 1. Continue warfarin. 2. Continue current cardiac regimen. 3. Discontinue Lima. 4. Physical therapy. 5. Arrangements were made for discharge. The patient will need hospital bed as well as some type of home health assistance. MD KATE Banegas/[facility] /[id number]
--- NOTE | 2020-04-02 11:30 | NUR ---
CALLED AND SPOKE WITH SON NICOLAS [phone], HE STATES HE DOES NOT WANT HIS DAD TO GO TO SNF, HE WANTS HIM HOME WITH HOME HEALTH. STATES DOESNT HAVE ANY AT THIS TIME.
[2020-04-02 12:00] VITALS: BP 112/70
--- NOTE | 2020-04-02 13:42 | Progress Note ---
DATE: 04/02/2020 Renal Progress Note SUBJECTIVE: Events over the past 24 hours have been noted. The patient has no chest pain. No shortness of breath. Intake and output for the last 24 hours; the patient has had 970 in and 2800 out. PHYSICAL EXAMINATION: VITAL SIGNS: Blood pressure 120/67, pulse 65, and respirations 16. GENERAL: The patient is in no acute distress. He is obese. HEENT: No increased JVD. CARDIOVASCULAR: Regular rhythm. LUNGS: Decreased breath sounds at bases bilaterally. ABDOMEN: Positive bowel sounds. EXTREMITIES: The patient has trace to 1+ edema of the legs. He has some more edema in the arms. LABORATORY DATA: Hemoglobin and hematocrit 8.4 and 28.2 respectively. Sodium 146, potassium 3.2, chloride 106, bicarbonate 31, BUN and creatinine 41 and 0.9 respectively. IMPRESSION: 1. Acute kidney injury. 2. Congestive heart failure. 3. Cardiorenal syndrome. 4. Atherosclerotic peripheral vascular disease. The patient's renal function continues to improve. He essentially has normal renal function now. Lasix has been increased to 40 mg IV q.8 hours. His potassium was low as well, so potassium supplementation has been ordered. We will continue to avoid NSAIDs, MCKEON-2 inhibitors, and IV contrast. Ather MD SHELLEY Hanson/[facility] /[id number]
[2020-04-02 16:00] VITALS: BP 102/82
[2020-04-02] MEDS: WARFARIN SOD 1 MG TAB PO SCH (16:36)
--- NOTE | 2020-04-02 16:52 | NUR ---
Nutrition Screen Note RD Recommendation for Physician: -Recommend low sodium/ADA diet -Texture modification per speech therapy or MD Plan of Care: RD following, monitoring for tolerance and adequacy Nutrition reason for involvement: length of stay Primary Diagnose(s): pneumonia, hypoxia, and hypotension PMH: coronary artery disease, congestive heart failure, atrial fibrillation, ICD filter, aortic stenosis, diabetes mellitus, hyperlipidemia, obesity, peripheral vascular disease, cholecystectomy, 2 months ago had COVID infection. Ht: 72 in Wt: 236 lb BMI: 32.0 kg/m2 IBW:[address] Assessment: (04/02/20) Chart reviewed. Labs and meds reviewed. Pt is a 69 year old male admitted with pneumonia, hypoxia, and hypotension. Pt is primarily Macedonian speaking per chart. There are no reports of decreased appetite or recent unintentional weight loss upon admission per chart. It is recorded that pt consumed 50-100% of his meals the past [address] is available for diet education as needed. Will continue to monitor Current Diet: 1800 ADA/chopped Malnutrition Evaluation (04/02/20) The patient does not meet criteria for a specified degree of malnutrition at this time. Will re-evaluate at follow-up as appropriate. Diet Education Needs Assessment: RD is available for diet education as needed Nutrition Care Level: low Signed: Mary Jo Fernando, RD, LD
--- NOTE | 2020-04-02 19:53 | Progress Note ---
DATE: SUBJECTIVE: Mr. Fraser is lying in bed comfortably. He was seen by GI yesterday. Recommend protein pump inhibitor. The patient was complaining of some discomfort from the urine. Otherwise, he is lying in bed comfortably. PHYSICAL EXAMINATION: GENERAL: He is currently alert, oriented. VITAL SIGNS: Stable. Currently afebrile. Blood pressure 120/96, heart rate 65. HEENT: Normocephalic. Does not appear icteric. NECK: Supple. No JVD. No lymphadenopathy. No thyromegaly. CHEST: Clear bilateral. HEART: S1, S2. ABDOMEN: Soft, obese. No tenderness. No hepatosplenomegaly. EXTREMITIES: No edema. SKIN: No rash. IMPRESSION: Shortness of breath present on admission. Resolving acute on chronic congestive heart failure. Cardiomyopathy, ejection fraction 30%, obesity, atrial fibrillation, prosthetic mitral valve placed, acute on chronic kidney injury, diabetes mellitus with neuropathy, currently on Coumadin. He is currently off antibiotic. His blood culture shows coagulase-negative Staph time one set. Probably contamination. There is no fever since admission. He had 100.1 when he first came. His white count is 9.8, hemoglobin 8.4. His sodium 146, potassium 4.2, and creatinine 0.92. Continue with supportive care. Stable from Infectious Disease. MD ESTEBAN Guerrero/[facility] /[id number]
[2020-04-02 20:00] VITALS: BP 135/61
[2020-04-02] MEDS: TAMSULOSIN HCL 0.4 MG CAP PO SCH (21:00)
[2020-04-02] MEDS: ATORVASTATIN 10 MG TAB PO SCH (21:00)
[2020-04-03] VITALS: BP 139/65
[2020-04-03 04:00] VITALS: BP 116/59
[2020-04-03 05:15] LABS: ALANINE AMINOTRANSFERASE 14 IU/L (0-55); ALBUMIN 2.6 g/dL (3.5-5.0); ALBUMIN/GLOBULIN RATIO 0.5 (0.8-2.0); ALKALINE PHOSPHATASE 151 IU/L (40-150); ANION GAP 12.4 mmol/L (8-16); BLOOD UREA NITROGEN 30 mg/dL (7-26); BUN/CREATININE RATIO 34 (6-25); CALCIUM 9.2 mg/dL (8.4-10.2); CARBON DIOXIDE 33 mmol/L (22-29); CHLORIDE 104 mmol/L (98-107); CREATININE, SERUM 0.87 mg/dL (0.72-1.25); EST GLOMERULAR FILTRATION RATE > 60 ML/MIN (60-); GLUCOSE 100 mg/dL (74-118); POTASSIUM 3.4 mmol/L (3.5-5.1); SODIUM 146 mmol/L (136-145)
[2020-04-03] MEDS: FUROSEMIDE INJ 10 MG/ML 4 ML VIAL IV SCH (05:32)
[2020-04-03] MEDS: LEVOTHYROXINE SODIUM 50 MCG TAB PO SCH (05:32)
[2020-04-03] MEDS: PANTOPRAZOLE 40 MG 10ML VIAL IV SCH (05:32)
[2020-04-03] MEDS: INSULIN REGULAR, HUMAN 100 UNIT/1 ML 3ML VIAL SQ SCH ×3 (07:30→15:58)
[2020-04-03 08:00] VITALS: BP 93/55
[2020-04-03] MEDS: METOPROLOL TARTRATE 25 MG TAB PO SCH (08:45)
[2020-04-03] MEDS: MIDODRINE HCL 5 MG TABLET PO SCH ×3 (08:45→15:58)
[2020-04-03] MEDS: AMIODARONE HCL 200 MG TAB PO SCH (08:45)
[2020-04-03] MEDS: POTASSIUM CHLORIDE 20 MEQ TAB CR PO SCH (08:45)
[2020-04-03] MEDS: FINASTERIDE 5 MG TAB PO SCH (08:46)
[2020-04-03] MEDS: INSULIN GLARGINE 100 UNITS/ML VIAL SQ SCH (08:47)
--- NOTE | 2020-04-03 08:58 | NUR ---
CALLED TO SPEAK TO SON ABOUT HOME HEALTH, [facility] [employer] NOT SET UP, WILL CALL BACK AT LATER TIME. LAST VISIT WAS ATTEMPTED TO SET UP WITH [facility] [phone], BUT UNABLE TO TAKE DUE TO COVID, THIS TIME NEGATIVE. IF SON AGREES THE WILL GET CHOICE AND FAX.
[2020-04-03] MEDS ORDERED: IRON SUCROSE 100 MG in SODIUM CHLORIDE 0.9% 100 ML 100 ML IV SCH (09:00)
[2020-04-03 09:01] VITALS: BP 93/55
[2020-04-03] MEDS ORDERED: POTASSIUM CHLORIDE 20 MEQ TAB CR PO STA (09:14)
--- NOTE | 2020-04-03 09:16 | NUR ---
SON NICOLAS CALLED BACK AND AGREED TO HOME HEALTH WITH [facility], IF THEY SAY NO THE GO TO [facility]. EDUCATED ABOUT IMM AND WILL FILE IN CHART.
--- NOTE | 2020-04-03 09:21 | Progress Note ---
DATE: SUBJECTIVE: The patient received dose of Lasix yesterday and urinated over 3 L. He has less leg edema. He complains of difficulty moving his bowels. PHYSICAL EXAMINATION: VITAL SIGNS: The blood pressure is 93/55, saturation is 97% on 2 L, and pulse is 78. HEENT: Shows no facial swelling or erythema. LYMPHATIC: Shows no submandibular, cervical, or supraclavicular adenopathy. CARDIAC: Reveals regular rate and rhythm with normal S1, S2. LUNGS: Auscultation of lungs reveals rhonchorous breath sounds bilaterally. There is no wheezing. ABDOMEN: Soft and nontender. There is no rebound or guarding. 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 LABORATORY DATA: Hemoglobin is 8.4, white blood cell count 9.8, and the platelet count is 209. The UGG-gx-sjrmrkhqly ratio is 30 to 0.87 and the albumin is 2.6. Sodium is 146. IMPRESSION: 1. Acute on chronic systolic congestive heart failure. 2. Chronic systolic cardiomyopathy. 3. Atrial fibrillation. 4. Prosthetic mitral valve. 5. Diabetes. PLAN: 1. Hold Lasix. 2. DC Lima. 3. Continue warfarin. 4. Physical therapy. 5. Arrange for discharge. Shelton Cornejo MD [facility] /[id number]
[2020-04-03] MEDS ORDERED: PANTOPRAZOLE SOD 40 MG TABEC PO SCH (09:30)
[2020-04-03] MEDS ORDERED: SENNA-S TABLET PO ONE (09:40)
--- NOTE | 2020-04-03 09:58 | NUR ---
CALLED [facility] SPOKE WITH ZEHRA [phone] SHE CONFIRMED RECEIPT AND STATES WILL GET TO INTAKE TO PROCESS TO APPROVE OR DENY, PENDING AUTH.
--- NOTE | 2020-04-03 11:57 | NUR ---
SPOKE WITH KYLEIGH AT [facility] CONFIRMED AUTH ON HOME HEALTH TO BEGIN TOMORROW ANY QUESTIONS PT OR SON NEEDS TO CALL [phone]
[2020-04-03 12:00] VITALS: BP 134/63
--- NOTE | 2020-04-03 13:51 | NUR ---
Home health information was printed and given to pt. CM informed pt that they will begin services tomorrow. CM asked pt to call the company if he does not hear from them within 24 hrs of discharge. [facility]
[2020-04-03] MEDS ORDERED: KLOR-CON M2020 MEQ PO (14:56)
[2020-04-03] MEDS ORDERED: MIDODRINE HCL5 MG PO (14:56)
[2020-04-03] MEDS ORDERED: FUROSEMIDE40 MG PO (14:56)
[2020-04-03] MEDS ORDERED: LANTUS 3ML100 UNITS/ SC (15:02)
[2020-04-03] MEDS ORDERED: HUMALOG100 UNIT/1 SC (15:02)
[2020-04-03] MEDS: WARFARIN SOD 1 MG TAB PO SCH (15:58)
[2020-04-03] MEDS ORDERED: FUROSEMIDE 40 MG TAB PO SCH (18:00)
--- NOTE | 2020-04-03 18:33 | Progress Note ---
DATE: SUBJECTIVE: Mr. Fraser is doing well. No new complaint. He got Lasix yesterday. He urinated over 3 L. Today, he is feeling better. OBJECTIVE: VITAL SIGNS: Stable, afebrile. Blood pressure 93/55, O2 saturation 97% on 2 L, and heart rate 78. HEENT: Normocephalic. Not icteric. NECK: Supple. CHEST: Few crackles at the bases. HEART: S1 and S2. ABDOMEN: Soft. Bowel sounds present. EXTREMITIES: No edema. SKIN: No rash. IMPRESSION: [place]-rrbvwpv congestive heart failure, systolic cardiomyopathy, atrial fibrillation, possibility of sepsis on admission. Clinically doing well. Cultures showed gram- negative bacilli in the blood, which I think contamination. He is currently stable off antibiotic. Discharge planning per Internal Medicine. MD ESTEBAN Guerrero/[facility] /[id number]
== END 2020-04-03 17:48 | disposition home or self-care (01) | DRG 871 ==
LOC: ER 04:03 → ERHOLD 05:15 → ICU 11:15 → IMCU 03-30 17:54
PROVIDERS: ADMIT Internal Medicine; ATTEND Internal Medicine
PROC: 3E033XZ Introduction of Vasopressor into Peripheral Vein, Percutaneous Approach (ICD-10-PCS; principal; 2020-03-28)
DX: A41.9 Sepsis, unspecified organism (principal); I50.23 Acute on chronic systolic (congestive) heart failure; J96.02 Acute respiratory failure with hypercapnia; J96.01 Acute respiratory failure with hypoxia; N17.9 Acute kidney failure, unspecified; I48.20 Chronic atrial fibrillation, unspecified; I13.0 Hypertensive heart and chronic kidney disease with heart failure and stage 1 through stage 4 chronic kidney disease, or unspecified chronic kidney disease; E11.42 Type 2 diabetes mellitus with diabetic polyneuropathy; J44.9 Chronic obstructive pulmonary disease, unspecified; N28.9 Disorder of kidney and ureter, unspecified; R09.02 Hypoxemia; I35.0 Nonrheumatic aortic (valve) stenosis; I11.0 Hypertensive heart disease with heart failure; I25.10 Atherosclerotic heart disease of native coronary artery without angina pectoris; R53.81 Other malaise; N40.0 Benign prostatic hyperplasia without lower urinary tract symptoms; E66.9 Obesity, unspecified; E03.9 Hypothyroidism, unspecified; N18.9 Chronic kidney disease, unspecified; K59.00 Constipation, unspecified; Z11.59 Encounter for screening for other viral diseases; Z99.81 Dependence on supplemental oxygen; Z95.2 Presence of prosthetic heart valve; Z89.611 Acquired absence of right leg above knee; Z95.1 Presence of aortocoronary bypass graft; Z95.810 Presence of automatic (implantable) cardiac defibrillator; R13.11 Dysphagia, oral phase
CPT/HCPCS: 36415; 36600; 71045; 74018; 74176; 76700; 80048; 80053; 80061; 81001; 82150; 82550; 82553; 82607; 82728; 82746; 82805; 82948; 83540; 83605; 83690; 83735; 83880; 84443; 84466; 84484; 85025; 85045; 85610; 85730; 87040; 87071; 87205; 93005; 93306; 93970; 96372; 97139; 99284; J1160; J1756; J1815; J1817; J1940; J2543; J3370; J7030; J7050; P9047

== ENCOUNTER 2020-05-11 14:51 | Inpatient (IN) | payer MEDICARE, OTHER ==
[~2020-05-11] VITALS: Ht 180.3 cm; Wt 87.7 kg
[~2020-05-11 14:51] MED LIST changes: +HUMALOG100 UNIT/1 SC; +KLOR-CON M2020 MEQ PO; +MIDODRINE HCL5 MG PO
[2020-05-11 15:24] LABS: BASOPHILS % 0.3 % (0.0-1.0); EOSINOPHILS # (AUTO) 0.2 (0.0-0.4); EOSINOPHILS % 2.5 % (0.0-6.0); HEMATOCRIT 28.9 % (38.2-49.6); HEMOGLOBIN 8.7 g/dL (14.0-18.0); LYMPHOCYTES # (AUTO) 0.7 (1.0-3.2); LYMPHOCYTES % 10.2 % (18.0-39.1); MEAN CORPUSCULAR HEMOGLOBIN 26.6 pg (28-32); MEAN CORPUSCULAR HGB CONC 30.1 g/dL (31-35); MEAN CORPUSCULAR VOLUME 88.4 fL (81-99); MONOCYTES # (AUTO) 0.7 (0.2-0.8); MONOCYTES % 10.2 % (4.4-11.3); NEUTROPHILS # (AUTO) 5.2 (2.1-6.9); NEUTROPHILS % 76.4 % (38.7-80.0); PLATELET COUNT 212 x10e3/uL (140-360); RED BLOOD COUNT 3.27 x10e6/uL (4.3-5.7); RED CELL DISTRIBUTION WIDTH 19.7 % (11.7-14.4)
[2020-05-11 15:27] LABS: INR 1.58; PROTHROMBIN TIME 19.6 seconds (11.9-14.5)
[2020-05-11 15:28] LABS: PARTIAL THROMBOPLASTIN TIME 44.3 seconds (23.8-35.5)
[2020-05-11 15:31] LABS: BILIRUBIN,URINE SMALL (NEGATIVE); CLARITY,URINE SL CLOUDY (CLEAR); COLOR,URINE AMBER (YELLOW); KETONES,URINE TRACE (NEGATIVE); LEUKOCYTE ESTERASE ,URINE NEGATIVE (NEGATIVE); NITRITE,URINE NEGATIVE (NEGATIVE); PROTEIN,URINE DIPSTICK 2+ (NEGATIVE); URINE UROBILINOGEN 4 mg/dL (0.2 - 1)
[2020-05-11 15:39] LABS: ALBUMIN 3.2 g/dL (3.5-5.0); ALBUMIN/GLOBULIN RATIO 0.6 (0.8-2.0); ANION GAP 10.6 mmol/L (8-16); CALCIUM 8.4 mg/dL (8.4-10.2); CREATININE, SERUM 2.05 mg/dL (0.72-1.25); MAGNESIUM 2.2 MG/DL (1.3-2.1)
[2020-05-11 15:41] LABS: POTASSIUM 5.6 mmol/L (3.5-5.1)
[2020-05-11 15:46] LABS: CREATINE KINASE MB 2.2 ng/mL (0-5.0)
[2020-05-11 15:52] LABS: BACTERIA,URINE FEW /HPF; EPITHELIAL CELLS,URINE FEW /LPF; MUCUS,URINE FEW (RARE); RBC,URINE 0-5 /HPF (0-5); WBC,URINE (MAN) 0-5 /HPF (0-5)
[2020-05-11] MEDS ORDERED: SODIUM BICARBONATE 8.4% INJ 50 ML SYR IV STA (20:13)
[2020-05-11] MEDS ORDERED: DEXTROSE 50% SYRINGE 50 ML IV STA (20:13)
[2020-05-11] MEDS ORDERED: FUROSEMIDE INJ 10 MG/ML 2 ML VIAL IV ONE (20:15)
[2020-05-11] MEDS ORDERED: INSULIN REGULAR, HUMAN 100 UNIT/1 ML 3ML VIAL IV ONE (20:15)
[2020-05-11] MEDS ORDERED: DEXTROSE 50% SYRINGE 50 ML IV PRN (20:30)
[2020-05-11] MEDS ORDERED: INSULIN LISPRO 100 UNIT/1 ML 3ML VIAL SQ SCH (21:00)
[2020-05-11 22:30] VITALS: BP_SYST 126; BP_SYST 130; BP_DIAS 85; BP_DIAS 96
[2020-05-12] VITALS (9 sets, daily range): BP systolic 98–130; BP diastolic 63–89
[2020-05-12 01:08] LABS: CREATINE KINASE MB 2.6 ng/mL (0-5.0)
[2020-05-12 05:40] LABS: BASOPHILS % 0.5 % (0.0-1.0); EOSINOPHILS # (AUTO) 0.2 (0.0-0.4); EOSINOPHILS % 2.5 % (0.0-6.0); HEMATOCRIT 28.8 % (38.2-49.6); HEMOGLOBIN 8.7 g/dL (14.0-18.0); LYMPHOCYTES % 12.6 % (18.0-39.1); MEAN CORPUSCULAR HEMOGLOBIN 26.6 pg (28-32); MEAN CORPUSCULAR HGB CONC 30.2 g/dL (31-35); MEAN CORPUSCULAR VOLUME 88.1 fL (81-99); MONOCYTES # (AUTO) 0.8 (0.2-0.8); MONOCYTES % 9.3 % (4.4-11.3); NEUTROPHILS # (AUTO) 6.1 (2.1-6.9); NEUTROPHILS % 74.9 % (38.7-80.0); PLATELET COUNT 221 x10e3/uL (140-360); RED BLOOD COUNT 3.27 x10e6/uL (4.3-5.7); RED CELL DISTRIBUTION WIDTH 19.6 % (11.7-14.4)
[2020-05-12 06:20] LABS: ALBUMIN 3.2 g/dL (3.5-5.0); ALBUMIN/GLOBULIN RATIO 0.6 (0.8-2.0); ANION GAP 13.2 mmol/L (8-16); CALCIUM 8.7 mg/dL (8.4-10.2); CREATININE, SERUM 2.1 mg/dL (0.72-1.25); POTASSIUM 5.2 mmol/L (3.5-5.1)
[2020-05-12 06:38] LABS: CREATINE KINASE MB 2.9 ng/mL (0-5.0)
[2020-05-12] MEDS ORDERED: GABAPENTIN400 MG PO (07:42)
[2020-05-12] MEDS ORDERED: WARFARIN SODIUM2 MG PO (07:42)
[2020-05-12] MEDS ORDERED: NEXIUM40 MG PO (07:42)
[2020-05-12] MEDS ORDERED: HYDROXYZINE HCL25 MG PO (07:42)
[2020-05-12] MEDS ORDERED: LOSARTAN POTASS25 MG PO (07:42)
[2020-05-12] MEDS ORDERED: METOLAZONE5 MG PO (07:42)
[2020-05-12] MEDS ORDERED: DEXTROSE 50% SYRINGE 50 ML IV PRN (08:30)
[2020-05-12] MEDS ORDERED: LOSARTAN POTASSIUM 25 MG TAB PO SCH (09:00)
[2020-05-12] MEDS ORDERED: METOPROLOL TARTRATE 50 MG TAB PO SCH (09:00)
[2020-05-12] MEDS ORDERED: AMIODARONE HCL 200 MG TAB PO SCH (09:00)
[2020-05-12] MEDS: METOLAZONE 5 MG TAB PO SCH (10:19)
[2020-05-12] MEDS: GABAPENTIN 400 MG CAP PO SCH ×2 (10:20→17:29)
[2020-05-12] MEDS: SENNA-S TABLET PO SCH ×2 (10:20→17:29)
[2020-05-12] MEDS: METOPROLOL TARTRATE 50 MG TAB PO SCH ×3 (10:20→22:20)
[2020-05-12] MEDS: FINASTERIDE 5 MG TAB PO SCH (10:20)
[2020-05-12] MEDS: PANTOPRAZOLE SOD 40 MG TABEC PO SCH (10:20)
[2020-05-12] MEDS: TAMSULOSIN HCL 0.4 MG CAP PO SCH (10:20)
[2020-05-12] MEDS: MIDODRINE HCL 5 MG TABLET PO SCH ×2 (10:21→16:00)
[2020-05-12] MEDS: LEVOTHYROXINE SODIUM 125 MCG TAB PO SCH (10:24)
[2020-05-12] MEDS: INSULIN LISPRO 100 UNIT/1 ML 3ML VIAL SQ SCH ×2 (12:12→17:32)
[2020-05-12 12:30] LABS: CREATINE KINASE MB 2.4 ng/mL (0-5.0)
[2020-05-12] MEDS ORDERED: SOD POLYSTYRENE SULFONATE SUSP 15 GM/60 ML BTL PO ONE (14:15)
[2020-05-12] MEDS ORDERED: WARFARIN SOD 2 MG TAB PO SCH (17:00)
[2020-05-12] MEDS ORDERED: FUROSEMIDE 40 MG TAB PO SCH (18:00)
[2020-05-12] MEDS: FUROSEMIDE INJ 10 MG/ML 4 ML VIAL IV SCH (21:12)
[2020-05-12] MEDS: ATORVASTATIN 20 MG TAB PO SCH (21:12)
[2020-05-12] MEDS: INSULIN GLARGINE 100 UNITS/ML VIAL SQ SCH (21:13)
[2020-05-13] VITALS (7 sets, daily range): BP systolic 108–135; BP diastolic 53–98
[2020-05-13] MEDS: METOPROLOL TARTRATE 50 MG TAB PO SCH ×3 (05:59→22:00)
[2020-05-13] MEDS: LEVOTHYROXINE SODIUM 125 MCG TAB PO SCH (05:59)
[2020-05-13 06:12] LABS: INR 1.46; PROTHROMBIN TIME 18.5 seconds (11.9-14.5)
[2020-05-13 06:27] LABS: ALBUMIN 3.5 g/dL (3.5-5.0); ALBUMIN/GLOBULIN RATIO 0.6 (0.8-2.0); ANION GAP 14.7 mmol/L (8-16); CREATININE, SERUM 1.92 mg/dL (0.72-1.25); POTASSIUM 4.7 mmol/L (3.5-5.1)
[2020-05-13] MEDS: PANTOPRAZOLE SOD 40 MG TABEC PO SCH (08:59)
[2020-05-13] MEDS: FINASTERIDE 5 MG TAB PO SCH (09:01)
[2020-05-13] MEDS: SENNA-S TABLET PO SCH ×2 (09:01→18:22)
[2020-05-13] MEDS: GABAPENTIN 400 MG CAP PO SCH ×2 (09:01→18:22)
[2020-05-13] MEDS: FUROSEMIDE INJ 10 MG/ML 4 ML VIAL IV SCH (09:01)
[2020-05-13] MEDS: TAMSULOSIN HCL 0.4 MG CAP PO SCH (09:01)
[2020-05-13] MEDS: METOLAZONE 5 MG TAB PO SCH (09:01)
[2020-05-13] MEDS: MIDODRINE HCL 5 MG TABLET PO SCH ×3 (09:01→18:22)
[2020-05-13] MEDS: INSULIN LISPRO 100 UNIT/1 ML 3ML VIAL SQ SCH ×3 (09:12→17:00)
[2020-05-13] MEDS: WARFARIN SOD 5 MG TAB PO SCH (18:24)
[2020-05-13] MEDS: FUROSEMIDE INJ 100 MG in SODIUM CHLORIDE 0.9% 100 ML 90 ML IV SCH (19:18)
[2020-05-13] MEDS: INSULIN GLARGINE 100 UNITS/ML VIAL SQ SCH (21:00)
[2020-05-13] MEDS: ATORVASTATIN 20 MG TAB PO SCH (21:00)
[2020-05-13] MEDS: ACETAMINOPHEN 325 MG TAB PO PRN (23:00)
[2020-05-14] VITALS (8 sets, daily range): BP systolic 97–140; BP diastolic 55–93
[2020-05-14] MEDS: METOPROLOL TARTRATE 50 MG TAB PO SCH ×2 (05:48→14:02)
[2020-05-14] MEDS: LEVOTHYROXINE SODIUM 125 MCG TAB PO SCH (05:48)
[2020-05-14 05:55] LABS: INR 1.72
[2020-05-14] MEDS: ACETAMINOPHEN 325 MG TAB PO PRN (06:00)
[2020-05-14 06:05] LABS: ALBUMIN 3.4 g/dL (3.5-5.0); ALBUMIN/GLOBULIN RATIO 0.6 (0.8-2.0); ANION GAP 13.9 mmol/L (8-16); CALCIUM 9.1 mg/dL (8.4-10.2); CREATININE, SERUM 1.69 mg/dL (0.72-1.25); POTASSIUM 3.9 mmol/L (3.5-5.1)
[2020-05-14] MEDS: MIDODRINE HCL 5 MG TABLET PO SCH ×3 (08:50→17:10)
[2020-05-14] MEDS: PANTOPRAZOLE SOD 40 MG TABEC PO SCH (08:50)
[2020-05-14] MEDS: TAMSULOSIN HCL 0.4 MG CAP PO SCH (08:51)
[2020-05-14] MEDS: GABAPENTIN 400 MG CAP PO SCH ×2 (08:51→17:11)
[2020-05-14] MEDS: FINASTERIDE 5 MG TAB PO SCH (08:51)
[2020-05-14] MEDS: SENNA-S TABLET PO SCH ×2 (08:51→17:00)
[2020-05-14] MEDS: METOLAZONE 5 MG TAB PO SCH (08:51)
[2020-05-14] MEDS: INSULIN LISPRO 100 UNIT/1 ML 3ML VIAL SQ SCH ×3 (08:51→17:23)
[2020-05-14] MEDS: FUROSEMIDE INJ 100 MG in SODIUM CHLORIDE 0.9% 100 ML 90 ML IV SCH (12:24)
[2020-05-14] MEDS: WARFARIN SOD 5 MG TAB PO SCH (17:11)
[2020-05-14] MEDS: INSULIN GLARGINE 100 UNITS/ML VIAL SQ SCH (21:00)
[2020-05-14] MEDS: ATORVASTATIN 20 MG TAB PO SCH (21:54)
[2020-05-15] VITALS (8 sets, daily range): BP systolic 114–151; BP diastolic 61–87
[2020-05-15] MEDS: METOPROLOL TARTRATE 50 MG TAB PO SCH ×4 (00:50→22:00)
[2020-05-15] MEDS: LEVOTHYROXINE SODIUM 125 MCG TAB PO SCH (05:50)
[2020-05-15 06:18] LABS: BASOPHILS % 0.4 % (0.0-1.0); EOSINOPHILS # (AUTO) 0.1 (0.0-0.4); EOSINOPHILS % 0.9 % (0.0-6.0); HEMATOCRIT 31.1 % (38.2-49.6); HEMOGLOBIN 9.4 g/dL (14.0-18.0); LYMPHOCYTES # (AUTO) 0.6 (1.0-3.2); LYMPHOCYTES % 7.6 % (18.0-39.1); MEAN CORPUSCULAR HEMOGLOBIN 26.6 pg (28-32); MEAN CORPUSCULAR HGB CONC 30.2 g/dL (31-35); MEAN CORPUSCULAR VOLUME 87.9 fL (81-99); MONOCYTES # (AUTO) 0.8 (0.2-0.8); MONOCYTES % 10.7 % (4.4-11.3); NEUTROPHILS # (AUTO) 6.3 (2.1-6.9); PLATELET COUNT 219 x10e3/uL (140-360); RED BLOOD COUNT 3.54 x10e6/uL (4.3-5.7); RED CELL DISTRIBUTION WIDTH 19.7 % (11.7-14.4)
[2020-05-15 06:33] LABS: INR 2.96; PROTHROMBIN TIME 32.2 seconds (11.9-14.5)
[2020-05-15 06:38] LABS: ALBUMIN 3.4 g/dL (3.5-5.0); ALBUMIN/GLOBULIN RATIO 0.6 (0.8-2.0); ANION GAP 16.1 mmol/L (8-16); CALCIUM 9.1 mg/dL (8.4-10.2); CREATININE, SERUM 1.39 mg/dL (0.72-1.25); POTASSIUM 3.1 mmol/L (3.5-5.1)
[2020-05-15] MEDS: INSULIN LISPRO 100 UNIT/1 ML 3ML VIAL SQ SCH ×3 (08:00→17:41)
[2020-05-15] MEDS: MIDODRINE HCL 5 MG TABLET PO SCH ×3 (08:00→16:00)
[2020-05-15] MEDS: TAMSULOSIN HCL 0.4 MG CAP PO SCH (09:26)
[2020-05-15] MEDS: GABAPENTIN 400 MG CAP PO SCH ×2 (09:26→16:13)
[2020-05-15] MEDS: PANTOPRAZOLE SOD 40 MG TABEC PO SCH (09:26)
[2020-05-15] MEDS: FINASTERIDE 5 MG TAB PO SCH (09:27)
[2020-05-15] MEDS: SENNA-S TABLET PO SCH ×2 (09:27→16:13)
[2020-05-15] MEDS: METOLAZONE 5 MG TAB PO SCH (09:27)
[2020-05-15] MEDS: FUROSEMIDE INJ 100 MG in SODIUM CHLORIDE 0.9% 100 ML 90 ML IV SCH (09:28)
[2020-05-15] MEDS: POTASSIUM CHLORIDE 10MEQ EA PO SCH (16:13)
[2020-05-15] MEDS: ACETAMINOPHEN 325 MG TAB PO PRN (16:14)
[2020-05-15] MEDS ORDERED: WARFARIN SOD 2.5 MG TAB PO SCH (17:00)
[2020-05-15] MEDS ORDERED: WARFARIN SOD 5 MG TAB PO SCH (17:00)
[2020-05-15] MEDS: INSULIN GLARGINE 100 UNITS/ML VIAL SQ SCH (21:00)
[2020-05-15] MEDS: ATORVASTATIN 20 MG TAB PO SCH (21:35)
[2020-05-15] MEDS: FUROSEMIDE INJ 10 MG/ML 4 ML VIAL IV SCH (21:35)
[2020-05-16] VITALS (11 sets, daily range): BP systolic 95–121; BP diastolic 49–75
[2020-05-16] MEDS: METOPROLOL TARTRATE 50 MG TAB PO SCH ×3 (03:00→22:00)
[2020-05-16] MEDS: LEVOTHYROXINE SODIUM 125 MCG TAB PO SCH (05:48)
[2020-05-16 07:10] LABS: INR 4.02
[2020-05-16] MEDS: FUROSEMIDE INJ 10 MG/ML 4 ML VIAL IV SCH ×2 (09:38→21:03)
[2020-05-16] MEDS: POTASSIUM CHLORIDE 10MEQ EA PO SCH ×2 (09:39→16:09)
[2020-05-16] MEDS: TAMSULOSIN HCL 0.4 MG CAP PO SCH (09:39)
[2020-05-16] MEDS: SENNA-S TABLET PO SCH ×2 (09:39→16:09)
[2020-05-16] MEDS: GABAPENTIN 400 MG CAP PO SCH ×2 (09:39→16:09)
[2020-05-16] MEDS: FINASTERIDE 5 MG TAB PO SCH (09:39)
[2020-05-16] MEDS: METOLAZONE 5 MG TAB PO SCH (09:42)
[2020-05-16] MEDS: MIDODRINE HCL 5 MG TABLET PO SCH ×3 (10:01→16:08)
[2020-05-16] MEDS: PANTOPRAZOLE SOD 40 MG TABEC PO SCH (10:01)
[2020-05-16] MEDS: INSULIN LISPRO 100 UNIT/1 ML 3ML VIAL SQ SCH ×3 (10:25→16:42)
[2020-05-16] MEDS ORDERED: DOXYCYCLINE 100MG/NS 100ML 100 ML IV SCH (11:00)
[2020-05-16] MEDS ORDERED: VANCOMYCIN 1GM/NS 250 ML 250 ML IV ONE (11:00)
[2020-05-16] MEDS ORDERED: SODIUM CHLORIDE 0.9% 250ML 250 ML ONE (11:28)
[2020-05-16] MEDS: CEFEPIME 1GM/NS 0.9% 50 ML 50 ML IV SCH ×2 (11:29→22:39)
[2020-05-16] MEDS: DOXYCYCLINE 100MG/NS 100ML 100 ML IV SCH ×2 (13:03→23:43)
[2020-05-16] MEDS: INSULIN GLARGINE 100 UNITS/ML VIAL SQ SCH (21:00)
[2020-05-16] MEDS: ACETAMINOPHEN 325 MG TAB PO PRN (21:03)
[2020-05-16] MEDS: ATORVASTATIN 20 MG TAB PO SCH (21:03)
[2020-05-17] VITALS (7 sets, daily range): BP systolic 90–126; BP diastolic 65–82
[2020-05-17] MEDS: METOPROLOL TARTRATE 50 MG TAB PO SCH ×3 (06:00→22:00)
[2020-05-17] MEDS: LEVOTHYROXINE SODIUM 125 MCG TAB PO SCH (06:00)
[2020-05-17 07:11] LABS: INR 4.72
[2020-05-17 07:19] LABS: PROTHROMBIN TIME 46.5 seconds (11.9-14.5)
[2020-05-17 07:39] LABS: ANION GAP 13.4 mmol/L (8-16); CALCIUM 8.8 mg/dL (8.4-10.2); CREATININE, SERUM 1.42 mg/dL (0.72-1.25); POTASSIUM 3.4 mmol/L (3.5-5.1)
[2020-05-17] MEDS: PANTOPRAZOLE SOD 40 MG TABEC PO SCH (08:42)
[2020-05-17] MEDS: FINASTERIDE 5 MG TAB PO SCH (08:42)
[2020-05-17] MEDS: FUROSEMIDE INJ 10 MG/ML 4 ML VIAL IV SCH (08:42)
[2020-05-17] MEDS: MIDODRINE HCL 5 MG TABLET PO SCH ×3 (08:42→17:17)
[2020-05-17] MEDS: GABAPENTIN 400 MG CAP PO SCH ×2 (08:42→17:17)
[2020-05-17] MEDS: TAMSULOSIN HCL 0.4 MG CAP PO SCH (08:42)
[2020-05-17] MEDS: SENNA-S TABLET PO SCH ×2 (08:42→17:17)
[2020-05-17] MEDS: METOLAZONE 5 MG TAB PO SCH (08:42)
[2020-05-17] MEDS: POTASSIUM CHLORIDE 10MEQ EA PO SCH ×2 (08:42→17:18)
[2020-05-17] MEDS: INSULIN LISPRO 100 UNIT/1 ML 3ML VIAL SQ SCH ×3 (08:45→17:19)
[2020-05-17] MEDS: CEFEPIME 1GM/NS 0.9% 50 ML 50 ML IV SCH ×2 (11:26→23:00)
[2020-05-17] MEDS: DOXYCYCLINE 100MG/NS 100ML 100 ML IV SCH (12:13)
[2020-05-17] MEDS: FUROSEMIDE 40 MG TAB PO SCH (17:17)
[2020-05-17] MEDS: INSULIN GLARGINE 100 UNITS/ML VIAL SQ SCH (20:15)
[2020-05-17] MEDS: ATORVASTATIN 20 MG TAB PO SCH (20:15)
[2020-05-18] VITALS (8 sets, daily range): BP systolic 97–136; BP diastolic 63–90
[2020-05-18] MEDS: TRAZODONE HCL 50 MG TAB PO PRN (01:00)
[2020-05-18] MEDS: FUROSEMIDE 40 MG TAB PO SCH (06:00)
[2020-05-18] MEDS: LEVOTHYROXINE SODIUM 125 MCG TAB PO SCH (06:00)
[2020-05-18] MEDS: METOPROLOL TARTRATE 50 MG TAB PO SCH ×3 (06:00→21:45)
[2020-05-18 06:37] LABS: PROTHROMBIN TIME 40.8 seconds (11.9-14.5)
[2020-05-18 06:57] LABS: ANION GAP 12.2 mmol/L (8-16); BLOOD UREA NITROGEN 74 mg/dL (7-26); BUN/CREATININE RATIO 69 (6-25); CALCIUM 8.7 mg/dL (8.4-10.2); CARBON DIOXIDE 37 mmol/L (22-29); CHLORIDE 95 mmol/L (98-107); CREATININE, SERUM 1.08 mg/dL (0.72-1.25); EST GLOMERULAR FILTRATION RATE > 60 ML/MIN (60-); GLUCOSE 138 mg/dL (74-118); MAGNESIUM 1.7 MG/DL (1.3-2.1); POTASSIUM 3.2 mmol/L (3.5-5.1); SODIUM 141 mmol/L (136-145)
[2020-05-18] MEDS: PANTOPRAZOLE SOD 40 MG TABEC PO SCH (08:53)
[2020-05-18] MEDS: MIDODRINE HCL 5 MG TABLET PO SCH ×3 (08:53→18:06)
[2020-05-18] MEDS: INSULIN LISPRO 100 UNIT/1 ML 3ML VIAL SQ SCH ×3 (08:54→17:00)
[2020-05-18] MEDS: TAMSULOSIN HCL 0.4 MG CAP PO SCH (08:54)
[2020-05-18] MEDS: GABAPENTIN 400 MG CAP PO SCH ×2 (08:59→18:07)
[2020-05-18] MEDS: POTASSIUM CHLORIDE 10MEQ EA PO SCH ×2 (08:59→18:07)
[2020-05-18] MEDS: METOLAZONE 5 MG TAB PO SCH (09:00)
[2020-05-18] MEDS: SENNA-S TABLET PO SCH ×2 (09:00→18:07)
[2020-05-18] MEDS: FINASTERIDE 5 MG TAB PO SCH (09:00)
[2020-05-18] MEDS: DOXYCYCLINE 100MG/NS 100ML 100 ML IV SCH ×2 (12:53)
[2020-05-18] MEDS: CEFEPIME 1GM/NS 0.9% 50 ML 50 ML IV SCH ×2 (12:53→22:57)
[2020-05-18] MEDS ORDERED: MAGNESIUM SULFATE 2GM/50ML 50 ML IV ONE (14:00)
[2020-05-18] MEDS ORDERED: MAGNESIUM SULF 1GRAM/DEXTROSE 100 ML IV ONE (16:15)
[2020-05-18] MEDS: ATORVASTATIN 20 MG TAB PO SCH (21:00)
[2020-05-18] MEDS: INSULIN GLARGINE 100 UNITS/ML VIAL SQ SCH (21:00)
[2020-05-19] VITALS (7 sets, daily range): BP systolic 117–143; BP diastolic 75–98
[2020-05-19] MEDS: LEVOTHYROXINE SODIUM 125 MCG TAB PO SCH (06:00)
[2020-05-19] MEDS: METOPROLOL TARTRATE 50 MG TAB PO SCH ×3 (06:00→21:05)
[2020-05-19 06:54] LABS: INR 3.51; PROTHROMBIN TIME 36.8 seconds (11.9-14.5)
[2020-05-19] MEDS: INSULIN LISPRO 100 UNIT/1 ML 3ML VIAL SQ SCH ×3 (08:00→17:11)
[2020-05-19] MEDS: POTASSIUM CHLORIDE 10MEQ EA PO SCH ×2 (11:04→18:46)
[2020-05-19] MEDS: CEFEPIME 1GM/NS 0.9% 50 ML 50 ML IV SCH ×2 (11:04→23:00)
[2020-05-19] MEDS: METOLAZONE 5 MG TAB PO SCH (11:04)
[2020-05-19] MEDS: FUROSEMIDE 40 MG TAB PO SCH (11:04)
[2020-05-19] MEDS: TAMSULOSIN HCL 0.4 MG CAP PO SCH (11:04)
[2020-05-19] MEDS: GABAPENTIN 400 MG CAP PO SCH ×2 (11:04→18:45)
[2020-05-19] MEDS: PANTOPRAZOLE SOD 40 MG TABEC PO SCH (11:04)
[2020-05-19] MEDS: FINASTERIDE 5 MG TAB PO SCH (11:04)
[2020-05-19] MEDS: MIDODRINE HCL 5 MG TABLET PO SCH ×3 (11:04→16:20)
[2020-05-19] MEDS: SENNA-S TABLET PO SCH ×2 (11:04→18:45)
[2020-05-19] MEDS: DOXYCYCLINE 100MG/NS 100ML 100 ML IV SCH ×2 (12:46)
[2020-05-19] MEDS ORDERED: WARFARIN SOD 2 MG TAB PO SCH (17:00)
[2020-05-19] MEDS: ATORVASTATIN 20 MG TAB PO SCH (20:43)
[2020-05-19] MEDS: INSULIN GLARGINE 100 UNITS/ML VIAL SQ SCH (20:44)
[2020-05-20] VITALS (7 sets, daily range): BP systolic 120–136; BP diastolic 77–93
[2020-05-20] MEDS: ACETAMINOPHEN 325 MG TAB PO PRN (00:11)
[2020-05-20] MEDS: METOPROLOL TARTRATE 50 MG TAB PO SCH ×3 (05:25→21:09)
[2020-05-20] MEDS: LEVOTHYROXINE SODIUM 125 MCG TAB PO SCH (05:26)
[2020-05-20 06:58] LABS: INR 3.36; PROTHROMBIN TIME 35.6 seconds (11.9-14.5)
[2020-05-20 07:24] LABS: FREE THYROXINE INDEX 2.83 (1.4-3.8); THYROID STIMULATING HORMONE 0.423 uIU/mL (0.350-4.940)
[2020-05-20 08:01] LABS: ANION GAP 15.3 mmol/L (8-16); BLOOD UREA NITROGEN 64 mg/dL (7-26); BUN/CREATININE RATIO 60 (6-25); CALCIUM 8.9 mg/dL (8.4-10.2); CARBON DIOXIDE 34 mmol/L (22-29); CHLORIDE 98 mmol/L (98-107); CREATININE, SERUM 1.06 mg/dL (0.72-1.25); EST GLOMERULAR FILTRATION RATE > 60 ML/MIN (60-); GLUCOSE 138 mg/dL (74-118); POTASSIUM 4.3 mmol/L (3.5-5.1); SODIUM 143 mmol/L (136-145)
[2020-05-20] MEDS: TAMSULOSIN HCL 0.4 MG CAP PO SCH (10:22)
[2020-05-20] MEDS: METOLAZONE 5 MG TAB PO SCH (10:22)
[2020-05-20] MEDS: FINASTERIDE 5 MG TAB PO SCH (10:22)
[2020-05-20] MEDS: MIDODRINE HCL 5 MG TABLET PO SCH ×3 (10:22→17:44)
[2020-05-20] MEDS: GABAPENTIN 400 MG CAP PO SCH ×2 (10:22→17:44)
[2020-05-20] MEDS: SENNA-S TABLET PO SCH ×2 (10:22→17:43)
[2020-05-20] MEDS: PANTOPRAZOLE SOD 40 MG TABEC PO SCH (10:22)
[2020-05-20] MEDS: POTASSIUM CHLORIDE 20 MEQ TAB CR PO SCH (10:22)
[2020-05-20] MEDS: CEFEPIME 1GM/NS 0.9% 50 ML 50 ML IV SCH ×2 (10:23→22:18)
[2020-05-20] MEDS: FUROSEMIDE 40 MG TAB PO SCH (10:23)
[2020-05-20] MEDS: INSULIN LISPRO 100 UNIT/1 ML 3ML VIAL SQ SCH ×3 (10:34→17:43)
[2020-05-20] MEDS: DOXYCYCLINE 100MG/NS 100ML 100 ML IV SCH ×3 (12:46→23:38)
[2020-05-20] MEDS ORDERED: WARFARIN SOD 2 MG TAB PO SCH (17:00)
[2020-05-20] MEDS: WARFARIN SOD 1 MG TAB PO SCH (17:45)
[2020-05-20] MEDS: ATORVASTATIN 20 MG TAB PO SCH (21:08)
[2020-05-20] MEDS: INSULIN GLARGINE 100 UNITS/ML VIAL SQ SCH (21:20)
[2020-05-20] MEDS: TRAZODONE HCL 50 MG TAB PO PRN (21:26)
[2020-05-21] VITALS (8 sets, daily range): BP systolic 120–128; BP diastolic 74–94
[2020-05-21] MEDS: HYDROXYZINE HCL 25 MG TAB PO PRN ×2 (02:37→23:00)
[2020-05-21] MEDS: ACETAMINOPHEN 325 MG TAB PO PRN (02:38)
[2020-05-21] MEDS: LEVOTHYROXINE SODIUM 125 MCG TAB PO SCH (05:37)
[2020-05-21] MEDS: METOPROLOL TARTRATE 50 MG TAB PO SCH ×3 (05:49→21:28)
[2020-05-21 06:25] LABS: INR 3.59; PROTHROMBIN TIME 37.5 seconds (11.9-14.5)
[2020-05-21] MEDS: MIDODRINE HCL 5 MG TABLET PO SCH ×3 (08:00→17:00)
[2020-05-21] MEDS ORDERED: POTASSIUM CHLORIDE 10MEQ EA PO SCH (09:00)
[2020-05-21] MEDS: FINASTERIDE 5 MG TAB PO SCH (09:18)
[2020-05-21] MEDS: TAMSULOSIN HCL 0.4 MG CAP PO SCH (09:18)
[2020-05-21] MEDS: METOLAZONE 5 MG TAB PO SCH (09:18)
[2020-05-21] MEDS: SENNA-S TABLET PO SCH ×2 (09:18→17:01)
[2020-05-21] MEDS: PANTOPRAZOLE SOD 40 MG TABEC PO SCH (09:18)
[2020-05-21] MEDS: FUROSEMIDE 40 MG TAB PO SCH (09:18)
[2020-05-21] MEDS: GABAPENTIN 400 MG CAP PO SCH ×2 (09:18→17:01)
[2020-05-21] MEDS: INSULIN LISPRO 100 UNIT/1 ML 3ML VIAL SQ SCH ×3 (10:06→17:07)
[2020-05-21] MEDS: CEFEPIME 1GM/NS 0.9% 50 ML 50 ML IV SCH ×2 (13:08→23:00)
[2020-05-21] MEDS: DOXYCYCLINE 100MG/NS 100ML 100 ML IV SCH (14:18)
[2020-05-21] MEDS: WARFARIN SOD 1 MG TAB PO SCH (17:01)
[2020-05-21] MEDS: ATORVASTATIN 20 MG TAB PO SCH (21:27)
[2020-05-21] MEDS: INSULIN GLARGINE 100 UNITS/ML VIAL SQ SCH (21:33)
[2020-05-22] VITALS (11 sets, daily range): BP systolic 95–143; BP diastolic 58–92
[2020-05-22] MEDS: DOXYCYCLINE 100MG/NS 100ML 100 ML IV SCH ×2 (00:02→11:42)
[2020-05-22] MEDS: ALBUTEROL/IPRATROPIUM 3 ML NEB NEB SCH ×3 (00:25→20:50)
[2020-05-22] MEDS: ACETAMINOPHEN 325 MG TAB PO PRN (02:17)
[2020-05-22 05:49] LABS: INR 3.47; PROTHROMBIN TIME 36.5 seconds (11.9-14.5)
[2020-05-22] MEDS: LEVOTHYROXINE SODIUM 125 MCG TAB PO SCH (06:01)
[2020-05-22] MEDS: METOPROLOL TARTRATE 50 MG TAB PO SCH ×3 (06:02→21:08)
[2020-05-22] MEDS: MIDODRINE HCL 5 MG TABLET PO SCH (08:55)
[2020-05-22] MEDS: INSULIN LISPRO 100 UNIT/1 ML 3ML VIAL SQ SCH ×3 (09:00→17:00)
[2020-05-22] MEDS: FUROSEMIDE 40 MG TAB PO SCH ×3 (09:17→17:50)
[2020-05-22] MEDS: PANTOPRAZOLE SOD 40 MG TABEC PO SCH (09:17)
[2020-05-22] MEDS: TAMSULOSIN HCL 0.4 MG CAP PO SCH (09:17)
[2020-05-22] MEDS: FINASTERIDE 5 MG TAB PO SCH (09:18)
[2020-05-22] MEDS: SENNA-S TABLET PO SCH ×3 (09:18→17:50)
[2020-05-22] MEDS: METOLAZONE 5 MG TAB PO SCH (09:21)
[2020-05-22 09:52] LABS: BASOPHILS # (AUTO) 0.1 (0.0-0.1); BASOPHILS % 0.5 % (0.0-1.0); EOSINOPHILS # (AUTO) 0.3 (0.0-0.4); EOSINOPHILS % 3.1 % (0.0-6.0); HEMATOCRIT 33.1 % (38.2-49.6); HEMOGLOBIN 9.7 g/dL (14.0-18.0); LYMPHOCYTES # (AUTO) 1.2 (1.0-3.2); LYMPHOCYTES % 11.6 % (18.0-39.1); MEAN CORPUSCULAR HEMOGLOBIN 26.9 pg (28-32); MEAN CORPUSCULAR HGB CONC 29.3 g/dL (31-35); MEAN CORPUSCULAR VOLUME 91.7 fL (81-99); MONOCYTES % 9.6 % (4.4-11.3); NEUTROPHILS # (AUTO) 7.8 (2.1-6.9); NEUTROPHILS % 74.7 % (38.7-80.0); PLATELET COUNT 254 x10e3/uL (140-360); RED BLOOD COUNT 3.61 x10e6/uL (4.3-5.7)
[2020-05-22 10:05] LABS: ALANINE AMINOTRANSFERASE 13 IU/L (0-55); ALBUMIN 2.8 g/dL (3.5-5.0); ALBUMIN/GLOBULIN RATIO 0.5 (0.8-2.0); ALKALINE PHOSPHATASE 189 IU/L (40-150); ANION GAP 16.9 mmol/L (8-16); BLOOD UREA NITROGEN 48 mg/dL (7-26); BUN/CREATININE RATIO 45 (6-25); CALCIUM 9.1 mg/dL (8.4-10.2); CARBON DIOXIDE 36 mmol/L (22-29); CHLORIDE 96 mmol/L (98-107); CREATININE, SERUM 1.07 mg/dL (0.72-1.25); EST GLOMERULAR FILTRATION RATE > 60 ML/MIN (60-); GLUCOSE 147 mg/dL (74-118); POTASSIUM 3.9 mmol/L (3.5-5.1); SODIUM 145 mmol/L (136-145)
[2020-05-22] MEDS: POTASSIUM CHLORIDE 20 MEQ TAB CR PO SCH (10:18)
[2020-05-22] MEDS: CEFEPIME 1GM/NS 0.9% 50 ML 50 ML IV SCH ×2 (10:30→22:21)
[2020-05-22] MEDS: BENZONATATE 100 MG CAP PO SCH ×3 (12:41→20:24)
[2020-05-22] MEDS ORDERED: MIDODRINE HCL 5 MG TABLET PO PRN (12:45)
[2020-05-22] MEDS ORDERED: FUROSEMIDE INJ 10 MG/ML 4 ML VIAL IV ONE ×2 (16:30→20:30)
[2020-05-22 16:58] LABS: ABG HCO3 41 mmol/L (22-26); ABG PCO2 65 mmHg (35-45); ABG PH 7.41 (7.35-7.45); ABG PO2 58 mmHg (80-105); ABG TCO2 43
[2020-05-22] MEDS: WARFARIN SOD 1 MG TAB PO SCH ×2 (17:00→17:49)
[2020-05-22] MEDS: ATORVASTATIN 20 MG TAB PO SCH (20:24)
[2020-05-22] MEDS: INSULIN GLARGINE 100 UNITS/ML VIAL SQ SCH (21:08)
[2020-05-23] VITALS (24 sets, daily range): BP systolic 87–129; BP diastolic 55–89
[2020-05-23] MEDS: DOXYCYCLINE 100MG/NS 100ML 100 ML IV SCH ×3 (00:06→23:09)
[2020-05-23] MEDS: ALBUTEROL/IPRATROPIUM 3 ML NEB NEB SCH ×7 (03:50→23:40)
[2020-05-23 05:03] LABS: BASOPHILS # (AUTO) 0.1 (0.0-0.1); BASOPHILS % 0.5 % (0.0-1.0); EOSINOPHILS # (AUTO) 0.3 (0.0-0.4); EOSINOPHILS % 2.9 % (0.0-6.0); HEMOGLOBIN 9.1 g/dL (14.0-18.0); LYMPHOCYTES # (AUTO) 0.9 (1.0-3.2); LYMPHOCYTES % 9.2 % (18.0-39.1); MEAN CORPUSCULAR HEMOGLOBIN 26.7 pg (28-32); MEAN CORPUSCULAR HGB CONC 29.4 g/dL (31-35); MEAN CORPUSCULAR VOLUME 90.9 fL (81-99); MONOCYTES % 10.2 % (4.4-11.3); NEUTROPHILS # (AUTO) 7.5 (2.1-6.9); NEUTROPHILS % 76.6 % (38.7-80.0); PLATELET COUNT 233 x10e3/uL (140-360); RED BLOOD COUNT 3.41 x10e6/uL (4.3-5.7); RED CELL DISTRIBUTION WIDTH 20.4 % (11.7-14.4)
[2020-05-23 05:13] LABS: INR 3.78
[2020-05-23 05:22] LABS: ALANINE AMINOTRANSFERASE 12 IU/L (0-55); ALBUMIN 2.6 g/dL (3.5-5.0); ALBUMIN/GLOBULIN RATIO 0.5 (0.8-2.0); ALKALINE PHOSPHATASE 176 IU/L (40-150); ANION GAP 11.9 mmol/L (8-16); BLOOD UREA NITROGEN 51 mg/dL (7-26); BUN/CREATININE RATIO 47 (6-25); CALCIUM 8.8 mg/dL (8.4-10.2); CARBON DIOXIDE 38 mmol/L (22-29); CHLORIDE 99 mmol/L (98-107); CREATININE, SERUM 1.09 mg/dL (0.72-1.25); EST GLOMERULAR FILTRATION RATE > 60 ML/MIN (60-); GLUCOSE 133 mg/dL (74-118); POTASSIUM 3.9 mmol/L (3.5-5.1); SODIUM 145 mmol/L (136-145)
[2020-05-23] MEDS: METOPROLOL TARTRATE 50 MG TAB PO SCH ×3 (05:50→20:45)
[2020-05-23] MEDS: LEVOTHYROXINE SODIUM 125 MCG TAB PO SCH (05:50)
[2020-05-23] MEDS: TAMSULOSIN HCL 0.4 MG CAP PO SCH (07:31)
[2020-05-23] MEDS: PANTOPRAZOLE SOD 40 MG TABEC PO SCH (07:31)
[2020-05-23] MEDS: POTASSIUM CHLORIDE 20 MEQ TAB CR PO SCH (07:31)
[2020-05-23] MEDS: FINASTERIDE 5 MG TAB PO SCH (07:32)
[2020-05-23] MEDS: BENZONATATE 100 MG CAP PO SCH ×3 (07:32→20:44)
[2020-05-23] MEDS: METOLAZONE 5 MG TAB PO SCH (07:32)
[2020-05-23] MEDS: SENNA-S TABLET PO SCH ×2 (07:32→16:29)
[2020-05-23] MEDS ORDERED: FUROSEMIDE INJ 10 MG/ML 4 ML VIAL IV SCH (09:00)
[2020-05-23] MEDS: INSULIN LISPRO 100 UNIT/1 ML 3ML VIAL SQ SCH ×3 (09:13→16:34)
[2020-05-23] MEDS: CEFEPIME 1GM/NS 0.9% 50 ML 50 ML IV SCH ×2 (11:29→22:01)
[2020-05-23] MEDS: ATORVASTATIN 20 MG TAB PO SCH (20:44)
[2020-05-23] MEDS: INSULIN GLARGINE 100 UNITS/ML VIAL SQ SCH (20:47)
[2020-05-24] VITALS (22 sets, daily range): BP systolic 87–112; BP diastolic 52–78
[2020-05-24] MEDS: ALBUTEROL/IPRATROPIUM 3 ML NEB NEB SCH ×6 (03:50→23:05)
[2020-05-24 05:38] LABS: BASOPHILS % 0.3 % (0.0-1.0); EOSINOPHILS # (AUTO) 0.1 (0.0-0.4); EOSINOPHILS % 1.5 % (0.0-6.0); HEMATOCRIT 27.1 % (38.2-49.6); HEMOGLOBIN 9.3 g/dL (14.0-18.0); LYMPHOCYTES # (AUTO) 0.8 (1.0-3.2); LYMPHOCYTES % 8.9 % (18.0-39.1); MEAN CORPUSCULAR HGB CONC 34.3 g/dL (31-35); MEAN CORPUSCULAR VOLUME 96.1 fL (81-99); MONOCYTES % 10.5 % (4.4-11.3); NEUTROPHILS # (AUTO) 7.4 (2.1-6.9); NEUTROPHILS % 78.3 % (38.7-80.0); PLATELET COUNT 229 x10e3/uL (140-360); RED BLOOD COUNT 2.82 x10e6/uL (4.3-5.7); RED CELL DISTRIBUTION WIDTH 22.9 % (11.7-14.4)
[2020-05-24] MEDS: METOPROLOL TARTRATE 50 MG TAB PO SCH ×3 (05:39→20:01)
[2020-05-24] MEDS: LEVOTHYROXINE SODIUM 125 MCG TAB PO SCH (05:39)
[2020-05-24 05:51] LABS: INR 3.84; PROTHROMBIN TIME 39.5 seconds (11.9-14.5)
[2020-05-24 06:17] LABS: ALANINE AMINOTRANSFERASE 13 IU/L (0-55); ALBUMIN 2.6 g/dL (3.5-5.0); ALBUMIN/GLOBULIN RATIO 0.5 (0.8-2.0); ALKALINE PHOSPHATASE 185 IU/L (40-150); BLOOD UREA NITROGEN 50 mg/dL (7-26); BUN/CREATININE RATIO 51 (6-25); CARBON DIOXIDE 37 mmol/L (22-29); CHLORIDE 98 mmol/L (98-107); CREATININE, SERUM 0.98 mg/dL (0.72-1.25); EST GLOMERULAR FILTRATION RATE > 60 ML/MIN (60-); GLUCOSE 127 mg/dL (74-118); SODIUM 146 mmol/L (136-145)
[2020-05-24] MEDS: FUROSEMIDE INJ 10 MG/ML 4 ML VIAL IV SCH (08:36)
[2020-05-24] MEDS: TAMSULOSIN HCL 0.4 MG CAP PO SCH (08:37)
[2020-05-24] MEDS: POTASSIUM CHLORIDE 20 MEQ TAB CR PO SCH (08:37)
[2020-05-24] MEDS: FINASTERIDE 5 MG TAB PO SCH (08:37)
[2020-05-24] MEDS: PANTOPRAZOLE SOD 40 MG TABEC PO SCH (08:38)
[2020-05-24] MEDS: BENZONATATE 100 MG CAP PO SCH ×3 (08:38→20:00)
[2020-05-24] MEDS: METOLAZONE 5 MG TAB PO SCH (08:38)
[2020-05-24] MEDS: INSULIN LISPRO 100 UNIT/1 ML 3ML VIAL SQ SCH ×3 (08:43→16:59)
[2020-05-24] MEDS: SENNA-S TABLET PO SCH ×2 (08:55→16:06)
[2020-05-24] MEDS: CEFEPIME 1GM/NS 0.9% 50 ML 50 ML IV SCH ×2 (10:36→20:01)
[2020-05-24] MEDS: DOXYCYCLINE 100MG/NS 100ML 100 ML IV SCH ×2 (11:35→22:15)
[2020-05-24] MEDS: ATORVASTATIN 20 MG TAB PO SCH (20:00)
[2020-05-24] MEDS: HYDROXYZINE HCL 25 MG TAB PO PRN (20:01)
[2020-05-24] MEDS: TRAZODONE HCL 50 MG TAB PO PRN (20:19)
[2020-05-24] MEDS: INSULIN GLARGINE 100 UNITS/ML VIAL SQ SCH (20:50)
[2020-05-25] VITALS (8 sets, daily range): BP systolic 84–109; BP diastolic 55–66
[2020-05-25] MEDS: ALBUTEROL/IPRATROPIUM 3 ML NEB NEB SCH ×6 (03:10→23:05)
[2020-05-25 05:12] LABS: BASOPHILS % 0.3 % (0.0-1.0); EOSINOPHILS # (AUTO) 0.2 (0.0-0.4); EOSINOPHILS % 2.2 % (0.0-6.0); HEMOGLOBIN 9.4 g/dL (14.0-18.0); LYMPHOCYTES # (AUTO) 0.6 (1.0-3.2); LYMPHOCYTES % 7.5 % (18.0-39.1); MONOCYTES # (AUTO) 0.6 (0.2-0.8); MONOCYTES % 8.2 % (4.4-11.3); NEUTROPHILS # (AUTO) 6.2 (2.1-6.9); NEUTROPHILS % 81.4 % (38.7-80.0); PLATELET COUNT 167 x10e3/uL (140-360); RED BLOOD COUNT 1.96 x10e6/uL (4.3-5.7); RED CELL DISTRIBUTION WIDTH 23.9 % (11.7-14.4)
[2020-05-25 05:20] LABS: HEMATOCRIT 19.6 % (38.2-49.6)
[2020-05-25 05:38] LABS: ALBUMIN 2.4 g/dL (3.5-5.0); ANION GAP 11.5 mmol/L (8-16); BLOOD UREA NITROGEN 48 mg/dL (7-26); BUN/CREATININE RATIO 58 (6-25); CALCIUM 8.7 mg/dL (8.4-10.2); CARBON DIOXIDE 39 mmol/L (22-29); CHLORIDE 99 mmol/L (98-107); CREATININE, SERUM 0.83 mg/dL (0.72-1.25); EST GLOMERULAR FILTRATION RATE > 60 ML/MIN (60-); GLUCOSE 115 mg/dL (74-118); POTASSIUM 3.5 mmol/L (3.5-5.1); SODIUM 146 mmol/L (136-145)
[2020-05-25] MEDS: LEVOTHYROXINE SODIUM 125 MCG TAB PO SCH (05:50)
[2020-05-25] MEDS: METOPROLOL TARTRATE 50 MG TAB PO SCH ×3 (05:50→21:38)
[2020-05-25] MEDS: INSULIN LISPRO 100 UNIT/1 ML 3ML VIAL SQ SCH ×3 (08:00→17:00)
[2020-05-25 08:48] LABS: OVALOCYTES FEW; TARGET CELLS FEW
[2020-05-25 08:50] LABS: TEAR DROP CELLS FEW
[2020-05-25] MEDS: PANTOPRAZOLE SOD 40 MG TABEC PO SCH (08:50)
[2020-05-25 08:51] LABS: ANISOCYTOSIS MARKED; ELLIPTOCYTE, RBC SLIGHT; PLATELET ESTIMATE ADEQUATE; PLATELET MORPHOLOGY COMMENT NORMAL; RBC MORPHOLOGY COMMENT ABNORMAL
[2020-05-25] MEDS: POTASSIUM CHLORIDE 20 MEQ TAB CR PO SCH (08:51)
[2020-05-25] MEDS: TAMSULOSIN HCL 0.4 MG CAP PO SCH (08:51)
[2020-05-25] MEDS: FINASTERIDE 5 MG TAB PO SCH (08:51)
[2020-05-25] MEDS: BENZONATATE 100 MG CAP PO SCH ×3 (08:52→20:28)
[2020-05-25] MEDS: METOLAZONE 5 MG TAB PO SCH (08:52)
[2020-05-25] MEDS: SENNA-S TABLET PO SCH ×2 (08:52→17:08)
[2020-05-25] MEDS: FUROSEMIDE INJ 10 MG/ML 4 ML VIAL IV SCH (09:11)
[2020-05-25] MEDS: CEFEPIME 1GM/NS 0.9% 50 ML 50 ML IV SCH ×2 (11:50→23:10)
[2020-05-25] MEDS: DOXYCYCLINE 100MG/NS 100ML 100 ML IV SCH (12:32)
[2020-05-25] MEDS: INSULIN GLARGINE 100 UNITS/ML VIAL SQ SCH (20:28)
[2020-05-25] MEDS: ATORVASTATIN 20 MG TAB PO SCH (20:28)
[2020-05-25] MEDS: ACETAMINOPHEN 325 MG TAB PO PRN (21:38)
[2020-05-25] MEDS: TRAZODONE HCL 50 MG TAB PO PRN (21:38)
[2020-05-26] VITALS (22 sets, daily range): BP systolic 83–123; BP diastolic 49–84
[2020-05-26] MEDS: DOXYCYCLINE 100MG/NS 100ML 100 ML IV SCH (00:11)
[2020-05-26] MEDS: ALBUTEROL/IPRATROPIUM 3 ML NEB NEB SCH ×6 (03:10→23:05)
[2020-05-26] MEDS: METOPROLOL TARTRATE 50 MG TAB PO SCH ×3 (06:14→22:41)
[2020-05-26] MEDS: LEVOTHYROXINE SODIUM 125 MCG TAB PO SCH (06:14)
[2020-05-26] MEDS: INSULIN LISPRO 100 UNIT/1 ML 3ML VIAL SQ SCH ×4 (08:00→17:33)
[2020-05-26 08:13] LABS: BASOPHILS % 0.3 % (0.0-1.0); EOSINOPHILS # (AUTO) 0.2 (0.0-0.4); EOSINOPHILS % 1.6 % (0.0-6.0); HEMATOCRIT 27.8 % (38.2-49.6); HEMOGLOBIN 8.8 g/dL (14.0-18.0); LYMPHOCYTES # (AUTO) 0.7 (1.0-3.2); LYMPHOCYTES % 6.9 % (18.0-39.1); MEAN CORPUSCULAR HEMOGLOBIN 30.3 pg (28-32); MEAN CORPUSCULAR HGB CONC 31.7 g/dL (31-35); MEAN CORPUSCULAR VOLUME 95.9 fL (81-99); MONOCYTES # (AUTO) 0.8 (0.2-0.8); MONOCYTES % 7.6 % (4.4-11.3); NEUTROPHILS # (AUTO) 8.6 (2.1-6.9); NEUTROPHILS % 83.2 % (38.7-80.0); PLATELET COUNT 211 x10e3/uL (140-360); RED CELL DISTRIBUTION WIDTH 22.2 % (11.7-14.4)
[2020-05-26 08:35] LABS: ANION GAP 12.4 mmol/L (8-16); BLOOD UREA NITROGEN 50 mg/dL (7-26); BUN/CREATININE RATIO 54 (6-25); CALCIUM 8.5 mg/dL (8.4-10.2); CARBON DIOXIDE 37 mmol/L (22-29); CHLORIDE 100 mmol/L (98-107); CREATININE, SERUM 0.92 mg/dL (0.72-1.25); EST GLOMERULAR FILTRATION RATE > 60 ML/MIN (60-); GLUCOSE 108 mg/dL (74-118); POTASSIUM 3.4 mmol/L (3.5-5.1); SODIUM 146 mmol/L (136-145)
[2020-05-26] MEDS ORDERED: DIGOXIN 0.25 MG TAB PO NR ×2 (08:45→12:45)
[2020-05-26] MEDS: PANTOPRAZOLE SOD 40 MG TABEC PO SCH (09:22)
[2020-05-26 09:23] LABS: INR 3.33; PROTHROMBIN TIME 35.3 seconds (11.9-14.5)
[2020-05-26] MEDS: TAMSULOSIN HCL 0.4 MG CAP PO SCH (09:28)
[2020-05-26] MEDS: BENZONATATE 100 MG CAP PO SCH ×3 (09:28→21:13)
[2020-05-26] MEDS: FINASTERIDE 5 MG TAB PO SCH (09:28)
[2020-05-26] MEDS: SENNA-S TABLET PO SCH ×2 (09:28→16:36)
[2020-05-26] MEDS: METOLAZONE 5 MG TAB PO SCH (09:29)
[2020-05-26] MEDS: WARFARIN SOD 1 MG TAB PO SCH (16:34)
[2020-05-26] MEDS: ATORVASTATIN 20 MG TAB PO SCH (21:12)
[2020-05-26] MEDS: INSULIN GLARGINE 100 UNITS/ML VIAL SQ SCH (21:28)
[2020-05-27] VITALS (13 sets, daily range): BP systolic 77–116; BP diastolic 45–81
[2020-05-27] MEDS: ALBUTEROL/IPRATROPIUM 3 ML NEB NEB SCH ×6 (03:05→22:40)
[2020-05-27 04:40] LABS: BASOPHILS % 0.3 % (0.0-1.0); EOSINOPHILS # (AUTO) 0.3 (0.0-0.4); EOSINOPHILS % 2.7 % (0.0-6.0); HEMATOCRIT 26.9 % (38.2-49.6); HEMOGLOBIN 8.6 g/dL (14.0-18.0); LYMPHOCYTES # (AUTO) 0.9 (1.0-3.2); LYMPHOCYTES % 9.4 % (18.0-39.1); MEAN CORPUSCULAR HEMOGLOBIN 30.2 pg (28-32); MEAN CORPUSCULAR VOLUME 94.4 fL (81-99); MONOCYTES # (AUTO) 0.7 (0.2-0.8); NEUTROPHILS # (AUTO) 7.7 (2.1-6.9); NEUTROPHILS % 80.2 % (38.7-80.0); PLATELET COUNT 229 x10e3/uL (140-360); RED BLOOD COUNT 2.85 x10e6/uL (4.3-5.7); RED CELL DISTRIBUTION WIDTH 21.5 % (11.7-14.4)
[2020-05-27 04:52] LABS: INR 3.18; PROTHROMBIN TIME 34.1 seconds (11.9-14.5)
[2020-05-27 05:02] LABS: ALANINE AMINOTRANSFERASE 14 IU/L (0-55); ALBUMIN 2.3 g/dL (3.5-5.0); ALBUMIN/GLOBULIN RATIO 0.4 (0.8-2.0); ALKALINE PHOSPHATASE 165 IU/L (40-150); BLOOD UREA NITROGEN 43 mg/dL (7-26); BUN/CREATININE RATIO 54 (6-25); CALCIUM 8.3 mg/dL (8.4-10.2); CARBON DIOXIDE 38 mmol/L (22-29); CHLORIDE 97 mmol/L (98-107); CREATININE, SERUM 0.79 mg/dL (0.72-1.25); EST GLOMERULAR FILTRATION RATE > 60 ML/MIN (60-); GLUCOSE 118 mg/dL (74-118); SODIUM 142 mmol/L (136-145)
[2020-05-27] MEDS: METOPROLOL TARTRATE 50 MG TAB PO SCH ×2 (06:07→20:51)
[2020-05-27] MEDS: LEVOTHYROXINE SODIUM 125 MCG TAB PO SCH (06:07)
[2020-05-27] MEDS: DIGOXIN 0.125 MG TAB PO SCH (07:37)
[2020-05-27] MEDS: PANTOPRAZOLE SOD 40 MG TABEC PO SCH (07:37)
[2020-05-27] MEDS: TAMSULOSIN HCL 0.4 MG CAP PO SCH (07:37)
[2020-05-27] MEDS: FINASTERIDE 5 MG TAB PO SCH (07:38)
[2020-05-27] MEDS: SENNA-S TABLET PO SCH ×2 (07:38→16:35)
[2020-05-27] MEDS: BENZONATATE 100 MG CAP PO SCH ×3 (07:38→20:50)
[2020-05-27] MEDS: INSULIN LISPRO 100 UNIT/1 ML 3ML VIAL SQ SCH ×3 (08:00→16:35)
[2020-05-27] MEDS ORDERED: POTASSIUM CHLORIDE 10MEQ EA PO ONE (11:15)
[2020-05-27] MEDS: WARFARIN SOD 1 MG TAB PO SCH (16:35)
[2020-05-27] MEDS: ATORVASTATIN 20 MG TAB PO SCH (20:49)
[2020-05-27] MEDS: INSULIN GLARGINE 100 UNITS/ML VIAL SQ SCH (21:00)
[2020-05-27] MEDS: ACETAMINOPHEN 325 MG TAB PO PRN (23:32)
[2020-05-27] MEDS: TRAZODONE HCL 50 MG TAB PO PRN (23:33)
[2020-05-28] VITALS (11 sets, daily range): BP systolic 99–151; BP diastolic 55–92
[2020-05-28] MEDS: ALBUTEROL/IPRATROPIUM 3 ML NEB NEB SCH ×7 (03:05→23:10)
[2020-05-28] MEDS: LEVOTHYROXINE SODIUM 125 MCG TAB PO SCH (06:24)
[2020-05-28] MEDS: INSULIN LISPRO 100 UNIT/1 ML 3ML VIAL SQ SCH ×3 (08:00→15:48)
[2020-05-28] MEDS: PANTOPRAZOLE SOD 40 MG TABEC PO SCH (08:30)
[2020-05-28] MEDS: METOPROLOL TARTRATE 50 MG TAB PO SCH ×2 (08:34→20:01)
[2020-05-28] MEDS: DIGOXIN 0.125 MG TAB PO SCH (08:34)
[2020-05-28] MEDS: TAMSULOSIN HCL 0.4 MG CAP PO SCH (08:34)
[2020-05-28] MEDS: BENZONATATE 100 MG CAP PO SCH ×3 (08:35→20:01)
[2020-05-28] MEDS: FINASTERIDE 5 MG TAB PO SCH (08:35)
[2020-05-28] MEDS: SENNA-S TABLET PO SCH ×2 (08:35→15:48)
[2020-05-28] MEDS: WARFARIN SOD 1 MG TAB PO SCH (15:49)
[2020-05-28] MEDS: ATORVASTATIN 20 MG TAB PO SCH (20:01)
[2020-05-28] MEDS: INSULIN GLARGINE 100 UNITS/ML VIAL SQ SCH (21:00)
[2020-05-28] MEDS: TRAZODONE HCL 50 MG TAB PO PRN (23:09)
[2020-05-29] VITALS (8 sets, daily range): BP systolic 105–137; BP diastolic 52–85
[2020-05-29] MEDS: ACETAMINOPHEN 325 MG TAB PO PRN (01:53)
[2020-05-29] MEDS: ALBUTEROL/IPRATROPIUM 3 ML NEB NEB SCH ×6 (02:30→23:45)
[2020-05-29 04:54] LABS: INR 2.93; PROTHROMBIN TIME 31.9 seconds (11.9-14.5)
[2020-05-29 05:03] LABS: ALANINE AMINOTRANSFERASE 14 IU/L (0-55); ALBUMIN 2.3 g/dL (3.5-5.0); ALBUMIN/GLOBULIN RATIO 0.5 (0.8-2.0); ALKALINE PHOSPHATASE 153 IU/L (40-150); ANION GAP 8.4 mmol/L (8-16); BLOOD UREA NITROGEN 27 mg/dL (7-26); BUN/CREATININE RATIO 38 (6-25); CALCIUM 8.3 mg/dL (8.4-10.2); CARBON DIOXIDE 37 mmol/L (22-29); CHLORIDE 98 mmol/L (98-107); CREATININE, SERUM 0.71 mg/dL (0.72-1.25); EST GLOMERULAR FILTRATION RATE > 60 ML/MIN (60-); GLUCOSE 113 mg/dL (74-118); POTASSIUM 3.4 mmol/L (3.5-5.1); SODIUM 140 mmol/L (136-145)
[2020-05-29] MEDS: LEVOTHYROXINE SODIUM 125 MCG TAB PO SCH (06:09)
[2020-05-29] MEDS: INSULIN LISPRO 100 UNIT/1 ML 3ML VIAL SQ SCH ×3 (08:00→17:00)
[2020-05-29] MEDS: METOPROLOL TARTRATE 50 MG TAB PO SCH ×2 (08:08→20:27)
[2020-05-29] MEDS: PANTOPRAZOLE SOD 40 MG TABEC PO SCH (08:08)
[2020-05-29] MEDS: TAMSULOSIN HCL 0.4 MG CAP PO SCH (08:08)
[2020-05-29] MEDS: DIGOXIN 0.125 MG TAB PO SCH (08:08)
[2020-05-29] MEDS: BENZONATATE 100 MG CAP PO SCH ×3 (08:08→20:26)
[2020-05-29] MEDS: FINASTERIDE 5 MG TAB PO SCH (08:08)
[2020-05-29] MEDS: SENNA-S TABLET PO SCH ×2 (08:08→17:38)
[2020-05-29] MEDS: BALSAM PERU/CASTOR OIL 60 GM OINT...G. TP SCH (08:08)
[2020-05-29] MEDS ORDERED: POTASSIUM CHLORIDE 20 MEQ TAB CR PO ONE (16:00)
[2020-05-29] MEDS: WARFARIN SOD 1 MG TAB PO SCH (17:38)
[2020-05-29] MEDS: ATORVASTATIN 20 MG TAB PO SCH (20:26)
[2020-05-29] MEDS: INSULIN GLARGINE 100 UNITS/ML VIAL SQ SCH (20:26)
[2020-05-29] MEDS: TRAZODONE HCL 50 MG TAB PO PRN (20:26)
[2020-05-29] MEDS: HYDROXYZINE HCL 25 MG TAB PO PRN (22:24)
[2020-05-30] VITALS (9 sets, daily range): BP systolic 113–145; BP diastolic 57–95
[2020-05-30] MEDS: ALBUTEROL/IPRATROPIUM 3 ML NEB NEB SCH ×6 (03:45→22:38)
[2020-05-30] MEDS: LEVOTHYROXINE SODIUM 125 MCG TAB PO SCH (06:31)
[2020-05-30] MEDS: INSULIN LISPRO 100 UNIT/1 ML 3ML VIAL SQ SCH ×3 (08:00→17:00)
[2020-05-30] MEDS: SENNA-S TABLET PO SCH ×2 (09:00→17:21)
[2020-05-30] MEDS: BALSAM PERU/CASTOR OIL 60 GM OINT...G. TP SCH (09:46)
[2020-05-30] MEDS: TAMSULOSIN HCL 0.4 MG CAP PO SCH (09:53)
[2020-05-30] MEDS: BENZONATATE 100 MG CAP PO SCH ×3 (09:53→20:15)
[2020-05-30] MEDS: METOPROLOL TARTRATE 50 MG TAB PO SCH ×2 (09:54→21:05)
[2020-05-30] MEDS: PANTOPRAZOLE SOD 40 MG TABEC PO SCH (09:54)
[2020-05-30] MEDS: FINASTERIDE 5 MG TAB PO SCH (09:54)
[2020-05-30] MEDS: DIGOXIN 0.125 MG TAB PO SCH (09:56)
[2020-05-30] MEDS ORDERED: FUROSEMIDE INJ 10 MG/ML 4 ML VIAL IV ONE ×2 (15:00→17:30)
[2020-05-30] MEDS ORDERED: WARFARIN SOD 2 MG TAB PO SCH (17:00)
[2020-05-30] MEDS ORDERED: POTASSIUM CHLORIDE 10MEQ EA PO ONE (17:30)
[2020-05-30] MEDS: INSULIN GLARGINE 100 UNITS/ML VIAL SQ SCH (21:05)
[2020-05-30] MEDS: ATORVASTATIN 20 MG TAB PO SCH (21:05)
[2020-05-31] VITALS (11 sets, daily range): BP systolic 90–131; BP diastolic 42–73
[2020-05-31] MEDS: ALBUTEROL/IPRATROPIUM 3 ML NEB NEB SCH ×6 (02:44→22:25)
[2020-05-31 06:03] LABS: BASOPHILS % 0.6 % (0.0-1.0); EOSINOPHILS # (AUTO) 0.3 (0.0-0.4); EOSINOPHILS % 3.6 % (0.0-6.0); HEMATOCRIT 26.7 % (38.2-49.6); HEMOGLOBIN 8.6 g/dL (14.0-18.0); LYMPHOCYTES # (AUTO) 0.9 (1.0-3.2); LYMPHOCYTES % 12.4 % (18.0-39.1); MEAN CORPUSCULAR HEMOGLOBIN 30.2 pg (28-32); MEAN CORPUSCULAR HGB CONC 32.2 g/dL (31-35); MEAN CORPUSCULAR VOLUME 93.7 fL (81-99); MONOCYTES # (AUTO) 0.5 (0.2-0.8); MONOCYTES % 7.3 % (4.4-11.3); NEUTROPHILS # (AUTO) 5.3 (2.1-6.9); NEUTROPHILS % 75.7 % (38.7-80.0); PLATELET COUNT 219 x10e3/uL (140-360); RED BLOOD COUNT 2.85 x10e6/uL (4.3-5.7); RED CELL DISTRIBUTION WIDTH 21.1 % (11.7-14.4)
[2020-05-31 06:21] LABS: PROTHROMBIN TIME 32.5 seconds (11.9-14.5)
[2020-05-31 06:27] LABS: ALANINE AMINOTRANSFERASE 11 IU/L (0-55); ALBUMIN 2.3 g/dL (3.5-5.0); ALBUMIN/GLOBULIN RATIO 0.4 (0.8-2.0); ALKALINE PHOSPHATASE 182 IU/L (40-150); ANION GAP 9.6 mmol/L (8-16); BLOOD UREA NITROGEN 17 mg/dL (7-26); BUN/CREATININE RATIO 23 (6-25); CALCIUM 8.4 mg/dL (8.4-10.2); CARBON DIOXIDE 39 mmol/L (22-29); CHLORIDE 98 mmol/L (98-107); CREATININE, SERUM 0.75 mg/dL (0.72-1.25); EST GLOMERULAR FILTRATION RATE > 60 ML/MIN (60-); GLUCOSE 96 mg/dL (74-118); POTASSIUM 3.6 mmol/L (3.5-5.1); SODIUM 143 mmol/L (136-145)
[2020-05-31] MEDS: LEVOTHYROXINE SODIUM 125 MCG TAB PO SCH (06:45)
[2020-05-31] MEDS: INSULIN LISPRO 100 UNIT/1 ML 3ML VIAL SQ SCH ×3 (08:00→16:39)
[2020-05-31] MEDS: PANTOPRAZOLE SOD 40 MG TABEC PO SCH (09:51)
[2020-05-31] MEDS: METOPROLOL TARTRATE 50 MG TAB PO SCH ×2 (09:52→20:23)
[2020-05-31] MEDS: DIGOXIN 0.125 MG TAB PO SCH (09:52)
[2020-05-31] MEDS: FINASTERIDE 5 MG TAB PO SCH (09:52)
[2020-05-31] MEDS: TAMSULOSIN HCL 0.4 MG CAP PO SCH (09:52)
[2020-05-31] MEDS: BENZONATATE 100 MG CAP PO SCH ×3 (09:52→20:23)
[2020-05-31] MEDS: SENNA-S TABLET PO SCH ×2 (09:52→16:34)
[2020-05-31] MEDS: BALSAM PERU/CASTOR OIL 60 GM OINT...G. TP SCH (09:52)
[2020-05-31] MEDS: FUROSEMIDE 40 MG TAB PO SCH (17:14)
[2020-05-31] MEDS: ATORVASTATIN 20 MG TAB PO SCH (20:23)
[2020-05-31] MEDS: INSULIN GLARGINE 100 UNITS/ML VIAL SQ SCH (20:23)
[2020-06-01] VITALS (7 sets, daily range): BP systolic 109–132; BP diastolic 64–80
[2020-06-01] MEDS: ALBUTEROL/IPRATROPIUM 3 ML NEB NEB SCH ×6 (02:00→23:35)
[2020-06-01 05:05] LABS: BASOPHILS % 0.4 % (0.0-1.0); EOSINOPHILS # (AUTO) 0.3 (0.0-0.4); EOSINOPHILS % 3.4 % (0.0-6.0); HEMATOCRIT 26.3 % (38.2-49.6); HEMOGLOBIN 8.6 g/dL (14.0-18.0); LYMPHOCYTES % 13.7 % (18.0-39.1); MEAN CORPUSCULAR HEMOGLOBIN 30.7 pg (28-32); MEAN CORPUSCULAR HGB CONC 32.7 g/dL (31-35); MEAN CORPUSCULAR VOLUME 93.9 fL (81-99); MONOCYTES # (AUTO) 0.5 (0.2-0.8); MONOCYTES % 6.5 % (4.4-11.3); NEUTROPHILS # (AUTO) 5.6 (2.1-6.9); NEUTROPHILS % 75.7 % (38.7-80.0); PLATELET COUNT 224 x10e3/uL (140-360); RED CELL DISTRIBUTION WIDTH 21.3 % (11.7-14.4)
[2020-06-01 05:28] LABS: ALANINE AMINOTRANSFERASE 12 IU/L (0-55); ALBUMIN 2.4 g/dL (3.5-5.0); ALBUMIN/GLOBULIN RATIO 0.5 (0.8-2.0); ALKALINE PHOSPHATASE 153 IU/L (40-150); ANION GAP 8.7 mmol/L (8-16); BLOOD UREA NITROGEN 15 mg/dL (7-26); BUN/CREATININE RATIO 20 (6-25); CALCIUM 8.3 mg/dL (8.4-10.2); CARBON DIOXIDE 38 mmol/L (22-29); CHLORIDE 97 mmol/L (98-107); CREATININE, SERUM 0.74 mg/dL (0.72-1.25); EST GLOMERULAR FILTRATION RATE > 60 ML/MIN (60-); GLUCOSE 101 mg/dL (74-118); INR 3.22; POTASSIUM 3.7 mmol/L (3.5-5.1); PROTHROMBIN TIME 34.4 seconds (11.9-14.5); SODIUM 140 mmol/L (136-145)
[2020-06-01] MEDS: FUROSEMIDE 40 MG TAB PO SCH (05:45)
[2020-06-01] MEDS: LEVOTHYROXINE SODIUM 125 MCG TAB PO SCH (05:46)
[2020-06-01] MEDS: INSULIN LISPRO 100 UNIT/1 ML 3ML VIAL SQ SCH ×3 (07:47→17:08)
[2020-06-01] MEDS: DIGOXIN 0.125 MG TAB PO SCH (08:34)
[2020-06-01] MEDS: METOPROLOL TARTRATE 50 MG TAB PO SCH ×2 (08:34→21:07)
[2020-06-01] MEDS: FINASTERIDE 5 MG TAB PO SCH (08:34)
[2020-06-01] MEDS: TAMSULOSIN HCL 0.4 MG CAP PO SCH (08:34)
[2020-06-01] MEDS: SENNA-S TABLET PO SCH ×2 (08:34→16:22)
[2020-06-01] MEDS: BENZONATATE 100 MG CAP PO SCH ×3 (08:34→21:29)
[2020-06-01] MEDS: PANTOPRAZOLE SOD 40 MG TABEC PO SCH (08:34)
[2020-06-01] MEDS: BALSAM PERU/CASTOR OIL 60 GM OINT...G. TP SCH (08:34)
[2020-06-01] MEDS: FUROSEMIDE INJ 10 MG/ML 4 ML VIAL IV SCH ×2 (11:18→21:06)
[2020-06-01] MEDS: ATORVASTATIN 20 MG TAB PO SCH (21:07)
[2020-06-01] MEDS: TRAZODONE HCL 50 MG TAB PO PRN (21:29)
[2020-06-01] MEDS: INSULIN GLARGINE 100 UNITS/ML VIAL SQ SCH (21:30)
[2020-06-02 02:57] VITALS: BP 120/82
[2020-06-02 04:42] LABS: BASOPHILS % 0.4 % (0.0-1.0); EOSINOPHILS # (AUTO) 0.3 (0.0-0.4); EOSINOPHILS % 4.3 % (0.0-6.0); HEMATOCRIT 26.1 % (38.2-49.6); HEMOGLOBIN 8.2 g/dL (14.0-18.0); LYMPHOCYTES # (AUTO) 1.1 (1.0-3.2); LYMPHOCYTES % 15.5 % (18.0-39.1); MEAN CORPUSCULAR HEMOGLOBIN 29.9 pg (28-32); MEAN CORPUSCULAR HGB CONC 31.4 g/dL (31-35); MEAN CORPUSCULAR VOLUME 95.3 fL (81-99); MONOCYTES # (AUTO) 0.5 (0.2-0.8); MONOCYTES % 7.4 % (4.4-11.3); NEUTROPHILS # (AUTO) 4.9 (2.1-6.9); PLATELET COUNT 215 x10e3/uL (140-360); RED BLOOD COUNT 2.74 x10e6/uL (4.3-5.7); RED CELL DISTRIBUTION WIDTH 21.3 % (11.7-14.4)
[2020-06-02 05:01] LABS: ALANINE AMINOTRANSFERASE 11 IU/L (0-55); ALBUMIN 2.2 g/dL (3.5-5.0); ALBUMIN/GLOBULIN RATIO 0.4 (0.8-2.0); ALKALINE PHOSPHATASE 176 IU/L (40-150); ANION GAP 8.5 mmol/L (8-16); BLOOD UREA NITROGEN 16 mg/dL (7-26); BUN/CREATININE RATIO 23 (6-25); CALCIUM 8.1 mg/dL (8.4-10.2); CARBON DIOXIDE 40 mmol/L (22-29); CHLORIDE 96 mmol/L (98-107); CREATININE, SERUM 0.71 mg/dL (0.72-1.25); EST GLOMERULAR FILTRATION RATE > 60 ML/MIN (60-); GLUCOSE 80 mg/dL (74-118); POTASSIUM 3.5 mmol/L (3.5-5.1); SODIUM 141 mmol/L (136-145)
[2020-06-02 05:04] VITALS: BP 125/80
[2020-06-02] MEDS: LEVOTHYROXINE SODIUM 125 MCG TAB PO SCH (06:19)
[2020-06-02] MEDS: ALBUTEROL/IPRATROPIUM 3 ML NEB NEB SCH ×4 (07:00→20:00)
[2020-06-02] MEDS: INSULIN LISPRO 100 UNIT/1 ML 3ML VIAL SQ SCH ×3 (07:10→17:00)
[2020-06-02 07:12] VITALS: BP 95/38
[2020-06-02 07:14] VITALS: BP 95/38
[2020-06-02] MEDS: TAMSULOSIN HCL 0.4 MG CAP PO SCH (08:31)
[2020-06-02] MEDS: PANTOPRAZOLE SOD 40 MG TABEC PO SCH (08:31)
[2020-06-02] MEDS: BENZONATATE 100 MG CAP PO SCH ×2 (08:31→17:14)
[2020-06-02] MEDS: SENNA-S TABLET PO SCH ×2 (08:31→17:15)
[2020-06-02] MEDS: FINASTERIDE 5 MG TAB PO SCH (08:31)
[2020-06-02] MEDS: DIGOXIN 0.125 MG TAB PO SCH (08:31)
[2020-06-02] MEDS: METOPROLOL TARTRATE 50 MG TAB PO SCH (08:31)
[2020-06-02] MEDS: FUROSEMIDE INJ 10 MG/ML 4 ML VIAL IV SCH (08:31)
[2020-06-02] MEDS: BALSAM PERU/CASTOR OIL 60 GM OINT...G. TP SCH (08:32)
[2020-06-02] MEDS ORDERED: BUPROPION HCL 75 MG TAB PO SCH (09:00)
[2020-06-02] MEDS ORDERED: POTASSIUM CHLORIDE 20 MEQ TAB CR PO ONE (09:30)
[2020-06-02 12:07] VITALS: BP 117/58
[2020-06-02 16:00] VITALS: BP 123/58
[2020-06-02] MEDS ORDERED: WARFARIN SOD 1 MG TAB PO SCH (17:00)
[2020-06-02] MEDS ORDERED: WARFARIN SOD 2 MG TAB PO SCH (17:00)
[2020-06-02] MEDS ORDERED: TRAZODONE HCL 50 MG TAB PO PRN ×2 (21:00)
== END 2020-06-02 20:50 | DRG 291 ==
LOC: ER 15:50 → ERHOLD 20:36 → MED/SURG3 22:29 → ICU 05-22 18:10 → MED/SURG2 05-28 11:40 → IMCU 05-28 20:53
PROVIDERS: ADMIT Internal Medicine; ATTEND Internal Medicine
PROC: 5A09357 Assistance with Respiratory Ventilation, Less than 24 Consecutive Hours, Continuous Positive Airway Pressure (ICD-10-PCS; principal; 2020-05-22)
DX: I13.0 Hypertensive heart and chronic kidney disease with heart failure and stage 1 through stage 4 chronic kidney disease, or unspecified chronic kidney disease (principal); I50.23 Acute on chronic systolic (congestive) heart failure; G92 Toxic encephalopathy; J18.9 Pneumonia, unspecified organism; J96.01 Acute respiratory failure with hypoxia; N17.9 Acute kidney failure, unspecified; I48.20 Chronic atrial fibrillation, unspecified; F32.1 Major depressive disorder, single episode, moderate; I25.10 Atherosclerotic heart disease of native coronary artery without angina pectoris; Z89.611 Acquired absence of right leg above knee; Z95.810 Presence of automatic (implantable) cardiac defibrillator; E66.9 Obesity, unspecified; E11.22 Type 2 diabetes mellitus with diabetic chronic kidney disease; N18.30 Chronic kidney disease, stage 3 unspecified; J44.9 Chronic obstructive pulmonary disease, unspecified; N40.0 Benign prostatic hyperplasia without lower urinary tract symptoms; E03.9 Hypothyroidism, unspecified; Z20.828 Contact with and (suspected) exposure to other viral communicable diseases; Z95.1 Presence of aortocoronary bypass graft; Z86.19 Personal history of other infectious and parasitic diseases; Z95.2 Presence of prosthetic heart valve; E87.5 Hyperkalemia; G47.33 Obstructive sleep apnea (adult) (pediatric); E88.09 Other disorders of plasma-protein metabolism, not elsewhere classified; D64.9 Anemia, unspecified; R53.81 Other malaise; E87.6 Hypokalemia; E83.42 Hypomagnesemia; Z79.4 Long term (current) use of insulin; Z68.29 Body mass index [BMI] 29.0-29.9, adult
CPT/HCPCS: 36415; 36600; 71045; 71250; 76604; 80048; 80053; 81001; 82040; 82140; 82550; 82553; 82607; 82805; 82948; 83735; 83880; 84436; 84443; 84479; 84484; 85025; 85610; 85730; 87040; 87086; 93005; 94640; 94660; 96372; 97139; 99251; 99285; J0692; J1815; J1817; J1940; J3370; J3410; J3475; J7050; J7799; U0002